=== PATIENT | female | born 1950 | race Caucasian/White ===

== ENCOUNTER 2020-05-11 08:17 | Outpatient (CLI) | payer MEDICARE, SELFPAY ==
--- NOTE | ~2020-05-11 | CT_ITS ---
EXAMINATION: CT lung screening EXAM DATE: 05/11/2020 08:57 INDICATION: Personal history of nicotine dependence. TECHNIQUE: Spiral low dose CT of the chest without contrast. Axial, coronal and sagittal images were reviewed. The dose-length product (DLP) for this examination was 172.26 mGy-cm. The exposure was t ailored according to patient size (auto mA exposure control), and iterative reconstruction (ASIR) was used as additional dose reduction technique. Comparison is made to prior examination from 09/12/2019 . FINDINGS: There is improvement in the amount of endobronchial debris within the right-sided tracheob ronchial system. There is persistent small scattered regions of debris within the right middle lobe b ronchi, with completely collapsed right middle lobe but no focal endobronchial lesion suspected. Prev iously seen scattered right basilar predominant nodular opacities have nearly resolved. There is mild emphysema and hyperinflation. There is no mediastinal, hilar or axillary lymphadenopathy. There a re no pleural or pericardial effusions. There is no pneumothorax. Heart normal in size. There i s moderate coronary arterial calcification, arterial sclerosis. There are cholecystectomy clips. S mall left adrenal adenoma. There is thoracic spondylosis without osteoblastic or osteolytic lesions identified. Mild compression fractures T11 and T12. IMPRESSION: Lung-RADS category 2, benign appearance or behavior (<1% chance of malignancy); recommend continued LDCT screening in 1 year. Reviewed, dictated and finalized at location A.
== END 2020-05-11 08:18 | disposition home or self-care (01) ==
PROVIDERS: PCP Family Medicine; Visit Provider Internal Medicine Critical Care Medicine
DX: Z12.2 Encounter for screening for malignant neoplasm of respiratory organs (principal); Z87.891 Personal history of nicotine dependence
CPT/HCPCS: G0297

== ENCOUNTER 2020-08-04 08:20 | Outpatient (CLI) | payer MEDICARE, SELFPAY ==
--- NOTE | ~2020-08-04 | MM_ITS ---
EXAMINATION: MM screening [facility] BI w salazar HISTORY: Screening mammogram TECHNIQUE: Craniocaudal and mediolateral oblique 3-D tomosynthesis images were obtained and synthetic 2-D images were generated. CAD analysis was submitted and interpreted. COMPARISON: 05/16/2019, 03/23/2016, 05/02/2013 BREAST PARENCHYMAL COMPOSITION: There are scattered areas of fibroglandular density. FINDINGS: RIGHT BREAST: An asymmetry is present in the anterior third of the inner breast approximately 2.5 cm from the nipple on the craniocaudal view. LEFT BREAST: There is no evidence of suspicious mass, calcification, or architectural distortion to s uggest malignancy. There has been no significant interval change. IMPRESSION: 1. Right breast asymmetry on the craniocaudal view. 2. Additional mammographic views and possible breast ultrasound are recommended. BI-RADS Category 0: Incomplete: Needs additional imaging evaluation. Reviewed, dictated and finalized at location A. IMPRESSION: 1. Right breast asymmetry on the craniocaudal view. 2. Additional mammographic views and possible breast ultrasound are recommended . BI-RADS Category 0: Incomplete: Needs additional imaging evaluation.
== END 2020-08-04 08:21 | disposition home or self-care (01) ==
LOC: ANHIMG 08:22
PROVIDERS: PCP Family Medicine; Visit Provider Physician Assistant
DX: Z12.31 Encounter for screening mammogram for malignant neoplasm of breast (principal)
CPT/HCPCS: 77063; 77067

== ENCOUNTER 2020-09-24 11:42 | Outpatient (CLI) | payer MEDICARE, SELFPAY ==
--- NOTE | ~2020-09-24 | MM_ITS ---
EXAMINATION: MM diagnostic mammo unilat RT HISTORY: Right breast asymmetry on craniocaudal screening view of 08/04/2020 TECHNIQUE: Additional full field ML and spot CC 3-D tomosynthesis images of the right breast were per formed and synthetic 2-D images were generated. Rolled medial and rolled lateral craniocaudal views. CAD analysis was submitted and interpreted. COMPARISON: 08/04/2020 bilateral digital screening mammogram FINDINGS: No reproducible mass or architectural distortion is evident on these supplemental views. IMPRESSION: 1. No mammographic evidence of malignancy 2. Routine annual mammographic screening is recommended. BI-RADS Category 1: Negative Reviewed, dictated and finalized at location A. L MAKER LOCKSTITCH
== END 2020-09-24 11:43 | disposition home or self-care (01) ==
LOC: ANHIMG 11:43
PROVIDERS: PCP Family Medicine; Visit Provider Family Medicine
DX: R92.8 Other abnormal and inconclusive findings on diagnostic imaging of breast (principal)
CPT/HCPCS: 77065

== ENCOUNTER 2021-01-24 09:16 | Outpatient (CLI) | payer MEDICARE, SELFPAY ==
--- NOTE | ~2021-01-24 | XR_ITS ---
EXAMINATION: XR hip LT min 2V DATE: 01/24/2021 09:32 INDICATION: 5 months of left hip pain TECHNIQUE: Anteroposterior and frog-leg lateral views of the left hip were obtained. COMPARISON: None. FINDINGS: Alignment is normal. No fracture or suspected avascular necrosis. Mild left hip osteoarthritis with m ild axial predominant nonuniform joint space narrowing and with marginal osteophytes about the acetab ulum and femoral head. Additional mild osteoarthritis at the bilateral sacroiliac joints. Small ovoid calcification projecting over the proximal left femoral diaphysis either a bone island or heterotopi c ossicle within the superimposed soft tissues. Cluster of coarse calcifications in the pelvis likely degenerated uterine fibroid. Scattered atherosclerotic calcifications in the pelvis and along the fe moral artery at the medial left thigh. IMPRESSION: 1. 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 Reviewed, dictated and finalized at location B. IMPRESSION: 1. Mild polyarticular osteoarthritis at the left hip and bilateral sacroiliac j oints.
== END 2021-01-24 09:17 | disposition home or self-care (01) ==
PROVIDERS: PCP Family Medicine; Visit Provider Family Medicine
DX: M25.552 Pain in left hip (principal); M16.0 Bilateral primary osteoarthritis of hip
CPT/HCPCS: 73502

== ENCOUNTER 2021-09-23 01:20 | Day surgery (SDC) | payer MEDICARE, SELFPAY ==
[2021-09-06 13:03] VITALS: BMI 33.7
--- NOTE | 2021-09-22 15:22 | PM.HPGS ---
History of Present Illness History of Present Illness Consent: Risks, benefits, and alternatives have been discussed and questions answered. Patient agrees to proceed with procedure. Chief complaint: hx colon polyp Narrative: Lori Riddle is a 71 year old female who had 9 or 10 polyps removed nearly 3 years ago. Most of the polyps were tubular adenomas Review of Systems Review of Systems: All systems reviewed & are unremarkable except as noted in HPI and below PMFSH Past Medical History Medical History Chronic obstructive pulmonary disease, unspecified Colonic polyp Diabetes mellitus type 2, uncontrolled DM w/o complication type II, uncontrolled Essential hypertension Foot pain, bilateral Former smoker Hyperplastic colonic polyp Hypoxia Mixed hyperlipidemia Obesity Obstructive sleep apnea (adult) (pediatric) Peripheral neuropathy Positive colorectal cancer screening using DNA-based stool test Presence of intraocular lens UTI (urinary tract infection) Yeast infection Surgical History Surgical History History of cholecystectomy Family History Family History Father Hypertension Family history of kidney disease Family history of diabetes mellitus in first degree relative Mother Hypertension Social History Social History Smoking packs per day: 1.5 Smoking cigarettes per day: 30.0 Years smoked: 35 Smoking pack-years: 52.50 Smoking status: Former smoker Tobacco type: cigarettes Second hand tobacco smoke exposure: Yes Smoking end date: 10/22/16 Alcohol intake: never Substance use: never Substance use type: does not use Living arrangements: with family Gender identity (if verbalized by the patient): Female Spiritual care concerns: No Meds Home Medications and Allergies Home Medications Medication Instructions Recorded Confirmed Type blood sugar diagnostic #100 each 06/11/20 09/13/21 Rx lancets #200 each 06/11/20 09/13/21 Rx blood-glucose meter #1 each 06/14/20 09/13/21 Rx glimepiride 4 mg tablet See Rx Instructions .ROUTE 05/17/21 09/13/21 Rx .COMPLEX #30 tablet metformin 500 mg tablet,extended 500 mg PO .COMPLEX #120 tablet 05/30/21 09/13/21 Rx release 24hr hydrochlorothiazide 25 mg tablet See Rx Instructions .ROUTE 09/06/21 09/13/21 Rx .COMPLEX #90 tablet pravastatin 40 mg tablet See Rx Instructions .ROUTE 09/06/21 09/13/21 Rx .COMPLEX #90 tablet losartan 100 mg tablet 100 mg PO DAILY #90 tablet 09/19/21 Rx Allergies Allergy/AdvReac Type Severity Reaction Status Date / Time fenofibrate Allergy Unknown unk Verified 09/23/21 08:08 Exam Resp: Auscultation: clear to auscultation bilaterally Cardio: Rate: regular rate Rhythm: regular rhythm GI: GI Palp: Yes Soft to palpation and No Tenderness to palpation present (GI) Assessment and Plan Assessment and plan (1) Colon cancer screening: Code(s): Z12.11 - Encounter for screening for malignant neoplasm of colon Status: Acute Assessment and Plan: Colonoscopy with possible biopsy or polypectomy or cautery or injection of substances.
[2021-09-23 08:09] VITALS: BP 135/56; PULSE 73; RESP 18; TEMP 36.4; O2SAT 95; BMI 32.9
[2021-09-23] MEDS: LACTATED RINGERS 1,000 ML 150 ML IV CONT (08:12)
[2021-09-23 08:24] LABS: Glucose Point of Care 188 mg/dl (65-105)
--- NOTE | 2021-09-23 08:25 | WPDANESEPPF ---
Anes - Initial Pre Proc Eval Procedure: Operation Date: 09/23/21 09:00 Proposed Procedures p Screening Colonoscopy - Spencer Gaxiola MD Date/Time: 09/23/21 08:25 Surgeon: Spencer Gaxiola MD Pre Op Diagnosis: hx colon polyp Patient Data Age: 71 Gender: F Height: 1.65 m Weight: 89.7 kg Last Vital Signs Temp 36.4 C L 09/23/21 08:09 Pulse 73 09/23/21 08:09 Resp 18 09/23/21 08:09 BP 135/56 L 09/23/21 08:09 Pulse Ox 95 09/23/21 08:09 Allergies Allergy/AdvReac Type Severity Reaction Status Date / Time fenofibrate Allergy Unknown unk Verified 09/23/21 08:08 Home Medications Medication Instructions Recorded Confirmed Type blood sugar diagnostic #100 each 06/11/20 09/13/21 Rx lancets #200 each 06/11/20 09/13/21 Rx blood-glucose meter #1 each 06/14/20 09/13/21 Rx glimepiride 4 mg tablet See Rx Instructions .ROUTE 05/17/21 09/13/21 Rx .COMPLEX #30 tablet metformin 500 mg tablet,extended 500 mg PO .COMPLEX #120 tablet 05/30/21 09/13/21 Rx release 24hr hydrochlorothiazide 25 mg tablet See Rx Instructions .ROUTE 09/06/21 09/13/21 Rx .COMPLEX #90 tablet pravastatin 40 mg tablet See Rx Instructions .ROUTE 09/06/21 09/13/21 Rx .COMPLEX #90 tablet losartan 100 mg tablet 100 mg PO DAILY #90 tablet 09/19/21 Rx Laboratory Tests 09/23/21 08:21 POC Capillary Glucose 188 mg/dl H mg/dl (65-105) Patient hx anesthesia problems: none Family hx anesthesia problems: none Results Review: All pre-operative results and documents have been reviewed as part of the pre-operative evaluation. [facility] Past Medical History Medical History Chronic obstructive pulmonary disease, unspecified Colonic polyp Diabetes mellitus type 2, uncontrolled DM w/o complication type II, uncontrolled Essential hypertension Foot pain, bilateral Former smoker Hyperplastic colonic polyp Hypoxia Mixed hyperlipidemia Obesity Obstructive sleep apnea (adult) (pediatric) Peripheral neuropathy Positive colorectal cancer screening using DNA-based stool test Presence of intraocular lens UTI (urinary tract infection) Yeast infection Surgical History Surgical History History of cholecystectomy Family History Family History Father Hypertension Family history of kidney disease Family history of diabetes mellitus in first degree relative Mother Hypertension Social History Social History Smoking packs per day: 1.5 Smoking cigarettes per day: 30.0 Years smoked: 35 Smoking pack-years: 52.50 Smoking status: Former smoker Tobacco type: cigarettes Second hand tobacco smoke exposure: Yes Smoking end date: 10/22/16 Alcohol intake: never Substance use: never Substance use type: does not use Living arrangements: with family Gender identity (if verbalized by the patient): Female Spiritual care concerns: No Anes - Eval Final PreProcedure Day of Procedure 09/23/21 08:25 Patient weight: obese Heart: regular rate and rhythm Lungs: clear to auscultation Airway: Mallampati scale class II Neurological: alert and oriented Last oral intake: >/= 8 hours ASA classification: III Emergent: no Anesthetic plan: proceed Anesthesia type and monitoring: general GIVS and standard monitoring Results Review: All pre-operative results and documents have been reviewed as part of the pre-operative evaluation. Informed Consent: The patient's anesthetic plan and its attendant risks and benefits were discussed with the patient/family/POA. Questions were solicited and answers provided to the satisfaction of the patient/family/POA.
[2021-09-23] MEDS: SIMETHICONE ORAL SUSPENSION 20 MG/0.3 ML 30 ML BOTTLE 0.6 ML IRRIGATION (08:56)
[2021-09-23 09:17] VITALS: BP 87/64; PULSE 71; RESP 18; O2SAT 93
[2021-09-23 09:27] VITALS: BP 112/52; PULSE 65; RESP 18; O2SAT 94
[2021-09-23 09:35] VITALS: BP 128/61; PULSE 65; RESP 18; O2SAT 98
== END 2021-09-23 09:42 | disposition home or self-care (01) ==
PROVIDERS: PCP Family Medicine; Visit Provider Internal Medicine Gastroenterology
PROC: 0DJD8ZZ Inspection of Lower Intestinal Tract, Via Natural or Artificial Opening Endoscopic (ICD-10-PCS; CPT 45378; principal; 2021-09-23 09:00)
DX: Z12.11 Encounter for screening for malignant neoplasm of colon (principal); K57.30 Diverticulosis of large intestine without perforation or abscess without bleeding; D12.2 Benign neoplasm of ascending colon; D12.5 Benign neoplasm of sigmoid colon; K62.1 Rectal polyp; J44.9 Chronic obstructive pulmonary disease, unspecified; E11.9 Type 2 diabetes mellitus without complications; I10 Essential (primary) hypertension; E78.2 Mixed hyperlipidemia; G47.33 Obstructive sleep apnea (adult) (pediatric); E11.42 Type 2 diabetes mellitus with diabetic polyneuropathy; Z79.84 Long term (current) use of oral hypoglycemic drugs; Z87.891 Personal history of nicotine dependence; E66.9 Obesity, unspecified; Z68.32 Body mass index [BMI] 32.0-32.9, adult
CPT/HCPCS: 45385; 45381; 82948; 88305; J2704; J7120

== ENCOUNTER 2021-10-05 12:48 | Outpatient (CLI) | payer MEDICARE, SELFPAY ==
--- NOTE | ~2021-10-05 | CT_ITS ---
EXAMINATION: CT lung screening DATE: 10/05/2021 13:53 INDICATION: Nicotine dependence. COPD. TECHNIQUE: Computed tomography (CT) of the chest was performed without intravenous contrast. The dose -length product was 199.11 mGy-cm. Automated exposure control and iterative reconstruction technique were employed. COMPARISON: CT dated 05/11/2021 FINDINGS: There is improved right middle lobe atelectasis/scarring. There is atherosclerosis of the a dayne and coronary arteries. Heart size is normal. No significant pleural or pericardial effusion. The re are borderline size mediastinal lymph nodes, likely reactive. No significant soft tissue abnormali ty. Stable small left adrenal adenoma. There are cholecystectomy clips. There is a 2 mm nodule in the right upper lobe, likely benign. There are a few 1-2 mm nodules in the lung apices. There are stable mild superior endplate compression fractures of T11 and T12. Mild thoracic spondylosis. IMPRESSION: 1. Lung-RADS category 2: Benign appearance or behavior. Continue annual screening with noncontrast lo w-dose chest CT in 12 months. Reviewed, dictated and finalized at location A. CITING FREIGHT AGENT IMPRESSION: 1. Lung-RADS category 2: Benign appearance or behavior. Continue annual screeni ng with noncontrast low-dose chest CT in 12 months.
--- NOTE | 2021-10-05 16:45 | SIXMIN_ITS ---
This report was recreated on the correct visit, [id number], on March 14, 2022. Original report was signed by Dr. Tyler Chapin on 10/05/21 at 16:45. Six Minute Walk Procedure Procedure Performed Pulmonary Stress Test (6 min walk) Six Minute Walk This is a 6 minute walk test. The test was performed and interpreted in accordance with the 2014 ERS/ATS task force guidelines. Findings: The patient's resting room air oxygen saturation measured by pulse oximetry was 94% and heart rate was 79 bpm. Patient ambulated for 274 meters and oxygen saturation remained 89 to 90%. Heart rate at the end of the study was 86 bpm. The patient did not qualify for supplemental oxygen at rest or with ambulation. There are no prior studies for comparison. This dictation may have been done utilizing a voice recognition system. Attempts have been made to correct errors. However, there may be uncorrected grammatical, spelling, and recognition errors present. Report Initialized date/time: Tyler Chapin MD 10/05/21 / 6 Electronically signed by: Tyler Chapin MD 10/05/21 1453 [facility]
--- NOTE | 2022-03-14 13:14 | WPDPFTINT ---
PFT Procedure Performed PFT Procedure Performed Spirometry with Pre/Post Bronchodilator Plethysmography (Lung Vol) Diffusing Cap (DLCO) Flow Vol Loop PFT Interpretation Lung volumes were measured with the body plethysmography method. The elevated FRC and RV could be related to air trapping. Spirometry showed diminished expiratory flow rates and a diminished FEV1 to FVC ratio 56%, indicative of obstructive airway disease. Following administration of a bronchodilator there was significant increase in the FVC. Lung diffusion capacity is moderately reduced at 51% predicted. The flow volume loop is consistent with obstructive airway disease. Impression: Moderately severe obstructive airway disease with evidence of air trapping and significant response to bronchodilators on this testing. Moderately reduced lung diffusion capacity.
== END 2021-10-05 12:49 | disposition home or self-care (01) ==
LOC: ANHIMG 12:48
PROVIDERS: PCP Family Medicine; Visit Provider Nurse Practitioner Family
DX: Z12.2 Encounter for screening for malignant neoplasm of respiratory organs (principal); Z87.891 Personal history of nicotine dependence
CPT/HCPCS: 71271; 94060; 94618; 94726; 94729

== ENCOUNTER 2021-10-12 10:20 | Emergency (ER) | payer MEDICARE, SELFPAY ==
--- NOTE | ~2021-10-12 | XR_ITS ---
EXAMINATION: XR foot LT min 3V DATE: 10/12/2021 12:17 INDICATION: Left foot pain. Fall. TECHNIQUE: 4 views of left foot were obtained. COMPARISON: None. FINDINGS: There is an oblique fracture of diaphysis of fifth metatarsal. The distal fracture fragment demonstrates 3 mm dorsomedial displacement. There is mild osteoarthritis of first interphalangeal cornell int. There are enthesophytes at the posterior and plantar aspects of calcaneal tuberosity. There are dystrophic calcifications dorsal to the midfoot. IMPRESSION: 1. Oblique fracture of diaphysis of fifth metatarsal. Reviewed, dictated and finalized at location A. NG SUPERVISOR
[2021-10-12 10:22] VITALS: BP 156/67; PULSE 78; RESP 18; TEMP 36.3; O2SAT 98
--- NOTE | 2021-10-12 11:57 | ED.GENADULT ---
HPI - General Adult General Chief complaint: Extremity Injury, Lower <Ericka Joseph PA-C - Last Filed: 10/12/21 13:32> Stated complaint: fall, foot pain <Ericka Joseph PA-C - Last Filed: 10/12/21 13:32> Time Seen by Provider: 10/12/21 11:56 <Ericka Joseph PA-C - Last Filed: 10/12/21 13:32> Source: patient <Ericka Joseph PA-C - Last Filed: 10/12/21 13:32> Mode of arrival: ambulatory <Ericka Joseph PA-C - Last Filed: 10/12/21 13:32> Limitations: no limitations <Ericka Joseph PA-C - Last Filed: 10/12/21 13:32> History of Present Illness HPI narrative: 71-year-old female who was outside on her patio with her puppy yesterday when she stumbled and fell onto her left side. She did fall onto grass. Since that time she is had significant pain in her left foot, she has been able to to ambulate with the use of her cane. And she has not taken anything for the pain at home. <Ericka Joseph PA-C - Last Filed: 10/12/21 13:32> Onset (ago): day(s) <Ericka Joseph PA-C - Last Filed: 10/12/21 13:32> Severity: moderate <Ericka Joseph PA-C - Last Filed: 10/12/21 13:32> Relieving factors: immobilization <AMBER Morrison Last Filed: 10/12/21 13:32> Exacerbating factors: movement <Ericka Joseph PA-C - Last Filed: 10/12/21 13:32> Associated symptoms: denies other symptoms <Ericka Joseph PA-C - Last Filed: 10/12/21 13:32> Treatments prior to arrival: none <Ericka Joseph PA-C - Last Filed: 10/12/21 13:32> Related Data Allergies/adverse reactions: Allergies Allergy/AdvReac Type Severity Reaction Status Date / Time fenofibrate Allergy Unknown unk Verified 09/23/21 08:08 <Ericka Joseph PA-C - Last Filed: 10/12/21 13:32> Review of Systems Review of Systems: All systems reviewed & are unremarkable except as noted in HPI and below <Ericka Joseph PA-C - Last Filed: 10/12/21 13:32> [facility] Past Medical History Medical History: Medical History Chronic obstructive pulmonary disease, unspecified Colonic polyp Diabetes mellitus type 2, uncontrolled DM w/o complication type II, uncontrolled Essential hypertension Foot pain, bilateral Former smoker Hyperplastic colonic polyp Hypoxia Mixed hyperlipidemia Obesity Obstructive sleep apnea (adult) (pediatric) Peripheral neuropathy Positive colorectal cancer screening using DNA-based stool test Presence of intraocular lens UTI (urinary tract infection) Yeast infection <Ericka Joseph PA-C - Last Filed: 10/12/21 13:32> Surgical History Surgical History: Surgical History History of cholecystectomy <Ericka Joseph PA-C - Last Filed: 10/12/21 13:32> Family History Family History: Family History Father Hypertension Family history of kidney disease Family history of diabetes mellitus in first degree relative Mother Hypertension <Ericka Joseph PA-C - Last Filed: 10/12/21 13:32> Social History Social History: Social History Smoking packs per day: 1.5 Smoking cigarettes per day: 30.0 Years smoked: 35 Smoking pack-years: 52.50 Smoking status: Former smoker Tobacco type: cigarettes Second hand tobacco smoke exposure: Yes Smoking end date: 10/22/16 Alcohol intake: never Substance use: never Substance use type: does not use Gender identity (if verbalized by the patient): Female Spiritual care concerns: No <Ericka Joseph PA-C - Last Filed: 10/12/21 13:32> Exam Const: General: no acute distress and alert <Ericka Joseph PA-C - Last Filed: 10/12/21 13:32> Orientation/consciousness: patient oriented x3 <Ericka Joseph PA-C - Last Filed: 10/12/21 13:32> HENMT: Head: normal to inspect
== END 2021-10-12 14:07 | disposition home or self-care (01) ==
PROVIDERS: Emergency Provider General Practice; PCP Family Medicine
DX: S92.352A Displaced fracture of fifth metatarsal bone, left foot, initial encounter for closed fracture (principal); W01.0XXA Fall on same level from slipping, tripping and stumbling without subsequent striking against object, initial encounter
CPT/HCPCS: 73630; 99284

== ENCOUNTER 2021-11-03 09:07 | Outpatient (CLI) | payer MEDICARE, SELFPAY ==
--- NOTE | ~2021-11-03 | MM_ITS ---
EXAMINATION: MM screening [facility] BI w salazar HISTORY: Screening TECHNIQUE: Craniocaudal and mediolateral oblique 3-D tomosynthesis images were obtained and synthetic 2-D images were generated. CAD analysis was submitted and interpreted. COMPARISON: Comparison to multiple prior studies sequentially, with oldest reviewed study dated 05/02. BREAST PARENCHYMAL COMPOSITION: There are scattered areas of fibroglandular density. FINDINGS: There is no evidence of suspicious mass, calcification, or architectural distortion to sugg est malignancy in either breast. There has been no suspicious interval change. IMPRESSION: 1. No mammographic evidence of malignancy. 2. Recommend routine screening mammography in one year. BI-RADS Category 1: Negative Reviewed, dictated and finalized at location A. CULATION OFFICER
== END 2021-11-03 09:08 | disposition home or self-care (01) ==
LOC: ANHIMG 09:08
PROVIDERS: PCP Family Medicine; Visit Provider Family Medicine
DX: Z12.31 Encounter for screening mammogram for malignant neoplasm of breast (principal)
CPT/HCPCS: 77063; 77067

== ENCOUNTER 2021-11-21 11:38 | Outpatient (CLI) | payer MEDICARE, SELFPAY ==
--- NOTE | ~2021-11-21 | US_ITS ---
EXAMINATION: US venous doppler [facility] DATE: 11/21/2021 12:00 INDICATION: Left lower limb pain. TECHNIQUE: Grayscale ultrasound images without and with compression and Doppler ultrasound images of the left lower extremity veins were obtained. COMPARISON: Ultrasound 12/08/2012 FINDINGS: The visualized portions of left common femoral vein, profunda (deep) femoral vein, femoral vein, popl iteal vein, peroneal veins, posterior tibial veins, and greater saphenous vein outflow are patent. IMPRESSION: 1. No deep venous thrombosis. Reviewed, dictated and finalized at location A. ONE BREAKER
== END 2021-11-21 11:39 | disposition home or self-care (01) ==
LOC: ANHIMG 11:41
PROVIDERS: PCP Family Medicine; Visit Provider Family Medicine
DX: M79.671 Pain in right foot (principal); M79.672 Pain in left foot; M79.89 Other specified soft tissue disorders; M79.669 Pain in unspecified lower leg
CPT/HCPCS: 93971

== ENCOUNTER 2022-08-23 11:49 | Outpatient (CLI) | payer MEDICARE, SELFPAY ==
[2022-08-23 12:15] LABS: Hematocrit 36.9 % (37.0-47.0); Hemoglobin 12.3 g/dL (12.0-15.0)
--- NOTE | 2022-08-23 12:21 | ECG_ITS ---
Measurements Intervals [place] Rate: 64 P: 7 IA: 133 QRS: 50 QRSD: 94 T: 39 QT: 382 QTc: 395 Interpretive Statements SINUS RHYTHM INCOMPLETE RIGHT BUNDLE BRANCH BLOCK BASELINE WANDER- I, II, AVR, AVL, AVF, V1-V3 BORDERLINE ECG NO PREVIOUS ECG AVAILABLE FOR COMPARISON Electronically Signed On 08-23-2022 12:55:51 CDT by Arturo Alejo D.O.
[2022-08-23 12:22] LABS: Albumin Level 4.3 g/dL (3.5-5.1); Estimated Glomerular Filt Rate > 60; Glucose 164 mg/dL (65-110)
[2022-08-23 15:42] LABS: Urine Cotinine NEGATIVE
== END 2022-08-23 11:50 | disposition home or self-care (01) ==
LOC: ANHLAB 11:53
PROVIDERS: PCP Family Medicine; Visit Provider Orthopaedic Surgery
DX: M16.12 Unilateral primary osteoarthritis, left hip (principal); I10 Essential (primary) hypertension; E78.2 Mixed hyperlipidemia; E11.65 Type 2 diabetes mellitus with hyperglycemia; M47.818 Spondylosis without myelopathy or radiculopathy, sacral and sacrococcygeal region; Z87.891 Personal history of nicotine dependence
CPT/HCPCS: 80307; 82040; 82565; 82947; 83036; 85014; 85018; 93005

== ENCOUNTER 2022-09-25 09:54 | Outpatient (CLI) | payer MEDICARE, SELFPAY ==
[2022-09-25 11:28] LABS: Basophils Percent Auto 0.6 % (0.2-1.2); Eosinophils Absolute Auto 0.1 K/mm3 (0-0.3); Eosinophils Percent Auto 0.7 % (0-4.4); Hematocrit 36.3 % (37.0-47.0); Hemoglobin 12.2 g/dL (12.0-15.0); Immature Granulocyte Absolute 0.05 K/mm3 (0.00-0.031); Immature Granulocyte Percent A 0.7 % (0-0.5); Lymphocytes Absolute Auto 2.12 K/mm3 (0.9-3.2); Lymphocytes Percent Auto 30.7 % (18.3-44.2); Mean Corpuscular HGB Conc 33.6 g/dl (32-36); Mean Corpuscular Hemoglobin 29.8 pg (26-34); Mean Corpuscular Volume 88.8 fl (80-100); Monocytes Absolute Auto 0.5 K/mm3 (0.1-0.6); Monocytes Percent Auto 6.8 % (2.6-8.5); Neutrophils Absolute Auto 4.2 K/mm3 (1.3-6.7); Neutrophils Percent Auto 60.5 % (45.5-73.1); Platelet Count Result 145 k/mm3 (150-375); Red Blood Count 4.09 M/mm3 (4.2-5.4); Red Cell Distribution Width 15.2 % (11.5-14.5); White Blood Count 6.9 K/mm3 (4.5-10.0)
[2022-09-25 11:38] LABS: Anion Gap 8 mmol/L (8-16); Blood Urea Nitrogen 25 mg/dL (7-17); Carbon Dioxide 27 mmol/L (22-30); Chloride 105 mmol/L (98-107); Estimated Glomerular Filt Rate > 60; Glucose 168 mg/dL (65-110); Potassium 4.6 mmol/L (3.4-5.0); Sodium 140 mmol/L (137-145)
== END 2022-09-25 09:55 | disposition home or self-care (01) ==
PROVIDERS: PCP Family Medicine; Visit Provider Orthopaedic Surgery
DX: M25.552 Pain in left hip (principal); Z01.818 Encounter for other preprocedural examination
CPT/HCPCS: 36415; 80048; 85025; 87081

== ENCOUNTER 2022-10-10 13:21 | Outpatient (CLI) | payer MEDICARE, SELFPAY ==
--- NOTE | ~2022-10-10 | CT_ITS ---
EXAMINATION: CT lung screening DATE: 10/10/2022 13:53 INDICATION: Former smoker. Quit 7 years ago. 60 pack year smoking history. TECHNIQUE: Computed tomography (CT) of the chest was performed without intravenous contrast. Automate d exposure control and iterative reconstruction technique were employed. Exam dose: 218.55 mGy-cm to jesus exam DLP. COMPARISON: 10/05/2021 CT lung screening FINDINGS: Stable 2 mm right upper lobe pulmonary nodule, unchanged since 10/05/2021 (series 4 image 3 5). 2 mm middle lobe nodular density (image 67). Posterior right lower lobe pleural-based 3.2 mm opacity (image 83). 2.7 mm probable calcified pulmonary granuloma in the posterior right lower lobe (image 72), with dens ity measuring up to 132 Hounsfield units. Minimal discoid atelectasis or scarring at the base of the middle lobe and left lower lobe, likely ch ronic, stable in the left lower lobe, diminished in prominence in the middle lobe since 10/05/2021. No pulmonary infiltrate or consolidation or significant new or developing pulmonary mass density is n oted otherwise. No hilar or mediastinal mass lesion or lymphadenopathy. Prominent aortic, great vessel and coronary artery calcifications. Normal heart size. No pericardial or pleural effusion. Status post cholecystectomy. Normal morphology of the adrenal glands. There is extensive abdominal aortic calcification probably calcified calculi the origins of the ifeanyi c, superior mesenteric and renal arteries. No suspicious osteolytic or osteoblastic lesions. Chronic stable compression fracture deformities sin ce 10/05/2021 of T6, minimal and T11 and T12, mild. IMPRESSION: Lung RADS category 2: Benign appearance or behavior Recommendation: Continue annual screening with LD CT in 12 months Reviewed, dictated and finalized at Location A. Reviewed, dictated and finalized at location A. REMOVAL SUPERVISOR
== END 2022-10-10 13:22 | disposition home or self-care (01) ==
PROVIDERS: PCP Family Medicine; Visit Provider Physician Assistant
DX: Z12.2 Encounter for screening for malignant neoplasm of respiratory organs (principal); Z87.891 Personal history of nicotine dependence
CPT/HCPCS: 71271

== ENCOUNTER 2022-10-24 05:52 | Day surgery (SDC) | payer MEDICARE, SELFPAY ==
[2022-09-25 10:32] VITALS: BMI 33.5
[2022-09-25 10:34] VITALS: BP 129/51; PULSE 59; RESP 18; TEMP 36.9; O2SAT 95
--- NOTE | 2022-09-25 10:36 | PC.NURSE ---
Report to the Outpatient Waiting Room, entrance under the green pavilion located off [facility], at time _0600 on date ___10/24/22____. Planned Procedure Time: __729 . Time changes happen often and if your time is changed the preop area will call you the afternoon before. - You and your visitor will be asked to self-screen and do not enter if you have any COVID symptoms. - Only one visitor is requested with a max of two and NO children visitors are allowed at this time. - The patient visitor may be requested to leave or wait in car when not with patient due to distancing restrictions. - A mask is optional within the hospital. Patients may have clear liquids (water, carbonated beverages, clear teas, apple juice) until 3 hours prior to surgery with a maximum of 20 ounces. - No food from midnight until time of surgery - Infants may have breast milk until 4 hours before surgery, infant formula 6 hours prior to surgery. - Children will be allowed to drink immediately following surgery. If applicable, please bring a bottle or sippy cup to assist with drinking. Juice, water, soda, and popsicles are readily available. For infants on formula, please bring formula the day of surgery. Pacifiers are allowed. MAY TAKE TYLENOL IF NEEDED FOR PAIN Take the following medications with a SIP of water the morning of surgery: ____GABAPENTIN Medications to discontinue per physician ___IBUPROFEN 7 DAYS PRE OP PER DR YOUNG. ALL VITAMINS AND SUPPLEMENTS 3 DAYS PRE OP Date to take last dose_IBUPROFEN ALL VITAMINS AND SUPPLEMENTS 10/20/22 Please no make-up, nail stateless, hairspray, perfume, deodorant, or body powder the day of surgery. No jewelry (including any body piercings) or valuables the day of surgery, leave them at home. Please take a shower or bath the night before, or the morning of, surgery with an antibacterial soap. Wear comfortable, loose fitting clothing. Children are encouraged to wear pajamas. - Jewelry must be removed prior to entering the operating room. Rings and piercings that are not removed may be cut off. - The hospital will not accept responsibility for valuables. - Please leave all valuables, including medications, at home the day of surgery. If you are going home after surgery, a licensed services delivery driver must drive you home. - NO public transportation without another adult if you receive anesthesia. - We recommend that an adult stay with you for 24 hours following discharge. - We also recommend that you do not drive, make important decision, drink alcoholic beverages, or take any drugs that were not prescribed by your health care provider for at least 24 hours after your discharge time Follow any additional instructions given to you from your surgeon. If you or anyone in your household have experienced Covid symptoms in the past week, please notify your surgeon or the nurse liaison at the phone number below for possible testing. VERBAL AND WRITTEN instructions given to _PATIENT AND SPOUSE JIM and asked if any additional questions and then verbalized understanding. Patient advised to call surgeon office or pre surgery nurse liaison [phone] if any additional questions.
[2022-10-24] VITALS (20 sets, daily range): BP systolic 104–137; BP diastolic 44–69; PULSE 57–76; RESP 14–20; TEMP 35.8–36.6; O2SAT 90–100
--- NOTE | ~2022-10-24 | XR_ITS ---
EXAMINATION: XR hip LT min 2V DATE: 10/24/2022 09:35 INDICATION: Total left hip arthroplasty. Postop. TECHNIQUE: 2 views of left hip were obtained. COMPARISON: Left hip radiographs 08/11/2022 FINDINGS: There is a total left hip arthroplasty in near-anatomic alignment. No fracture. IMPRESSION: 1. Total left hip arthroplasty in near-anatomic alignment. Reviewed, dictated and finalized at location A. MANAGER
[2022-10-24] MEDS: ACETAMINOPHEN 500 MG TABLET 1000 MG PO (06:26)
[2022-10-24] MEDS: LACTATED RINGERS 1,000 ML 30 ML IV CONT ×2 (06:35→09:12)
[2022-10-24 06:45] LABS: Glucose Point of Care 168 mg/dl (65-105)
--- NOTE | 2022-10-24 06:56 | WPDANESEPPF ---
Anes - Initial Pre Proc Eval Procedure: Operation Date: 10/24/22 07:30 Proposed Procedures p Left Total Hip Arthroplasty - Suhas La MD Date/Time: 10/24/22 06:56 Surgeon: Suhas La MD Pre Op Diagnosis: primary OA left hip Patient Data Age: 72 Gender: F Height: 1.65 m Weight: 91 kg Last Vital Signs Temp 36.2 C L 10/24/22 06:07 Pulse 69 10/24/22 06:07 Resp 20 10/24/22 06:07 BP 137/60 10/24/22 06:07 Pulse Ox 94 10/24/22 06:07 O2 Del Method Room Air 10/24/22 06:07 Allergies Allergy/AdvReac Type Severity Reaction Status Date / Time fenofibrate Allergy Unknown Hives Verified 10/24/22 06:10 Home Medications Medication Instructions Recorded Confirmed Type blood sugar diagnostic (Blood #100 ea 06/11/20 09/26/22 Rx Glucose Test strips) lancets #200 ea 06/11/20 09/26/22 Rx blood-glucose meter #1 ea 06/14/20 09/26/22 Rx glimepiride 4 mg tablet See Rx Instructions .Route 04/28/22 10/24/22 Rx .COMPLEX #90 tabs metformin 500 mg tablet,extended 500 mg PO .COMPLEX #120 tabs 05/23/22 10/24/22 Rx release 24hr pravastatin 40 mg tablet See Rx Instructions .Route 05/26/22 10/24/22 Rx .COMPLEX #90 tabs hydrochlorothiazide 25 mg tablet See Rx Instructions .Route 06/05/22 10/24/22 Rx .COMPLEX #90 tabs acetaminophen 500 mg capsule 500 mg PO QID PRN Pain 09/25/22 10/24/22 History ibuprofen 200 mg tablet 200 mg PO Q6H PRN Pain 09/25/22 10/24/22 History multivitamin 1 tablet PO DAILY 09/25/22 10/24/22 History pyridoxine (vitamin B6) 100 mg 100 mg PO DAILY 09/25/22 10/24/22 History tablet vitamins A,C,Z-lqba-oechut 14,320 1 cap PO HS 09/25/22 10/24/22 History unit-226 mg-200 unit capsule (PreserVision AREDS) gabapentin 100 mg capsule See Rx Instructions .Route 09/27/22 10/24/22 Rx .COMPLEX #90 caps losartan 100 mg tablet See Rx Instructions .Route 10/10/22 10/24/22 Rx .COMPLEX #90 tabs Laboratory Tests 10/24/22 06:36 POC Capillary Glucose 168 mg/dl H mg/dl (65-105) ECG: Date of Service: 08/23/22 Procedure(s): CA 12 lead EKG Accession Number(s): [id number] cc: ~ ? Measurements Intervals? [place]? Rate: ? 64 ? P:? 7 CO: ? 133? QRS:? 50 QRSD: ? 94 ? T:? 39 QT: ? 382? QTc:? 395? Interpretive Statements SINUS RHYTHM INCOMPLETE RIGHT BUNDLE BRANCH BLOCK BASELINE WANDER- I, II, AVR, AVL, AVF, V1-V3 BORDERLINE ECG NO PREVIOUS ECG AVAILABLE FOR COMPARISON Electronically Signed On 08-23-2022 12:55:51 CDT by Arturo Alejo D.O. Patient hx anesthesia problems: none Family hx anesthesia problems: none Results Review: All pre-operative results and documents have been reviewed as part of the pre-operative evaluation. [facility] Past Medical History Medical History Chronic obstructive pulmonary disease, unspecified Colonic polyp Diabetes mellitus type 2, uncontrolled DM w/o complication type II, uncontrolled Essential hypertension Foot pain, bilateral Former smoker Hyperplastic colonic polyp Hypoxia Mixed hyperlipidemia Obesity Obstructive sleep apnea (adult) (pediatric) Peripheral neuropathy Positive colorectal cancer screening using DNA-based stool test Presence of intraocular lens UTI (urinary tract infection) Yeast infection Surgical History Surgical History History of cholecystectomy Family History Family History Father Hypertension Family history of kidney disease Family history of diabetes mellitus in first degree relative Mother Hypertension Social History
[2022-10-24] MEDS: TRANEXAMIC ACID 1,000MG/ISO100 1,000 MG/100 ML BAG 200 MG IVPB (07:05)
--- NOTE | 2022-10-24 07:24 | WPDHPUPDATE1 ---
History and Physical Update Update Date/Time: 10/24/22 07:24 History and Physical has been reviewed, including an updated exam of the patient. There are NO changes in the patient's condition. Risks, benefits, and alternatives have been discussed and questions answered. Patient agrees to proceed with procedure.
--- NOTE | 2022-10-24 07:25 | WPDHPUPDATE1 ---
History and Physical Update Update Date/Time: 10/24/22 07:25 History and Physical has been reviewed, including an updated exam of the patient. There are NO changes in the patient's condition. Risks, benefits, and alternatives have been discussed and questions answered. Patient agrees to proceed with procedure.
[2022-10-24] MEDS: ceFAZolin 2 GM/D5W 50 ML 2 GM/50 ML BAG IVPB ×3 (07:30→23:55)
[2022-10-24 09:25] LABS: Glucose Point of Care 241 mg/dl (65-105)
--- NOTE | 2022-10-24 09:25 | SUR.PHASEI ---
0987- Call to Dr. Canchola for elevated BG 241. Obtained orders for 4 units Regular insulin IVP. Will place orders and administer insulin.
[2022-10-24] MEDS: INSULIN HUMAN REGULAR (*BKC) 100 UNITS/ML IV PUSH (09:34)
--- NOTE | 2022-10-24 10:33 | W.PM.PROC2 ---
Procedure Note - Detailed Date of Procedure 10/24/22 Pre-op Diagnosis primary OA left hip Post-op Diagnosis Same Procedure Performed Left Total Hip Arthroplasty, left. Surgeon Suhas La MD Gear Hobber Autumn Sheets PA-C Anesthesia General Description of Procedure The patient was given preoperative antibiotics. A general anesthetic was administered. The patient was carefully placed in the lateral decubitus position on the PEG board. The shoulders and hips were carefully positioned for component and leg length positioning reference. The hip was prepped and draped in the usual sterile fashion. A longitudinal incision was created over the posterior aspect of the greater trochanter. Careful dissection was brought down through the deep fascia with electrocautery. A minimally invasive optimized posterior approach to the hip was performed. The short external rotators and capsule were taken down in an L-shaped capsulotomy. The tissue was tagged for later repair using number 2 high strength suture. The femoral neck was measured and taken in situ. The femoral head was removed. The acetabulum was carefully exposed. The inferior capsule was released. The labrum was resected. The acetabulum was sequentially reamed to the intended cup size. The cup was impacted into position with excellent press-fit. Typical anatomic landmarks, including the bony contact points as well as the inferior transverse acetabular ligament were used to confirm cup positioning with preoperative templating. Attention was turned to the femur, which was carefully exposed. The hip was reamed and then broached sequentially. Excellent press-fit was obtained with the broach. The hip was trialed. Measurements were utilized, including the lesser trochanter as well as the center of the femoral head and the tip of the trochanter, and excellent assessment of the offset and leg lengths were confirmed. The real component was impacted into position. Trialing confirmed appropriate leg length and offset with soft tissue balancing as well apparent feel of the leg, both at the knee and the heel. Soft tissues were assessed using the the iliotibial band. Reduction of the posterior capsule and external rotators were also used as a secondary assessment. The hip was copiously irrigated with pulsatile lavage antibiotic solution periodically throughout the procedure. The real components were then assembled and reduced. The hip was stable throughout typical maneuvers, including extension, external rotation to 70 degrees, the position of sleep as well as flexion to 90 degrees with internal rotation past 45 degrees. The shake test confirmed stability without impingement. Osteophytes were removed as necessary. The short external rotators and capsule were repaired back to the posterior trochanter through drill holes. The deep fascia was repaired with running number 2 Quill suture, followed by 0 Stratafix suture and 2-0 Stratafix suture in the dermis. Steri-Strips were placed on the skin, followed by a sterile silver occlusive dressing. There were no complications. Meticulous hemostasis was maintained with the AquaMantys device. The patient was brought to the recovery room in stable condition. There were no complications. Physician distribution center assistant, Autumn Sheets PA-C, required for surgery; including patient positioning, draping, tissue retraction, maintaining instrument position, hip dislocation/ relocation, wound closure, and dressing placement. Implants The Accolade II hip stem, 127 degree size 4 , was utilized with excellent press-fit. The 48 mm Trident II acetabular component was impacted with excellent press-fit stability. The +0, 36 mm Biolox ceramic femoral head was utilized. Estimated Blood Loss 200 Drains No Packing No Pathology None sent Complications No immediate complications Condition Stable Disposition PACU [facility] Billing Surgery - Charge Forward: Surgery Billing
--- NOTE | 2022-10-24 10:40 | SUR.PHASEI ---
1040- Patient meets PACU discharge criteria, unit bed unavailable at this time. Patient placed in extended recovery status.
[2022-10-24 11:13] LABS: Glucose Point of Care 239 mg/dl (65-105)
--- NOTE | 2022-10-24 11:16 | SUR.PHASEI ---
1116- Call to Dr. Canchola, patient's BG 239 at [facility]. Dr. Canchola aware and no additional orders at this time with 4 units Regular insulin IVP being given under 2 hours prior.
--- NOTE | 2022-10-24 12:22 | SUR.PHASEI ---
Addendum entered by Melba Santana RN 10/24/22 12:23: at side. Original Note: 1130 pt awaiting room assignment and remains on stretcher in pre op area.
--- NOTE | 2022-10-24 13:31 | SUR.PHASEI ---
1320 pt here and pt walked in [place] with walker and sitting up in chair eating lunch.spouse at side.
[2022-10-24 13:32] LABS: Glucose Point of Care 264 mg/dl (65-105)
--- NOTE | 2022-10-24 13:50 | SUR.PHASEI ---
ot here to see pt 1344.
--- NOTE | 2022-10-24 14:47 | ADMGEN ---
This patient, Lori Riddle, was admitted to [facility] Surg Room 329-01. Patient/family oriented to hospital policies and general routines including ID bracelet, bed and alarms, visiting hours, pain management, procedures, bathroom and other care routines, personal items, smoking policy, room service/diet, and visiting hours. Information on how to activate the Rapid Response Team has been discussed. Patient/Family are encouraged to report perceived risks to care and to ask questions if they do not understand what they are told or what they should do.
[2022-10-24] MEDS: SODIUM CHLORIDE 0.9% IV 1,000 ML 125 ML IV CONT (15:09)
[2022-10-24 17:01] LABS: Glucose Point of Care 306 mg/dl (65-105)
[2022-10-24] MEDS: SENNA/DOCUSATE SODIUM TABLET 2 TAB PO (17:31)
[2022-10-24] MEDS: metFORMIN HCL XR 500 MG TAB.SR.24H 1000 MG PO (17:32)
[2022-10-24] MEDS: ASPIRIN 81 MG ENTERIC TABLET PO (17:32)
[2022-10-24] MEDS: INSULIN ASPART (*BKC) 100 UNITS/ML SUB-Q (17:34)
[2022-10-24] MEDS: GABAPENTIN 100 MG CAPSULE PO (19:51)
[2022-10-24] MEDS: FAMOTIDINE 20 MG TABLET PO (19:52)
[2022-10-24 21:27] LABS: Glucose Point of Care 213 mg/dl (65-105)
[2022-10-25] VITALS: BP 108/46; PULSE 75; RESP 16; TEMP 36.5; O2SAT 92
[2022-10-25 04:00] VITALS: BP 114/49; PULSE 81; RESP 20; TEMP 36.6; O2SAT 90
[2022-10-25] MEDS: ceFAZolin 2 GM/D5W 50 ML 2 GM/50 ML BAG IVPB (05:55)
[2022-10-25 06:20] VITALS: O2SAT 95
[2022-10-25 06:22] LABS: Basophils Percent Auto 0.3 % (0.2-1.2); Eosinophils Percent Auto 0.3 % (0-4.4); Hematocrit 33.2 % (37.0-47.0); Hemoglobin 10.7 g/dL (12.0-15.0); Immature Granulocyte Absolute 0.03 K/mm3 (0.00-0.031); Immature Granulocyte Percent A 0.3 % (0-0.5); Lymphocytes Absolute Auto 1.83 K/mm3 (0.9-3.2); Lymphocytes Percent Auto 17.5 % (18.3-44.2); Mean Corpuscular HGB Conc 32.2 g/dl (32-36); Mean Corpuscular Hemoglobin 29.7 pg (26-34); Mean Corpuscular Volume 92.2 fl (80-100); Mean Platelet Volume 9.6 fl (7.4-10.4); Monocytes Percent Auto 9.4 % (2.6-8.5); Neutrophils Absolute Auto 7.5 K/mm3 (1.3-6.7); Neutrophils Percent Auto 72.2 % (45.5-73.1); Platelet Count Result 165 k/mm3 (150-375); Red Cell Distribution Width 15.7 % (11.5-14.5); White Blood Count 10.4 K/mm3 (4.5-10.0)
[2022-10-25 06:41] LABS: Anion Gap 9 mmol/L (8-16); Blood Urea Nitrogen 22 mg/dL (7-17); Calcium 8.7 mg/dL (8.4-10.2); Carbon Dioxide 26 mmol/L (22-30); Chloride 103 mmol/L (98-107); Estimated CRCL calculation 57 ml/min; Estimated Glomerular Filt Rate > 60; Glucose 187 mg/dL (65-110); Sodium 138 mmol/L (137-145)
--- NOTE | 2022-10-25 07:52 | WPDANESPN ---
Anes - Prog Note Post-Op Date/Time: 10/25/22 07:52 Cardiovascular status: normal Respiratory status: normal Airway patency: baseline Mental status: baseline Post-Op hydration status: normal Vital Signs: Last Vital Signs Temp 36.6 C 10/25/22 04:00 Pulse 81 10/25/22 04:00 Resp 20 10/25/22 04:00 BP 114/49 L 10/25/22 04:00 Pulse Ox 95 10/25/22 06:20 O2 Del Method Room Air 10/25/22 06:20 O2 Flow Rate 2 10/24/22 12:15 Pain Score (VAS): 12/01 I/O: Intake & Output 10/24/22 10/24/22 10/25/22 15:59 23:59 07:59 Intake Total 500 270 50 Balance 500 270 50 Laboratory Tests 10/25/22 05:57 10/25/22 05:57 10/24/22 10/24/22 10/24/22 09:23 11:10 13:29 WBC RBC Hgb Hct MCV MCH MCHC RDW Plt Count MPV Immature Gran % (Auto) Neut % (Auto) Lymph % (Auto) [place] % (Auto) Eos % (Auto) Baso % (Auto) Lymph # (Auto) [place] # (Auto) Eos # (Auto) Baso # (Auto) Abs Immat Gran (auto) Absolute Neuts (auto) Absolute Nucleated RBC Nucleated RBC % Sodium Potassium Chloride Carbon Dioxide Anion Gap BUN Creatinine Estim Creat Clear Calc Estimated GFR Glucose POC Capillary Glucose 241 H 239 H 264 H Calcium 10/24/22 10/24/22 10/25/22 16:57 21:22 05:57 WBC 10.4 H RBC 3.60 L Hgb 10.7 L Hct 33.2 L MCV 92.2 MCH 29.7 MCHC 32.2 RDW 15.7 H Plt Count 165 MPV 9.6 Immature Gran % (Auto) 0.3 Neut % (Auto) 72.2 Lymph % (Auto) 17.5 L [place] % (Auto) 9.4 H Eos % (Auto) 0.3 Baso % (Auto) 0.3 Lymph # (Auto) 1.83 [place] # (Auto) 1.0 H Eos # (Auto) 0.0 Baso # (Auto) 0.0 Abs Immat Gran (auto) 0.03 Absolute Neuts (auto) 7.5 H Absolute Nucleated RBC 0.0 Nucleated RBC % 0.0 Sodium Potassium Chloride Carbon Dioxide Anion Gap BUN Creatinine Estim Creat Clear Calc Estimated GFR Glucose POC Capillary Glucose 306 H 213 H Calcium 10/25/22 05:57 WBC RBC Hgb Hct MCV MCH MCHC RDW Plt Count MPV Immature Gran % (Auto) Neut % (Auto) Lymph % (Auto) [place] % (Auto) Eos % (Auto) Baso % (Auto) Lymph # (Auto) [place] # (Auto) Eos # (Auto) Baso # (Auto) Abs Immat Gran (auto) Absolute Neuts (auto) Absolute Nucleated RBC Nucleated RBC % Sodium 138 Potassium 4.0 Chloride 103 Carbon Dioxide 26 Anion Gap 9 BUN 22 H Creatinine 0.90 Estim Creat Clear Calc 57 Estimated GFR > 60 Glucose 187 H POC Capillary Glucose Calcium 8.7 Post-procedural complaints: none Patient Feedback: Patient satisfied with anesthetic care.
[2022-10-25 08:00] VITALS: BP 109/44; PULSE 80; RESP 18; TEMP 37.2; O2SAT 93
--- NOTE | 2022-10-25 08:16 | PM.DS ---
DS: Admitting Diagnosis Discharge Date 10/25/21 Admitting Diagnosis OA Left hip DS: Discharge Diagnosis Discharge Diagnosis (1) Status post total hip replacement, left: Code(s): Z96.642 - Presence of left artificial hip joint Status: Acute Assessment and Plan: Postop day 1: Total hip arthroplasty. Patient tolerated procedure well. No complications. Pain manageable with pain medication. No numbness or tingling. We had a lengthy discussion regarding postoperative wound care, limitations, expectations, and exercises. Patient shows good understanding. Patient has had initial physical therapy and is tolerating it well. DVT prophylaxis: 81 mg baby aspirin b.i.d. for 14 days. Short frequent walks. Pain medication: Percocet. Ibuprofen. Patient has followup appointment with Dr. La in 3 weeks DS: Summary Hospital Course Reason for hospitalization: Total hip arthroplasty Hospital Course: Patient tolerated procedure well. Has had initial PT/OT. Patient did have bleeding from incision site. Dressing removed, cleaned with Betadine, steri strips reapplied, dressing reapplied. No drainage at the time of discharge. Status at Discharge Functional status at discharge: uses cane/walker Overall status at discharge: patient is progressing back to baseline Time Spent with Patient Time attestation: Total time spent providing and/or coordinating discharge services: Exam Narrative: Overweight 72 y/o female. Resting comfortably in chair. Wearing compression socks bilaterally. Dressing dry and intact with no drainage. Mild swelling. No ecchymosis. No erythema. No hematoma. Range of motion limited due to pain. Calf nontender. Thigh nontender. Neurologic status intact. No varicosities. Distal pulses palpable. DS: Data Data Completed and Pending Labs on day of discharge: Labs from last 24 hours 10/25/22 10/25/22 10/24/22 05:57 05:57 21:22 WBC 10.4 H RBC 3.60 L Hgb 10.7 L Hct 33.2 L MCV 92.2 MCH 29.7 MCHC 32.2 RDW 15.7 H Plt Count 165 MPV 9.6 Immature Gran % (Auto) 0.3 Neut % (Auto) 72.2 Lymph % (Auto) 17.5 L [place] % (Auto) 9.4 H Eos % (Auto) 0.3 Baso % (Auto) 0.3 Lymph # (Auto) 1.83 [place] # (Auto) 1.0 H Eos # (Auto) 0.0 Baso # (Auto) 0.0 Abs Immat Gran (auto) 0.03 Absolute Neuts (auto) 7.5 H Absolute Nucleated RBC 0.0 Nucleated RBC % 0.0 Sodium 138 Potassium 4.0 Chloride 103 Carbon Dioxide 26 Anion Gap 9 BUN 22 H Creatinine 0.90 Estim Creat Clear Calc 57 Estimated GFR > 60 Glucose 187 H POC Capillary Glucose 213 H Calcium 8.7 10/24/22 10/24/22 10/24/22 16:57 13:29 11:10 WBC RBC Hgb Hct MCV MCH MCHC RDW Plt Count MPV Immature Gran % (Auto) Neut % (Auto) Lymph % (Auto) [place] % (Auto) Eos % (Auto) Baso % (Auto) Lymph # (Auto) [place] # (Auto) Eos # (Auto) Baso # (Auto) Abs Immat Gran (auto) Absolute Neuts (auto) Absolute Nucleated RBC Nucleated RBC % Sodium Potassium Chloride Carbon Dioxide Anion Gap BUN Creatinine Estim Creat Clear Calc Estimated GFR Glucose POC Capillary Glucose 306 H 264 H 239 H Calcium 10/24/22 09:23 WBC RBC Hgb Hct MCV MCH MCHC RDW Plt Count MPV Immature Gran % (Auto) Neut % (Auto) Lymph % (Auto) [place] % (Auto) Eos % (Auto) Baso % (Auto) Lymph # (Auto) [place] # (Auto) Eos # (Auto) Baso # (Auto) Abs Immat Gran (auto) Absolute Neuts (auto) Absolute Nucleated RBC Nucleated RBC % Sodium Potassium Chloride Carbon Dioxide Anion Gap BUN Creatinine Estim Creat Clear Calc Estimated GFR Glucose POC Capillary Glucose 241 H Calcium Discharge Plan Discharge Patient Disposition: Home, Self-Care Discharge Instructions: See green instruction sheets Stand Eder
[2022-10-25 09:08] LABS: Glucose Point of Care 213 mg/dl (65-105)
[2022-10-25] MEDS: INSULIN ASPART (*BKC) 100 UNITS/ML SUB-Q (09:39)
[2022-10-25] MEDS: metFORMIN HCL XR 500 MG TAB.SR.24H 1000 MG PO (09:40)
[2022-10-25] MEDS: FAMOTIDINE 20 MG TABLET PO (09:40)
[2022-10-25] MEDS: GLIMEPIRIDE 2 MG TABLET 4 MG PO (09:43)
[2022-10-25] MEDS: SENNA/DOCUSATE SODIUM TABLET 2 TAB PO (09:43)
[2022-10-25] MEDS: PRAVASTATIN SODIUM 20 MG TABLET 40 MG PO (09:46)
[2022-10-25] MEDS: polyethylene glycoL 3350 17 GM POWD.PACK PO (09:46)
[2022-10-25] MEDS: LOSARTAN POTASSIUM 100 MG TABLET PO (09:47)
[2022-10-25] MEDS: hydroCHLOROthiazide 25 MG TABLET BY MOUTH (09:47)
[2022-10-25] MEDS: ASPIRIN 81 MG ENTERIC TABLET PO (09:47)
[2022-10-25] MEDS: oxyCODONE HCL (*CRX) 5 MG TAB IR PO (09:51)
[2022-10-25 12:11] LABS: Glucose Point of Care 249 mg/dl (65-105)
== END 2022-10-25 12:25 | disposition home or self-care (01) ==
LOC: ANHSURGERY 09:17 → ANH3MEDSUR 14:37
PROVIDERS: Physician Assistant Surgical; PCP Family Medicine; Visit Provider Orthopaedic Surgery
PROC: (CPT 27130; principal; 2022-10-24 07:30)
DX: M16.12 Unilateral primary osteoarthritis, left hip (principal); J44.9 Chronic obstructive pulmonary disease, unspecified; E11.42 Type 2 diabetes mellitus with diabetic polyneuropathy; I10 Essential (primary) hypertension; E78.2 Mixed hyperlipidemia; G47.33 Obstructive sleep apnea (adult) (pediatric); E66.9 Obesity, unspecified; Z68.33 Body mass index [BMI] 33.0-33.9, adult; Z87.891 Personal history of nicotine dependence; Z79.84 Long term (current) use of oral hypoglycemic drugs
CPT/HCPCS: 27130; 36415; 73502; 80048; 82948; 85025; 86850; 86900; 86901; 97110; 97116; 97161; 97165; 97530; 97535; A9270; C1776; J0131; J0171; J0690; J1100; J1815; J1885; J2270; J2405; J2704; J2795; J3010; J7030; J7120

== ENCOUNTER 2023-01-23 07:51 | Outpatient (CLI) | payer MEDICARE, SELFPAY ==
--- NOTE | ~2023-01-23 | DEXA_ITS ---
Bone Density Report Name: KATHI BELLE Age: 72 Sex: Female Ethnicity: White Date of : 1950 Indication: postmenopausal; screening for osteoporosis; height loss; prior fracture; asthma or emphysema; Referring Provider: YUE HENDRIX Study: Bone densitometry was performed. Exam Date: January 23, 2023 Accession number: [id number] Bone Density: Region BMD T-score Z-score Classification AP Spine(L1-L4) 1.233 1.7 3.9 Normal Femoral Neck (Right) 0.746 -0.9 0.9 Normal Total Hip (Right) 0.992 0.4 2.0 Normal World Health Organization criteria for BMD impression classify patients as: Normal (T-score at or above -1.0), Osteopenia (T-score between -1.0 and -2.5), or Osteoporosis (T-score at or below -2.5). 10-year Fracture Risk: FRAX not reported because: All T-scores for Spine Total, Hip Total, Femoral Neck at or above -1.0 Previous Exams: Region Exam Age BMD T-score BMD Change BMD Change Date g/cm2 vs Baseline vs Previous Total Hip(Right) 01/23/2023 72 0.992 0.4 -0.091 (-8.4%) -0.091 (-8.4%) 05/16/2019 69 1.082 1.2 *Denotes significance at 95% confidence level, LSC for Total Hip = 0.027 g/cm2 # Denotes dissimilar scan types or analysis methods Clinical Information Provided by Patient: Has had a low trauma fracture Has used the following medications: Vitamin D, Calcium Has the following medical conditions: Asthma or Emphysema Patient maximum height was 65 Menopause Age: 53 Onset of menses at age 12 Number of children 1 Impression: The patient has normal bone mass. The patient has risk factors, including: previous fracture. No significant bone loss was observed. Discussion: BONE DENSITY IS ABOVE THE MINIMUM DESIRABLE LEVEL AT ALL SKELETAL SITES TESTED. This patient?s bone mineral density is above the minimum desirable level (T-score -1.0 or better) at all sites measured. The patient should follow a healthful lifestyle (good nutrition with adequate calcium and vitamin D, and appropriate weight-bearing exercise). Follow-Up: Consider repeating this study in 5 years or sooner if there is some new clinical indication. Reported by: NAVNEET on 01/23/2023 8:21:00 AM. Reviewed, dictated and finalized at location Louie TEAGUE
--- NOTE | ~2023-01-23 | MM_ITS ---
EXAMINATION: MM screening mulugeta BI w salazar HISTORY: Screening mammogram TECHNIQUE: Craniocaudal and mediolateral oblique 3-D tomosynthesis images were obtained and synthetic 2-D images were generated. CAD analysis was submitted and interpreted. COMPARISON: 11/03/2021 bilateral screening mammogram 09/24/2020 diagnostic right mammogram 08/04/2020, 05/16/2019 bilateral screening mammogram examinations BREAST PARENCHYMAL COMPOSITION: There are scattered areas of fibroglandular density. FINDINGS: There is no evidence of suspicious mass, calcification, or architectural distortion to sugg est malignancy in either breast. There has been no suspicious interval change. IMPRESSION: 1. No mammographic evidence of malignancy. 2. Recommend routine screening mammography in one year. BI-RADS Category 1: Negative Reviewed, dictated and finalized at location A.
== END 2023-01-23 07:52 | disposition home or self-care (01) ==
PROVIDERS: PCP Family Medicine; Visit Provider Family Medicine
DX: Z12.31 Encounter for screening mammogram for malignant neoplasm of breast (principal); Z78.0 Asymptomatic menopausal state
CPT/HCPCS: 77063; 77067; 77080

== ENCOUNTER 2023-10-11 08:07 | Outpatient (CLI) | payer MEDICARE, SELFPAY ==
--- NOTE | ~2023-10-11 | CT_ITS ---
CT Scan of the Chest without Contrast: Clinical Indication: Lung cancer screening, personal history of nicotine dependence Technique: Contiguous sections were acquired throughout the chest without intravenous contrast. Dose reduction technique was used on this scan by utilizing automated exposure control and iterative recon struction technique. The dose-length product (DLP) was 191.53 mGy-cm. COMPARISON: 10/10/2022 Findings: There is no evidence of any significant mediastinal, hilar or axillary lymphadenopathy. There are ext ensive atherosclerotic calcifications of the aorta and coronary arteries. There is no evidence of pleural or pericardial effusion. Several tiny peripheral right upper lobe pulmonary nodules are present. There is complete right middl e lobe atelectasis. Images through the upper abdomen reveal no abnormalities. Stable mild compression deformities in the mid to lower thoracic spine. Impression: Lung RADS 2-S: Benign appearance. [address] advised. Complete right middle lobe atelectasis. This is of uncertain etiology/significance. Reviewed, dictated and finalized at location . ENGINEER Impression: Lung RADS 2-S: Benign appearance. [address] advised. Complete right middle lobe atelectasis. This is of uncertain etiology/significa nce.
== END 2023-10-11 08:08 | disposition home or self-care (01) ==
LOC: ANHIMG 08:10
PROVIDERS: PCP Family Medicine; Visit Provider Physician Assistant
DX: Z12.2 Encounter for screening for malignant neoplasm of respiratory organs (principal); Z87.891 Personal history of nicotine dependence
CPT/HCPCS: 71271

== ENCOUNTER 2023-10-23 13:06 | Outpatient (CLI) | payer MEDICARE, SELFPAY ==
--- NOTE | ~2023-10-23 | XR_ITS ---
XR hip LT 2V w AP pelvis DATE: 10/23/2023 13:21 INDICATION: One-year post hip replacement TECHNIQUE: AP pelvis. AP and lateral views of left hip. COMPARISON: December 13, 2022 left hip FINDINGS: There is extensive abdominal aortic, iliac and femoral arterial calcification, with suggest ion of possible mild infrarenal abdominal aortic aneurysm. There is diffuse osteopenia. There is degenerative disc disease of the lumbar spine. The pubic symphysis and sacroiliac joints are intact. No pelvic fracture or bone destruction is detec albert. Status post left total hip arthroplasty, with normal alignment of the prosthetic components. No left hip fracture or dislocation or bone destruction is noted. IMPRESSION: Status post left total hip arthroplasty Reviewed, dictated and finalized at location L. LER PICKUP
== END 2023-10-23 13:07 | disposition home or self-care (01) ==
PROVIDERS: PCP Family Medicine; Visit Provider Orthopaedic Surgery
DX: Z96.642 Presence of left artificial hip joint (principal)
CPT/HCPCS: 73502

== ENCOUNTER 2023-11-27 00:37 | Day surgery (SDC) | payer MEDICARE, SELFPAY ==
[2023-11-01 10:16] VITALS: BMI 33.9
--- NOTE | 2023-11-23 09:59 | SUR.PREOP ---
Patient called regarding upcoming procedure. Reviewed preop instructions, appointment times, and procedure prep.
--- NOTE | 2023-11-26 15:21 | PM.HPGS ---
History of Present Illness History of Present Illness Consent: Risks, benefits, and alternatives have been discussed and questions answered. Patient agrees to proceed with procedure. Chief complaint: Hx colon polyps Narrative: Lori Riddle is a 73 year old female Here for colonoscopy due to a history of polyps. A little over 2 years ago she had 7 polyps removed, 1 which was 2.5 cm in diameter. And she has had polyps removed prior to that as well Review of Systems Review of Systems: All systems reviewed & are unremarkable except as noted in HPI and below PMFSH Past Medical History Medical History Chronic obstructive pulmonary disease, unspecified Colonic polyp Diabetes Diabetes mellitus type 2, uncontrolled DM w/o complication type II, uncontrolled Essential hypertension Foot pain, bilateral Former smoker Hyperplastic colonic polyp Hypoxia Mixed hyperlipidemia Obesity Obstructive sleep apnea (adult) (pediatric) Peripheral neuropathy Positive colorectal cancer screening using DNA-based stool test Presence of intraocular lens UTI (urinary tract infection) Yeast infection Surgical History Surgical History History of cholecystectomy History of total left hip replacement (~10/24/22) By Bessie Family History Family History Father Hypertension Family history of kidney disease Family history of diabetes mellitus in first degree relative Mother Hypertension Social History Social History Smoking packs per day: 1.5 Smoking cigarettes per day: 30.0 Years smoked: 50 Smoking pack-years: 75.00 Smoking status: Former smoker Tobacco type: cigarettes Second hand tobacco smoke exposure: Yes Smoking end date: 10/22/16 Additional smoking assessment comments: DENIES ANY FORM OF TOBACCO USE Alcohol intake: never Substance use: never Substance use type: does not use Do You Feel Safe in your Home?: Yes Lack of Transportation: No Lack of Food: Never True Current Housing: I Have Housing Concerned About Future Housing: No Difficulty Paying Gas/Electric Bills: No Difficulty Paying for Meds: No Currently Unemployed: No Education: High School Diploma/GED Difficulty w/ Childcare or Family Care: No Living arrangements: alone Occupation/Education: retired Gender identity (if verbalized by the patient): Female Spiritual care concerns: No Meds Home Medications and Allergies Home Medications Medication Instructions Recorded Confirmed Type lancets #200 ea 06/11/20 10/24/23 Rx blood-glucose meter #1 ea 06/14/20 10/24/23 Rx multivitamin 1 tablet PO DAILY 09/25/22 11/27/23 History pyridoxine (vitamin B6) 100 mg 100 mg PO DAILY 09/25/22 11/27/23 History tablet vitamins A,C,S-cyzt-tdaaha 4,296 1 cap PO HS 09/25/22 11/27/23 History mcg-226 mg-90 mg capsule (PreserVision AREDS) blood sugar diagnostic (Blood #100 ea 11/21/22 10/24/23 Rx Glucose Test strips) glimepiride 4 mg tablet See Rx Instructions .Route 07/26/23 11/27/23 Rx .COMPLEX #90 tabs albuterol sulfate 90 mcg/actuation 1 - 2 puff inhalation Q4-6H PRN 09/10/23 11/27/23 Rx aerosol inhaler shortness of breath or wheezing #8.5 grams hydrochlorothiazide 25 mg tablet See Rx Instructions .Route 10/03/23 11/27/23 Rx .COMPLEX #90 tabs metformin 500 mg tablet,extended 1,000 mg PO BID #120 tabs 10/03/23 11/27/23 Rx release 24 hr pravastatin 40 mg tablet See Rx Instructions .Route 10/03/23 11/27/23 Rx .COMPLEX #90 tabs gabapentin 100 mg capsule See Rx Instructions .Route 10/16/23 11/27/23 Rx .COMPLEX #90 caps losartan 100 mg tablet See Rx Instructions .Route 10/23/23 11/27/23 Rx .COMPLEX #90 tabs Allergies Allergy/AdvReac Type Severity Reaction Status Date / Ti
[2023-11-27 08:56] VITALS: BP 158/60; PULSE 71; RESP 18; TEMP 36.2; O2SAT 94
[2023-11-27 09:07] LABS: Glucose Point of Care 198 mg/dl (65-105)
[2023-11-27] MEDS: LACTATED RINGERS 1,000 ML 150 ML IV CONT (09:07)
--- NOTE | 2023-11-27 09:20 | WPDANESEPPF ---
Anes - Initial Pre Proc Eval Procedure: Operation Date: 11/27/23 10:00 Proposed Procedures p Colonoscopy - Spencer Gaxiola MD Date/Time: 11/27/23 09:20 Surgeon: Spencer Gaxiola MD Pre Op Diagnosis: Hx colon polyps Patient Data Age: 73 Gender: F Height: 1.65 m Weight: 92.7 kg Last Vital Signs Temp 97.2 F L 11/27/23 08:56 Pulse 71 11/27/23 08:56 Resp 18 11/27/23 08:56 BP 158/60 H 11/27/23 08:56 Pulse Ox 94 11/27/23 08:56 O2 Del Method Room Air 11/27/23 08:56 Allergies Allergy/AdvReac Type Severity Reaction Status Date / Time fenofibrate Allergy Unknown Hives Verified 11/27/23 08:52 Home Medications Medication Instructions Recorded Confirmed Type lancets #200 ea 06/11/20 10/24/23 Rx blood-glucose meter #1 ea 06/14/20 10/24/23 Rx multivitamin 1 tablet PO DAILY 09/25/22 11/27/23 History pyridoxine (vitamin B6) 100 mg 100 mg PO DAILY 09/25/22 11/27/23 History tablet vitamins A,C,I-quvx-iihqgy 4,296 1 cap PO HS 09/25/22 11/27/23 History mcg-226 mg-90 mg capsule (PreserVision AREDS) blood sugar diagnostic (Blood #100 ea 11/21/22 10/24/23 Rx Glucose Test strips) glimepiride 4 mg tablet See Rx Instructions .Route 07/26/23 11/27/23 Rx .COMPLEX #90 tabs albuterol sulfate 90 mcg/actuation 1 - 2 puff inhalation Q4-6H PRN 09/10/23 11/27/23 Rx aerosol inhaler shortness of breath or wheezing #8.5 grams hydrochlorothiazide 25 mg tablet See Rx Instructions .Route 10/03/23 11/27/23 Rx .COMPLEX #90 tabs metformin 500 mg tablet,extended 1,000 mg PO BID #120 tabs 10/03/23 11/27/23 Rx release 24 hr pravastatin 40 mg tablet See Rx Instructions .Route 10/03/23 11/27/23 Rx .COMPLEX #90 tabs gabapentin 100 mg capsule See Rx Instructions .Route 10/16/23 11/27/23 Rx .COMPLEX #90 caps losartan 100 mg tablet See Rx Instructions .Route 10/23/23 11/27/23 Rx .COMPLEX #90 tabs Laboratory Tests 11/27/23 09:05 POC Capillary Glucose 198 H mg/dl (65-105) Patient hx anesthesia problems: none Family hx anesthesia problems: none Results Review: All pre-operative results and documents have been reviewed as part of the pre-operative evaluation. [facility] Past Medical History Medical History Chronic obstructive pulmonary disease, unspecified Colonic polyp Diabetes Diabetes mellitus type 2, uncontrolled DM w/o complication type II, uncontrolled Essential hypertension Foot pain, bilateral Former smoker Hyperplastic colonic polyp Hypoxia Mixed hyperlipidemia Obesity Obstructive sleep apnea (adult) (pediatric) Peripheral neuropathy Positive colorectal cancer screening using DNA-based stool test Presence of intraocular lens UTI (urinary tract infection) Yeast infection Surgical History Surgical History History of cholecystectomy History of total left hip replacement (~10/24/22) By Bessie Family History Family History Father Hypertension Family history of kidney disease Family history of diabetes mellitus in first degree relative Mother Hypertension Social History Social History (Updated 10/24/23 @ 13:28 by Marcela Garcia MA) Smoking packs per day: 1.5 Smoking cigarettes per day: 30.0 Years smoked: 50 Smoking pack-years: 75.00 Smoking status: Former smoker Tobacco type: cigarettes Second hand tobacco smoke exposure: Yes Smoking end date: 10/22/16 Additional smoking assessment comments: DENIES ANY FORM OF TOBACCO USE Alcohol intake: never Substance use: never Substance use type: does not use Do You Feel Safe in your Home?: Yes Lack of Transportation: No Lack of Food: Never True Current Housing: I Have Housing Concerned About Future Housing: No Difficulty Paying Gas/Electric Bills: No Difficulty Paying for Meds: No Currently
[2023-11-27 10:32] VITALS: BP 104/55; PULSE 63; RESP 20; O2SAT 96
[2023-11-27 10:42] VITALS: BP 126/56; PULSE 61; RESP 18; O2SAT 96
[2023-11-27 10:52] VITALS: BP 126/62; PULSE 62; RESP 20; O2SAT 96
== END 2023-11-27 11:06 | disposition home or self-care (01) ==
PROVIDERS: PCP Family Medicine; Visit Provider Internal Medicine Gastroenterology
PROC: 0DJD8ZZ Inspection of Lower Intestinal Tract, Via Natural or Artificial Opening Endoscopic (ICD-10-PCS; CPT 45378; principal; 2023-11-27 10:00)
DX: Z09 Encounter for follow-up examination after completed treatment for conditions other than malignant neoplasm (principal); D12.5 Benign neoplasm of sigmoid colon; K63.5 Polyp of colon; K57.30 Diverticulosis of large intestine without perforation or abscess without bleeding; E78.2 Mixed hyperlipidemia; G47.33 Obstructive sleep apnea (adult) (pediatric); E11.42 Type 2 diabetes mellitus with diabetic polyneuropathy; J44.9 Chronic obstructive pulmonary disease, unspecified; I10 Essential (primary) hypertension; Z87.891 Personal history of nicotine dependence; Z79.51 Long term (current) use of inhaled steroids; Z79.84 Long term (current) use of oral hypoglycemic drugs; E66.9 Obesity, unspecified; Z68.34 Body mass index [BMI] 34.0-34.9, adult
CPT/HCPCS: 45385; 82948; 88305; J2704; J7120

== ENCOUNTER 2023-12-20 11:16 | Inpatient (IN) | payer MEDICARE, SELFPAY ==
[2023-12-20] VITALS (16 sets, daily range): BP systolic 87–151; BP diastolic 42–78; PULSE 88–110; RESP 11–22; TEMP 36.4–37.7; O2SAT 92–100; BMI 36.9
--- NOTE | ~2023-12-20 | CT_ITS ---
EXAMINATION: CT abdomen pelvis wo con DATE: 12/25/2023 16:05 INDICATION: Left ureteral stone TECHNIQUE: Computed tomography (CT) of the abdomen and pelvis was performed without intravenous contr ast. The dose-length product (DLP) was 1351.26 mGy-cm. Automated exposure control and iterative recon struction technique were employed. COMPARISON: 12/20/2023 FINDINGS: There are small pleural effusions. There is collapse of the right lower lobe due to mucous plugging. Cardiomegaly is noted. There are airspace opacities of the left lower lobe. There is mild e mphysema. Changes of cholecystectomy are noted. The liver, pancreas, and adrenal glands are normal. A gain noted are hypoattenuating lesion of the spleen measuring up to 11 mm. A left internal ureteral s tent has been placed and is in expected position. There are three stones of the right kidney lower po le which measure up to 3 mm. The left kidney is enlarged compared to the right. There are persistent bilateral nephrograms with multiple areas of poor perfusion of the left kidney compared to the right. No pathologically enlarged abdominal or pelvic lymph nodes are identified. No free intraperitoneal g as or evidence of bowel obstruction. Colonic diverticulosis is present without evidence of diverticul itis. The bladder is decompressed by Treviño catheter. The appendix is normal. There are changes of lef t hip arthroplasty. Chronic compression fractures of T11 and T12 are noted. 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 IMPRESSION: 1. Left internal ureteral stent in expected position without definite stones identified along the marline nt. 2. Bilateral persistent nephrograms with multiple areas of poor perfusion in the left kidney compared to the right which could reflect superimposed pyelonephritis. 3. Right lower lobe collapse due to mucous plugging. 4. Left lower lobe airspace opacities, consistent with pneumonia. 5. Small pleural effusions. Reviewed, dictated and finalized at location L. DRUMMER IMPRESSION: 1. Left internal ureteral stent in expected position without definite stones id entified along the stent. 2. Bilateral persistent nephrograms with multiple areas of poor perfusion in th e left kidney compared to the right which could reflect superimposed pyelonephr itis. 3. Right lower lobe collapse due to mucous plugging. 4. Left lower lobe airspace opacities, consistent with pneumonia. 5. Small pleural effusions.
--- NOTE | ~2023-12-20 | XR_ITS ---
EXAMINATION: XR abdomen obstructive series DATE: 12/23/2023 12:54 INDICATION: Emesis. TECHNIQUE: Upright and supine views of the abdomen on 3 radiographs were obtained. COMPARISON: Abdomen radiographs 12/21/2023 FINDINGS: There are no dilated loops of bowel. There is a left internal ureteral stent in expected po sition. No free intraperitoneal gas. There is a total left hip arthroplasty. There are small pleural effusions. There are airspace opacities at the lung bases. IMPRESSION: 1. Normal bowel gas pattern. 2. Left internal ureteral stent in expected position. 3. Small pleural effusions. 4. Airspace opacities at the lung bases, consistent with atelectasis versus pneumonia. Reviewed, dictated and finalized at location A. LSTERY PARTS SORTER IMPRESSION: 1. Normal bowel gas pattern. 2. Left internal ureteral stent in expected position. 3. Small pleural effusions. 4. Airspace opacities at the lung bases, consistent with atelectasis versus pne umonia.
--- NOTE | ~2023-12-20 | XR_ITS ---
EXAMINATION: XR abdomen/kub 1V DATE: 12/21/2023 11:38 INDICATION: Left ureteral stone. TECHNIQUE: A supine view of the abdomen on 2 radiographs was obtained. COMPARISON: CT abdomen and pelvis 12/20/2023 FINDINGS: There are dilated loops of small bowel. The colon is decompressed. There is a left internal ureteral stent in expected position. Surgical clips in the right upper quadrant are likely from chol ecystectomy. There is a total left hip arthroplasty. IMPRESSION: 1. Left internal ureteral stent in expected position. 2. Dilated small bowel, consistent with adynamic ileus. Reviewed, dictated and finalized at location A. BILITATION TEACHER
--- NOTE | ~2023-12-20 | XR_ITS ---
Portable chest x-ray Comparison: 12/20/2023 Clinical History: Hypoxia Findings: Right IJ line is in place. Lungs are clear, without focal consolidation or pleural effusio n. Cardiomediastinal silhouette is stable. Bones and soft tissues are unremarkable. Impression: Clear lungs. Right IJ line. Reviewed, dictated and finalized at location . STRAIGHTENER Impression: Clear lungs. Right IJ line.
--- NOTE | ~2023-12-20 | XR_ITS ---
Portable chest x-ray Comparison: 12/17/2012 Clinical History: Dyspnea Findings: Lungs are clear, without focal consolidation or pleural effusion. Possible COPD. Cardiome diastinal silhouette is stable. Bones and soft tissues are unremarkable. Impression: Clear lungs. Possible COPD. Reviewed, dictated and finalized at location . ICAL LABORATORY ASSISTANT Impression: Clear lungs. Possible COPD.
--- NOTE | ~2023-12-20 | XR_ITS ---
EXAMINATION: XR chest 1V portable DATE: 12/24/2023 06:09 INDICATION: Pneumonia. TECHNIQUE: A single frontal view of the chest was obtained. COMPARISON: Chest single view 12/23/2023 FINDINGS: There are small pleural effusions. There are airspace opacities at the lung bases. No pneum othorax. Cardiomegaly is noted. A right internal jugular central venous catheter is seen with tip in the superior vena cava. IMPRESSION: 1. Stable airspace opacities at the lung bases, consistent with atelectasis versus pneumonia. 2. Stable small pleural effusions. 3. Cardiomegaly. Reviewed, dictated and finalized at location E. L CABINET FINISHER IMPRESSION: 1. Stable airspace opacities at the lung bases, consistent with atelectasis estela pablo pneumonia. 2. Stable small pleural effusions. 3. Cardiomegaly.
--- NOTE | ~2023-12-20 | XR_ITS ---
EXAMINATION: XR chest 1V portable DATE: 12/25/2023 05:47 INDICATION: Infiltrates. TECHNIQUE: A single frontal view of the chest was obtained. COMPARISON: Chest single view 12/24/2023 FINDINGS: There are small pleural effusions. There are airspace opacities in the mid and lower lung z ones with a basilar predominance. No pneumothorax. Cardiomegaly is noted. A right internal jugular ce ntral venous catheter is seen with tip in the superior vena cava. IMPRESSION: 1. Stable airspace opacities in the mid and lower lung zones with a basilar predominance, consistent with atelectasis versus pneumonia. 2. Stable small pleural effusions. 3. Cardiomegaly. Reviewed, dictated and finalized at location E. ESTIMATOR IMPRESSION: 1. Stable airspace opacities in the mid and lower lung zones with a basilar pre dominance, consistent with atelectasis versus pneumonia. 2. Stable small pleural effusions. 3. Cardiomegaly.
--- NOTE | ~2023-12-20 | XR_ITS ---
EXAMINATION: XR chest 1V portable DATE: 12/23/2023 05:41 INDICATION: Infiltrates. TECHNIQUE: A single frontal view of the chest was obtained. COMPARISON: Chest single view 12/22/2023, chest CT 12/20/2023 FINDINGS: There are mild airspace opacities in the lower lung zones. There are small pleural effusion s. No pneumothorax. Cardiomegaly is noted. A right internal jugular central venous catheter is seen w ith tip in the superior vena cava. IMPRESSION: 1. Stable airspace opacities in the lower lung zones, consistent with atelectasis or less likely pneu monia. 2. Stable small pleural effusions. 3. Cardiomegaly. Reviewed, dictated and finalized at location A. ER TEACHER IMPRESSION: 1. Stable airspace opacities in the lower lung zones, consistent with atelectas is or less likely pneumonia. 2. Stable small pleural effusions. 3. Cardiomegaly.
--- NOTE | ~2023-12-20 | XR_ITS ---
EXAMINATION: XR chest port-a-cath/central INDICATION: Central line insertion TECHNIQUE: Portable AP chest at 1954 hours COMPARISON: 1237 hours FINDINGS: A right internal jugular central venous catheter has been inserted which ends with its tip in the midsuperior vena cava. No pneumothorax or pleural effusion. The lungs are free of acute opacit ies. The cardiomediastinal silhouette is stable. IMPRESSION: 1. Right internal jugular central venous catheter insertion. No pneumothorax. Reviewed, dictated and finalized at location F. NI RELATIONS MANAGER
--- NOTE | ~2023-12-20 | XR_ITS ---
EXAMINATION: XR chest 1V portable DATE: 12/22/2023 07:46 INDICATION: Increase oxygen requirement. TECHNIQUE: A single frontal view of the chest was obtained on 2 radiographs. COMPARISON: Chest single view 12/21/2023, chest CT 12/20/2023 FINDINGS: There are airspace opacities at the lung bases. There are small pleural effusions. No pneum othorax. The heart size is normal. A right internal jugular central venous catheter is seen with tip in the superior vena cava. IMPRESSION: 1. Worsened airspace opacities at the lung bases, consistent with atelectasis or less likely pneumoni a. 2. Small pleural effusions. Reviewed, dictated and finalized at location A. CTOR MEDICAL AFFAIRS IMPRESSION: 1. Worsened airspace opacities at the lung bases, consistent with atelectasis o r less likely pneumonia. 2. Small pleural effusions.
--- NOTE | ~2023-12-20 | CT_ITS ---
EXAMINATION: CTA chest PE abdomen pel DATE: 12/20/2023 16:26 INDICATION: Tachycardia. Hypoxia. TECHNIQUE: Computed tomography angiography (CTA) of the chest was performed with 200 mL Omnipaque-350 intravenous contrast timed to evaluate the pulmonary arteries. Coronal maximum intensity projection 3D-reconstructions were created by the technologist. Computed tomography (CT) of the abdomen and pelv is was performed with intravenous contrast. Automated exposure control and iterative reconstruction t echnique were employed. The dose-length product was 2555.94 mGy-cm. COMPARISON: Chest CT 10/11/2023 FINDINGS: CTA chest: There is mild emphysema. There is mild atelectasis bilaterally. There are trace pleural ef fusions. Cardiomegaly is noted. There are coronary artery calcifications. No pericardial effusion. Th e central pulmonary is enlarged, consistent with pulmonary hypertension. There is no pulmonary embolu s. There is mild thoracic spondylosis. There are chronic compression fractures of T11 and T12. CT abdomen and pelvis: The liver is normal. There are changes of cholecystectomy. There are hypodense masses in the spleen measuring up to 11 mm, likely granulomatous disease. The pancreas and adrenal g lands are normal. There is cortical thinning of the kidneys. There is hypoenhancement in left kidney upper pole. There is moderate left hydronephrosis and hydroureter. There is a 3 mm stone at left uret erovesicular junction. There is gas in the left renal collecting system. There is a calcified fibroid in the uterus. There is diverticulosis of the colon without evidence of diverticulitis. There are no dilated loops of bowel. The appendix is normal. There is calcified atherosclerosis of the aorta and many of the other arteries. There is a 3.6 cm fusiform aneurysm of infrarenal aorta. There is a total left hip arthroplasty. There is mild lumbar spondylosis. IMPRESSION: 1. 3 mm stone at left ureterovesicular junction with moderate left hydronephrosis and hydroureter. 2. Left-sided emphysematous pyelonephritis. 3. No pulmonary embolus. 4. Mild emphysema. 5. 3.6 cm fusiform aneurysm of infrarenal aorta. Reviewed, dictated and finalized at location A. L SET ARTIST IMPRESSION: 1. 3 mm stone at left ureterovesicular junction with moderate left hydronephros is and hydroureter. 2. Left-sided emphysematous pyelonephritis. 3. No pulmonary embolus. 4. Mild emphysema. 5. 3.6 cm fusiform aneurysm of infrarenal aorta.
--- NOTE | ~2023-12-20 | XR_ITS ---
EXAMINATION: XR retrograde pyelo w/stent LT INDICATION: Left ureterovesicular junction stone TECHNIQUE: Five intraoperative fluoroscopic images are submitted for review. Total fluoroscopic time was 24.3 seconds. COMPARISON: CT from today FINDINGS: Fluoroscopic images demonstrate placement of a left internal ureteral stent in expected pos ition. Changes of left total hip arthroplasty are noted. Please refer to procedure note for full deta ils. IMPRESSION: 1. Left internal ureteral stent in expected position. Please refer to procedure note for full details . Reviewed, dictated and finalized at location F. ECT SPECIALIST IMPRESSION: 1. Left internal ureteral stent in expected position. Please refer to procedure note for full details.
--- NOTE | ~2023-12-20 | CT_ITS ---
EXAMINATION: CT brain wo con INDICATION: Acute mental status change, unequal pupils COMPARISON: None TECHNIQUE: Standard unenhanced head CT. The dose-length product (DLP) was 681.00 mGy-cm. The mA was a djusted according to patient size. Iterative reconstruction technique was employed. FINDINGS: No acute intraparenchymal hemorrhage. No evidence of mass lesion. No evidence of acute infa rction. There is mild periventricular and subcortical hypodensity probably related to small vessel is chemic disease. There is mild prominence of the sulci and ventricles related to cerebral atrophy. Int racranial calcified cerebral atherosclerosis is noted. No extra-axial collections. No mass effect or midline shift. The orbits and soft tissues are unremarkable. The visualized sinuses and mastoid air c ells are well aerated. IMPRESSION: 1. No acute intracranial abnormality. 2. Age related findings. Reviewed, dictated and finalized at location F. EGE HIRE
--- NOTE | 2023-12-20 12:01 | ED.NAVMDI ---
HPI - Nausea/Vomiting/Diarrhea General Chief complaint: Nausea/Vomiting/Diarrhea Stated complaint: N/V/D SHORT OF BREATH Time Seen by Provider: 12/20/23 11:59 Source: patient and family () Mode of arrival: ambulatory Limitations: no limitations History of Present Illness HPI Narrative: 73-year-old female past medical history COPD/emphysema. She has been nauseated, vomiting, and had diarrhea since Sunday. She has had multiple episodes of nonbloody and questionably bilious emesis. She denies currently being nauseated. She had multiple episodes of diarrhea although her last bowel movement was Sunday. Lives with her who has not been sick. She has been having subjective fevers including feeling warm and flushed currently. She is also having abdominal pain in her left lower quadrant. Denies a history of diverticulitis. Last oral intake was a banana this morning. Family could was concerned that she was having labored breathing. Patient denies feeling short of breath. She has no chest pain. 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 Patient is not on supplemental O2 via nasal cannula throughout the day although does use BiPAP q.h.s.. She quit smoking 8 years ago. Related Data Home Medications Medication Instructions Recorded Confirmed multivitamin 1 tablet PO DAILY 09/25/22 12/20/23 Allergies Allergy/AdvReac Type Severity Reaction Status Date / Time fenofibrate Allergy Unknown Hives Verified 11/30/23 10:45 [facility] Past Medical History Medical History Chronic obstructive pulmonary disease, unspecified Colonic polyp Diabetes Diabetes mellitus type 2, uncontrolled DM w/o complication type II, uncontrolled Essential hypertension Foot pain, bilateral Former smoker Hyperplastic colonic polyp Hypoxia Mixed hyperlipidemia Obesity Obstructive sleep apnea (adult) (pediatric) Peripheral neuropathy Positive colorectal cancer screening using DNA-based stool test Presence of intraocular lens UTI (urinary tract infection) Yeast infection Surgical History Surgical History History of appendectomy History of cholecystectomy History of total left hip replacement (~10/24/22) By Bessie Family History Family History Father Hypertension Family history of kidney disease Family history of diabetes mellitus in first degree relative Mother Hypertension Social History Social History Smoking packs per day: 1.5 Smoking cigarettes per day: 30.0 Years smoked: 50 Smoking pack-years: 75.00 Smoking status: Former smoker Tobacco type: cigarettes Second hand tobacco smoke exposure: Yes Smoking end date: 10/22/16 Additional smoking assessment comments: DENIES ANY FORM OF TOBACCO USE Alcohol intake: never Substance use: never Substance use type: does not use Do You Feel Safe in your Home?: Yes Lack of Transportation: No Lack of Food: Never True Current Housing: I Have Housing Concerned About Future Housing: No Difficulty Paying Gas/Electric Bills: No Difficulty Paying for Meds: No Currently Unemployed: No Education: High School Diploma/GED Difficulty w/ Childcare or Family Care: No Living arrangements: with family Additional living arrangements comments: Occupation/Education: retired Gender identity (if verbalized by the patient): Female Spiritual care concerns: No Exam Narrative: GENERAL: Well-appearing, well-nourished, and in no acute distress. HEAD: Normocephalic, atraumatic. EYES: Non injected, non icteric ENT: Nares clear, no rhinorrhea or epistaxis. NECK: Supple. CHEST: Speaking complete sentences. no respiratory distress. Patient does have very faint end-expiratory wheeze, at the bases
--- NOTE | 2023-12-20 12:16 | ECG_ITS ---
Measurements Intervals [place] Rate: 108 P: [place]: 0 QRS: 49 QRSD: 98 T: 30 QT: 327 QTc: 440 Interpretive Statements PROBABLE SINUS RHYTHM WITH SINUS ARRHYTHMIA NONSPECIFIC ST & T-WAVE ABNORMALITY COMPARED TO ECG 08/23/2022 12:31:14 PROBABLE SINUS RHYTHM WITH SINUS ARRHYTHMIA NOW PRESENT Electronically Signed On 12-20-2023 15:54:02 [facility] by Genny Roland M.D.
[2023-12-20] MEDS: ALBUTEROL SULFATE NEB 2.5 MG/3 ML INH INHALATION (12:35)
[2023-12-20 12:45] LABS: Hematocrit 39.3 % (37.0-47.0); Hemoglobin 12.9 g/dL (12.0-15.0); Mean Corpuscular HGB Conc 32.8 g/dl (32-36); Mean Corpuscular Hemoglobin 30.1 pg (26-34); Mean Corpuscular Volume 91.8 fl (80-100); Platelet Count Result 126 k/mm3 (150-375); Red Blood Count 4.28 M/mm3 (4.2-5.4); Red Cell Distribution Width 15.6 % (11.5-14.5)
[2023-12-20 12:54] LABS: Appearance Urine Cloudy (Clear); Bacteria Urine 4+ /hpf; Bilirubin Urine Negative (Negative); Blood Urine 3+ (Negative); Color Urine Dark Yellow (Yellow); Glucose Urine UA 2+ mg/dL (Negative); Ketones Urine Trace mg/dL (Negative); Leukocyte Esterase Ur Trace LEU/UL (Negative); Nitrate Urine Positive (Negative); Protein Urine 2+ mg/dL (Negative); Specific Grav Ur 1.026 (1.001-1.035); Squamous Epithelial Cell Urine Few /hpf (Few); WBC Urine 21-50 /hpf
[2023-12-20 12:56] LABS: Magnesium 1.4 mg/dL (1.6-2.3)
[2023-12-20] MEDS: MORPHINE SULFATE (*CRX) 4 MG/ML INJ IV PUSH (12:56)
[2023-12-20] MEDS: ACETAMINOPHEN 500 MG TABLET 1000 MG PO (12:56)
[2023-12-20 12:59] LABS: Add Urine Microscopic? YES
[2023-12-20 13:07] LABS: D Dimer 8.97 ug/mL (<0.48)
[2023-12-20 13:11] LABS: Alanine Aminotransferase 28 U/L (6-35); Albumin Level 3.9 g/dL (3.5-5.1); Alkaline Phosphatase 86 U/L (38-126); Anion Gap 13 mmol/L (8-16); Aspartate Amino Transferase 31 U/L (14-36); Bilirubin,Total 1.2 mg/dL (0.2-1.3); Blood Urea Nitrogen 51 mg/dL (7-17); Calcium 9.4 mg/dL (8.4-10.2); Carbon Dioxide 26 mmol/L (22-30); Chloride 95 mmol/L (98-107); Estimated CRCL calculation 23 ml/min; Estimated Glomerular Filt Rate 21; Glucose 408 mg/dL (65-110); Lipase 49 U/L (23-300); Potassium 4.5 mmol/L (3.4-5.0); Sodium 134 mmol/L (137-145)
[2023-12-20 13:15] LABS: Band Neutrophils Percent 1 % (0-6); Eosinophils Absolute Manual 0.14 K/mm3 (0.02-0.5); Eosinophils Percent Manual 1 % (0-4); Lymphocytes Absolute Manual 0.98 K/mm3 (1.1-4.5); Monocytes Percent Manual 5 % (3-9); Neutrophils Absolute Manual 12.18 K/mm3 (1.7-7.2); Neutrophils Percent Manual 86 % (46-73); Platelet Estimate Decreased (Adequate); Schistocytes None Seen (NORMAL); Total Cells Counted 100
[2023-12-20 13:33] LABS: Influenza A QL RT-PCR Negative (Negative); Influenza B QL RT-PCR Negative (Negative); RSV RNA, RT-PCR Negative (Negative); SARS-CoV-2 RNA PCR Negative (Negative)
[2023-12-20 13:42] LABS: Need Manual Microscopic Reviewed
[2023-12-20] MEDS: SODIUM CHLORIDE 0.9% IV 1,000 ML 999 ML IV CONT ×2 (14:04)
[2023-12-20] MEDS: MAGNESIUM SULF 1 GM/D5W 100 ML 1 GM/100 ML BAG IVPB (15:16)
[2023-12-20 15:25] LABS: Anion Gap 4 mmol/L (8-16); Blood Urea Nitrogen 52 mg/dL (7-17); Calcium 8.1 mg/dL (8.4-10.2); Carbon Dioxide 26 mmol/L (22-30); Chloride 102 mmol/L (98-107); Estimated CRCL calculation 27 ml/min; Estimated Glomerular Filt Rate 26; Glucose 366 mg/dL (65-110); Potassium 4.8 mmol/L (3.4-5.0); Sodium 132 mmol/L (137-145)
[2023-12-20] MEDS: SODIUM CHLORIDE 0.9% IV 1,000 ML 125 ML IV CONT (17:05)
--- NOTE | 2023-12-20 17:50 | WPDANESEPPF ---
Anes - Initial Pre Proc Eval Procedure: Left side special Date/Time: 12/20/23 17:50 Surgeon: Mt Whitten MD Pre Op Diagnosis: Left 3mm obstructing stone Pre Op Diagnosis: N/V/D SHORT OF BREATH Patient Data Age: 73 Gender: F Height: 1.63 m Weight: 92 kg Last Vital Signs Temp 98.3 F 12/20/23 12:31 Pulse 106 H 12/20/23 12:45 Resp 18 12/20/23 12:45 BP 111/42 L 12/20/23 12:31 Pulse Ox 98 12/20/23 12:31 O2 Del Method Room Air 12/20/23 11:19 Allergies Allergy/AdvReac Type Severity Reaction Status Date / Time fenofibrate Allergy Unknown Hives Verified 11/30/23 10:45 Home Medications Medication Instructions Recorded Confirmed Type lancets #200 ea 06/11/20 11/30/23 Rx blood-glucose meter #1 ea 06/14/20 11/30/23 Rx multivitamin 1 tablet PO DAILY 09/25/22 11/30/23 History pyridoxine (vitamin B6) 100 mg 100 mg PO DAILY 09/25/22 11/30/23 History tablet vitamins A,C,B-yctk-quklvj 4,296 1 cap PO HS 09/25/22 11/30/23 History mcg-226 mg-90 mg capsule (PreserVision AREDS) blood sugar diagnostic (Blood #100 ea 11/21/22 11/30/23 Rx Glucose Test strips) glimepiride 4 mg tablet See Rx Instructions .Route 07/26/23 11/30/23 Rx .COMPLEX #90 tabs albuterol sulfate 90 mcg/actuation 1 - 2 puff inhalation Q4-6H PRN 09/10/23 11/30/23 Rx aerosol inhaler shortness of breath or wheezing #8.5 grams hydrochlorothiazide 25 mg tablet See Rx Instructions .Route 10/03/23 11/30/23 Rx .COMPLEX #90 tabs metformin 500 mg tablet,extended 1,000 mg PO BID #120 tabs 10/03/23 11/30/23 Rx release 24 hr pravastatin 40 mg tablet See Rx Instructions .Route 10/03/23 11/30/23 Rx .COMPLEX #90 tabs gabapentin 100 mg capsule See Rx Instructions .Route 10/16/23 11/30/23 Rx .COMPLEX #90 caps losartan 100 mg tablet See Rx Instructions .Route 10/23/23 11/30/23 Rx .COMPLEX #90 tabs Laboratory Tests 12/20/23 12/20/23 12/20/23 12:38 12:52 15:10 WBC 14.0 H K/mm3 (4.5-10.0) RBC 4.28 M/mm3 (4.2-5.4) Hgb 12.9 g/dL (12.0-15.0) Hct 39.3 % (37.0-47.0) MCV 91.8 fl (80-100) MCH 30.1 pg (26-34) MCHC 32.8 g/dl (32-36) RDW 15.6 H % (11.5-14.5) Plt Count 126 L k/mm3 (150-375) MPV 10.0 fl (7.4-10.4) Immature Gran % (Auto) Not Reportable Neut % (Auto) Not Reportable Lymph % (Auto) Not Reportable [place] % (Auto) Not Reportable Eos % (Auto) Not Reportable Baso % (Auto) Not Reportable Lymph # (Auto) Not Reportable [place] # (Auto) Not Reportable Eos # (Auto) Not Reportable Baso # (Auto) Not Reportable Abs Immat Gran (auto) Not Reportable Absolute Neuts (auto) Not Reportable Absolute Nucleated RBC Not Reportable Total Counted 100 Neutrophils % (Manual) 86 H % (46-73) Band Neutrophils % 1 % (0-6) Lymphocytes % (Manual) 7.0 L % (18-44) Monocytes % (Manual) 5 % (3-9) Eosinophils % (Manual) 1 % (0-4) Nucleated RBC % Not Reportable Abs Neuts (Manual) 12.18 H K/mm3 (1.7-7.2) Abs Lymphs (Manual) 0.98 L K/mm3 (1.1-4.5) Abs Monocytes (Manual) 0.70 K/mm3 (0.1-0.90) Absolute Eos (Manual) 0.14 K/mm3 (0.02-0.5) Platelet Estimate Decreased (Adequate) Schistocytes None seen (NORMAL) D-Dimer 8.97 H ug/mL (<0.48) Sodium 134 L mmol/L 132 L mmol/L (137-145) (137-145) Potassium 4.5 mmol/L 4.8 mmol/L (3.4-5.0) (3.4-5.0) Chloride 95 L mmol/L 102 mmol/L (98-107) (98-107) Carbon Dioxide 26 mmol/L 26 mmol/L (22-30) (22-30) Anion Gap 13 mmol/L 4 L mmol/L (8-16) (8-16) BUN 51 H D mg/dL 52 H mg/dL (7-17) (7-17) Creatinine 2.30 H m
--- NOTE | 2023-12-20 18:44 | WPDHPUPDATE1 ---
History and Physical Update Update Date/Time: 12/20/23 18:44 History and Physical has been reviewed, including an updated exam of the patient. There are NO changes in the patient's condition. Risks, benefits, and alternatives have been discussed and questions answered. Patient agrees to proceed with procedure.
--- NOTE | 2023-12-20 18:44 | WPDURCON ---
Assessment and Plan Assessment and plan (1) Leukocytosis: Code(s): D72.829 - Elevated white blood cell count, unspecified Status: Acute (2) VERA (acute kidney injury): Code(s): N17.9 - Acute kidney failure, unspecified Status: Acute (3) UTI (urinary tract infection): Code(s): N39.0 - Urinary tract infection, site not specified Status: Acute (4) Calculus of ureterovesical junction (UVJ): Code(s): N20.1 - Calculus of ureter Status: Acute Assessment and Plan: imaging reviewed, does not appear as there is air in the kidney parenchyma, looks air in collecting system due to obstruction, gas forming UTI plan for emergent cysto/Left PG and eft stent. risks,benefits, alternatives, nature of procedure, including but not limited to bleeding, infection, trauma to tract , inability to place stent, need for IR neph tube ( PCN), possible transfer to higher level care facility. damage to ureter, the side effects and temporary nature of stent reviewed. they understand the stent can cause irreversible kidney damage if left in, understands she will need additional surgery to treat stone. Pain related to stent and irritative nature of stent reviewed, additional risks of anesthesia ( [place], stroke, , DVT, PE< disability) unexpected findings and need for additional surgery reviewed. She voiced understanding, all ? answered to pt and husbands understanding in layman terms. 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 CT in ED shows left 3 mm uvj stone with hydro, and emphysematous pyelitis. + fevers, chills, nausea and vomiting. Not hypotensive. states she has frequent UTI. Denies prior hx of stones. No fam hx of stones Review of Systems Constitutional: Constitutional: Reports body ache(s), Reports chills, Reports fatigue and Reports lethargy Eyes: Eyes: Reports no additional eye complaints ENT: Reports as per HPI Cardiovascular: Cardiovascular: Reports no additional cardiovascular complaints Respiratory: Respiratory: Reports no additional respiratory complaints Gastrointestinal: Gastrointestinal: Reports abdominal pain, Denies melena, Denies bloating and Denies hematochezia Genitourinary: Genitourinary: Denies hematuria, Reports nocturia and Reports flank pain Musculoskeletal: Musculoskeletal: Reports no additional musculoskeletal complaints Integumentary/Breasts: Skin/Breast: Reports system reviewed and no additional complaints, except as docu Neurologic: Reports system reviewed and no additional complaints, except as documented Psychiatric: Psychiatric: Reports no additional psychiatric complaints PMFSH Past Medical History Medical History Chronic obstructive pulmonary disease, unspecified Colonic polyp Diabetes Diabetes mellitus type 2, uncontrolled DM w/o complication type II, uncontrolled Essential hypertension Foot pain, bilateral Former smoker Hyperplastic colonic polyp Hypoxia Mixed hyperlipidemia Obesity Obstructive sleep apnea (adult) (pediatric) Peripheral neuropathy Positive colorectal cancer screening using DNA-based stool test Presence of intraocular lens UTI (urinary tract infection) Yeast infection Surgical History Surgical History (Reviewed 12/20/23 @ 17
--- NOTE | 2023-12-20 18:57 | WPDANESEPPF ---
Anes - Initial Pre Proc Eval Procedure: Operation Date: 12/20/23 18:30 Proposed Procedures p Cysto, RPG, Stone Ext, Stent Placement(Left) - Mt Whitten MD Date/Time: 12/20/23 18:57 Surgeon: Mt Whitten MD Pre Op Diagnosis: N/V/D SHORT OF BREATH Patient Data Age: 73 Gender: F Height: 1.63 m Weight: 92 kg Last Vital Signs Temp 37.0 C 12/20/23 18:30 Pulse 92 12/20/23 18:30 Resp 18 12/20/23 18:30 BP 110/66 12/20/23 18:30 Pulse Ox 97 12/20/23 18:30 O2 Del Method Room Air 12/20/23 11:19 Allergies Allergy/AdvReac Type Severity Reaction Status Date / Time fenofibrate Allergy Unknown Hives Verified 11/30/23 10:45 Home Medications Medication Instructions Recorded Confirmed Type lancets #200 ea 06/11/20 11/30/23 Rx blood-glucose meter #1 ea 06/14/20 11/30/23 Rx multivitamin 1 tablet PO DAILY 09/25/22 11/30/23 History pyridoxine (vitamin B6) 100 mg 100 mg PO DAILY 09/25/22 11/30/23 History tablet vitamins A,C,Z-ppem-phtwge 4,296 1 cap PO HS 09/25/22 11/30/23 History mcg-226 mg-90 mg capsule (PreserVision AREDS) blood sugar diagnostic (Blood #100 ea 11/21/22 11/30/23 Rx Glucose Test strips) glimepiride 4 mg tablet See Rx Instructions .Route 07/26/23 11/30/23 Rx .COMPLEX #90 tabs albuterol sulfate 90 mcg/actuation 1 - 2 puff inhalation Q4-6H PRN 09/10/23 11/30/23 Rx aerosol inhaler shortness of breath or wheezing #8.5 grams hydrochlorothiazide 25 mg tablet See Rx Instructions .Route 10/03/23 11/30/23 Rx .COMPLEX #90 tabs metformin 500 mg tablet,extended 1,000 mg PO BID #120 tabs 10/03/23 11/30/23 Rx release 24 hr pravastatin 40 mg tablet See Rx Instructions .Route 10/03/23 11/30/23 Rx .COMPLEX #90 tabs gabapentin 100 mg capsule See Rx Instructions .Route 10/16/23 11/30/23 Rx .COMPLEX #90 caps losartan 100 mg tablet See Rx Instructions .Route 10/23/23 11/30/23 Rx .COMPLEX #90 tabs Laboratory Tests 12/20/23 12/20/23 12/20/23 12:38 12:52 15:10 WBC 14.0 H K/mm3 (4.5-10.0) RBC 4.28 M/mm3 (4.2-5.4) Hgb 12.9 g/dL (12.0-15.0) Hct 39.3 % (37.0-47.0) MCV 91.8 fl (80-100) MCH 30.1 pg (26-34) MCHC 32.8 g/dl (32-36) RDW 15.6 H % (11.5-14.5) Plt Count 126 L k/mm3 (150-375) MPV 10.0 fl (7.4-10.4) Immature Gran % (Auto) Not Reportable Neut % (Auto) Not Reportable Lymph % (Auto) Not Reportable [place] % (Auto) Not Reportable Eos % (Auto) Not Reportable Baso % (Auto) Not Reportable Lymph # (Auto) Not Reportable [place] # (Auto) Not Reportable Eos # (Auto) Not Reportable Baso # (Auto) Not Reportable Abs Immat Gran (auto) Not Reportable Absolute Neuts (auto) Not Reportable Absolute Nucleated RBC Not Reportable Total Counted 100 Neutrophils % (Manual) 86 H % (46-73) Band Neutrophils % 1 % (0-6) Lymphocytes % (Manual) 7.0 L % (18-44) Monocytes % (Manual) 5 % (3-9) Eosinophils % (Manual) 1 % (0-4) Nucleated RBC % Not Reportable Abs Neuts (Manual) 12.18 H K/mm3 (1.7-7.2) Abs Lymphs (Manual) 0.98 L K/mm3 (1.1-4.5) Abs Monocytes (Manual) 0.70 K/mm3 (0.1-0.90) Absolute Eos (Manual) 0.14 K/mm3 (0.02-0.5) Platelet Estimate Decreased (Adequate) Schistocytes None seen (NORMAL) D-Dimer 8.97 H ug/mL (<0.48) Sodium 134 L mmol/L 132 L mmol/L (137-145) (137-145) Potassium 4.5 mmol/L 4.8 mmol/L (3.4-5.0) (3.4-5.0) Chloride 95 L mmol/L 102 mmol/L (98-107) (98-107) Carbon Dioxide 26 mmol/L 26 mmol/L (22-30) (22-30) Anion Gap 13 mmol/L 4 L mmol/L (8-16) (8-16) BUN 51 H D mg/
[2023-12-20] MEDS: MEROPENEM 1 GM/NS 100 ML 1 GM/100 ML BAG IVPB (18:59)
[2023-12-20] MEDS: LIDOCAINE HCL 2% PF INJ 5 ML VIAL 10 ML INFILTRATE (19:00)
--- NOTE | 2023-12-20 19:18 | W.PM.PROC2 ---
Procedure Note - Detailed Date of Procedure 12/20/23 Pre-op Diagnosis left ureter stone, sepsis, hydronephrosis, emphysematous pyelitis Post-op Diagnosis Same Procedure Performed cystoscopy left retrograde pyelogram , left ureter stent placement Surgeon Mt Whitten MD Anesthesia General Indications left ureter stone, sepsis, emphysematous pyelitis Findings pyonephrosis from left kidney Description of Procedure Description of procedure: Pt was brought back to the operating room and received a general anesthesia via LMA. She was prepped an draped in standard fashion in dorsal lithotomy position with Betadine. Care was taken to not hyperflex or hyperextend any extremity, all bony prominences and pressure points padded. She was marked preoperatively. Appropriate films were displayed in the room. She receievd a preoperative dose on ertapenem. After appropriate time-out was performed a 22 fr cystoscopy was inserted into the ebladder, the blader had cystitis, no papillary tumors seen. She had single orthotopic ureteral orifices, left was not effluxing, right had clear efflux. Sensor wire was placed under fluoroscopy, after passage past the stone purulent efflux seen from left uo. 5 Fr open ended catheter threaded up to renal pelvis and 10cc of purulent urine was aspirated. 3 cc of contrast was used to outline collecting system. sensor wire replaced 6 Fr variable length stent was deployed with good curl seen fluoroscopically in the kidney and both fluoroscopically and endoscopically in the bladder. 16 Fr benavidez catheter was placed to maximally drain kidney. Patient awoken and transferred to ICU. All instruments and wires had been removed. No immediate complications. Implants left 6 fr variable length stent Drains Yes (16 fr benavidez) Complications No immediate complications Disposition ICU
--- NOTE | 2023-12-20 19:40 | P.PCNANE_ITS ---
Anes - Cent Venous Cath Note Consent: ) the need to proceed with central venous catheter insertion as an important element of the patient's clinical management given emergent patient conditions, temporal constraints may have precluded informed consent. Time-Out: A pre-procedural Time-Out was completed immediately before starting the procedure and confirmed: Patient Identification, Site, Procedure, Patient Position and the Availability of Requisite Equipment. Procedure Note Clinical Indications: urosepsis Patient position: supine Central venous catheter insertion site: right internal jugular CVC method of insertion: ultrasound-guided Hand hygiene/Aseptic technique: Hand hygiene procedures were performed. Aseptic technique was maintained throughout the procedure. Sterile barrier precautions: Maximal sterile barrier precautions, including use of a cap, mask, sterile gown, sterile gloves and a sterile full body drape. Site prep: chlorhexidine Skin anesthesia: placed under general anesthesia Mexican: 7 Lumen: 3 Length (cm): 15 cm (16) Depth of insertion (cm): 15 Closure/Dressing: suture, biopatch and tegaderm Complications: None immediately noted/suspected. Chest X Ray: Ordered/review to follow. Procedure comments: Easily placed with ultrasound guidance under Gen Anes. no comp.
[2023-12-20] MEDS: LACTATED RINGERS 1,000 ML 30 ML IV CONT (19:42)
--- NOTE | 2023-12-20 21:04 | ADMGEN ---
This patient, Lori Riddle, was admitted to Intensive Care Unit-9 at 2015. Patient/family oriented to hospital policies and general routines including ID bracelet, bed and alarms, visiting hours, pain management, procedures, bathroom and other care routines, personal items, smoking policy, room service/diet, and visiting hours. Information on how to activate the Rapid Response Team has been discussed. Patient/Family are encouraged to report perceived risks to care and to ask questions if they do not understand what they are told or what they should do.
[2023-12-20] MEDS: CENTRAL LINE FLUSH 10 ML IV PUSH (21:53)
[2023-12-20 23:08] LABS: MRSA (PCR) NOT DETECTED (NOT DETECTE)
[2023-12-21] VITALS (43 sets, daily range): BP systolic 91–144; BP diastolic 35–65; PULSE 72–106; RESP 12–31; TEMP 36.6–38.3; O2SAT 89–100
--- NOTE | 2023-12-21 01:16 | PM.IMHP ---
H&P: HPI History of Present Illness Date/Time: 12/21/23 01:16 Chief Complaint: Nausea vomiting and diarrhea for 2 days. Narrative: 73-year-old female with a past medical history of COPD, diastolic dysfunction, type 2 diabetes mellitus with diabetic peripheral neuropathy and essential hypertension who presented to the ER with 2 days of nausea vomiting and diarrhea. Patient reports she had numerous episodes of loose stools and non bilious emesis. She had several episodes of diarrhea on Sunday and then has not had any bowel movements since that time but she has continued to have nausea vomiting. She has not tolerated much in the way of oral intake. Is been accompanied by left-sided abdominal pain. Her convinced her to come in when he noticed that her breathing was worse. She denied feeling short of breath but was noted to be wheezing on exam. She has not had any significant cough or congestion. She has had a prior echocardiogram and does not have history of heart disease. She denies any headaches or changes in vision. Her blood pressures initially when she arrived to the ER were stable but she did develop hypotension during her ER course. She received 2 L of fluid bolus. Patient did have an elevated D-dimer in the ER and given respiratory status was suspicious for pulmonary embolism. She had a CT of the chest abdomen pelvis despite acute kidney injury as the risks of worsening kidney injury outweigh the benefits. CT demonstrated UVJ stone on the left with hydroureter hydronephrosis and pyelonephritis with possible emphysematous pyelitis. Patient went for cystoscopy at which time frankly purulent urine was drained from behind the retained stone and a ureteral stent was placed. In the ER the patient did have hypotension and and IJ was placed by Anesthesia. Patient did receive multiple doses of Aleksandar-Synephrine but her blood pressures stabilized after the procedure. Patient was started on antibiotics with meropenem. After the procedure to the hypotension patient was transferred to the ICU. She does use of BiPAP for obstructive sleep apnea at night but does not use oxygen. But postoperatively required oxygen supplementation. Postoperatively the patient has been confused. The patient's is at bedside and helps provide some of the history. He states that the confusion is definitely an acute finding. The patient was only oriented to person and place she was eventually able to tell me the month was December but thought the year was 2016. She was repeating her answers multiple times when asked other questions. Patient reports chronic lower extremity swelling but denies history of heart failure. She had echocardiogram 2020 that demonstrated EF greater than 70 and grade 1 diastolic dysfunction. Patient's reports that she has had multiple UTIs recently. Review of Systems Review of Systems: 12 systems were reviewed with pertinent positives and negatives per HPI. Except as documented in the HPI, all other systems were reviewed and are negative. [facility] Past Medical History Medical History (Updated 12/21/23 @ 03:54 by Jackelyn Manriquez DO) Chronic obstructive pulmonary disease, unspecified Diabetes mellitus type 2, uncontrolled Essential hypertension Former smoker Hyperplastic colonic polyp Mixed hyperlipidemia Obesity Obstructive sleep apnea (adult) (pediatric) Home BiPAP Peripheral neuropathy Presence of intraocular lens UTI (urinary tract infection) Recurrent Yeast infection Surgical History Surgical History (Updated 12/21/23 @ 03:40 by Jackelyn Manriquez DO) History of appendectomy History of cholecystectomy History of total left hip replacement (~10/24/22) By Bessie Status post cataract extraction of both eyes with insertion of intraocular lens Family History Family History Father Hypertension Family history of kidney disease Family history
[2023-12-21] MEDS: MAGNESIUM SULF 2 GM/WATER 50ML 2 GM/50 ML BAG IVPB (03:14)
[2023-12-21] MEDS: IPRATROPIUM 0.5 MG/ALBUTEROL SULFATE 2.5 MG AMPUL.NEB 3 ML INHALATION ×4 (04:14→20:30)
[2023-12-21] MEDS: CENTRAL LINE FLUSH 10 ML IV PUSH ×2 (04:32→20:19)
[2023-12-21] MEDS: ACETAMINOPHEN 325 MG TABLET 650 MG PO (04:40)
[2023-12-21] MEDS: MEROPENEM 1 GM/NS 100 ML 1 GM/100 ML BAG IVPB ×2 (06:15→18:05)
[2023-12-21 08:02] LABS: Glucose Point of Care 370 mg/dl (65-105)
[2023-12-21] MEDS: INSULIN ASPART (*BKC) 100 UNITS/ML SUB-Q ×5 (08:05→23:06)
[2023-12-21] MEDS: ENOXAPARIN 30 MG/0.3 ML SYRINGE SUB-Q (08:05)
[2023-12-21] MEDS: INSULIN HUMAN REGULAR (*BKC) 100 UNITS/ML 10 UNITS IV PUSH (08:05)
[2023-12-21 08:11] LABS: Hematocrit 34.8 % (37.0-47.0); Hemoglobin 10.9 g/dL (12.0-15.0); Mean Corpuscular HGB Conc 31.3 g/dl (32-36); Mean Corpuscular Hemoglobin 30.1 pg (26-34); Mean Corpuscular Volume 96.1 fl (80-100); Mean Platelet Volume 10.3 fl (7.4-10.4); Platelet Count Result 104 k/mm3 (150-375); Red Blood Count 3.62 M/mm3 (4.2-5.4); Red Cell Distribution Width 15.9 % (11.5-14.5); White Blood Count 8.2 K/mm3 (4.5-10.0)
[2023-12-21] MEDS: INSULIN GLARGINE (*BKC) 100 UNITS/ML 20 UNITS SUB-Q (08:11)
[2023-12-21 08:36] LABS: Alveolar/Arterial O2 Gradient 150.1 mmHg; Base Excess ABG -1.2 mEq/l (+/-2.0); Fractional Inspired Oxygen 40 %; HCO3 ABG 23.8 mEq/l (22.0-26.0); Oxygen Content ABG 14.8 %vol (16.0-22.0); Oxygen Saturation ABG 96.5 % (95.0-100.0); Oxyhemoglobin 95.2 % THb (90.0-100.0); PCO2 ABG 41.3 mmHg (35.0-45.0); PO2 ABG 87.6 mmHg (80.0-100.0); PO2 FiO2 Ratio Arterial Blood 2.19 %; pH ABG 7.379 (7.350-7.450)
[2023-12-21 08:37] LABS: Device NON-INVASIVE VENT; Site Drawn LEFT BRACHIAL
[2023-12-21 08:39] LABS: Non-Invasive Expiratory Pressure 6 CMH2O; Non-Invasive Inspiratory Pressure 12 CMH2O; Non-Invasive Vent Rate 14 /MIN
[2023-12-21 08:59] LABS: Alanine Aminotransferase 28 U/L (6-35); Albumin Level 3.2 g/dL (3.5-5.1); Alkaline Phosphatase 79 U/L (38-126); Anion Gap 8 mmol/L (8-16); Aspartate Amino Transferase 36 U/L (14-36); Bilirubin,Total 0.7 mg/dL (0.2-1.3); Blood Urea Nitrogen 54 mg/dL (7-17); Calcium 8.2 mg/dL (8.4-10.2); Carbon Dioxide 25 mmol/L (22-30); Chloride 101 mmol/L (98-107); Estimated CRCL calculation 27 ml/min; Estimated Glomerular Filt Rate 25; Glucose 339 mg/dL (65-110); Magnesium 1.9 mg/dL (1.6-2.3); Sodium 134 mmol/L (137-145)
[2023-12-21 09:08] LABS: Band Neutrophils Percent 11 % (0-6); Lymphocytes Absolute Manual 0.65 K/mm3 (1.1-4.5); Monocytes Absolute Manual 0.73 K/mm3 (0.1-0.90); Monocytes Percent Manual 9 % (3-9); Neutrophils Percent Manual 72 % (46-73); Total Cells Counted 100
[2023-12-21 09:09] LABS: Hypochromasia 1+ (NORMAL); Schistocytes None Seen (NORMAL)
[2023-12-21 09:18] LABS: NT Pro B Type Natriuretic Pept 4740 pg/mL (19.9-100)
--- NOTE | 2023-12-21 09:42 | WPDCNINT ---
Assessment and Plan Assessment and plan (1) Sepsis: Qualifiers: Acute renal failure type: unspecified Sepsis acute organ dysfunction status: with acute organ dysfunction Sepsis type: sepsis due to unspecified organism Severe sepsis acute organ dysfunction type: acute renal failure Severe sepsis shock status: without septic shock Qualified Code(s): A41.9 - Sepsis, unspecified organism; R65.20 - Severe sepsis without septic shock; N17.9 - Acute kidney failure, unspecified Code(s): A41.9 - Sepsis, unspecified organism Status: Acute Assessment and Plan: Patient presented with sepsis secondary to UTI. UA was abnormal. CT showed 3 mm stone at left UV junction with moderate left hydronephrosis and hydroureter left-sided emphysematous pyelonephritis She is now status post stent placement Blood and urine cultures have been sent Continue meropenem She has received adequate amount IV fluids and will hold further IV fluids has a BNP is 4740 she had increased oxygen requirement this morning May need vasopressors although she has not required (2) VERA (acute kidney injury): Code(s): N17.9 - Acute kidney failure, unspecified Status: Acute Assessment and Plan: Patient presented with elevated creatinine of 2.3 likely secondary to the hydronephrosis, sepsis dehydration Patient has received adequate amount of IV fluids Monitor urine output electrolytes and creatinine Maintain mean arterial pressure Hold nephrotoxic medications Check CK level (3) Type 2 diabetes mellitus with hyperglycemia, without long-term current use of insulin: Code(s): E11.65 - Type 2 diabetes mellitus with hyperglycemia Status: Acute Assessment and Plan: Patient is on oral diabetic medications and blood sugars have been elevated since coming to the hospital I will give patient 10 units of regular IV insulin push now and start her on Lantus and high sliding scale every 4 hours If blood sugars are not controlled with these measures patient may need insulin infusion Check A1c (4) Hydronephrosis of left kidney: Code(s): N13.30 - Unspecified hydronephrosis Status: Acute Assessment and Plan: See above (5) Hydroureter on left: Code(s): N13.4 - Hydroureter Status: Acute Assessment and Plan: See above (6) Emphysematous pyelonephritis of left kidney: Code(s): N12 - Tubulo-interstitial nephritis, not specified as acute or chronic Status: Acute Assessment and Plan: See above (7) UTI (urinary tract infection): Code(s): N39.0 - Urinary tract infection, site not specified Status: Acute Assessment and Plan: See above (8) Obstructive sleep apnea (adult) (pediatric): Code(s): G47.33 - Obstructive sleep apnea (adult) (pediatric) Status: Acute Assessment and Plan: CPAP ordered (9) Mixed hyperlipidemia: Code(s): E78.2 - Mixed hyperlipidemia Status: Acute Assessment and Plan: Continue pravastatin (10) Thrombocytopenia: Code(s): D69.6 - Thrombocytopenia, unspecified Status: Acute Assessment and Plan: Likely secondary to sepsis Monitor (11) Respiratory failure: Code(s): J96.90 - Respiratory failure, unspecified, unspecified whether with hypoxia or hypercapnia Status: Acute Assessment and Plan: Patient was desaturating overnight and was placed on BiPAP. She does have history of sleep apnea but may be developing volume overload although chest x-ray appears clear. She has received IV fluids. ABG checked and reviewed. Chest x-ray reviewed Hold further IV fluids Will wean off BiPAP to nasal cannula and see if patient tolerates Bronchodilators Does not appear to be in exacerbation of COPD hence will hold steroids Plan DVT prophylaxis -Lovenox Nutrition -clear liquid diet Code Status - Full Code Total Critical Care Time - minutes Due to a high probability o
[2023-12-21] MEDS: MIDODRINE HCL 10 MG TABLET PO ×3 (10:06→16:38)
[2023-12-21] MEDS: NOREPINEPHRINE 8 MG/D5W 250 ML 8 MG/250 ML BAG 9.38 MG IV CONT (10:06)
--- NOTE | 2023-12-21 10:09 | WPDUROPN2 ---
Progress Note: A&P Assessment and Plan (1) Sepsis: Qualifiers: Sepsis type: sepsis due to unspecified organism Sepsis acute organ dysfunction status: with acute organ dysfunction Severe sepsis acute organ dysfunction type: acute renal failure Acute renal failure type: unspecified Severe sepsis shock status: without septic shock Qualified Code(s): A41.9 - Sepsis, unspecified organism; R65.20 - Severe sepsis without septic shock; N17.9 - Acute kidney failure, unspecified Code(s): A41.9 - Sepsis, unspecified organism Status: Acute Assessment and Plan: Source of infection is left UVJ stone and pyelitis. (2) Calculus of ureterovesical junction (UVJ): Code(s): N20.1 - Calculus of ureter Status: Acute Assessment and Plan: 3 mm left UVJ stone s/p cystoscopy, left retrograde pyelogram, and left ureteral stent placement on 12/20/[address] Whitten Will obtain KUB today to assess if stone is visible She will need definitive stone management at a later date following resolution of infection. Understands temporary nature of stent and need for appropriate follow up. (3) Hydronephrosis of left kidney: Code(s): N13.30 - Unspecified hydronephrosis Status: Acute Assessment and Plan: Left ureteral stent placement as above. 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 Continue empiric antibiotics while awaiting culture results. (5) UTI (urinary tract infection): Code(s): N39.0 - Urinary tract infection, site not specified Status: Acute Assessment and Plan: Continue empiric antibiotics while awaiting urine culture results (6) VERA (acute kidney injury): Code(s): N17.9 - Acute kidney failure, unspecified Status: Acute Assessment and Plan: Monitor serum creatinine Subjective Subjective Date/Time Seen: 12/21/23 10:09 Interval history: Lori is feeling well today. Benavidez catheter draining clear yellow urine. Denies suprapubic pain or flank pain. No nausea, vomiting, fever, chills. Tolerating her diet. WBC 8.2. Creatinine 2.0. Low grade fever this morning, 100.6. Review of Systems Review of Systems: All systems reviewed & are unremarkable except as noted in HPI and below Exam Narrative: General: Awake, alert, comfortable, no acute distress HEENT: Normocephalic, atraumatic, sclerae anicteric Respiratory: Normal respiratory effort, no accessory muscle use Abdomen: Nondistended, soft, nontender : benavidez catheter draining clear yellow urine Skin: Normal coloration, warm and dry Neurologic: No focal neuro deficits noted Psychiatric: Appropriate mood and affect, judgment and insight intact Objective Data Vital Signs Vital Signs: Vital Signs - 24 hr 12/20/23 11:19 12/20/23 12:31 12/20/23 12:35 Temperature 100 F H 98.3 F Pulse Rate 105 H 110 H 107 H Respiratory Rate 20 16 18 Blood Pressure 151/52 H 111/42 L Pulse Oximetry 92 98 Oxygen Delivery Room Air Oxygen Flow Rate Fraction of Inspired Oxygen 12/20/23 12:45 12/20/23 17:30 12/20/23 15:40 Temperature 98.0 F 98.0 F Pulse Rate 106 H 88 106 H Respiratory Rate 18 16 18 Blood Pressure 112/70 114/78 Pulse Oximetry 98 95 Oxygen Delivery Oxygen Flow Rate Fraction of Inspired Oxygen 12/20/23 16:47 12/20/23 17:31 12/20/23 18:30 Temperature 97.6 F 97.8 F 98.6 F Pulse Rate 109 H 105 H 92 Respiratory Rate 16 18 18 Blood Pressure 112/60 110/70 110/66 Pulse Oximetry 100 94 97 Oxygen Delivery Oxygen Flow Rate Fraction of Inspired Oxygen 12/20/23 19:42 12/20/23 19:55 12/20/23 20:10 Temperature 98.2 F Pulse Rate 97 96 97 Respiratory Rate 11 L 20 18 Blood Pressure 87/50 L 106/58 L 97/44 L Pulse Oximetry 100 100 100 Oxygen Delivery
[2023-12-21] MEDS: PRAVASTATIN SODIUM 20 MG TABLET 40 MG PO (10:19)
[2023-12-21 11:45] LABS: Glucose Point of Care 344 mg/dl (65-105)
[2023-12-21 11:59] LABS: Creatine Kinase 35 U/L (30-135)
[2023-12-21 12:02] LABS: Hemoglobin A1C 8.3 % (<5.7)
[2023-12-21 16:38] LABS: Glucose Point of Care 328 mg/dl (65-105)
[2023-12-21 20:11] LABS: Glucose Point of Care 229 mg/dl (65-105)
[2023-12-21] MEDS: GABAPENTIN 100 MG CAPSULE PO (20:26)
[2023-12-21 22:01] LABS: Alveolar/Arterial O2 Gradient 181.6 mmHg; Base Excess ABG -0.9 mEq/l (+/-2.0); Carboxyhemoglobin 0.3 % THb (0-2.0); Device NASAL CANNULA; Fractional Inspired Oxygen 40 %; HCO3 ABG 23.5 mEq/l (22.0-26.0); Methemoglobin ABG 0.3 %THb (0-1.5); Modified Allen's Test Pass; Oxygen Content ABG 14.3 %vol (16.0-22.0); Oxygen Saturation ABG 91.3 % (95.0-100.0); Oxyhemoglobin 89.6 % THb (90.0-100.0); PO2 ABG 59.9 mmHg (80.0-100.0); Reduced Hemoglobin 9.8 %THb (0-5.0); Site Drawn LEFT RADIAL; Total Hemoglobin 11.3 g/dL (12.0-18.0)
[2023-12-21 23:07] LABS: Glucose Point of Care 225 mg/dl (65-105)
[2023-12-22] VITALS (28 sets, daily range): BP systolic 91–145; BP diastolic 48–78; PULSE 73–123; RESP 20–28; TEMP 36.9–38.5; O2SAT 91–97
--- NOTE | 2023-12-22 | ECHO_ITS ---
Patient Info Name: Lori Riddle Age: 73 years : 1950 Gender: Female Ht: 64 in Wt: 220 lbs BSA: 2.17 m2 HR: 83 bpm BP: 129 / 59 mmHg Heart Rhythm: Sinus Rhythm Technical Quality: Good Exam Date: 12/22/2023 9:01 AM Exam Location: Echo Lab Patient Status: Inpatient Admit Date: 12/20/2023 Staff Ordering Physician: Emiliana Ramires MD Movie Stunt Performer: Rosalee Santos RDCS Attending Provider: Mat Mays MD Referring Physician: Keyla ALEX; Exam Type: CA echo doppler color flow Study Info Indications - septic shock Complete two-dimensional, color flow and Doppler transthoracic echocardiogram is performed. Summary 1. Complete two-dimensional, color flow and Doppler transthoracic echocardiogram is performed. 2. Left ventricular chamber dimension is normal. 3. Left ventricular systolic function is normal, estimated at 60-65%. 4. The left ventricular diastolic function is abnormal. 5. E/e' 17 is elevated. 6. Left atrial chamber dimension is mildly enlarged. 7. The mitral valve has moderately calcified annulus. 8. Mild pulmonary hypertension, estimated pulmonary arterial systolic pressure is 43 mmHg. 9. There is trace pulmonic regurgitation. Left Ventricle E/e' 17 is elevated. Left ventricular chamber dimension is normal. Left ventricular systolic function is normal, estimated at 60-65%. The left ventricular diastolic function is abnormal. Right Ventricle Right ventricular systolic function is normal and with normal TAPSE 3.4 cm. Right ventricular chamber dimension is normal. Left Atria Left atrial chamber dimension is mildly enlarged. Right Atria Right atrial chamber dimension is normal. Aortic Valve The aortic valve is not well visualized. Cannot determine number of aortic valve leaflets. There is no aortic valve stenosis. There is no aortic valve regurgitation. Pulmonic Valve There is trace pulmonic regurgitation. Mitral Valve The mitral valve has moderately calcified annulus. There is no mitral valve stenosis. There is no mitral valve regurgitation. Tricuspid Valve There is no tricuspid valve regurgitation. Mild pulmonary hypertension, estimated pulmonary arterial systolic pressure is 43 mmHg. Pericardium/Pleural There is no pericardial effusion. Inferior Vena Cava Normal inferior vena cava with >50% collapse upon inspiration consistent with normal right atrial pressure, 5 mmHg. Aorta The aortic root size at the sinus of Valsalva is normal. Left Ventricular Outflow Tract Name Value Normal LVOT 2D LVOT Diameter 2.1 cm LVOT Doppler LVOT Peak Gradient 9 mmHg LVOT Mean Gradient 6 mmHg LVOT VTI 31 cm LVOT VTI/AV VTI Ratio 1.0 LVOT Stroke Volume 106 ml LVOT CO 9.5 l/min LVOT CI 4.4 l/min/m2 Pulmonic Valve Name Value Normal RVOT Doppler
[2023-12-22] MEDS: IPRATROPIUM 0.5 MG/ALBUTEROL SULFATE 2.5 MG AMPUL.NEB 3 ML INHALATION ×4 (02:20→20:37)
[2023-12-22 04:00] LABS: Glucose Point of Care 231 mg/dl (65-105)
[2023-12-22 04:33] LABS: Hematocrit 30.4 % (37.0-47.0); Hemoglobin 9.9 g/dL (12.0-15.0); Mean Corpuscular HGB Conc 32.6 g/dl (32-36); Mean Corpuscular Volume 92.1 fl (80-100); Platelet Count Result 125 k/mm3 (150-375); Red Cell Distribution Width 15.6 % (11.5-14.5); White Blood Count 9.9 K/mm3 (4.5-10.0)
[2023-12-22 04:34] LABS: Alanine Aminotransferase 28 U/L (6-35); Albumin Level 2.9 g/dL (3.5-5.1); Alkaline Phosphatase 93 U/L (38-126); Anion Gap 6 mmol/L (8-16); Aspartate Amino Transferase 28 U/L (14-36); Bilirubin,Total 0.8 mg/dL (0.2-1.3); Blood Urea Nitrogen 69 mg/dL (7-17); Calcium 8.1 mg/dL (8.4-10.2); Carbon Dioxide 25 mmol/L (22-30); Chloride 102 mmol/L (98-107); Estimated CRCL calculation 17 ml/min; Estimated Glomerular Filt Rate 15; Glucose 210 mg/dL (65-110); Magnesium 2.6 mg/dL (1.6-2.3); Sodium 133 mmol/L (137-145)
[2023-12-22] MEDS: INSULIN ASPART (*BKC) 100 UNITS/ML SUB-Q ×6 (04:46→23:50)
[2023-12-22] MEDS: CENTRAL LINE FLUSH 10 ML IV PUSH ×3 (04:54→20:14)
[2023-12-22 07:49] LABS: Glucose Point of Care 207 mg/dl (65-105)
[2023-12-22] MEDS: MEROPENEM 1 GM/NS 100 ML 1 GM/100 ML BAG IVPB ×2 (07:58→18:30)
[2023-12-22] MEDS: ALBUMIN HUMAN 25% 25 GM/100 ML 100 ML IVPB ×4 (07:58→23:44)
[2023-12-22] MEDS: GLIMEPIRIDE 2 MG TABLET 4 MG PO (07:59)
[2023-12-22] MEDS: MIDODRINE HCL 10 MG TABLET PO ×3 (07:59→17:27)
[2023-12-22] MEDS: ENOXAPARIN 30 MG/0.3 ML SYRINGE SUB-Q (07:59)
[2023-12-22] MEDS: PRAVASTATIN SODIUM 20 MG TABLET 40 MG PO (07:59)
[2023-12-22] MEDS: INSULIN GLARGINE (*BKC) 100 UNITS/ML 25 UNITS SUB-Q (08:01)
--- NOTE | 2023-12-22 08:02 | WPDINTPN ---
Progress Note: A&P Assessment and Plan (1) Septic shock: Code(s): A41.9 - Sepsis, unspecified organism; R65.21 - Severe sepsis with septic shock Status: Acute Assessment and Plan: : Patient presented with sepsis secondary UTI, UA was abnormal, CT showed 3 mm stone at left UV junction with moderate left hydronephrosis and hydroureter left-sided emphysematous pyelonephritis -12/20/2023: : status post cystoscopy, left retrograde pyelogram, left ureteral stent placement -patient was hypotensive, received adequate amount of IV fluids -currently on Levophed, maintain MAP > 65 mmHg or SBP > 100 mmHg for adequate end organ perfusion -acute kidney injury likely related to UTI, hydronephrosis, contrast induced nephropathy, continue to monitor urine output -check lactic acid -patient's oral mucous membranes are dry, will start albumin q.6 hours x4 doses -continue meropenem (12/20) -: Urine culture is positive for E coli, sensitivities pending -10/24: Blood culture: Preliminary blood cultures are negative x2 -patient received adequate amount of IV fluids, the after having increased oxygen requirements, he was [id number]. Additional IV fluids were held -continue BiPAP p.r.n. (2) VERA (acute kidney injury): Code(s): N17.9 - Acute kidney failure, unspecified Status: Acute Assessment and Plan: Patient presented with sepsis, hydronephrosis, left ureteral stent, UTI/pyelonephritis, hypovolemia with initial creatinine of 2.30 -she has received adequate amount of IV fluids -patient on pressors -creatinine trending up, could be related to septic shock, UTI/pyelonephritis, contrast induced nephropathy -continue Levophed, maintained MAP > 65 mmHg or SBP > 100 mmHg for adequate renal perfusion -Hold nephrotoxic medications -obtain CK level, urine use of fluids, urine lytes, -check lactic acid level -nephrology consulted -monitor renal function, electrolytes and urine output (3) Type 2 diabetes mellitus with hyperglycemia, without long-term current use of insulin: Code(s): E11.65 - Type 2 diabetes mellitus with hyperglycemia Status: Acute Assessment and Plan: -Patient is on oral diabetic medications and blood sugars have been elevated since coming to the hospital -received Lantus once yesterday. - Pt remains hyperglycemic, will increase Lantus -If blood sugars are not controlled with these measures patient may need insulin infusion -hemoglobin A1c is 8.3 this admission (4) Hydronephrosis of left kidney: Code(s): N13.30 - Unspecified hydronephrosis Status: Acute Assessment and Plan: Status post status post cystoscopy, left retrograde pyelogram, left ureteral stent placement as above (5) Hydroureter on left: Code(s): N13.4 - Hydroureter Status: Acute Assessment and Plan: See above (6) Emphysematous pyelonephritis of left kidney: Code(s): N12 - Tubulo-interstitial nephritis, not specified as acute or chronic Status: Acute Assessment and Plan: See above (7) UTI (urinary tract infection): Code(s): N39.0 - Urinary tract infection, site not specified Status: Acute Assessment and Plan: ; Urine cultures growing E coli, sensitivities pending -continue antibiotics as above (8) Obstructive sleep apnea (adult) (pediatric): Code(s): G47.33 - Obstructive sleep apnea (adult) (pediatric) Status: Acute Assessment and Plan: Continue BiPAP p.r.n. (9) Mixed hyperlipidemia: Code(s): E78.2 - Mixed hyperlipidemia Status: Acute Assessment and Plan: Continue pravastatin Four thousand seven hundred forty (10) Thrombocytopenia: Code(s): D69.6 - Thrombocytopenia, unspecified Status: Acute Assessment and Plan: Likely secondary to sepsis/septic shock -platelet count improving -continue to monitor on (11) Respiratory failure: Code(s): J96.90 - Respiratory failure, unspe
[2023-12-22 09:17] LABS: Creatine Kinase 133 U/L (30-135)
[2023-12-22 09:18] LABS: Lactic Acid Reflex 1.1 mmol/L (0.7-2.0)
--- NOTE | 2023-12-22 09:50 | P.CONNP_ITS ---
Assessment and Plan Assessment and plan (1) VERA (acute kidney injury): Code(s): N17.9 - Acute kidney failure, unspecified Status: Acute Assessment and Plan: * normal creatinine/renal function at baseline * admitted with creatinine of 2.3mg/dl * suspect ATN with multifactorial etiology: * hemodynamic instability/shock * infection/sepsis (UTI + pyelonephritis) * obstruction/hydronephrosis * prerenal factors * use of ARB + HCTZ prior to admission * contrast exposure (CTA on 12/20/23) * s/p aggressive IVF resuscitation * on pressor support to maintain MAP * follow-up on urine studies and CPK * follow repeat labs and UOP (2) Septic shock: Code(s): A41.9 - Sepsis, unspecified organism; R65.21 - Severe sepsis with septic shock Status: Acute Assessment and Plan: * presumably secondary to UTI and pyelonephritis * admission CT with 3 mm stone at left UV junction with moderate left hydronephrosis and hydroureter left-sided emphysematous pyelonephritis * noted hypotension on admission s/p IVF resuscitation * IVF held due to concerns of volume overload * initiated on vasopressor therapy to maintain MAP * started on IV albumin as well * follow culture data * on antibiotics * follow trend of hemodynamics (3) Hydronephrosis of left kidney: Code(s): N13.30 - Unspecified hydronephrosis Status: Acute Assessment and Plan: * as noted by admission imaging * status post cystoscopy, left retrograde pyelogram, left ureteral stent placement on * Urology following (4) Emphysematous pyelonephritis of left kidney: Code(s): N12 - Tubulo-interstitial nephritis, not specified as acute or chronic Status: Acute Assessment and Plan: * as noted by admission imaging * urine culture with E. coli * blood culture negative to date * on antibiotics (5) UTI (urinary tract infection): Code(s): N39.0 - Urinary tract infection, site not specified Status: Acute Assessment and Plan: * see #4 (6) Respiratory failure: Code(s): J96.90 - Respiratory failure, unspecified, unspecified whether with hypoxia or hypercapnia Status: Acute Assessment and Plan: * issues with hypoxia on 12/20 * given elevated BNP and concerns for possible volume overload, IVFs stopped * however, history of BARBARA maybe playing a role * BiPAP PRN along with use of supplemental oxgen * on bronchodilators * follow respiratory status (7) Diabetes: Code(s): E11.9 - Type 2 diabetes mellitus without complications Status: Chronic Assessment and Plan: * follow accu-cheks * glycemic control per intensivisit/hospitalists Discussed case with Dr. Ramires.. Greater than 20 minutes was spent in reviewing the electronic medical record as well as the events / procedures /interventions since her admission/hospital began as well as review of the information with the other physicians/nurses involved in the patient's care. I will continue follow patient with you while she remains hospitalized and make further recommendations as deemed necessary. Thank you for allowing me to participate in the care of this patient. History of Present Illness Reason for Consult Consult date: 12/22/23 Reason for consult: acute renal failure Chief Complaint Chief complaint: N/V/D SHORT OF BREATH History of Present Illness Narrative: The patient is a 73-year-old female with a past medical history as outlined below who presented to [facility]
--- NOTE | 2023-12-22 09:50 | PM.CNNEP ---
Assessment and Plan Assessment and plan (1) VERA (acute kidney injury): Code(s): N17.9 - Acute kidney failure, unspecified Status: Acute Assessment and Plan: normal creatinine/renal function at baseline admitted with creatinine of 2.3mg/dl suspect ATN with multifactorial etiology: hemodynamic instability/shock infection/sepsis (UTI + pyelonephritis) obstruction/hydronephrosis prerenal factors use of ARB + HCTZ prior to admission contrast exposure (CTA on 12/20/23) s/p aggressive IVF resuscitation on pressor support to maintain MAP follow-up on urine studies and CPK follow repeat labs and UOP (2) Septic shock: Code(s): A41.9 - Sepsis, unspecified organism; R65.21 - Severe sepsis with septic shock Status: Acute Assessment and Plan: presumably secondary to UTI and pyelonephritis admission CT with 3 mm stone at left UV junction with moderate left hydronephrosis and hydroureter left-sided emphysematous pyelonephritis noted hypotension on admission s/p IVF resuscitation IVF held due to concerns of volume overload initiated on vasopressor therapy to maintain MAP started on IV albumin as well follow culture data on antibiotics follow trend of hemodynamics (3) Hydronephrosis of left kidney: Code(s): N13.30 - Unspecified hydronephrosis Status: Acute Assessment and Plan: as noted by admission imaging status post cystoscopy, left retrograde pyelogram, left ureteral stent placement on Urology following (4) Emphysematous pyelonephritis of left kidney: Code(s): N12 - Tubulo-interstitial nephritis, not specified as acute or chronic Status: Acute Assessment and Plan: as noted by admission imaging urine culture with E. coli blood culture negative to date on antibiotics (5) UTI (urinary tract infection): Code(s): N39.0 - Urinary tract infection, site not specified Status: Acute Assessment and Plan: see #4 (6) Respiratory failure: Code(s): J96.90 - Respiratory failure, unspecified, unspecified whether with hypoxia or hypercapnia Status: Acute Assessment and Plan: issues with hypoxia on 12/20 given elevated BNP and concerns for possible volume overload, IVFs stopped however, history of BARBARA maybe playing a role BiPAP PRN along with use of supplemental oxgen on bronchodilators follow respiratory status (7) Diabetes: Code(s): E11.9 - Type 2 diabetes mellitus without complications Status: Chronic Assessment and Plan: follow accu-cheks glycemic control per intensivisit/hospitalists Discussed case with Dr. Ramires.. Greater than 20 minutes was spent in reviewing the electronic medical record as well as the events / procedures /interventions since her admission/hospital began as well as review of the information with the other physicians/nurses involved in the patient's care. I will continue follow patient with you while she remains hospitalized and make further recommendations as deemed necessary. Thank you for allowing me to participate in the care of this patient. History of Present Illness Reason for Consult Consult date: 12/22/23 Reason for consult: acute renal failure Chief Complaint Chief complaint: N/V/D SHORT OF BREATH History of Present Illness Narrative: The patient is a 73-year-old female with a past medical history as outlined below who presented to [facility] Emergency Room with complaints of nausea, vomiting, and diarrhea. The patient reports that the symptoms started about 2 days ago and progressively have worsened. She has had numerous episodes of loose stools and is unable to quantitate how many times and has occurred in association with nonbilious emesis. The diarrhea seemed to have subsided by the time of her presentation but she continues to have ongoing nausea and vomiting. Her ongoing nausea and vomiting
[2023-12-22 09:56] LABS: Potassium Urine Random 36.8 meq/L; Sodium Urine Random 50 meq/L
[2023-12-22 09:56] LABS: CRP 39.2 mg/dL (<1.0)
[2023-12-22 10:09] LABS: Eosinophil Urine None Seen % (None Seen); Urine Eos QC 2nd Tech Confirmed
[2023-12-22 11:45] LABS: Glucose Point of Care 231 mg/dl (65-105)
--- NOTE | 2023-12-22 13:54 | ECG_ITS ---
Measurements Intervals [place] Rate: 116 P: ID: 0 QRS: 26 QRSD: 105 T: -24 QT: 242 QTc: 337 Interpretive Statements ATRIAL FLUTTER/TACHYCARDIA WITH RAPID VENTRICULAR RESPONSE VENTRICULAR PREMATURE COMPLEXES INCOMPLETE RIGHT BUNDLE BRANCH BLOCK NONSPECIFIC ST & T-WAVE ABNORMALITY- ANT/INF LEADS BASELINE ARTIFACT- II, III, AVF ABNORMAL ECG COMPARED TO ECG 12/20/2023 14:37:25 ATRIAL FLUTTER/TACHYCARDIA NOW PRESENT Electronically Signed On 12-22-2023 17:06:14 LICENSED LOAN OFFICER by Arturo Alejo D.O.
--- NOTE | 2023-12-22 14:03 | PM.IMPN ---
Progress Note: A&P Assessment and Plan (1) Septic shock: Code(s): A41.9 - Sepsis, unspecified organism; R65.21 - Severe sepsis with septic shock Status: Acute Assessment and Plan: Secondary to UTI. Cultures pending. Continue meropenem. 3/2 EKG with atrial tachycardia, BP 140's systolic, albumin given, pressors stopped (2) VERA (acute kidney injury): Code(s): N17.9 - Acute kidney failure, unspecified Status: Acute Assessment and Plan: Likely VERA due to septic shock 3/ creatinine 2.0 3/2 creatinine 3.1, I/O last 24 hr 1460/700 Continue to monitor (3) Type 2 diabetes mellitus with hyperglycemia, without long-term current use of insulin: Code(s): E11.65 - Type 2 diabetes mellitus with hyperglycemia Status: Acute Assessment and Plan: A1c 8.3 3/to FBS 210 Continue glargine 30 units plus sliding scale insulin (4) Hydronephrosis of left kidney: Code(s): N13.30 - Unspecified hydronephrosis Status: Acute Assessment and Plan: Status post status post cystoscopy, left retrograde pyelogram, left ureteral stent placement (5) Emphysematous pyelonephritis of left kidney: Code(s): N12 - Tubulo-interstitial nephritis, not specified as acute or chronic Status: Acute Assessment and Plan: Continue meropenem (6) Obstructive sleep apnea (adult) (pediatric): Code(s): G47.33 - Obstructive sleep apnea (adult) (pediatric) Status: Acute Assessment and Plan: Continue BiPAP p.r.n. (7) Thrombocytopenia: Code(s): D69.6 - Thrombocytopenia, unspecified Status: Acute Assessment and Plan: Likely secondary to septic shock 3/2 platelets 125 (8) Respiratory failure: Code(s): J96.90 - Respiratory failure, unspecified, unspecified whether with hypoxia or hypercapnia Status: Acute Assessment and Plan: Possible V/Q mismatch due to sepsis with shock, possible volume over from fluid resuscitation 3/2 requiring 6 L of oxygen, holding IV fluids, CXR with bibasilar infiltrates/atelectasis with small effusions May require diuresis when BP stabilizes Monitor progress Subjective Date/time seen: 12/22/23 14:03 Interval history: Severe fatigue and generalized weakness. Short of breath with talking or movement in bed. Denied pain. No GI or complaints. No focal weakness. No diarrhea. No abnormal bleeding noted. Review of Systems Review of Systems: All systems reviewed & are unremarkable except as noted in HPI and below Exam Narrative: HEENT: PERRL, sclerae nonicteric, pharyngeal mucosa pink and intact NECK: No JVD CHEST: Mild the tachypnea neck. Soft expiratory wheeze right lower long. Otherwise clear. HEART: NL S1/S2, regular, tachycardic, no murmur ABDOMEN: BS+, soft, nontender, no mass, no bruits EXTREMITIES: Trace pitting bilateral feet. NEUROLOGIC: CN intact and symmetric to inspection. MUSCULOSKELETAL: Tone and strength symmetric. PSYCH: Alert. Oriented to person, place, and time, including year and month. Objective Data Vital Signs Vital Signs: Vital Signs - 24 hr 12/21/23 14:04 12/21/23 14:04 12/21/23 14:07 Temperature Pulse Rate 73 73 Respiratory Rate 18 18 Blood Pressure Pulse Oximetry 100 100 Oxygen Delivery High Flow Nasal Cannula High Flow Nasal Cannula Oxygen Flow Rate 10 8 Fraction of Inspired Oxygen 12/21/23 14:22 12/21/23 14:50 12/21/23 14:50 Temperature Pulse Rate 80 81 Respiratory Rate 24 H 24 H Blood Pressure Pulse Oximetry 100 97 Oxygen Delivery Nasal Cannula High Flow Nasal Cannula Oxygen Flow Rate 6 8 Fraction of Inspired Oxygen 12/21/23 15:32 12/21/23 15:33 12/21/23 15:46 Temperature Pulse Rate 78 74 Respiratory Rate 23 H Blood Pressure 112/39 L Pulse Oximetry 97 97 Oxygen Delivery High Flow Nasal Cannula High Flow Nasal Cannula Oxygen Flow Rate 4 6 Fraction of Inspired Oxyg
[2023-12-22 14:09] LABS: Glucose Point of Care 221 mg/dl (65-105)
[2023-12-22 16:13] LABS: Glucose Point of Care 220 mg/dl (65-105)
[2023-12-22] MEDS: METOPROLOL TARTRATE INJ 5 MG/5 ML VIAL 2.5 MG IV PUSH (19:20)
[2023-12-22] MEDS: GABAPENTIN 100 MG CAPSULE PO (20:14)
[2023-12-22 20:21] LABS: Glucose Point of Care 304 mg/dl (65-105)
[2023-12-22 23:50] LABS: Glucose Point of Care 221 mg/dl (65-105)
[2023-12-22] MEDS: TOLNAFTATE 1% POWDER 45 GM BTL 1 APPLIC TOPICAL (23:50)
[2023-12-23] VITALS (30 sets, daily range): BP systolic 112–157; BP diastolic 58–92; PULSE 11–124; RESP 18–26; TEMP 36.4–37.9; O2SAT 92–100
[2023-12-23] MEDS: IPRATROPIUM 0.5 MG/ALBUTEROL SULFATE 2.5 MG AMPUL.NEB 3 ML INHALATION ×4 (01:51→20:03)
[2023-12-23 04:06] LABS: Glucose Point of Care 171 mg/dl (65-105)
[2023-12-23 05:19] LABS: Basophils Absolute Auto 0.1 K/mm3 (0.0-0.1); Basophils Percent Auto 0.5 % (0.2-1.2); Eosinophils Absolute Auto 0.1 K/mm3 (0-0.3); Hematocrit 28.3 % (37.0-47.0); Hemoglobin 8.9 g/dL (12.0-15.0); Immature Granulocyte Absolute 0.23 K/mm3 (0.00-0.031); Immature Granulocyte Percent A 2.5 % (0-0.5); Lymphocytes Percent Auto 10.7 % (18.3-44.2); Mean Corpuscular HGB Conc 31.4 g/dl (32-36); Mean Corpuscular Hemoglobin 29.9 pg (26-34); Mean Platelet Volume 9.9 fl (7.4-10.4); Monocytes Percent Auto 10.6 % (2.6-8.5); Neutrophils Percent Auto 74.7 % (45.5-73.1); Platelet Count Result 105 k/mm3 (150-375); Red Blood Count 2.98 M/mm3 (4.2-5.4); Red Cell Distribution Width 15.6 % (11.5-14.5); White Blood Count 9.3 K/mm3 (4.5-10.0)
[2023-12-23 05:28] LABS: Alanine Aminotransferase 30 U/L (6-35); Albumin Level 3.4 g/dL (3.5-5.1); Alkaline Phosphatase 91 U/L (38-126); Anion Gap 9 mmol/L (8-16); Aspartate Amino Transferase 34 U/L (14-36); Blood Urea Nitrogen 78 mg/dL (7-17); Calcium 8.3 mg/dL (8.4-10.2); Carbon Dioxide 25 mmol/L (22-30); Chloride 103 mmol/L (98-107); Estimated CRCL calculation 14 ml/min; Estimated Glomerular Filt Rate 12; Glucose 145 mg/dL (65-110); Magnesium 2.9 mg/dL (1.6-2.3); Phosphorus 2.6 mg/dL (2.5-4.5); Sodium 137 mmol/L (137-145)
[2023-12-23] MEDS: MEROPENEM 1 GM/NS 100 ML 1 GM/100 ML BAG IVPB (06:02)
[2023-12-23] MEDS: CENTRAL LINE FLUSH 10 ML IV PUSH ×3 (06:05→20:58)
[2023-12-23 07:55] LABS: Glucose Point of Care 148 mg/dl (65-105)
[2023-12-23] MEDS: PRAVASTATIN SODIUM 20 MG TABLET 40 MG PO (08:19)
[2023-12-23] MEDS: ENOXAPARIN 30 MG/0.3 ML SYRINGE SUB-Q (08:19)
[2023-12-23] MEDS: MIDODRINE HCL 10 MG TABLET PO ×2 (08:19→16:35)
[2023-12-23] MEDS: GLIMEPIRIDE 2 MG TABLET 4 MG PO (08:19)
[2023-12-23] MEDS: INSULIN GLARGINE (*BKC) 100 UNITS/ML 25 UNITS SUB-Q (08:20)
[2023-12-23] MEDS: TOLNAFTATE 1% POWDER 45 GM BTL 1 APPLIC TOPICAL ×2 (08:20→20:57)
[2023-12-23] MEDS: METOPROLOL TARTRATE 12.5 MG TABLET PO ×2 (08:25→20:56)
[2023-12-23] MEDS: cefTRIAXone 2 GM/NS 100 ML 2 GM/100 ML BAG IVPB (08:25)
[2023-12-23] MEDS: VANCOMYCIN 1,500 MG/NS 500 ML 1,500 MG/500 ML BAG 250 MG IVPB (09:05)
--- NOTE | 2023-12-23 09:23 | WPDINTPN ---
Progress Note: A&P Assessment and Plan (1) Septic shock: Code(s): A41.9 - Sepsis, unspecified organism; R65.21 - Severe sepsis with septic shock Status: Acute Assessment and Plan: : Patient presented with sepsis secondary UTI, UA was abnormal, CT showed 3 mm stone at left UV junction with moderate left hydronephrosis and hydroureter left-sided emphysematous pyelonephritis -12/20/2023: : status post cystoscopy, left retrograde pyelogram, left ureteral stent placement -patient was hypotensive, received adequate amount of IV fluids -OFF Levophed -acute kidney injury likely related to UTI, hydronephrosis, contrast induced nephropathy, continue to monitor urine output -normal lactic acid -status post albumin -: Urine culture is positive for E coli, pansensitive -10/24: Blood culture: Preliminary blood cultures are negative x2 -12/22: will discontinue meropenem (12/20). Start ceftriaxone -start vancomycin for possible pneumonia -patient received adequate amount of IV fluids, the after having increased oxygen requirements, he was 4740. Additional IV fluids were held -continue BiPAP p.r.n. 12/23/2023: Echocardiogram Summary ? 1. Complete two-dimensional, color flow and Doppler transthoracic echocardiogram is performed. ? 2. Left ventricular chamber dimension is normal. ? 3. Left ventricular systolic function is normal, estimated at 60-65%. ? 4. The left ventricular diastolic function is abnormal. ? 5. E/e' 17 is elevated. ? 6. Left atrial chamber dimension is mildly enlarged. ? 7. The mitral valve has moderately calcified annulus. ? 8. Mild pulmonary hypertension, estimated pulmonary arterial systolic pressure is 43 mmHg. ? 9. There is trace pulmonic regurgitation. (2) VERA (acute kidney injury): Code(s): N17.9 - Acute kidney failure, unspecified Status: Acute Assessment and Plan: Patient presented with sepsis, hydronephrosis, left ureteral stent, UTI/pyelonephritis, hypovolemia with initial creatinine of 2.30 -she has received adequate amount of IV fluids -patient on pressors -creatinine trending up, could be related to septic shock, UTI/pyelonephritis, contrast induced nephropathy -continue Levophed, maintained MAP > 65 mmHg or SBP > 100 mmHg for adequate renal perfusion -Hold nephrotoxic medications -CK levels within normal limits, urine lytes not prerenal, negative urine eosinophils -normal lactic acid -nephrology consulted -monitor renal function, electrolytes and urine output -worsening renal function, continue to monitor, patient may require dialysis if renal function does not improve (3) Type 2 diabetes mellitus with hyperglycemia, without long-term current use of insulin: Code(s): E11.65 - Type 2 diabetes mellitus with hyperglycemia Status: Acute Assessment and Plan: -Patient is on oral diabetic medications and blood sugars have been elevated since coming to the hospital -continue Accu-Cheks and sliding scale insulin -continue Lantus -hemoglobin A1c is 8.3 this admission (4) Hydronephrosis of left kidney: Code(s): N13.30 - Unspecified hydronephrosis Status: Acute Assessment and Plan: Status post status post cystoscopy, left retrograde pyelogram, left ureteral stent placement as above (5) Hydroureter on left: Code(s): N13.4 - Hydroureter Status: Acute Assessment and Plan: See above (6) Emphysematous pyelonephritis of left kidney: Code(s): N12 - Tubulo-interstitial nephritis, not specified as acute or chronic Status: Acute Assessment and Plan: See above (7) UTI (urinary tract infection): Code(s): N39.0 - Urinary tract infection, site not specified Status: Acute Assessment and Plan: ; Urine cultures growing E coli, sensitivities pending -continue antibiotics as above (8) Obstructive sleep apnea (adult) (pediatric): Code(s): G47.33 - Obstructive sleep apnea (adult) (
--- NOTE | 2023-12-23 09:29 | P.PNIM_ITS ---
Progress Note: A&P Assessment and Plan (1) Septic shock: Code(s): A41.9 - Sepsis, unspecified organism; R65.21 - Severe sepsis with septic shock Status: Acute Assessment and Plan: * Secondary to UTI. * Cultures pending. * 3/3 culture with sensitive E coli, switched from meropenem to ceftriaxone. * 3/2 EKG with atrial tachycardia, BP 140's systolic, albumin given, pressors stopped * 3/3 BP 104/55 off pressors (2) VERA (acute kidney injury): Code(s): N17.9 - Acute kidney failure, unspecified Status: Acute Assessment and Plan: * Likely VERA due to septic shock * 3/1 creatinine 2.0 * 3/2 creatinine 3.1, I/O last 24 hr 1460/700 * 3/3 creatinine 3.8, I/O last 24 hours 440/300 * Continue to monitor (3) Respiratory failure: Code(s): J96.90 - Respiratory failure, unspecified, unspecified whether with hypoxia or h ypercapnia Status: Acute Assessment and Plan: * Possible V/Q mismatch due to sepsis with shock, possible volume over from fluid resuscitation * 3/2 requiring 6 L of oxygen, holding IV fluids, CXR with bibasilar infiltrates/atelectasis with small effusions * 3/3 Vancomycin added for possible pneumonia * Monitor progress (4) Type 2 diabetes mellitus with hyperglycemia, without long-term current use of insulin: Code(s): E11.65 - Type 2 diabetes mellitus with hyperglycemia Status: Acute Assessment and Plan: * A1c 8.3 * 3/2 FBS 210, 3/3 FBS 145 * Continue glargine 30 units plus sliding scale insulin and glimepiride (may need to hold latter if creatinine increases) (5) Hydronephrosis of left kidney: Code(s): N13.30 - Unspecified hydronephrosis Status: Acute Assessment and Plan: Status post status post cystoscopy, left retrograde pyelogram, left ureteral stent placement (6) Emphysematous pyelonephritis of left kidney: Code(s): N12 - Tubulo-interstitial nephritis, not specified as acute or chronic Status: Acute Assessment and Plan: * Continue ceftriaxone (7) Obstructive sleep apnea (adult) (pediatric): Code(s): G47.33 - Obstructive sleep apnea (adult) (pediatric) Status: Acute Assessment and Plan: * Continue BiPAP p.r.n. (8) Thrombocytopenia: Code(s): D69.6 - Thrombocytopenia, unspecified Status: Acute Assessment and Plan: * Likely secondary to septic shock * 12/21 platelets 125, 12/22 105 (9) Anemia: Code(s): D64.9 - Anemia, unspecified Status: Acute Assessment and Plan: * Hgb 12.9, 12/20 10.9, 12/21 9.9, 12/22 8.9 * In part due to dilution, phlebotomies, no overt bleeding or suggestion of hemolysis * Stool for occult blood ordered Subjective Date/time seen: 12/23/23 09:29 Interval history: Quiet night other than low-grade fever. Severe fatigue and generalized weakness. No cough or chest pain. No shortness of breath lying in bed. Denied pain. No GI or complaints. No focal weakness. No diarrhea. No abnormal bleeding noted. Bowels moved once this a.m.. Review of Systems Review of Systems: All systems reviewed & are unremarkable except as noted in HPI and below Exam Narrative: HEENT: PERRL, sclerae nonicteric, pharyngeal mucosa pink and intact NECK: No JVD CHEST: Mild the tachypnea. Few inspiratory crackles right base. Otherwise clear. HEART: NL S1/S2, regular, tachycardic, no murmur ABDOMEN: BS+, soft, nontender, no mass, no bruits EXTREMITIES: Trace pitting bilateral feet. NEUROLOGIC: CN intac
--- NOTE | 2023-12-23 09:29 | PM.IMPN ---
Progress Note: A&P Assessment and Plan (1) Septic shock: Code(s): A41.9 - Sepsis, unspecified organism; R65.21 - Severe sepsis with septic shock Status: Acute Assessment and Plan: Secondary to UTI. Cultures pending. 3 culture with sensitive E coli, switched from meropenem to ceftriaxone. 3 EKG with atrial tachycardia, BP 140's systolic, albumin given, pressors stopped 12/22 BP 104/55 off pressors (2) VERA (acute kidney injury): Code(s): N17.9 - Acute kidney failure, unspecified Status: Acute Assessment and Plan: Likely VERA due to septic shock 3 creatinine 2.0 3/ creatinine 3.1, I/O last 24 hr 1460/700 3/ creatinine 3.8, I/O last 24 hours 440/300 Continue to monitor (3) Respiratory failure: Code(s): J96.90 - Respiratory failure, unspecified, unspecified whether with hypoxia or hypercapnia Status: Acute Assessment and Plan: Possible V/Q mismatch due to sepsis with shock, possible volume over from fluid resuscitation 3/ requiring 6 L of oxygen, holding IV fluids, CXR with bibasilar infiltrates/atelectasis with small effusions / Vancomycin added for possible pneumonia Monitor progress (4) Type 2 diabetes mellitus with hyperglycemia, without long-term current use of insulin: Code(s): E11.65 - Type 2 diabetes mellitus with hyperglycemia Status: Acute Assessment and Plan: A1c 8.3 3/2 FBS 210, 3/3 FBS 145 Continue glargine 30 units plus sliding scale insulin and glimepiride (may need to hold latter if creatinine increases) (5) Hydronephrosis of left kidney: Code(s): N13.30 - Unspecified hydronephrosis Status: Acute Assessment and Plan: Status post status post cystoscopy, left retrograde pyelogram, left ureteral stent placement (6) Emphysematous pyelonephritis of left kidney: Code(s): N12 - Tubulo-interstitial nephritis, not specified as acute or chronic Status: Acute Assessment and Plan: Continue ceftriaxone (7) Obstructive sleep apnea (adult) (pediatric): Code(s): G47.33 - Obstructive sleep apnea (adult) (pediatric) Status: Acute Assessment and Plan: Continue BiPAP p.r.n. (8) Thrombocytopenia: Code(s): D69.6 - Thrombocytopenia, unspecified Status: Acute Assessment and Plan: Likely secondary to septic shock 12/21 platelets 125, 12/22 105 (9) Anemia: Code(s): D64.9 - Anemia, unspecified Status: Acute Assessment and Plan: Hgb 12.9, 12/20 10.9, 12/21 9.9, 12/22 8.9 In part due to dilution, phlebotomies, no overt bleeding or suggestion of hemolysis Stool for occult blood ordered Subjective Date/time seen: 12/23/23 09:29 Interval history: Quiet night other than low-grade fever. Severe fatigue and generalized weakness. No cough or chest pain. No shortness of breath lying in bed. Denied pain. No GI or complaints. No focal weakness. No diarrhea. No abnormal bleeding noted. Bowels moved once this a.m.. Review of Systems Review of Systems: All systems reviewed & are unremarkable except as noted in HPI and below Exam Narrative: HEENT: PERRL, sclerae nonicteric, pharyngeal mucosa pink and intact NECK: No JVD CHEST: Mild the tachypnea. Few inspiratory crackles right base. Otherwise clear. HEART: NL S1/S2, regular, tachycardic, no murmur ABDOMEN: BS+, soft, nontender, no mass, no bruits EXTREMITIES: Trace pitting bilateral feet. NEUROLOGIC: CN intact and symmetric to inspection. MUSCULOSKELETAL: Tone and strength symmetric. PSYCH: Alert. Oriented to person, place, and time, including year and month. Objective Data Vital Signs Vital Signs: Vital Signs - 24 hr 12/22/23 09:47 12/22/23 12:00 12/22/23 12:00 Temperature 98.5 F Pulse Rate 83 89 Respiratory Rate 25 H 20 Blood Pressure 129/59 L 137/57 L Pulse Oximetry 91 91 91 Oxygen Delivery High Flow Nasal Cannula Oxygen Flow Rate 5 Fraction
--- NOTE | 2023-12-23 09:45 | PM.PNNEP ---
Progress Note: A&P Assessment and Plan (1) VERA (acute kidney injury): Code(s): N17.9 - Acute kidney failure, unspecified Status: Acute Assessment and Plan: slightly worse normal creatinine/renal function at baseline admitted with creatinine of 2.3mg/dl suspect ATN with multifactorial etiology: hemodynamic instability/shock infection/sepsis (UTI + pyelonephritis) obstruction/hydronephrosis prerenal factors use of ARB + HCTZ prior to admission contrast exposure (CTA on 12/20/23) s/p aggressive IVF resuscitation on pressor support to maintain MAP evaluation to date: admission CT with 3 mm stone at left UV junction with moderate left hydronephrosis and hydroureter left-sided emphysematous pyelonephritis urine electrolytes non-prerenal urine eosinophils negative CPK okay remains at risk for [employer]/dialysis follow repeat labs and UOP (2) Septic shock: Code(s): A41.9 - Sepsis, unspecified organism; R65.21 - Severe sepsis with septic shock Status: Acute Assessment and Plan: presumably secondary to UTI and pyelonephritis admission CT with 3 mm stone at left UV junction with moderate left hydronephrosis and hydroureter left-sided emphysematous pyelonephritis noted hypotension on admission s/p IVF resuscitation IVF held due to concerns of volume overload initiated on vasopressor therapy to maintain MAP - weaned off follow culture data on antibiotics follow trend of hemodynamics (3) Hydronephrosis of left kidney: Code(s): N13.30 - Unspecified hydronephrosis Status: Acute Assessment and Plan: as noted by admission imaging status post cystoscopy, left retrograde pyelogram, left ureteral stent placement on Urology following (4) Emphysematous pyelonephritis of left kidney: Code(s): N12 - Tubulo-interstitial nephritis, not specified as acute or chronic Status: Acute Assessment and Plan: as noted by admission imaging urine culture with E. coli blood culture negative to date on antibiotics (5) UTI (urinary tract infection): Code(s): N39.0 - Urinary tract infection, site not specified Status: Acute Assessment and Plan: see #4 (6) Respiratory failure: Code(s): J96.90 - Respiratory failure, unspecified, unspecified whether with hypoxia or hypercapnia Status: Acute Assessment and Plan: issues with hypoxia on 12/20 given elevated BNP and concerns for possible volume overload, IVFs stopped however, history of BARBARA maybe playing a role BiPAP PRN along with use of supplemental oxgen on bronchodilators follow respiratory status (7) Diabetes: Code(s): E11.9 - Type 2 diabetes mellitus without complications Status: Chronic Assessment and Plan: follow accu-cheks glycemic control per intensivisit/hospitalists Discussed case with Dr. Ramires. Will continue to follow Subjective Date/time seen: 12/23/23 09:45 Interval history: Follow-up for acute kidney injury/acute renal failure. No apparent distress noted at the time of my visit; renal function worse by AM labs but seems to be making more urine; able to be weaned off levophed with relatively stability in hemodynamics at this time; stable mentation noted only complaint is that of slight shortness of breath. Exam Narrative: General: elderly but WD/WN female in NAD Heart: normal S1 and S2; no rub Lungs: clear anteriorly but few crackles at bases Abdomen: soft, nontender, nondistended, positive bowel sounds Extremities: no cyanosis or clubbing; trace edema Skin: warm and dry Objective Data Vital Signs Vital Signs: Vital Signs Temp Pulse Resp BP Pulse Ox O2 Del Method O2 Flow Rate 12/23/23 09:39 113 H 142/92 H 12/23/23 08:00 93 High Flow Nasal Cannula 5 12/23/23 08:00 124 H 12/23/23 08:00 99.1 F 118 H 19 112/59 L 93 12/23/23 08:25
--- NOTE | 2023-12-23 09:45 | P.PNNP_ITS ---
Progress Note: A&P Assessment and Plan (1) VEAR (acute kidney injury): Code(s): N17.9 - Acute kidney failure, unspecified Status: Acute Assessment and Plan: * slightly worse * normal creatinine/renal function at baseline * admitted with creatinine of 2.3mg/dl * suspect ATN with multifactorial etiology: * hemodynamic instability/shock * infection/sepsis (UTI + pyelonephritis) * obstruction/hydronephrosis * prerenal factors * use of ARB + HCTZ prior to admission * contrast exposure (CTA on 12/20/23) * s/p aggressive IVF resuscitation * on pressor support to maintain MAP * evaluation to date: * admission CT with 3 mm stone at left UV junction with moderate left hydronephrosis and hydroureter left-sided emphysematous pyelonephritis * urine electrolytes non-prerenal * urine eosinophils negative * CPK okay * 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 * follow repeat labs and UOP (2) Septic shock: Code(s): A41.9 - Sepsis, unspecified organism; R65.21 - Severe sepsis with septic shock Status: Acute Assessment and Plan: * presumably secondary to UTI and pyelonephritis * admission CT with 3 mm stone at left UV junction with moderate left hydronephrosis and hydroureter left-sided emphysematous pyelonephritis * noted hypotension on admission s/p IVF resuscitation * IVF held due to concerns of volume overload * initiated on vasopressor therapy to maintain MAP - weaned off * follow culture data * on antibiotics * follow trend of hemodynamics (3) Hydronephrosis of left kidney: Code(s): N13.30 - Unspecified hydronephrosis Status: Acute Assessment and Plan: * as noted by admission imaging * status post cystoscopy, left retrograde pyelogram, left ureteral stent placement on * Urology following (4) Emphysematous pyelonephritis of left kidney: Code(s): N12 - Tubulo-interstitial nephritis, not specified as acute or chronic Status: Acute Assessment and Plan: * as noted by admission imaging * urine culture with E. coli * blood culture negative to date * on antibiotics (5) UTI (urinary tract infection): Code(s): N39.0 - Urinary tract infection, site not specified Status: Acute Assessment and Plan: * see #4 (6) Respiratory failure: Code(s): J96.90 - Respiratory failure, unspecified, unspecified whether with hypoxia or hypercapnia Status: Acute Assessment and Plan: * issues with hypoxia on 12/20 * given elevated BNP and concerns for possible volume overload, IVFs stopped * however, history of BARBARA maybe playing a role * BiPAP PRN along with use of supplemental oxgen * on bronchodilators * follow respiratory status (7) Diabetes: Code(s): E11.9 - Type 2 diabetes mellitus without complications Status: Chronic Assessment and Plan: * follow accu-cheks * glycemic control per intensivisit/hospitalists Discussed case with Dr. Ramires. Will continue to follow Subjective Date/time seen: 12/23/23 09:45 Interval history: Follow-up for acute kidney injury/acute renal failure. No apparent distress noted at the time of my visit; renal function worse by AM labs but seems to be making more urine; able to be weaned off levophed with relatively stability in hemodynamics at this time; stable mentation noted only complaint is that of slight shortness of breath. Exam Narrative: General: elderly but WD/WN female in NAD Hear
--- NOTE | 2023-12-23 09:47 | ECG_ITS ---
Measurements Intervals [place] Rate: 113 P: MI: 0 QRS: 19 QRSD: 105 T: -20 QT: 317 QTc: 436 Interpretive Statements ATRIAL FLUTTER/TACHYCARDIA WITH RAPID VENTRICULAR RESPONSE FREQUENT VENTRICULAR PREMATURE COMPLEXES INCOMPLETE RIGHT BUNDLE BRANCH BLOCK LOW QRS VOLTAGE IN PRECORDIAL LEADS BORDERLINE T WAVE ABNORMALITY- ANTEROLAT/INF LEADS ABNORMAL ECG COMPARED TO ECG 12/22/2023 13:58:18 NO SIGNIFICANT CHANGES Electronically Signed On 12-23-2023 15:25:57 DULSER by Arturo Alejo D.O.
[2023-12-23] MEDS: ONDANSETRON INJ 4 MG/2 ML VIAL IV PUSH ×2 (10:04→14:00)
[2023-12-23 10:37] LABS: Troponin I 0.018 ng/mL (0.000-0.034)
[2023-12-23 10:49] LABS: Basophils Percent Auto 0.2 % (0.2-1.2); Eosinophils Absolute Auto 0.1 K/mm3 (0-0.3); Eosinophils Percent Auto 1.1 % (0-4.4); Hematocrit 29.5 % (37.0-47.0); Hemoglobin 9.3 g/dL (12.0-15.0); Immature Granulocyte Absolute 0.26 K/mm3 (0.00-0.031); Immature Granulocyte Percent A 2.4 % (0-0.5); Lymphocytes Absolute Auto 0.92 K/mm3 (0.9-3.2); Lymphocytes Percent Auto 8.6 % (18.3-44.2); Mean Corpuscular HGB Conc 31.5 g/dl (32-36); Mean Corpuscular Hemoglobin 29.9 pg (26-34); Mean Corpuscular Volume 94.9 fl (80-100); Monocytes Absolute Auto 1.1 K/mm3 (0.1-0.6); Monocytes Percent Auto 9.8 % (2.6-8.5); Neutrophils Absolute Auto 8.4 K/mm3 (1.3-6.7); Neutrophils Percent Auto 77.9 % (45.5-73.1); Nucleated Red Blood Cells Perc 0.3 % (0.0-0.2); Platelet Count Result 119 k/mm3 (150-375); Red Blood Count 3.11 M/mm3 (4.2-5.4); Red Cell Distribution Width 15.6 % (11.5-14.5); White Blood Count 10.8 K/mm3 (4.5-10.0)
[2023-12-23] MEDS: AMIODARONE 150 MG/D5W 100 ML 150 MG/100 ML BAG 600 MG IV CONT (10:49)
[2023-12-23] MEDS: HEPARIN SOD/D5W 100 UNITS/ML 25,000 UNITS/250 ML BAG 13 UNITS IV CONT (10:51)
[2023-12-23 10:59] LABS: INR 1.2
[2023-12-23 11:00] LABS: Partial Thromboplastin Time 37.9 SECONDS (22.3-36.8)
[2023-12-23] MEDS: AMIODARONE 360 MG/D5W 200 ML 360 MG/200 ML BAG 33.33 MG IV CONT (11:01)
[2023-12-23 11:47] LABS: Glucose Point of Care 185 mg/dl (65-105)
[2023-12-23] MEDS: ALBUMIN HUMAN 25% 25 GM/100 ML 100 ML IVPB ×3 (11:58→23:55)
[2023-12-23 13:54] LABS: Troponin I 0.014 ng/mL (0.000-0.034)
--- NOTE | 2023-12-23 14:09 | PCOTNOTE ---
Attempted OT evaluation in am; pt. had nausea and felt like she was going to vomit. Will attempt again when pt. is medically able to participate.
--- NOTE | 2023-12-23 16:13 | PCPTNOTE ---
Attempted to see for physical therapy evaluation, pt refused stating she is SOB and nauseous while lying in bed. RN notified, will continue to follow
[2023-12-23] MEDS: AMIODARONE 360 MG/D5W 200 ML 360 MG/200 ML BAG 16.67 MG IV CONT (16:40)
[2023-12-23 16:47] LABS: Glucose Point of Care 199 mg/dl (65-105)
[2023-12-23 17:59] LABS: Partial Thromboplastin Time 49.5 SECONDS (22.3-36.8)
[2023-12-23] MEDS: HEPARIN SODIUM 5,000 UNITS/ML VIAL 6000 UNITS IV PUSH (18:13)
[2023-12-23] MEDS: GABAPENTIN 100 MG CAPSULE PO (20:56)
[2023-12-23 21:12] LABS: Glucose Point of Care 176 mg/dl (65-105)
[2023-12-24] VITALS (31 sets, daily range): BP systolic 133–194; BP diastolic 59–92; PULSE 98–127; RESP 17–26; TEMP 36.4–37.2; O2SAT 90–97
[2023-12-24 00:08] LABS: Glucose Point of Care 169 mg/dl (65-105)
[2023-12-24 00:55] LABS: Partial Thromboplastin Time 64.4 SECONDS (22.3-36.8)
[2023-12-24] MEDS: HEPARIN SODIUM 5,000 UNITS/ML VIAL 3000 UNITS IV PUSH ×3 (01:05→14:53)
[2023-12-24] MEDS: HEPARIN SOD/D5W 100 UNITS/ML 25,000 UNITS/250 ML BAG 17 UNITS IV CONT (02:33)
[2023-12-24] MEDS: IPRATROPIUM 0.5 MG/ALBUTEROL SULFATE 2.5 MG AMPUL.NEB 3 ML INHALATION ×4 (02:37→19:54)
[2023-12-24 04:31] LABS: Glucose Point of Care 167 mg/dl (65-105)
[2023-12-24] MEDS: AMIODARONE 360 MG/D5W 200 ML 360 MG/200 ML BAG 16.67 MG IV CONT ×2 (05:23→18:01)
[2023-12-24] MEDS: ALBUMIN HUMAN 25% 25 GM/100 ML 100 ML IVPB (05:24)
[2023-12-24] MEDS: CENTRAL LINE FLUSH 10 ML IV PUSH ×3 (05:25→21:08)
[2023-12-24 06:50] LABS: Basophils Percent Auto 0.2 % (0.2-1.2); Eosinophils Absolute Auto 0.2 K/mm3 (0-0.3); Eosinophils Percent Auto 1.5 % (0-4.4); Hematocrit 28.6 % (37.0-47.0); Immature Granulocyte Absolute 0.39 K/mm3 (0.00-0.031); Immature Reticulocyte Fraction 3.9 % (3.0-15.9); Lymphocytes Absolute Auto 0.65 K/mm3 (0.9-3.2); Lymphocytes Percent Auto 6.6 % (18.3-44.2); Mean Corpuscular HGB Conc 31.5 g/dl (32-36); Mean Corpuscular Hemoglobin 29.8 pg (26-34); Mean Corpuscular Volume 94.7 fl (80-100); Mean Platelet Volume 9.7 fl (7.4-10.4); Monocytes Absolute Auto 0.9 K/mm3 (0.1-0.6); Monocytes Percent Auto 9.2 % (2.6-8.5); Neutrophils Absolute Auto 7.7 K/mm3 (1.3-6.7); Neutrophils Percent Auto 78.5 % (45.5-73.1); Platelet Count Result 107 k/mm3 (150-375); Red Blood Count 3.02 M/mm3 (4.2-5.4); Red Cell Distribution Width 15.5 % (11.5-14.5); Reticulocyte Hemoglobin Conten 26.8 pg (28.2-35.7); Reticulocyte Percent 0.56 % (0.7-4.3); Reticulocytes Absolute 0.02 M/mm3 (0.02-0.1); White Blood Count 9.9 K/mm3 (4.5-10.0)
[2023-12-24 06:59] LABS: Magnesium 2.8 mg/dL (1.6-2.3)
[2023-12-24 07:07] LABS: Partial Thromboplastin Time 62.1 SECONDS (22.3-36.8)
[2023-12-24 07:13] LABS: Anion Gap 11 mmol/L (8-16); Blood Urea Nitrogen 73 mg/dL (7-17); Calcium 8.4 mg/dL (8.4-10.2); Carbon Dioxide 23 mmol/L (22-30); Chloride 100 mmol/L (98-107); Estimated CRCL calculation 19 ml/min; Estimated Glomerular Filt Rate 16; Glucose 151 mg/dL (65-110); Potassium 3.8 mmol/L (3.4-5.0); Sodium 134 mmol/L (137-145)
[2023-12-24 07:25] LABS: Iron 19 ug/dL (37-170)
[2023-12-24 07:35] LABS: Percent Iron Saturation 12 % (20-50)
[2023-12-24 07:46] LABS: Glucose Point of Care 158 mg/dl (65-105)
[2023-12-24] MEDS: cefTRIAXone 2 GM/NS 100 ML 2 GM/100 ML BAG IVPB (08:04)
[2023-12-24] MEDS: METOPROLOL TARTRATE 12.5 MG TABLET PO ×2 (08:04→08:55)
[2023-12-24] MEDS: PRAVASTATIN SODIUM 20 MG TABLET 40 MG PO (08:04)
[2023-12-24] MEDS: GLIMEPIRIDE 2 MG TABLET 4 MG PO (08:04)
[2023-12-24] MEDS: INSULIN GLARGINE (*BKC) 100 UNITS/ML 25 UNITS SUB-Q (08:04)
[2023-12-24] MEDS: TOLNAFTATE 1% POWDER 45 GM BTL 1 APPLIC TOPICAL ×2 (08:04→21:15)
[2023-12-24 08:22] LABS: Folic Acid > 20.0 ng/mL (2.76->20)
--- NOTE | 2023-12-24 08:24 | WPDINTPN ---
Progress Note: A&P Assessment and Plan (1) Septic shock: Code(s): A41.9 - Sepsis, unspecified organism; R65.21 - Severe sepsis with septic shock Status: Acute Assessment and Plan: : Patient presented with sepsis secondary UTI, UA was abnormal, CT showed 3 mm stone at left UV junction with moderate left hydronephrosis and hydroureter left-sided emphysematous pyelonephritis -12/20/2023: : status post cystoscopy, left retrograde pyelogram, left ureteral stent placement -patient was hypotensive, received adequate amount of IV fluids -OFF Levophed since 12/21 -acute kidney injury likely related to UTI, hydronephrosis, contrast induced nephropathy, continue to monitor urine output -normal lactic acid -status post albumin -: Urine culture is positive for E coli, pansensitive -10/24: Blood culture: No growth to date -12/22: Discontinued meropenem (12/20). -continue ceftriaxone and vancomycin (12/22) -patient received adequate amount of IV fluids, the after having increased oxygen requirements, pro BNP was 4740. Additional IV fluids were held -continue BiPAP p.r.n. 12/23/2023: Echocardiogram Summary ? 1. Complete two-dimensional, color flow and Doppler transthoracic echocardiogram is performed. ? 2. Left ventricular chamber dimension is normal. ? 3. Left ventricular systolic function is normal, estimated at 60-65%. ? 4. The left ventricular diastolic function is abnormal. ? 5. E/e' 17 is elevated. ? 6. Left atrial chamber dimension is mildly enlarged. ? 7. The mitral valve has moderately calcified annulus. ? 8. Mild pulmonary hypertension, estimated pulmonary arterial systolic pressure is 43 mmHg. ? 9. There is trace pulmonic regurgitation. (2) VERA (acute kidney injury): Code(s): N17.9 - Acute kidney failure, unspecified Status: Acute Assessment and Plan: Patient presented with sepsis, hydronephrosis, left ureteral stent, UTI/pyelonephritis, hypovolemia with initial creatinine of 2.30 -she has received adequate amount of IV fluids -patient on pressors -creatinine trending up, could be related to septic shock, UTI/pyelonephritis, contrast induced nephropathy -continue Levophed, maintained MAP > 65 mmHg or SBP > 100 mmHg for adequate renal perfusion -Hold nephrotoxic medications -CK levels within normal limits, urine lytes not prerenal, negative urine eosinophils -normal lactic acid -nephrology consulted -monitor renal function, electrolytes and urine output -adequate urine output with improvement in blood pressures, renal function is improving (3) Type 2 diabetes mellitus with hyperglycemia, without long-term current use of insulin: Code(s): E11.65 - Type 2 diabetes mellitus with hyperglycemia Status: Acute Assessment and Plan: -Patient is on oral diabetic medications and blood sugars have been elevated since coming to the hospital -continue Accu-Cheks and sliding scale insulin -continue Lantus -hemoglobin A1c is 8.3 this admission (4) Hydronephrosis of left kidney: Code(s): N13.30 - Unspecified hydronephrosis Status: Acute Assessment and Plan: Status post status post cystoscopy, left retrograde pyelogram, left ureteral stent placement as above (5) Hydroureter on left: Code(s): N13.4 - Hydroureter Status: Acute Assessment and Plan: See above (6) Emphysematous pyelonephritis of left kidney: Code(s): N12 - Tubulo-interstitial nephritis, not specified as acute or chronic Status: Acute Assessment and Plan: See above (7) UTI (urinary tract infection): Code(s): N39.0 - Urinary tract infection, site not specified Status: Acute Assessment and Plan: ; Urine cultures growing E coli, sensitivities pending -continue antibiotics as above (8) Obstructive sleep apnea (adult) (pediatric): Code(s): G47.33 - Obstructive sleep apnea (adult) (pediatric) Status: Acute Assessmen
--- NOTE | 2023-12-24 09:30 | PM.PNNEP ---
Progress Note: A&P Assessment and Plan (1) VERA (acute kidney injury): Code(s): N17.9 - Acute kidney failure, unspecified Status: Acute Assessment and Plan: improvement noted normal creatinine/renal function at baseline admitted with creatinine of 2.3mg/dl suspect ATN with multifactorial etiology: hemodynamic instability/shock infection/sepsis (UTI + pyelonephritis) obstruction/hydronephrosis prerenal factors use of ARB + HCTZ prior to admission contrast exposure (CTA on 12/20/23) s/p aggressive IVF resuscitation was on pressor support to maintain MAP - weaned off evaluation to date: admission CT with 3 mm stone at left UV junction with moderate left hydronephrosis and hydroureter left-sided emphysematous pyelonephritis urine electrolytes non-prerenal urine eosinophils negative CPK okay follow repeat labs and UOP (2) Septic shock: Code(s): A41.9 - Sepsis, unspecified organism; R65.21 - Severe sepsis with septic shock Status: Acute Assessment and Plan: presumably secondary to UTI and pyelonephritis admission CT with 3 mm stone at left UV junction with moderate left hydronephrosis and hydroureter left-sided emphysematous pyelonephritis noted hypotension on admission s/p IVF resuscitation IVF held due to concerns of volume overload was initiated on vasopressor therapy to maintain MAP - weaned off follow culture data on antibiotics follow trend of hemodynamics (3) Hydronephrosis of left kidney: Code(s): N13.30 - Unspecified hydronephrosis Status: Resolved Assessment and Plan: as noted by admission imaging status post cystoscopy, left retrograde pyelogram, left ureteral stent placement on Urology following (4) Emphysematous pyelonephritis of left kidney: Code(s): N12 - Tubulo-interstitial nephritis, not specified as acute or chronic Status: Acute Assessment and Plan: as noted by admission imaging urine culture with E. coli blood culture negative to date on antibiotics (5) UTI (urinary tract infection): Code(s): N39.0 - Urinary tract infection, site not specified Status: Acute Assessment and Plan: see #4 (6) Respiratory failure: Code(s): J96.90 - Respiratory failure, unspecified, unspecified whether with hypoxia or hypercapnia Status: Acute Assessment and Plan: issues with hypoxia on 12/20 given elevated BNP and concerns for possible volume overload, IVFs stopped however, history of BARBARA maybe playing a role BiPAP PRN along with use of supplemental oxgen on bronchodilators not opposed to use if IV diuretics PRN follow respiratory status (7) Diabetes: Code(s): E11.9 - Type 2 diabetes mellitus without complications Status: Chronic Assessment and Plan: follow accu-cheks glycemic control per intensivisit/hospitalists Discussed case with Dr. Ramires. Will continue to follow Subjective Date/time seen: 12/24/23 09:30 Interval history: Follow-up for acute kidney injury/acute renal failure. Better urine output in the last 24 hours with improvement in renal function noted by AM labs; stable mentation and hemodynamics at the time of my visit; reports some shortness of breath and remains in atrial fibrillation; some vomiting yesterday but better at this time; no apparent distress noted. Exam Narrative: General: elderly but WD/WN female in NAD Heart: IRRR, tachycardic, normal S1 and S2; no rub Lungs: clear anteriorly with some bibasilar crackles Abdomen: soft, nontender, nondistended, positive bowel sounds Extremities: no cyanosis or clubbing; trace edema Skin: warm and intact Objective Data Vital Signs Vital Signs: Vital Signs Temp Pulse Resp BP Pulse Ox O2 Del Method O2 Flow Rate 12/24/23 08:55 116 H 12/24/23 08:55 High Flow Therapy with Na 10 12/24/23 08:27 113 H 22 H
--- NOTE | 2023-12-24 09:30 | P.PNNP_ITS ---
Progress Note: A&P Assessment and Plan (1) VERA (acute kidney injury): Code(s): N17.9 - Acute kidney failure, unspecified Status: Acute Assessment and Plan: * improvement noted * normal creatinine/renal function at baseline * admitted with creatinine of 2.3mg/dl * suspect ATN with multifactorial etiology: * hemodynamic instability/shock * infection/sepsis (UTI + pyelonephritis) * obstruction/hydronephrosis * prerenal factors * use of ARB + HCTZ prior to admission * contrast exposure (CTA on 12/20/23) * s/p aggressive IVF resuscitation * was on pressor support to maintain MAP - weaned off * evaluation to date: * admission CT with 3 mm stone at left UV junction with moderate left hydronephrosis and hydroureter left-sided emphysematous pyelonephritis * urine electrolytes non-prerenal * urine eosinophils negative * CPK okay * follow repeat labs and UOP (2) Septic shock: Code(s): A41.9 - Sepsis, unspecified organism; R65.21 - Severe sepsis with septic shock Status: Acute Assessment and Plan: * presumably secondary to UTI and pyelonephritis * admission CT with 3 mm stone at left UV junction with moderate left hydronephrosis and hydroureter left-sided emphysematous pyelonephritis * noted hypotension on admission s/p IVF resuscitation * IVF held due to concerns of volume overload * was initiated on vasopressor therapy to maintain MAP - weaned off * follow culture data * on antibiotics * follow trend of hemodynamics (3) Hydronephrosis of left kidney: Code(s): N13.30 - Unspecified hydronephrosis Status: Resolved Assessment and Plan: * as noted by admission imaging * status post cystoscopy, left retrograde pyelogram, left ureteral stent placement on * Urology following (4) Emphysematous pyelonephritis of left kidney: Code(s): N12 - Tubulo-interstitial nephritis, not specified as acute or chronic Status: Acute Assessment and Plan: * as noted by admission imaging * urine culture with E. coli * blood culture negative to date * on antibiotics (5) UTI (urinary tract infection): Code(s): N39.0 - Urinary tract infection, site not specified Status: Acute Assessment and Plan: * see #4 (6) Respiratory failure: Code(s): J96.90 - Respiratory failure, unspecified, unspecified whether with hypoxia or hypercapnia Status: Acute Assessment and Plan: * issues with hypoxia on 12/20 * given elevated BNP and concerns for possible volume overload, IVFs stopped * however, history of BARBARA maybe playing a role * BiPAP PRN along with use of supplemental oxgen * on bronchodilators * not opposed to use if IV diuretics PRN * follow respiratory status (7) Diabetes: Code(s): E11.9 - Type 2 diabetes mellitus without complications Status: Chronic Assessment and Plan: * follow accu-cheks * glycemic control per intensivisit/hospitalists Discussed case with Dr. Ramires. Will continue to follow Subjective Date/time seen: 12/24/23 09:30 Interval history: Follow-up for acute kidney injury/acute renal failure. Better urine output in the last 24 hours with improvement in renal function no albert by AM labs; stable mentation and hemodynamics at the time of my visit; reports some shortness of breath and remains in atrial fibrillation; some vomiting yesterday but better at this time; no apparent distress noted. Exam Narrative: General: el
--- NOTE | 2023-12-24 09:48 | PM.IMPN ---
Progress Note: A&P Assessment and Plan (1) Septic shock: Code(s): A41.9 - Sepsis, unspecified organism; R65.21 - Severe sepsis with septic shock Status: Acute Assessment and Plan: : Patient presented with sepsis secondary UTI, UA was abnormal, CT showed 3 mm stone at left UV junction with moderate left hydronephrosis and hydroureter left-sided emphysematous pyelonephritis -12/20/2023: : status post cystoscopy, left retrograde pyelogram, left ureteral stent placement -patient was hypotensive, received adequate amount of IV fluids -OFF Levophed since 12/21 -acute kidney injury likely related to UTI, hydronephrosis, contrast induced nephropathy, continue to monitor urine output -normal lactic acid -status post albumin -: Urine culture is positive for E coli, pansensitive -10/24: Blood culture: No growth to date -12/22: Discontinued meropenem (12/20). -continue ceftriaxone and vancomycin (12/22) -patient received adequate amount of IV fluids, the after having increased oxygen requirements, pro BNP was 4740. Additional IV fluids were held -continue BiPAP p.r.n. 12/23/2023: Echocardiogram Summary ? 1. Complete two-dimensional, color flow and Doppler transthoracic echocardiogram is performed. ? 2. Left ventricular chamber dimension is normal. ? 3. Left ventricular systolic function is normal, estimated at 60-65%. ? 4. The left ventricular diastolic function is abnormal. ? 5. E/e' 17 is elevated. ? 6. Left atrial chamber dimension is mildly enlarged. ? 7. The mitral valve has moderately calcified annulus. ? 8. Mild pulmonary hypertension, estimated pulmonary arterial systolic pressure is 43 mmHg. ? 9. There is trace pulmonic regurgitation. Will DC IV vancomycin continue Rocephin (2) VERA (acute kidney injury): Code(s): N17.9 - Acute kidney failure, unspecified Status: Acute Assessment and Plan: Multifactorial most likely related to sepsis hydronephrosis -nephrology consulted -monitor renal function, electrolytes and urine output -a patient has significant fluid overload will give IV diuresis (3) Type 2 diabetes mellitus with hyperglycemia, without long-term current use of insulin: Code(s): E11.65 - Type 2 diabetes mellitus with hyperglycemia Status: Acute Assessment and Plan: Continue Lantus insulin sliding scale (4) Hydronephrosis of left kidney: Code(s): N13.30 - Unspecified hydronephrosis Status: Acute Assessment and Plan: Status post cystoscopy and left ureteral stent placement (5) Hydroureter on left: Code(s): N13.4 - Hydroureter Status: Acute Assessment and Plan: As above (6) Emphysematous pyelonephritis of left kidney: Code(s): N12 - Tubulo-interstitial nephritis, not specified as acute or chronic Status: Acute Assessment and Plan: Continue IV antibiotic nephrology following (7) UTI (urinary tract infection): Code(s): N39.0 - Urinary tract infection, site not specified Status: Acute Assessment and Plan: Secondary to E coli continue IV antibiotics (8) Obstructive sleep apnea (adult) (pediatric): Code(s): G47.33 - Obstructive sleep apnea (adult) (pediatric) Status: Acute Assessment and Plan: Continue BiPAP (9) Mixed hyperlipidemia: Code(s): E78.2 - Mixed hyperlipidemia Status: Acute Assessment and Plan: Continue pravastatin (10) Thrombocytopenia: Code(s): D69.6 - Thrombocytopenia, unspecified Status: Acute Assessment and Plan: Likely secondary to sepsis/septic shock -platelet count improving -continue to monitor on (11) Respiratory failure: Code(s): J96.90 - Respiratory failure, unspecified, unspecified whether with hypoxia or hypercapnia Status: Acute Assessment and Plan: Probably related to volume overload Continue diuresis (12) Unequal pupils: Code(s): H57.02 - Ani
[2023-12-24 10:06] LABS: Vancomycin Trough 8.9 ug/mL (10.0-20.0)
[2023-12-24] MEDS: FUROSEMIDE INJ 40 MG/4 ML VIAL IV PUSH ×2 (10:08→16:13)
--- NOTE | 2023-12-24 11:14 | PM.CNCAR ---
Assessment and Plan Assessment and plan (1) Atrial flutter: Code(s): I48.92 - Unspecified atrial flutter Status: Acute Assessment and Plan: Patient has atrial fibrillation flutter that appears to have started on 12/22/2023. She has been on anticoagulation since that time. EKG performed on 12/20/2023 show sinus tachycardia. She is otherwise asymptomatic. Since she has been on anticoagulation essentially since the onset of arrhythmia, I do not think that she needs a DMITRY. I would recommend elective cardioversion to restore sinus rhythm. She remains on amiodarone and heparin drip. Echocardiogram already ordered and performed showing preserved ejection fraction mild left atrial enlargement. Plan will be to keep NPO for elective cardioversion either later today or tomorrow depending on schedule. She already ate breakfast this morning (2) Hypertension associated with diabetes: Code(s): E11.59 - Type 2 diabetes mellitus with other circulatory complications; I15.2 - Hypertension secondary to endocrine disorders Status: Acute Assessment and Plan: Continue losartan (3) Obstructive sleep apnea (adult) (pediatric): Code(s): G47.33 - Obstructive sleep apnea (adult) (pediatric) Status: Acute Assessment and Plan: On CPAP (4) Chronic obstructive pulmonary disease, unspecified: Code(s): J44.9 - Chronic obstructive pulmonary disease, unspecified Status: Acute Assessment and Plan: Followed by pulmonology (5) VERA (acute kidney injury): Code(s): N17.9 - Acute kidney failure, unspecified Status: Acute Assessment and Plan: From ureteral stone obstruction. Per urology and certified ski patroller. On antibiotics. History of Present Illness History of Present Illness Consult date/time: 12/24/23 11:14 Requesting physician: Emiliana Ramires MD Consult reason: atrial fibrillation Reason For Visit: N/V/D SHORT OF BREATH Narrative: Date of service: 12/24/2023 Reason for consultation: Atrial fibrillation/flutter Requesting provider: Dr. Ramires History: Patient is a 73-year-old female chief has history of COPD and is admitted because of nausea vomiting diarrhea fevers flank pain. She also acute renal failure. She was found have a left ureteral stone with hydronephrosis and pyelonephritis. Started on IV fluids and Rocephin. She went to the operating room and a ureteral stent was placed. Patient was found to be tachycardic and went into atrial fibrillation while in the ICU. She was started on heparin and amiodarone for which she remains. Echocardiogram was performed showing preserved ejection fraction. She does not feel palpitations. She otherwise has had no cardiac symptoms including no chest pain, shortness of breath, syncope, presyncope, paroxysmal nocturnal dyspnea, orthopnea, palpitations. She does have some chronic lower extremity edema which is not new or different. Review of Systems Review of Systems: All systems reviewed & are unremarkable except as noted in HPI and below Constitutional: Constitutional: Denies body ache(s) Eyes: Eyes: Denies blurry vision ENT: Denies Normal hearing present Cardiovascular: Cardiovascular: Denies chest pain Respiratory: Respiratory: Denies dyspnea Gastrointestinal: Gastrointestinal: Denies abdominal pain Genitourinary: Genitourinary: Denies hematuria Musculoskeletal: Musculoskeletal: Denies back pain Integumentary/Breasts: Skin/Breast: Denies dry skin Neurologic: Denies Abnormal speech present Psychiatric: Psychiatric: Denies anxiety Endocrine: Endocrine: Denies excessive sweating Hematologic/Lymphatic: Hematologic/Lymphatic: Denies easy bleeding Allergic/Immunologic: Allergic/Immunologic: Denies GI upset with certain foods PMFSH Past Medical History Medical History Chronic obstructive pulmonary disease, unspecified Diabetes mellitus
[2023-12-24 12:31] LABS: Glucose Point of Care 260 mg/dl (65-105)
[2023-12-24] MEDS: INSULIN ASPART (*BKC) 100 UNITS/ML SUB-Q ×4 (12:35→23:22)
--- NOTE | 2023-12-24 12:43 | WPDUROPN2 ---
Progress Note: A&P Assessment and Plan (1) Sepsis: Qualifiers: Sepsis type: sepsis due to unspecified organism Sepsis acute organ dysfunction status: with acute organ dysfunction Severe sepsis acute organ dysfunction type: acute renal failure Acute renal failure type: unspecified Severe sepsis shock status: without septic shock Qualified Code(s): A41.9 - Sepsis, unspecified organism; R65.20 - Severe sepsis without septic shock; N17.9 - Acute kidney failure, unspecified Code(s): A41.9 - Sepsis, unspecified organism Status: Acute Assessment and Plan: Source of infection is left UVJ stone and pyelitis. (2) Calculus of ureterovesical junction (UVJ): Code(s): N20.1 - Calculus of ureter Status: Acute Assessment and Plan: 3 mm left UVJ stone s/p cystoscopy, left retrograde pyelogram, and left ureteral stent placement on 12/20/[address] Whitten Follow-up KUB completed on 12/21/2023 shows stent in expected position, left ureteral stone not visible She will need definitive stone management at a later date following resolution of infection. Understands temporary nature of stent and need for appropriate follow up. (3) Hydronephrosis of left kidney: Code(s): N13.30 - Unspecified hydronephrosis Status: Acute Assessment and Plan: Left ureteral stent placement as above. 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 Continue antibiotic therapy tailored to urine culture results (5) UTI (urinary tract infection): Code(s): N39.0 - Urinary tract infection, site not specified Status: Acute Assessment and Plan: Urine culture with growth of E coli, continue antibiotics as above (6) VERA (acute kidney injury): Code(s): N17.9 - Acute kidney failure, unspecified Status: Acute Assessment and Plan: Creatinine trending down, continue to monitor renal function Subjective Subjective Date/Time Seen: 12/24/23 12:43 Interval history: Silvana is feeling improved today. She denies any left-sided flank or back pain. No issues with Benavidez catheter which is draining clear yellow urine. Her WBC is within normal limits, 9. Creatinine trending down, 2.9. Her is present at the bedside. Review of Systems Review of Systems: All systems reviewed & are unremarkable except as noted in HPI and below Exam Narrative: General: Awake, alert, comfortable, no acute distress HEENT: Normocephalic, atraumatic, sclerae anicteric Respiratory: Normal respiratory effort, no accessory muscle use Abdomen: Nondistended, soft, nontender : benavidez catheter draining clear yellow urine Skin: Normal coloration, warm and dry Neurologic: No focal neuro deficits noted Psychiatric: Appropriate mood and affect, judgment and insight intact Objective Data Vital Signs Vital Signs: Vital Signs - 24 hr 12/23/23 13:10 12/23/23 13:20 12/23/23 14:00 Temperature Pulse Rate 105 H 108 H 11 L Respiratory Rate 18 19 Blood Pressure Pulse Oximetry Oxygen Delivery Oxygen Flow Rate Fraction of Inspired Oxygen 12/23/23 14:00 12/23/23 16:40 12/23/23 16:00 Temperature 97.6 F Pulse Rate 107 H 108 H 104 H Respiratory Rate 20 22 H Blood Pressure 113/62 125/59 L 128/75 Pulse Oximetry 92 95 Oxygen Delivery Oxygen Flow Rate Fraction of Inspired Oxygen 12/23/23 16:00 12/23/23 16:00 12/23/23 18:00 Temperature Pulse Rate 102 H 95 Respiratory Rate Blood Pressure Pulse Oximetry 95 Oxygen Delivery High Flow Nasal Cannula Oxygen Flow Rate 5 Fraction of Inspired Oxygen 12/23/23 18:00 12/23/23 20:04 12/23/23 20:07 Temperature Pulse Rate 95 100 100 Respiratory Rate 25 H 18 18 Blood Pressure 138/70 Pulse Oxi
[2023-12-24 14:35] LABS: Partial Thromboplastin Time 57.6 SECONDS (22.3-36.8)
[2023-12-24] MEDS: HEPARIN SOD/D5W 100 UNITS/ML 25,000 UNITS/250 ML BAG 19 UNITS IV CONT (16:14)
[2023-12-24 16:18] LABS: Glucose Point of Care 323 mg/dl (65-105)
[2023-12-24] MEDS: hydrALAZINE HCL 20 MG/ML VIAL 10 MG IV PUSH (18:09)
[2023-12-24] MEDS: ACETAMINOPHEN 325 MG TABLET 650 MG PO (21:07)
[2023-12-24] MEDS: GABAPENTIN 100 MG CAPSULE PO (21:08)
[2023-12-24] MEDS: METOPROLOL TARTRATE 25 MG TABLET PO (21:08)
[2023-12-24 21:14] LABS: Glucose Point of Care 275 mg/dl (65-105)
[2023-12-24 22:25] LABS: Partial Thromboplastin Time 53.9 SECONDS (22.3-36.8)
[2023-12-24] MEDS: HEPARIN SODIUM 5,000 UNITS/ML VIAL 6000 UNITS IV PUSH (22:34)
[2023-12-24 23:27] LABS: Glucose Point of Care 252 mg/dl (65-105)
[2023-12-25] VITALS (28 sets, daily range): BP systolic 90–131; BP diastolic 45–73; PULSE 63–130; RESP 17–26; TEMP 36.8–37.5; O2SAT 92–100
[2023-12-25] MEDS: IPRATROPIUM 0.5 MG/ALBUTEROL SULFATE 2.5 MG AMPUL.NEB 3 ML INHALATION ×4 (02:10→19:23)
[2023-12-25] MEDS: HEPARIN SOD/D5W 100 UNITS/ML 25,000 UNITS/250 ML BAG 22 UNITS IV CONT (04:44)
[2023-12-25] MEDS: AMIODARONE 360 MG/D5W 200 ML 360 MG/200 ML BAG 16.67 MG IV CONT (04:45)
[2023-12-25] MEDS: CENTRAL LINE FLUSH 10 ML IV PUSH ×3 (04:45→20:25)
[2023-12-25 05:01] LABS: Basophils Percent Auto 0.3 % (0.2-1.2); Eosinophils Absolute Auto 0.2 K/mm3 (0-0.3); Eosinophils Percent Auto 1.5 % (0-4.4); Hematocrit 31.7 % (37.0-47.0); Hemoglobin 10.2 g/dL (12.0-15.0); Immature Granulocyte Absolute 0.56 K/mm3 (0.00-0.031); Immature Granulocyte Percent A 4.8 % (0-0.5); Lymphocytes Absolute Auto 0.71 K/mm3 (0.9-3.2); Lymphocytes Percent Auto 6.1 % (18.3-44.2); Mean Corpuscular HGB Conc 32.2 g/dl (32-36); Mean Corpuscular Hemoglobin 29.9 pg (26-34); Mean Platelet Volume 9.9 fl (7.4-10.4); Monocytes Absolute Auto 0.8 K/mm3 (0.1-0.6); Monocytes Percent Auto 6.6 % (2.6-8.5); Neutrophils Absolute Auto 9.4 K/mm3 (1.3-6.7); Neutrophils Percent Auto 80.7 % (45.5-73.1); Platelet Count Result 147 k/mm3 (150-375); Red Blood Count 3.41 M/mm3 (4.2-5.4); Red Cell Distribution Width 15.3 % (11.5-14.5); White Blood Count 11.7 K/mm3 (4.5-10.0)
[2023-12-25 05:13] LABS: Partial Thromboplastin Time 92.4 SECONDS (22.3-36.8)
[2023-12-25 06:24] LABS: Alanine Aminotransferase 31 U/L (6-35); Albumin Level 3.7 g/dL (3.5-5.1); Alkaline Phosphatase 112 U/L (38-126); Anion Gap 11 mmol/L (8-16); Aspartate Amino Transferase 27 U/L (14-36); Bilirubin,Total 0.6 mg/dL (0.2-1.3); Blood Urea Nitrogen 72 mg/dL (7-17); Calcium 9.1 mg/dL (8.4-10.2); Carbon Dioxide 27 mmol/L (22-30); Chloride 98 mmol/L (98-107); Estimated CRCL calculation 21 ml/min; Estimated Glomerular Filt Rate 18; Glucose 204 mg/dL (65-110); Magnesium 2.4 mg/dL (1.6-2.3); Phosphorus 3.9 mg/dL (2.5-4.5); Potassium 3.4 mmol/L (3.4-5.0); Sodium 136 mmol/L (137-145)
[2023-12-25 08:03] LABS: Glucose Point of Care 218 mg/dl (65-105)
--- NOTE | 2023-12-25 09:17 | WPDUROPN2 ---
Progress Note: A&P Assessment and Plan (1) Sepsis: Qualifiers: Acute renal failure type: unspecified Sepsis acute organ dysfunction status: with acute organ dysfunction Sepsis type: sepsis due to unspecified organism Severe sepsis acute organ dysfunction type: acute renal failure Severe sepsis shock status: without septic shock Qualified Code(s): A41.9 - Sepsis, unspecified organism; R65.20 - Severe sepsis without septic shock; N17.9 - Acute kidney failure, unspecified Code(s): A41.9 - Sepsis, unspecified organism Status: Acute Assessment and Plan: Source of infection is left UVJ stone and pyelitis. (2) Calculus of ureterovesical junction (UVJ): Code(s): N20.1 - Calculus of ureter Status: Acute Assessment and Plan: 3 mm left UVJ stone s/p cystoscopy, left retrograde pyelogram, and left ureteral stent placement on 12/20/[address] Whitten Follow-up KUB completed on 12/21/2023 shows stent in expected position. Left ureteral stone not visible. Will obtain repeat CT to assess stone following stent placement. She will need definitive stone management at a later date following resolution of infection. Understands temporary nature of stent and need for appropriate follow up. (3) Hydronephrosis of left kidney: Code(s): N13.30 - Unspecified hydronephrosis Status: Acute Assessment and Plan: Left ureteral stent placement on 12/20/2023 as above. 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 Continue antibiotic therapy tailored to urine culture results (5) UTI (urinary tract infection): Code(s): N39.0 - Urinary tract infection, site not specified Status: Acute Assessment and Plan: Urine culture with growth of E coli, continue antibiotics as above (6) VERA (acute kidney injury): Code(s): N17.9 - Acute kidney failure, unspecified Status: Acute Assessment and Plan: Creatinine trending down, continue to monitor renal function Subjective Subjective Date/Time Seen: 12/25/23 09:17 Interval history: Reports feeling well today. She offers no concerns. Denies abdominal pain or flank pain. No nausea or vomiting. Benavidez catheter is draining clear yellow urine. Urine culture with growth of E coli. WBC with slight increase to 11.7 today. Hemoglobin stable at 10.2. Creatinine slowly trending down, 2.6 today. She is tachycardic but remains afebrile Review of Systems Review of Systems: All systems reviewed & are unremarkable except as noted in HPI and below Exam Narrative: General: Awake, alert, comfortable, no acute distress HEENT: Normocephalic, atraumatic, sclerae anicteric Respiratory: Normal respiratory effort, no accessory muscle use Abdomen: Nondistended, soft, nontender : benavidez catheter draining clear yellow urine Skin: Normal coloration, warm and dry Neurologic: No focal neuro deficits noted Psychiatric: Appropriate mood and affect, judgment and insight intact Objective Data Vital Signs Vital Signs: Vital Signs - 24 hr 12/24/23 09:43 12/24/23 10:00 12/24/23 12:00 Temperature 97.6 F Pulse Rate 108 H 112 H Respiratory Rate 18 Blood Pressure 167/92 H Pulse Oximetry 91 Oxygen Delivery High Flow Nasal Cannula Oxygen Flow Rate 7 Fraction of Inspired Oxygen 12/24/23 13:00 12/24/23 13:08 12/24/23 12:00 Temperature Pulse Rate 114 H 112 H Respiratory Rate 22 H 22 H Blood Pressure Pulse Oximetry 93 Oxygen Delivery High Flow Therapy with Na Oxygen Flow Rate 7 Fraction of Inspired Oxygen 12/24/23 12:00 12/24/23 14:00 12/24/23 15:00 Temperature Pulse Rate 108 H 114 H Respiratory Rate Blood Pressure 150/80 H Pulse Oximetry Oxygen Delivery Oxygen Flow R
--- NOTE | 2023-12-25 09:21 | PM.PNCARD ---
Progress Note: A&P Assessment and Plan (1) Atrial flutter with rapid ventricular response: Code(s): I48.92 - Unspecified atrial flutter Status: Acute Assessment and Plan: Patient has atrial fibrillation atrial flutter that appears to have started on 12/22/2023.? She has been on anticoagulation since that time.? She is otherwise asymptomatic.? Since she has been on anticoagulation essentially since the onset of arrhythmia, I do not think that she needs a DMITRY.? I would recommend elective cardioversion to restore sinus rhythm.? She remains on amiodarone and heparin drip.? Echocardiogram already ordered and performed showing preserved ejection fraction mild left atrial enlargement.? Plan for DCCV today. Will plan to stop Heparin drip and start Eliquis 5mg BID. Patient will need to be on uninterrupted anticoagulation for at least 1 month following cardioversion. Will need to be on long-term anticoagulation given [id number] of 4 for age, gender, HTN, DM. Will plan to switch IV Amiodarone to PO Amiodarone following cardioversion. Continue Metoprolol tartrate 25mg BID. (2) Hypertension associated with diabetes: Code(s): E11.59 - Type 2 diabetes mellitus with other circulatory complications; I15.2 - Hypertension secondary to endocrine disorders Status: Acute Assessment and Plan: Continue Losartan (3) Obstructive sleep apnea (adult) (pediatric): Code(s): G47.33 - Obstructive sleep apnea (adult) (pediatric) Status: Acute Assessment and Plan: On CPAP (4) Chronic obstructive pulmonary disease, unspecified: Code(s): J44.9 - Chronic obstructive pulmonary disease, unspecified Status: Acute Assessment and Plan: Followed by Pulmonology (5) VERA (acute kidney injury): Code(s): N17.9 - Acute kidney failure, unspecified Status: Acute Assessment and Plan: From ureteral stone obstruction.?Follow renal function Subjective Date/time seen: 12/25/23 09:21 Interval history: Reason for visit: Atrial flutter with RVR HPI: Patient is a 73-year-old female chief has history of COPD and is admitted because of nausea vomiting diarrhea fevers flank pain.? She also acute renal failure.? She was found have a left ureteral stone with hydronephrosis and pyelonephritis.? Started on IV fluids and Rocephin.? She went to the operating room and a ureteral stent was placed.? Patient was found to be tachycardic and went into atrial fibrillation while in the ICU.? She was started on heparin and amiodarone for which she remains.? Echocardiogram was performed showing preserved ejection fraction.? She does not feel palpitations.? She otherwise has had no cardiac symptoms including no chest pain, shortness of breath, syncope, presyncope, paroxysmal nocturnal dyspnea, orthopnea, palpitations.? She does have some chronic lower extremity edema which is not new or different. Date of service 12/24: Remains in atrial flutter with RVR this morning. Exam Const: General: no acute distress HENMT: Mouth: Yes moist mucous membranes Eyes: General: appearance normal, both eyes and all related structures Sclera: sclerae normal Resp: Effort & Inspection: normal respiratory effort Other: On supplemental oxygen Cardio: Rate: tachycardic Rhythm: regular rhythm Skin: General skin exam: normal color Neuro: Speech: normal speech Psych: Mental Status: mental status grossly normal Affect: normal affect Objective Data Vital Signs Vital Signs: Vital Signs - 24 hr 12/24/23 09:43 12/24/23 10:00 12/24/23 12:00 Temperature 36.4 C Pulse Rate 108 H 112 H Respiratory Rate 18 Blood Pressure 167/92 H Pulse Oximetry 91 Oxygen Delivery High Flow Nasal Cannula Oxygen Flow Rate 7 Fraction of Inspired Oxygen 12/24/23 13:00 12/24/23 13:08 12/24/23 12:00 Temperature Pulse Rate 114 H 112 H Respiratory Rate 22 H 22 H Blood Pressure Pulse Oximetry 93
--- NOTE | 2023-12-25 09:37 | PCPTNOTE ---
The patient treatment was not able to be completed at this time due to test/procedure at bed side. Will plan to continue treatment per plan of care.
[2023-12-25] MEDS: APIXABAN 5 MG TABLET PO ×2 (09:52→20:25)
--- NOTE | 2023-12-25 09:53 | P.PNIM_ITS ---
Progress Note: A&P Assessment and Plan (1) Septic shock: Code(s): A41.9 - Sepsis, unspecified organism; R65.21 - Severe sepsis with septic shock Status: Acute Assessment and Plan: : Patient presented with sepsis secondary UTI, UA was abnormal, CT showed 3 mm stone at left UV junction with moderate left hydronephrosis and hydroureter left-sided emphysematous pyelonephritis -12/20/2023: : status post cystoscopy, left retrograde pyelogram, left ureteral stent placement -patient was hypotensive, received adequate amount of IV fluids -OFF Levophed since 12/21 -acute kidney injury likely related to UTI, hydronephrosis, contrast induced nephropathy, continue to monitor urine output -normal lactic acid -status post albumin -: Urine culture is positive for E coli, pansensitive -10/24: Blood culture: No growth to date -12/22: Discontinued meropenem (12/20). -continue ceftriaxone and vancomycin (12/22) -patient received adequate amount of IV fluids, the after having increased oxygen requirements, pro BNP was 4740. Additional IV fluids were held -continue BiPAP p.r.n. 12/23/2023: Echocardiogram Summary ? 1. Complete two-dimensional, color flow and Doppler transthoracic echocardiogram is performed. ? 2. Left ventricular chamber dimension is normal. ? 3. Left ventricular systolic function is normal, estimated at 60-65%. ? 4. The left ventricular diastolic function is abnormal. ? 5. E/e' 17 is elevated. ? 6. Left atrial chamber dimension is mildly enlarged. ? 7. The mitral valve has moderately calcified annulus. ? 8. Mild pulmonary hypertension, estimated pulmonary arterial systolic pressure is 43 mmHg. ? 9. There is trace pulmonic regurgitation. DC IV vancomycin continue Rocephin (2) VERA (acute kidney injury): Code(s): N17.9 - Acute kidney failure, unspecified Status: Acute Assessment and Plan: Multifactorial most likely related to sepsis hydronephrosis -nephrology consulted -monitor renal function, electrolytes and urine output -a patient has significant fluid overload will give IV diuresis (3) Type 2 diabetes mellitus with hyperglycemia, without long-term current use of insulin: Code(s): E11.65 - Type 2 diabetes mellitus with hyperglycemia Status: Acute Assessment and Plan: Continue Lantus insulin sliding scale (4) Hydronephrosis of left kidney: Code(s): N13.30 - Unspecified hydronephrosis Status: Acute Assessment and Plan: Status post cystoscopy and left ureteral stent placement (5) Hydroureter on left: Code(s): N13.4 - Hydroureter Status: Acute Assessment and Plan: As above (6) Emphysematous pyelonephritis of left kidney: Code(s): N12 - Tubulo-interstitial nephritis, not specified as acute or chronic Status: Acute Assessment and Plan: Continue IV antibiotic nephrology following (7) UTI (urinary tract infection): Code(s): N39.0 - Urinary tract infection, site not specified Status: Acute Assessment and Plan: Secondary to E coli continue IV antibiotics (8) Obstructive sleep apnea (adult) (pediatric): Code(s): G47.33 - Obstructive sleep apnea (adult) (pediatric) Status: Acute Assessment and Plan: Continue BiPAP (9) Mixed hyperlipidemia: Code(s): E78.2 - Mixed hyperlipidemia Status: Acute Assessment and Plan: Continue pravastatin (10) Thrombocytopenia: Code(s): D69.6 - Thrombocytopenia, unspecified Status: Acute Assess
--- NOTE | 2023-12-25 09:57 | ECG_ITS ---
Measurements Intervals [place] Rate: 66 P: 14 IA: 148 QRS: 14 QRSD: 97 T: 18 QT: 415 QTc: 436 Interpretive Statements SINUS RHYTHM WITH SINUS ARRHYTHMIA INCOMPLETE RIGHT BUNDLE BRANCH BLOCK LOW QRS VOLTAGE IN PRECORDIAL LEADS BORDERLINE T WAVE ABNORMALITY- INFERIOR LEADS BASELINE ARTIFACT- III, AVR, AVL, AVF BORDERLINE ECG COMPARED TO ECG 12/23/2023 09:56:32 SINUS RHYTHM NOW PRESENT SINUS ARRHYTHMIA NOW PRESENT Electronically Signed On 12-25-2023 10:53:42 [employer] by Arturo Alejo D.O.
--- NOTE | 2023-12-25 10:00 | WPDMODSED ---
Moderate Sedation Note-Pt Data Patient Data Diagnosis: Atrial flutter with RVR Present Complaint: Atrial flutter with RVR Procedure to be performed/Plan: Synchronized electrical cardioversion Allergies Allergy/AdvReac Type Severity Reaction Status Date / Time fenofibrate Allergy Unknown Hives Verified 11/30/23 10:45 Home Medications Medication Instructions Recorded Confirmed Type lancets #200 ea 06/11/20 12/20/23 Rx blood-glucose meter #1 ea 06/14/20 12/20/23 Rx multivitamin 1 tablet PO DAILY 09/25/22 12/20/23 History blood sugar diagnostic (Blood #100 ea 11/21/22 12/20/23 Rx Glucose Test strips) albuterol sulfate 90 mcg/actuation 1 - 2 puff inhalation Q4-6H PRN 09/10/23 12/20/23 Rx aerosol inhaler shortness of breath or wheezing #8.5 grams metformin 500 mg tablet,extended 1,000 mg PO BID #120 tabs 10/03/23 12/20/23 Rx release 24 hr gabapentin 100 mg capsule 100 mg PO HS 12/21/23 12/21/23 History glimepiride 4 mg tablet 4 mg PO QAM 12/21/23 12/21/23 History hydrochlorothiazide 25 mg tablet 25 mg PO DAILY 12/21/23 12/21/23 History losartan 100 mg tablet 100 mg PO DAILY 12/21/23 12/21/23 History pravastatin 40 mg tablet 40 mg PO DAILY 12/21/23 12/21/23 History Current Medications: Active Medications Acetaminophen (Acetaminophen 325 Mg Tablet) 650 mg PO Q4H PRN PRN Reason: Mild Pain (1-3) or Fever Last Admin: 12/24/23 21:07 Dose: 650 mg Albuterol/Ipratropium (Ipratropium 0.5 Mg/Albuterol Sulfate 2.5 Mg Ampul.Neb 3 Ml) 3 ml INHALATION Q6HRT [facility] Last Admin: 12/25/23 07:41 Dose: 3 ml Albuterol/Ipratropium (Ipratropium 0.5 Mg/Albuterol Sulfate 2.5 Mg Ampul.Neb 3 Ml) 3 ml INHALATION Q4HRT PRN PRN Reason: Wheezing Apixaban (Apixaban 5 Mg Tablet) 5 mg PO Q12HR [facility] Last Admin: 12/25/23 09:52 Dose: 5 mg Dextrose (Dextrose 50% 25 Gm/50 Ml Syringe) 12.5 gm IV PUSH PRN PRN; Protocol PRN Reason: Hypoglycemia Furosemide (Furosemide Inj 40 Mg/4 Ml Vial) 40 mg IV PUSH DAILY RASHMI Gabapentin (Gabapentin 100 Mg Capsule) 100 mg PO HS [facility] Last Admin: 12/24/23 21:08 Dose: 100 mg Glimepiride (Glimepiride 2 Mg Tablet) 4 mg PO QAM [facility] Stop: 01/20/24 08:59 Last Admin: 12/24/23 08:04 Dose: 4 mg Glucagon (Glucagon For Inj 1 Mg Vial) 1 mg IM PRN PRN; Protocol PRN Reason: Hypoglycemia Glucose (Glucose Oral Gel 15 Gm Of Glucse In 37.5 Gm Tube) 15 gm PO PRN PRN; Protocol PRN Reason: Hypoglycemia Hydralazine HCl (Hydralazine Hcl 20 Mg/Ml Vial) 10 mg IV PUSH Q6H PRN PRN Reason: Hypertension Last Admin: 12/24/23 18:09 Dose: 10 mg Hydromorphone HCl (Hydromorphone Hcl Inj (*Crx) 1 Mg/Ml Syr) 0.5 mg IV PUSH Q4H PRN PRN Reason: Pain Rated 7-10 Dextrose (Dextrose 5% 1,000 Ml) 1,000 mls @ 100 mls/hr IVPB PRN PRN; Protocol PRN Reason: Hypoglycemia Ceftriaxone Sodium (Rocephin 2 Gm/Ns 100 Ml) 2 gm in 100 mls @ 200 mls/hr IVPB Q24H [facility] Last Infusion: 12/24/23 08:34 Dose: Infused Amiodarone HCl/Dextrose (Nexterone 360 Mg/D5w 200 Ml) 360 mg in 200 mls @ 16.667 mls/hr IV CONT .Q12H [facility] Last Admin: 12/25/23 04:45 Dose: 0.5 mg/min, 16.67 mls/hr Insulin Aspart (Insulin Aspart (*Bkc) 100 Units/Ml) 4 - 8 units SUB-Q Q4H [facility]; Protocol Last Admin: 12/25/23 06:01 Dose: Not Given Insulin Glargine (Insulin Glargine (*Bkc) 100 Units/Ml) 25 units SUB-Q DAILY [facility] Last Admin: 12/24/23 08:04 Dose: 25 units Metoprolol Tartrate (Metoprolol Tartrate 25 Mg Tablet) 25 mg PO Q12HR RASHMI Last Admin: 12/24/23 21:08 Dose: 25 mg Ondansetron HCl (Ondansetron Inj 4 Mg/2 Ml Vial) 4 mg IV PUSH Q4H PRN PRN Reason: Nausea Last Admin: 12/23/23 14:00 Dose: 4 mg Pravastatin Sodium (Pravastatin Sodium 20 Mg Tablet) 40 mg PO DAILY [facility] Last Admin: 12/24/23 08:04 Dose: 40 mg Sodium Chloride (Central Line Flush) 10 ml IV PUSH Q8HR RASHMI Last Admin: 12/25/23 04:45 Dose: 10 ml Sodium Chloride (Central Line Flush) 20 ml IV PUSH PRN PRN PRN Reason: after blood draws Tolnaftate (Tolnaftate 1% Powder 45 Gm Bt
--- NOTE | 2023-12-25 10:01 | WPDCARDVER ---
Cardioversion Cardioversion Date of procedure: 12/25/23 Procedure: Elective synchronized electrical cardioversion Pre-op diagnosis: Atrial flutter with RVR Post-op diagnosis: Other (Sinus rhythm ) Indications: Atrial flutter with RVR Description of procedure: Defibrillator pads placed in an anteroposterior position. Time out performed by ARAVIND Roman. Total of Propofol 40mg IV was administered by me. Once patient was adequately sedation, synchronized cardioversion was performed with 1 shock at 250 joules, which restored sinus rhythm. No periprocedural complications. Sedation: Total of Propofol 40mg IV was administered by me Findings: Successful cardioversion to sinus rhythm with 1 shock at 250 joules. Conclusion: Successful cardioversion to sinus rhythm with 1 shock at 250 joules.
[2023-12-25] MEDS: cefTRIAXone 2 GM/NS 100 ML 2 GM/100 ML BAG IVPB (10:45)
[2023-12-25] MEDS: METOPROLOL TARTRATE 25 MG TABLET PO ×2 (10:46→20:24)
[2023-12-25] MEDS: AMIODARONE HCL 200 MG TABLET 400 MG PO (10:46)
[2023-12-25] MEDS: PRAVASTATIN SODIUM 20 MG TABLET 40 MG PO (10:46)
[2023-12-25] MEDS: GLIMEPIRIDE 2 MG TABLET 4 MG PO (10:46)
[2023-12-25] MEDS: INSULIN GLARGINE (*BKC) 100 UNITS/ML 25 UNITS SUB-Q (11:00)
[2023-12-25] MEDS: TOLNAFTATE 1% POWDER 45 GM BTL 1 APPLIC TOPICAL ×2 (11:02→20:25)
[2023-12-25 11:17] LABS: Glucose Point of Care 197 mg/dl (65-105)
[2023-12-25 11:33] LABS: Glucose Point of Care 201 mg/dl (65-105)
--- NOTE | 2023-12-25 14:16 | P.PNNP_ITS ---
Progress Note: A&P Assessment and Plan (1) VERA (acute kidney injury): Code(s): N17.9 - Acute kidney failure, unspecified Status: Acute Assessment and Plan: * improvement noted * normal creatinine/renal function at baseline * admitted with creatinine of 2.3mg/dl * suspect ATN with multifactorial etiology: * hemodynamic instability/shock * infection/sepsis (UTI + pyelonephritis) * obstruction/hydronephrosis * prerenal factors * use of ARB + HCTZ prior to admission * contrast exposure (CTA on 12/20/23) * s/p aggressive IVF resuscitation * was on pressor support to maintain MAP - weaned off * evaluation to date: * admission CT with 3 mm stone at left UV junction with moderate left hydronephrosis and hydroureter left-sided emphysematous pyelonephritis * urine electrolytes non-prerenal * urine eosinophils negative * CPK okay * follow repeat labs and UOP (2) Septic shock: Code(s): A41.9 - Sepsis, unspecified organism; R65.21 - Severe sepsis with septic shock Status: Acute Assessment and Plan: * improved/resolving * presumably secondary to UTI and pyelonephritis * admission CT with 3 mm stone at left UV junction with moderate left hydronephrosis and hydroureter left-sided emphysematous pyelonephritis * noted hypotension on admission s/p IVF resuscitation * IVF held due to concerns of volume overload * was initiated on vasopressor therapy to maintain MAP - weaned off * follow culture data - urine culture with E.coli * on antibiotics * follow trend of hemodynamics (3) Hydronephrosis of left kidney: Code(s): N13.30 - Unspecified hydronephrosis Status: Resolved Assessment and Plan: * as noted by admission imaging * status post cystoscopy, left retrograde pyelogram, left ureteral stent placement on * Urology following (4) Emphysematous pyelonephritis of left kidney: Code(s): N12 - Tubulo-interstitial nephritis, not specified as acute or chronic Status: Acute Assessment and Plan: * as noted by admission imaging * urine culture with E. coli * blood culture negative to date * on antibiotics (5) UTI (urinary tract infection): Code(s): N39.0 - Urinary tract infection, site not specified Status: Acute Assessment and Plan: * see #4 (6) Respiratory failure: Code(s): J96.90 - Respiratory failure, unspecified, unspecified whether with hypoxia or hypercapnia Status: Acute Assessment and Plan: * issues with hypoxia on 12/20 * given elevated BNP and concerns for possible volume overload, IVFs stopped * however, history of BARBARA maybe playing a role * BiPAP PRN along with use of supplemental oxgen * on bronchodilators * initiated on IV diuretics * follow respiratory status (7) Atrial flutter with rapid ventricular response: Code(s): I48.92 - Unspecified atrial flutter Status: Acute Assessment and Plan: * s/p cardioversion * on metoprolol and amiodarone * on Eliquis * Cardiology following (8) Diabetes: Code(s): E11.9 - Type 2 diabetes mellitus without complications Status: Chronic Assessment and Plan: * follow accu-cheks * glycemic control per intensivisit/hospitalists Will continue to follow Subjective Date/time seen: 12/25/23 14:16 Interval history: Follow-up for acute kidney injury/acute renal failure. Renal function continues to slowly improve with current therapy/interventions with good urin
--- NOTE | 2023-12-25 14:16 | PM.PNNEP ---
Progress Note: A&P Assessment and Plan (1) VERA (acute kidney injury): Code(s): N17.9 - Acute kidney failure, unspecified Status: Acute Assessment and Plan: improvement noted normal creatinine/renal function at baseline admitted with creatinine of 2.3mg/dl suspect ATN with multifactorial etiology: hemodynamic instability/shock infection/sepsis (UTI + pyelonephritis) obstruction/hydronephrosis prerenal factors use of ARB + HCTZ prior to admission contrast exposure (CTA on 12/20/23) s/p aggressive IVF resuscitation was on pressor support to maintain MAP - weaned off evaluation to date: admission CT with 3 mm stone at left UV junction with moderate left hydronephrosis and hydroureter left-sided emphysematous pyelonephritis urine electrolytes non-prerenal urine eosinophils negative CPK okay follow repeat labs and UOP (2) Septic shock: Code(s): A41.9 - Sepsis, unspecified organism; R65.21 - Severe sepsis with septic shock Status: Acute Assessment and Plan: improved/resolving presumably secondary to UTI and pyelonephritis admission CT with 3 mm stone at left UV junction with moderate left hydronephrosis and hydroureter left-sided emphysematous pyelonephritis noted hypotension on admission s/p IVF resuscitation IVF held due to concerns of volume overload was initiated on vasopressor therapy to maintain MAP - weaned off follow culture data - urine culture with E.coli on antibiotics follow trend of hemodynamics (3) Hydronephrosis of left kidney: Code(s): N13.30 - Unspecified hydronephrosis Status: Resolved Assessment and Plan: as noted by admission imaging status post cystoscopy, left retrograde pyelogram, left ureteral stent placement on Urology following (4) Emphysematous pyelonephritis of left kidney: Code(s): N12 - Tubulo-interstitial nephritis, not specified as acute or chronic Status: Acute Assessment and Plan: as noted by admission imaging urine culture with E. coli blood culture negative to date on antibiotics (5) UTI (urinary tract infection): Code(s): N39.0 - Urinary tract infection, site not specified Status: Acute Assessment and Plan: see #4 (6) Respiratory failure: Code(s): J96.90 - Respiratory failure, unspecified, unspecified whether with hypoxia or hypercapnia Status: Acute Assessment and Plan: issues with hypoxia on 12/20 given elevated BNP and concerns for possible volume overload, IVFs stopped however, history of BARBARA maybe playing a role BiPAP PRN along with use of supplemental oxgen on bronchodilators initiated on IV diuretics follow respiratory status (7) Atrial flutter with rapid ventricular response: Code(s): I48.92 - Unspecified atrial flutter Status: Acute Assessment and Plan: s/p cardioversion on metoprolol and amiodarone on Eliquis Cardiology following (8) Diabetes: Code(s): E11.9 - Type 2 diabetes mellitus without complications Status: Chronic Assessment and Plan: follow accu-cheks glycemic control per intensivisit/hospitalists Will continue to follow Subjective Date/time seen: 12/25/23 14:16 Interval history: Follow-up for acute kidney injury/acute renal failure. Renal function continues to slowly improve with current therapy/interventions with good urine output; breathing/respirator status slowly improving; sp cardioversion earlier today and tolerated this procedure reasonably well. Exam Narrative: General: elderly but WD/WN female in NAD Heart: RRR, normal S1 and S2; no rub Lungs: clear anteriorly with some bibasilar crackles Abdomen: soft, nontender, nondistended, positive bowel sounds Extremities: no cyanosis or clubbing; trace edema Skin: warm and intact Objective Data Vital Signs Vital Signs: Vital Signs Temp Pulse Resp B
[2023-12-25] MEDS: INSULIN ASPART (*BKC) 100 UNITS/ML SUB-Q ×3 (17:14→20:24)
[2023-12-25 17:57] LABS: Glucose Point of Care 276 mg/dl (65-105)
[2023-12-25] MEDS: GABAPENTIN 100 MG CAPSULE PO (20:25)
[2023-12-25 20:30] LABS: Glucose Point of Care 251 mg/dl (65-105)
[2023-12-25] MEDS: ACETAMINOPHEN 325 MG TABLET 650 MG PO (20:30)
[2023-12-26] VITALS (29 sets, daily range): BP systolic 106–130; BP diastolic 42–49; PULSE 4–79; RESP 17–26; TEMP 37.1–37.9; O2SAT 75–100
[2023-12-26] LABS: Glucose Point of Care 173 mg/dl (65-105)
[2023-12-26] MEDS: IPRATROPIUM 0.5 MG/ALBUTEROL SULFATE 2.5 MG AMPUL.NEB 3 ML INHALATION ×4 (01:49→20:13)
[2023-12-26 04:26] LABS: Hematocrit 28.3 % (37.0-47.0); Hemoglobin 9.2 g/dL (12.0-15.0); Mean Corpuscular HGB Conc 32.5 g/dl (32-36); Mean Corpuscular Hemoglobin 30.2 pg (26-34); Mean Corpuscular Volume 92.8 fl (80-100); Mean Platelet Volume 9.8 fl (7.4-10.4); Platelet Count Result 159 k/mm3 (150-375); Red Blood Count 3.05 M/mm3 (4.2-5.4); Red Cell Distribution Width 15.3 % (11.5-14.5); White Blood Count 11.8 K/mm3 (4.5-10.0)
[2023-12-26 04:41] LABS: Alanine Aminotransferase 28 U/L (6-35); Albumin Level 3.5 g/dL (3.5-5.1); Alkaline Phosphatase 96 U/L (38-126); Anion Gap 9 mmol/L (8-16); Aspartate Amino Transferase 27 U/L (14-36); Bilirubin,Total 0.6 mg/dL (0.2-1.3); Blood Urea Nitrogen 81 mg/dL (7-17); Calcium 9.5 mg/dL (8.4-10.2); Carbon Dioxide 28 mmol/L (22-30); Chloride 98 mmol/L (98-107); Estimated CRCL calculation 22 ml/min; Estimated Glomerular Filt Rate 19; Glucose 130 mg/dL (65-110); Magnesium 2.3 mg/dL (1.6-2.3); Potassium 3.5 mmol/L (3.4-5.0); Sodium 135 mmol/L (137-145)
[2023-12-26] MEDS: CENTRAL LINE FLUSH 10 ML IV PUSH ×3 (05:32→20:20)
[2023-12-26] MEDS: GLIMEPIRIDE 2 MG TABLET 4 MG PO (08:20)
[2023-12-26] MEDS: METOPROLOL TARTRATE 25 MG TABLET PO ×2 (08:21→20:19)
[2023-12-26] MEDS: cefTRIAXone 2 GM/NS 100 ML 2 GM/100 ML BAG IVPB (08:21)
[2023-12-26] MEDS: FUROSEMIDE INJ 40 MG/4 ML VIAL IV PUSH (08:21)
[2023-12-26] MEDS: APIXABAN 5 MG TABLET PO ×2 (08:21→20:19)
[2023-12-26] MEDS: PRAVASTATIN SODIUM 20 MG TABLET 40 MG PO (08:21)
[2023-12-26] MEDS: INSULIN GLARGINE (*BKC) 100 UNITS/ML 25 UNITS SUB-Q (08:23)
[2023-12-26] MEDS: AMIODARONE HCL 200 MG TABLET 400 MG PO (08:23)
[2023-12-26] MEDS: TOLNAFTATE 1% POWDER 45 GM BTL 1 APPLIC TOPICAL ×2 (08:24→20:20)
--- NOTE | 2023-12-26 10:07 | PM.PNCARD ---
Progress Note: A&P Assessment and Plan (1) Atrial flutter with rapid ventricular response: Code(s): I48.92 - Unspecified atrial flutter Status: Acute Assessment and Plan: Patient has atrial fibrillation atrial flutter that appears to have started on 12/22/2023.? She has been on anticoagulation since that time.? She is otherwise asymptomatic.? Since she has been on anticoagulation essentially since the onset of arrhythmia, I do not think that she needs a DMITRY.? I would recommend elective cardioversion to restore sinus rhythm.? She remains on amiodarone and heparin drip.? Echocardiogram already ordered and performed showing preserved ejection fraction mild left atrial enlargement.? Continue Eliquis, amiodarone and metoprolol for now. Will likely discontinue amiodarone as an outpatient (2) Hypertension associated with diabetes: Code(s): E11.59 - Type 2 diabetes mellitus with other circulatory complications; I15.2 - Hypertension secondary to endocrine disorders Status: Acute Assessment and Plan: Continue Losartan (3) Obstructive sleep apnea (adult) (pediatric): Code(s): G47.33 - Obstructive sleep apnea (adult) (pediatric) Status: Acute Assessment and Plan: On CPAP (4) Chronic obstructive pulmonary disease, unspecified: Code(s): J44.9 - Chronic obstructive pulmonary disease, unspecified Status: Acute Assessment and Plan: Followed by Pulmonology (5) VERA (acute kidney injury): Code(s): N17.9 - Acute kidney failure, unspecified Status: Acute Assessment and Plan: From ureteral stone obstruction.?Follow renal function Subjective Date/time seen: 12/26/23 10:07 Interval history: Reason for visit: Atrial flutter with RVR HPI: Patient is a 73-year-old female chief has history of COPD and is admitted because of nausea vomiting diarrhea fevers flank pain.? She also acute renal failure.? She was found have a left ureteral stone with hydronephrosis and pyelonephritis.? Started on IV fluids and Rocephin.? She went to the operating room and a ureteral stent was placed.? Patient was found to be tachycardic and went into atrial fibrillation while in the ICU.? She was started on heparin and amiodarone for which she remains.? Echocardiogram was performed showing preserved ejection fraction.? She does not feel palpitations.? She otherwise has had no cardiac symptoms including no chest pain, shortness of breath, syncope, presyncope, paroxysmal nocturnal dyspnea, orthopnea, palpitations.? She does have some chronic lower extremity edema which is not new or different. Date of service 12/24: Remains in atrial flutter with RVR this morning. Date of service 12/26/2023: Status post cardioversion yesterday. Remains in sinus rhythm today. Feels good denies any chest pain or shortness of breath. Review of Systems Review of Systems: All systems reviewed & are unremarkable except as noted in HPI and below Constitutional: Constitutional: Denies body ache(s) and Denies excessive sweating Eyes: Eyes: Denies blurry vision ENT: Denies Normal hearing present Cardiovascular: Cardiovascular: Denies chest pain and Denies dyspnea Respiratory: Respiratory: Denies dyspnea Gastrointestinal: Gastrointestinal: Denies abdominal pain Genitourinary: Genitourinary: Denies hematuria Musculoskeletal: Musculoskeletal: Denies back pain Integumentary/Breasts: Skin/Breast: Denies dry skin Neurologic: Denies Normal hearing present and Denies Abnormal speech present Psychiatric: Psychiatric: Denies anxiety Endocrine: Endocrine: Denies excessive sweating Hematologic/Lymphatic: Hematologic/Lymphatic: Denies easy bleeding Allergic/Immunologic: Allergic/Immunologic: Denies GI upset with certain foods Exam Narrative: Patient is awake alert oriented appears stated age Const: General: comfortable and no acute distress HENMT: Face/Nose/Sinus: Normal nares present
--- NOTE | 2023-12-26 11:35 | P.PNNP_ITS ---
Progress Note: A&P Assessment and Plan (1) VERA (acute kidney injury): Code(s): N17.9 - Acute kidney failure, unspecified Status: Acute Assessment and Plan: * improvement noted * normal creatinine/renal function at baseline * admitted with creatinine of 2.3mg/dl * suspect ATN with multifactorial etiology: * hemodynamic instability/shock * infection/sepsis (UTI + pyelonephritis) * obstruction/hydronephrosis * prerenal factors * use of ARB + HCTZ prior to admission * contrast exposure (CTA on 12/20/23) * s/p aggressive IVF resuscitation * was on pressor support to maintain MAP - weaned off * evaluation to date: * admission CT with 3 mm stone at left UV junction with moderate left hydronephrosis and hydroureter left-sided emphysematous pyelonephritis * urine electrolytes non-prerenal * urine eosinophils negative * CPK okay * follow repeat labs and UOP (2) Septic shock: Code(s): A41.9 - Sepsis, unspecified organism; R65.21 - Severe sepsis with septic shock Status: Acute Assessment and Plan: * improved/resolving * presumably secondary to UTI and pyelonephritis * admission CT with 3 mm stone at left UV junction with moderate left hydronephrosis and hydroureter left-sided emphysematous pyelonephritis * noted hypotension on admission s/p IVF resuscitation * IVF held due to concerns of volume overload * was initiated on vasopressor therapy to maintain MAP - weaned off * follow culture data - urine culture with E.coli * on antibiotics * follow trend of hemodynamics (3) Hydronephrosis of left kidney: Code(s): N13.30 - Unspecified hydronephrosis Status: Resolved Assessment and Plan: * as noted by admission imaging * status post cystoscopy, left retrograde pyelogram, left ureteral stent placement on * Urology following (4) Emphysematous pyelonephritis of left kidney: Code(s): N12 - Tubulo-interstitial nephritis, not specified as acute or chronic Status: Acute Assessment and Plan: * as noted by admission imaging * urine culture with E. coli * blood culture negative to date * on antibiotics (5) UTI (urinary tract infection): Code(s): N39.0 - Urinary tract infection, site not specified Status: Acute Assessment and Plan: * see #4 (6) Respiratory failure: Code(s): J96.90 - Respiratory failure, unspecified, unspecified whether with hypoxia or hypercapnia Status: Acute Assessment and Plan: * issues with hypoxia on 12/20 * given elevated BNP and concerns for possible volume overload, IVFs stopped * however, history of BARBARA maybe playing a role * BiPAP PRN along with use of supplemental oxgen * on bronchodilators * initiated on IV diuretics * follow respiratory status (7) Atrial flutter with rapid ventricular response: Code(s): I48.92 - Unspecified atrial flutter Status: Acute Assessment and Plan: * s/p cardioversion * on metoprolol and amiodarone * on Eliquis * Cardiology following (8) Diabetes: Code(s): E11.9 - Type 2 diabetes mellitus without complications Status: Chronic Assessment and Plan: * follow accu-cheks * glycemic control per intensivisit/hospitalists Will continue to follow Subjective Date/time seen: 12/26/23 11:35 Interval history: Follow-up for acute kidney injury/acute renal failure. S/P cardioversion yesterday and tolerated procedure well -- remains in sinus rhythm at this
--- NOTE | 2023-12-26 11:35 | PM.PNNEP ---
Progress Note: A&P Assessment and Plan (1) VERA (acute kidney injury): Code(s): N17.9 - Acute kidney failure, unspecified Status: Acute Assessment and Plan: improvement noted normal creatinine/renal function at baseline admitted with creatinine of 2.3mg/dl suspect ATN with multifactorial etiology: hemodynamic instability/shock infection/sepsis (UTI + pyelonephritis) obstruction/hydronephrosis prerenal factors use of ARB + HCTZ prior to admission contrast exposure (CTA on 12/20/23) s/p aggressive IVF resuscitation was on pressor support to maintain MAP - weaned off evaluation to date: admission CT with 3 mm stone at left UV junction with moderate left hydronephrosis and hydroureter left-sided emphysematous pyelonephritis urine electrolytes non-prerenal urine eosinophils negative CPK okay follow repeat labs and UOP (2) Septic shock: Code(s): A41.9 - Sepsis, unspecified organism; R65.21 - Severe sepsis with septic shock Status: Acute Assessment and Plan: improved/resolving presumably secondary to UTI and pyelonephritis admission CT with 3 mm stone at left UV junction with moderate left hydronephrosis and hydroureter left-sided emphysematous pyelonephritis noted hypotension on admission s/p IVF resuscitation IVF held due to concerns of volume overload was initiated on vasopressor therapy to maintain MAP - weaned off follow culture data - urine culture with E.coli on antibiotics follow trend of hemodynamics (3) Hydronephrosis of left kidney: Code(s): N13.30 - Unspecified hydronephrosis Status: Resolved Assessment and Plan: as noted by admission imaging status post cystoscopy, left retrograde pyelogram, left ureteral stent placement on Urology following (4) Emphysematous pyelonephritis of left kidney: Code(s): N12 - Tubulo-interstitial nephritis, not specified as acute or chronic Status: Acute Assessment and Plan: as noted by admission imaging urine culture with E. coli blood culture negative to date on antibiotics (5) UTI (urinary tract infection): Code(s): N39.0 - Urinary tract infection, site not specified Status: Acute Assessment and Plan: see #4 (6) Respiratory failure: Code(s): J96.90 - Respiratory failure, unspecified, unspecified whether with hypoxia or hypercapnia Status: Acute Assessment and Plan: issues with hypoxia on 12/20 given elevated BNP and concerns for possible volume overload, IVFs stopped however, history of BARBARA maybe playing a role BiPAP PRN along with use of supplemental oxgen on bronchodilators initiated on IV diuretics follow respiratory status (7) Atrial flutter with rapid ventricular response: Code(s): I48.92 - Unspecified atrial flutter Status: Acute Assessment and Plan: s/p cardioversion on metoprolol and amiodarone on Eliquis Cardiology following (8) Diabetes: Code(s): E11.9 - Type 2 diabetes mellitus without complications Status: Chronic Assessment and Plan: follow accu-cheks glycemic control per intensivisit/hospitalists Will continue to follow Subjective Date/time seen: 12/26/23 11:35 Interval history: Follow-up for acute kidney injury/acute renal failure. S/P cardioversion yesterday and tolerated procedure well -- remains in sinus rhythm at this time; renal function continues to improve and tolerating IV diuretic therapy; breathing/respiratory status continues improve if not stabilize; no apparent distress noted. Exam Narrative: General: elderly but WD/WN female in NAD Heart: RRR, normal S1 and S2; no rub Lungs: clear anteriorly but decreased at the bases Abdomen: soft, nontender, nondistended, positive bowel sounds Extremities: no cyanosis or clubbing; trace edema Skin: no rash Objective Data Vital Signs Vital Signs: Noemi
[2023-12-26] MEDS: INSULIN ASPART (*BKC) 100 UNITS/ML SUB-Q ×5 (11:52→20:18)
--- NOTE | 2023-12-26 14:01 | WPDUROPN2 ---
Progress Note: A&P Assessment and Plan (1) Sepsis: Qualifiers: Sepsis type: sepsis due to unspecified organism Sepsis acute organ dysfunction status: with acute organ dysfunction Severe sepsis acute organ dysfunction type: acute renal failure Acute renal failure type: unspecified Severe sepsis shock status: without septic shock Qualified Code(s): A41.9 - Sepsis, unspecified organism; R65.20 - Severe sepsis without septic shock; N17.9 - Acute kidney failure, unspecified Code(s): A41.9 - Sepsis, unspecified organism Status: Acute Assessment and Plan: Source of infection is left UVJ stone and pyelitis. (2) Calculus of ureterovesical junction (UVJ): Code(s): N20.1 - Calculus of ureter Status: Acute Assessment and Plan: 3 mm left UVJ stone s/p cystoscopy, left retrograde pyelogram, and left ureteral stent placement on 12/20/[address] Whitten Follow-up KUB completed on 12/21/2023 shows stent in expected position. Left ureteral stone not visible. Repeat CT scan completed on 12/25/2023 again shows left ureteral stent in expected position without any stones identified along the stent. Suspect this stone has passed. Will plan for left ureteral stent removal as an outpatient pending resolution of infection and improvement of other medical problems (3) Hydronephrosis of left kidney: Code(s): N13.30 - Unspecified hydronephrosis Status: Resolved Assessment and Plan: S/p eft ureteral stent placement on 12/20/2023 as above. 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 Continue antibiotic therapy tailored to urine culture results. Repeat CT demonstrates improvement, however still with persistent nephrograms secondary to pyelonephritis (5) UTI (urinary tract infection): Code(s): N39.0 - Urinary tract infection, site not specified Status: Acute Assessment and Plan: Urine culture with growth of E coli, continue antibiotics as above (6) VERA (acute kidney injury): Code(s): N17.9 - Acute kidney failure, unspecified Status: Acute Assessment and Plan: Creatinine trending down, continue to monitor renal function Subjective Subjective Date/Time Seen: 12/26/23 09:00 Interval history: Diaper is feeling well today. She offers no complaints. Benavidez catheter is draining clear yellow urine. Creatinine 2.5. WBC 11.8. Review of Systems Review of Systems: All systems reviewed & are unremarkable except as noted in HPI and below Exam Narrative: General: Awake, alert, comfortable, no acute distress HEENT: Normocephalic, atraumatic, sclerae anicteric Respiratory: Normal respiratory effort, no accessory muscle use Abdomen: Nondistended, soft, nontender : benavidez catheter draining clear yellow urine Skin: Normal coloration, warm and dry Neurologic: No focal neuro deficits noted Psychiatric: Appropriate mood and affect, judgment and insight intact Objective Data Vital Signs Vital Signs: Vital Signs - 24 hr 12/25/23 16:00 12/25/23 16:00 12/25/23 16:00 Temperature 98.4 F Pulse Rate 67 68 67 Respiratory Rate 17 17 Blood Pressure 106/55 L Pulse Oximetry 93 93 Oxygen Delivery Nasal Cannula Oxygen Flow Rate 5 Fraction of Inspired Oxygen 45 12/25/23 18:00 12/25/23 19:23 12/25/23 19:35 Temperature Pulse Rate 69 69 71 Respiratory Rate 21 H 23 H Blood Pressure Pulse Oximetry Oxygen Delivery Oxygen Flow Rate Fraction of Inspired Oxygen 12/25/23 19:35 12/25/23 20:00 12/25/23 20:00 Temperature 98.9 F Pulse Rate 74 80 80 Respiratory Rate 21 H 26 H 26 H Blood Pressure 130/45 L Pulse Oximetry 97 92 92 Oxygen Delivery High Flow Nasal Cannula High Flow Nasal Cannula Oxygen Flow Rate 5 5 F
--- NOTE | 2023-12-26 16:01 | PM.IMPN ---
Progress Note: A&P Assessment and Plan (1) Sepsis: Qualifiers: Sepsis type: sepsis due to unspecified organism Sepsis acute organ dysfunction status: with acute organ dysfunction Severe sepsis acute organ dysfunction type: acute renal failure Acute renal failure type: unspecified Severe sepsis shock status: without septic shock Qualified Code(s): A41.9 - Sepsis, unspecified organism; R65.20 - Severe sepsis without septic shock; N17.9 - Acute kidney failure, unspecified Code(s): A41.9 - Sepsis, unspecified organism Status: Acute Assessment and Plan: Source of infection is left UVJ stone and pyelitis. (2) Calculus of ureterovesical junction (UVJ): Code(s): N20.1 - Calculus of ureter Status: Acute Assessment and Plan: 3 mm left UVJ stone s/p cystoscopy, left retrograde pyelogram, and left ureteral stent placement on 12/20/[address] Whitten Follow-up KUB completed on 12/21/2023 shows stent in expected position. Left ureteral stone not visible. Repeat CT scan completed on 12/25/2023 again shows left ureteral stent in expected position without any stones identified along the stent. Suspect this stone has passed. Will plan for left ureteral stent removal as an outpatient pending resolution of infection and improvement of other medical problems (3) Hydronephrosis of left kidney: Code(s): N13.30 - Unspecified hydronephrosis Status: Resolved Assessment and Plan: S/p eft ureteral stent placement on 12/20/2023 as above. 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 Continue antibiotic therapy tailored to urine culture results. Repeat CT demonstrates improvement, however still with persistent nephrograms secondary to pyelonephritis (5) UTI (urinary tract infection): Code(s): N39.0 - Urinary tract infection, site not specified Status: Acute Assessment and Plan: Urine culture with growth of E coli, continue antibiotics as above (6) VERA (acute kidney injury): Code(s): N17.9 - Acute kidney failure, unspecified Status: Acute Assessment and Plan: Creatinine trending down, continue to monitor renal function Subjective Date/time seen: 12/26/23 16:01 Interval history: Diaper is feeling well today. She offers no complaints. Benavidez catheter is draining clear yellow urine. Creatinine 2.5. WBC 11.8. Review of Systems Review of Systems: 12 systems were reviewed with pertinent positives and negatives per HPI. Except as documented in the HPI, all other systems were reviewed and are negative. All systems reviewed & are unremarkable except as noted in HPI and below Exam Narrative: General: Awake, alert, comfortable, no acute distress HEENT: Normocephalic, atraumatic, sclerae anicteric Respiratory: Normal respiratory effort, no accessory muscle use Abdomen: Nondistended, soft, nontender : benavidez catheter draining clear yellow urine Skin: Normal coloration, warm and dry Neurologic: No focal neuro deficits noted Psychiatric: Appropriate mood and affect, judgment and insight intact Const: Other: Acutely ill-appearing, obese, appears stated age HENMT: Other: Mucous membranes are tacky, edentulous, dried what was likely prior gastric contents that the patient had vomited up were noted to the posterior soft palate and buccal mucosa, head is normocephalic atraumatic Eyes: Other: Status post cataract surgery bilaterally, no pallor, non jaundice Neck: Other: Large neck circumference, no JVD, supple Resp: Other: Tachypneic, accessory muscle use, wheezing bilaterally Cardio: Other: Sinus tachycardia, 2+ bilateral radial pedal pulses GI: Other: Tender in the left lateral abdomen, hypoactiv
--- NOTE | 2023-12-26 16:10 | PCRCNOTE ---
Pt. already has an I.S. and is using.
[2023-12-26] MEDS: GABAPENTIN 100 MG CAPSULE PO (20:19)
[2023-12-26] MEDS: ACETAMINOPHEN 325 MG TABLET 650 MG PO (20:19)
[2023-12-26 20:23] LABS: Glucose Point of Care 227 mg/dl (65-105)
[2023-12-26 23:40] LABS: Glucose Point of Care 117 mg/dl (65-105)
[2023-12-27] VITALS (22 sets, daily range): BP systolic 106–129; BP diastolic 42–51; PULSE 53–70; RESP 16–25; TEMP 36.8–37.1; O2SAT 88–97
[2023-12-27] MEDS: IPRATROPIUM 0.5 MG/ALBUTEROL SULFATE 2.5 MG AMPUL.NEB 3 ML INHALATION ×4 (02:36→21:06)
[2023-12-27 05:05] LABS: Hemoglobin 9.3 g/dL (12.0-15.0); Mean Corpuscular HGB Conc 32.1 g/dl (32-36); Mean Corpuscular Hemoglobin 29.7 pg (26-34); Mean Corpuscular Volume 92.7 fl (80-100); Platelet Count Result 174 k/mm3 (150-375); Red Blood Count 3.13 M/mm3 (4.2-5.4); Red Cell Distribution Width 15.2 % (11.5-14.5); White Blood Count 13.2 K/mm3 (4.5-10.0)
[2023-12-27 05:16] LABS: INR 1.8; Prothrombin Time 22.4 Seconds (11.1-14.7)
[2023-12-27 05:21] LABS: Alanine Aminotransferase 33 U/L (6-35); Albumin Level 3.4 g/dL (3.5-5.1); Alkaline Phosphatase 105 U/L (38-126); Anion Gap 9 mmol/L (8-16); Aspartate Amino Transferase 32 U/L (14-36); Bilirubin,Total 0.5 mg/dL (0.2-1.3); Blood Urea Nitrogen 80 mg/dL (7-17); Calcium 9.6 mg/dL (8.4-10.2); Carbon Dioxide 28 mmol/L (22-30); Chloride 99 mmol/L (98-107); Estimated CRCL calculation 22 ml/min; Estimated Glomerular Filt Rate 20; Glucose 86 mg/dL (65-110); Potassium 3.6 mmol/L (3.4-5.0); Sodium 136 mmol/L (137-145)
[2023-12-27] MEDS: CENTRAL LINE FLUSH 10 ML IV PUSH ×3 (05:25→20:29)
[2023-12-27 08:11] LABS: Glucose Point of Care 72 mg/dl (65-105)
[2023-12-27] MEDS: AMIODARONE HCL 200 MG TABLET 400 MG PO (08:26)
[2023-12-27] MEDS: cefTRIAXone 2 GM/NS 100 ML 2 GM/100 ML BAG IVPB (08:27)
[2023-12-27] MEDS: APIXABAN 5 MG TABLET PO ×2 (08:27→20:29)
[2023-12-27] MEDS: METOPROLOL TARTRATE 25 MG TABLET PO ×2 (08:27→20:29)
[2023-12-27] MEDS: GLIMEPIRIDE 2 MG TABLET 4 MG PO (08:27)
[2023-12-27] MEDS: PRAVASTATIN SODIUM 20 MG TABLET 40 MG PO (08:27)
[2023-12-27] MEDS: INSULIN GLARGINE (*BKC) 100 UNITS/ML 25 UNITS SUB-Q (08:28)
[2023-12-27] MEDS: FUROSEMIDE INJ 40 MG/4 ML VIAL IV PUSH (08:28)
[2023-12-27] MEDS: TOLNAFTATE 1% POWDER 45 GM BTL 1 APPLIC TOPICAL ×2 (08:29→20:29)
--- NOTE | 2023-12-27 10:51 | PM.PNCARD ---
Progress Note: A&P Assessment and Plan (1) Atrial flutter with rapid ventricular response: Code(s): I48.92 - Unspecified atrial flutter Status: Acute Assessment and Plan: Continue Eliquis, amiodarone and metoprolol for now. Will likely discontinue amiodarone as an outpatient Her potassium is mildly low. Replace with KCl 20 mg p.o. x1. Change her furosemide to oral or reduce IV dosage over the next 24-48 hours (2) Hypertension associated with diabetes: Code(s): E11.59 - Type 2 diabetes mellitus with other circulatory complications; I15.2 - Hypertension secondary to endocrine disorders Status: Acute Assessment and Plan: Continue Losartan (3) Obstructive sleep apnea (adult) (pediatric): Code(s): G47.33 - Obstructive sleep apnea (adult) (pediatric) Status: Acute Assessment and Plan: On CPAP (4) Chronic obstructive pulmonary disease, unspecified: Code(s): J44.9 - Chronic obstructive pulmonary disease, unspecified Status: Acute Assessment and Plan: Followed by Pulmonology (5) VERA (acute kidney injury): Code(s): N17.9 - Acute kidney failure, unspecified Status: Acute Assessment and Plan: From ureteral stone obstruction.?Follow renal function Subjective Date/time seen: 12/27/23 10:51 Interval history: Reason for visit: Atrial flutter with RVR HPI: Patient is a 73-year-old female chief has history of COPD and is admitted because of nausea vomiting diarrhea fevers flank pain.? She also acute renal failure.? She was found have a left ureteral stone with hydronephrosis and pyelonephritis.? Started on IV fluids and Rocephin.? She went to the operating room and a ureteral stent was placed.? Patient was found to be tachycardic and went into atrial fibrillation while in the ICU.? She was started on heparin and amiodarone for which she remains.? Echocardiogram was performed showing preserved ejection fraction.? She does not feel palpitations.? She otherwise has had no cardiac symptoms including no chest pain, shortness of breath, syncope, presyncope, paroxysmal nocturnal dyspnea, orthopnea, palpitations.? She does have some chronic lower extremity edema which is not new or different. Date of service 12/24: Remains in atrial flutter with RVR this morning. Date of service 12/26/2023: Status post cardioversion yesterday. Remains in sinus rhythm today. Feels good denies any chest pain or shortness of breath. Date of service 12/27/2023 feels okay. No chest pain or SOB Still in sinus rhythm Review of Systems Review of Systems: All systems reviewed & are unremarkable except as noted in HPI and below Constitutional: Constitutional: Denies body ache(s) and Denies excessive sweating Eyes: Eyes: Denies blurry vision ENT: Denies Normal hearing present Cardiovascular: Cardiovascular: Denies chest pain and Denies dyspnea Respiratory: Respiratory: Denies dyspnea Gastrointestinal: Gastrointestinal: Denies abdominal pain Genitourinary: Genitourinary: Denies hematuria Musculoskeletal: Musculoskeletal: Denies back pain Integumentary/Breasts: Skin/Breast: Denies dry skin Neurologic: Denies Normal hearing present and Denies Abnormal speech present Psychiatric: Psychiatric: Denies anxiety Endocrine: Endocrine: Denies excessive sweating Hematologic/Lymphatic: Hematologic/Lymphatic: Denies easy bleeding Allergic/Immunologic: Allergic/Immunologic: Denies GI upset with certain foods Exam Narrative: Patient is awake alert oriented appears stated age Const: General: comfortable and no acute distress HENMT: Face/Nose/Sinus: Normal nares present Mouth: Yes moist mucous membranes Eyes: General: appearance normal, both eyes and all related structures Sclera: sclerae normal Neck: Neck: supple and no JVD Chest: Other: No reproducible chest wall pain to palpation Resp: Effort & Inspection: normal respiratory effort Auscul
--- NOTE | 2023-12-27 10:54 | PCNWS ---
Weekly nutritional screen. Patient is tolerating current diet with adequate intake. No weight loss reported. No nutritional needs at this time.
[2023-12-27 11:37] LABS: Glucose Point of Care 178 mg/dl (65-105)
[2023-12-27] MEDS: POTASSIUM CHLORIDE 20 MEQ ER TABLET PO (11:51)
[2023-12-27] MEDS: INSULIN ASPART (*BKC) 100 UNITS/ML SUB-Q ×4 (11:52→20:28)
--- NOTE | 2023-12-27 13:20 | PCOTNOTE ---
Attempted to see Patient at this time. Patient stated she had recently got back to bed, had a horrible night and needs sleep. Patient declined any participation this P.M., requested therapy check back in the A.M.
--- NOTE | 2023-12-27 13:33 | PM.IMPN ---
Progress Note: A&P Assessment and Plan (1) Sepsis: Qualifiers: Sepsis type: sepsis due to unspecified organism Sepsis acute organ dysfunction status: with acute organ dysfunction Severe sepsis acute organ dysfunction type: acute renal failure Acute renal failure type: unspecified Severe sepsis shock status: without septic shock Qualified Code(s): A41.9 - Sepsis, unspecified organism; R65.20 - Severe sepsis without septic shock; N17.9 - Acute kidney failure, unspecified Code(s): A41.9 - Sepsis, unspecified organism Status: Acute Assessment and Plan: Source of infection is left UVJ stone and pyelitis. (2) Calculus of ureterovesical junction (UVJ): Code(s): N20.1 - Calculus of ureter Status: Acute Assessment and Plan: 3 mm left UVJ stone s/p cystoscopy, left retrograde pyelogram, and left ureteral stent placement on 12/20/[address] Whitten Follow-up KUB completed on 12/21/2023 shows stent in expected position. Left ureteral stone not visible. Repeat CT scan completed on 12/25/2023 again shows left ureteral stent in expected position without any stones identified along the stent. Suspect this stone has passed. Will plan for left ureteral stent removal as an outpatient pending resolution of infection and improvement of other medical problems (3) Hydronephrosis of left kidney: Code(s): N13.30 - Unspecified hydronephrosis Status: Resolved Assessment and Plan: S/p eft ureteral stent placement on 12/20/2023 as above. 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 Continue antibiotic therapy tailored to urine culture results. Repeat CT demonstrates improvement, however still with persistent nephrograms secondary to pyelonephritis (5) UTI (urinary tract infection): Code(s): N39.0 - Urinary tract infection, site not specified Status: Acute Assessment and Plan: Urine culture with growth of E coli, continue antibiotics as above (6) VERA (acute kidney injury): Code(s): N17.9 - Acute kidney failure, unspecified Status: Acute Assessment and Plan: Creatinine trending down, continue to monitor renal function Plan 12/27/23:Wean oxygen Time Spent With Patient Time with patient: 25 - 35 minutes Subjective Date/time seen: 12/27/23 13:34 Interval history: Seen and examined; She offers no complaints. Eager to be discharged home Review of Systems Review of Systems: 12 systems were reviewed with pertinent positives and negatives per HPI. Except as documented in the HPI, all other systems were reviewed and are negative. All systems reviewed & are unremarkable except as noted in HPI and below Exam Narrative: General: Awake, alert, comfortable, no acute distress HEENT: Normocephalic, atraumatic, sclerae anicteric Respiratory: Normal respiratory effort, no accessory muscle use Abdomen: Nondistended, soft, nontender : benavidez catheter draining clear yellow urine Skin: Normal coloration, warm and dry Neurologic: No focal neuro deficits noted Psychiatric: Appropriate mood and affect, judgment and insight intact Const: Other: Acutely ill-appearing, obese, appears stated age HENMT: Other: Mucous membranes are tacky, edentulous, dried what was likely prior gastric contents that the patient had vomited up were noted to the posterior soft palate and buccal mucosa, head is normocephalic atraumatic Eyes: Other: Status post cataract surgery bilaterally, no pallor, non jaundice Neck: Other: Large neck circumference, no JVD, supple Resp: Other: Tachypneic, accessory muscle use, wheezing bilaterally Cardio: Other: Sinus tachycardia, 2+ bilateral radial pedal pulses GI: Other: Tender in the le
--- NOTE | 2023-12-27 14:10 | PM.PNNEP ---
Progress Note: A&P Assessment and Plan (1) VERA (acute kidney injury): Code(s): N17.9 - Acute kidney failure, unspecified Status: Acute Assessment and Plan: improvement noted normal creatinine/renal function at baseline admitted with creatinine of 2.3mg/dl suspect ATN with multifactorial etiology: hemodynamic instability/shock infection/sepsis (UTI + pyelonephritis) obstruction/hydronephrosis prerenal factors use of ARB + HCTZ prior to admission contrast exposure (CTA on 12/20/23) s/p aggressive IVF resuscitation was on pressor support to maintain MAP - weaned off evaluation to date: admission CT with 3 mm stone at left UV junction with moderate left hydronephrosis and hydroureter left-sided emphysematous pyelonephritis urine electrolytes non-prerenal urine eosinophils negative CPK okay follow repeat labs and UOP (2) Septic shock: Code(s): A41.9 - Sepsis, unspecified organism; R65.21 - Severe sepsis with septic shock Status: Acute Assessment and Plan: improved/resolving presumably secondary to UTI and pyelonephritis admission CT with 3 mm stone at left UV junction with moderate left hydronephrosis and hydroureter left-sided emphysematous pyelonephritis noted hypotension on admission s/p IVF resuscitation IVF held due to concerns of volume overload was initiated on vasopressor therapy to maintain MAP - weaned off follow culture data - urine culture with E.coli on antibiotics follow trend of hemodynamics (3) Hydronephrosis of left kidney: Code(s): N13.30 - Unspecified hydronephrosis Status: Resolved Assessment and Plan: as noted by admission imaging status post cystoscopy, left retrograde pyelogram, left ureteral stent placement on Urology following (4) Emphysematous pyelonephritis of left kidney: Code(s): N12 - Tubulo-interstitial nephritis, not specified as acute or chronic Status: Acute Assessment and Plan: as noted by admission imaging urine culture with E. coli blood culture negative to date on antibiotics (5) UTI (urinary tract infection): Code(s): N39.0 - Urinary tract infection, site not specified Status: Acute Assessment and Plan: see #4 (6) Respiratory failure: Code(s): J96.90 - Respiratory failure, unspecified, unspecified whether with hypoxia or hypercapnia Status: Acute Assessment and Plan: issues with hypoxia on 12/20 given elevated BNP and concerns for possible volume overload, IVFs stopped however, history of BARBARA maybe playing a role BiPAP PRN along with use of supplemental oxgen on bronchodilators switch to orl diuretics soon? follow respiratory status (7) Atrial flutter with rapid ventricular response: Code(s): I48.92 - Unspecified atrial flutter Status: Acute Assessment and Plan: s/p cardioversion on metoprolol and amiodarone on Eliquis Cardiology following (8) Diabetes: Code(s): E11.9 - Type 2 diabetes mellitus without complications Status: Chronic Assessment and Plan: follow accu-cheks glycemic control per intensivisit/hospitalists Will continue to follow Subjective Date/time seen: 12/27/23 14:10 Interval history: Follow-up for acute kidney injury/acute renal failure. Overall, appears to be slowly improving; good diuresis with improvement in renal function noted; breathing/respirator status is stable if not improved; no other issues/events voiced at the time of my visit. Exam Narrative: General: elderly but WD/WN female in NAD Heart: RRR, normal S1 and S2; no rub Lungs: clear anteriorly but decreased at the bases Abdomen: soft, nontender, nondistended, positive bowel sounds Extremities: no cyanosis or clubbing; trace edema Skin: no nodules Objective Data Vital Signs Vital Signs: Vital Signs Temp Pulse Resp BP Pulse Ox O2 Del Met
--- NOTE | 2023-12-27 14:10 | P.PNNP_ITS ---
Progress Note: A&P Assessment and Plan (1) VERA (acute kidney injury): Code(s): N17.9 - Acute kidney failure, unspecified Status: Acute Assessment and Plan: * improvement noted * normal creatinine/renal function at baseline * admitted with creatinine of 2.3mg/dl * suspect ATN with multifactorial etiology: * hemodynamic instability/shock * infection/sepsis (UTI + pyelonephritis) * obstruction/hydronephrosis * prerenal factors * use of ARB + HCTZ prior to admission * contrast exposure (CTA on 12/20/23) * s/p aggressive IVF resuscitation * was on pressor support to maintain MAP - weaned off * evaluation to date: * admission CT with 3 mm stone at left UV junction with moderate left hydronephrosis and hydroureter left-sided emphysematous pyelonephritis * urine electrolytes non-prerenal * urine eosinophils negative * CPK okay * follow repeat labs and UOP (2) Septic shock: Code(s): A41.9 - Sepsis, unspecified organism; R65.21 - Severe sepsis with septic shock Status: Acute Assessment and Plan: * improved/resolving * presumably secondary to UTI and pyelonephritis * admission CT with 3 mm stone at left UV junction with moderate left hydronephrosis and hydroureter left-sided emphysematous pyelonephritis * noted hypotension on admission s/p IVF resuscitation * IVF held due to concerns of volume overload * was initiated on vasopressor therapy to maintain MAP - weaned off * follow culture data - urine culture with E.coli * on antibiotics * follow trend of hemodynamics (3) Hydronephrosis of left kidney: Code(s): N13.30 - Unspecified hydronephrosis Status: Resolved Assessment and Plan: * as noted by admission imaging * status post cystoscopy, left retrograde pyelogram, left ureteral stent placement on * Urology following (4) Emphysematous pyelonephritis of left kidney: Code(s): N12 - Tubulo-interstitial nephritis, not specified as acute or chronic Status: Acute Assessment and Plan: * as noted by admission imaging * urine culture with E. coli * blood culture negative to date * on antibiotics (5) UTI (urinary tract infection): Code(s): N39.0 - Urinary tract infection, site not specified Status: Acute Assessment and Plan: * see #4 (6) Respiratory failure: Code(s): J96.90 - Respiratory failure, unspecified, unspecified whether with hypoxia or hypercapnia Status: Acute Assessment and Plan: * issues with hypoxia on 12/20 * given elevated BNP and concerns for possible volume overload, IVFs stopped * however, history of BARBARA maybe playing a role * BiPAP PRN along with use of supplemental oxgen * on bronchodilators * switch to orl diuretics soon? * follow respiratory status (7) Atrial flutter with rapid ventricular response: Code(s): I48.92 - Unspecified atrial flutter Status: Acute Assessment and Plan: * s/p cardioversion * on metoprolol and amiodarone * on Eliquis * Cardiology following (8) Diabetes: Code(s): E11.9 - Type 2 diabetes mellitus without complications Status: Chronic Assessment and Plan: * follow accu-cheks * glycemic control per intensivisit/hospitalists Will continue to follow Subjective Date/time seen: 12/27/23 14:10 Interval history: Follow-up for acute kidney injury/acute renal failure. Overall, appears to be slowly improving; good diuresis with improvement in renal function
[2023-12-27] MEDS: polyethylene glycoL 3350 17 GM POWD.PACK (15:23)
[2023-12-27 15:43] LABS: Glucose Point of Care 233 mg/dl (65-105)
--- NOTE | 2023-12-27 16:11 | WPDUROPN2 ---
Progress Note: A&P Assessment and Plan (1) Sepsis: Qualifiers: Sepsis type: sepsis due to unspecified organism Sepsis acute organ dysfunction status: with acute organ dysfunction Severe sepsis acute organ dysfunction type: acute renal failure Acute renal failure type: unspecified Severe sepsis shock status: without septic shock Qualified Code(s): A41.9 - Sepsis, unspecified organism; R65.20 - Severe sepsis without septic shock; N17.9 - Acute kidney failure, unspecified Code(s): A41.9 - Sepsis, unspecified organism Status: Acute Assessment and Plan: Source of infection is left UVJ stone and pyelitis. (2) Calculus of ureterovesical junction (UVJ): Code(s): N20.1 - Calculus of ureter Status: Acute Assessment and Plan: 3 mm left UVJ stone s/p cystoscopy, left retrograde pyelogram, and left ureteral stent placement on 12/20/[address] Whitten Follow-up KUB completed on 12/21/2023 shows stent in expected position. Left ureteral stone not visible. Repeat CT scan completed on 12/25/2023 again shows left ureteral stent in expected position without any stones identified along the stent. Suspect the stone has passed. Will plan for left ureteral stent removal as an outpatient pending resolution of infection and improvement of other medical problems (3) Hydronephrosis of left kidney: Code(s): N13.30 - Unspecified hydronephrosis Status: Resolved Assessment and Plan: S/p eft ureteral stent placement on 12/20/2023 as above. 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 Continue antibiotic therapy tailored to urine culture results. Repeat CT demonstrates improvement, however still with persistent nephrograms secondary to pyelonephritis (5) UTI (urinary tract infection): Code(s): N39.0 - Urinary tract infection, site not specified Status: Acute Assessment and Plan: Urine culture with growth of E coli, continue antibiotics as above (6) VERA (acute kidney injury): Code(s): N17.9 - Acute kidney failure, unspecified Status: Acute Assessment and Plan: Creatinine trending down, continue to monitor renal function Plan Plan for benavidez catheter removal pending improvement in renal function and overall clinical status when she is able to increase ambulation Subjective Subjective Date/Time Seen: 12/27/23 16:11 Interval history: Lori is feeling well today. Offers no concerns. Denies nausea, vomiting, fever, chills. Reports no issues with her benavidez catheter which is draining clear yellow urine. Review of Systems Review of Systems: All systems reviewed & are unremarkable except as noted in HPI and below Exam Narrative: General: Awake, alert, comfortable, no acute distress HEENT: Normocephalic, atraumatic, sclerae anicteric Respiratory: Normal respiratory effort, no accessory muscle use Abdomen: Nondistended, soft, nontender : benavidez catheter draining clear yellow urine Skin: Normal coloration, warm and dry Neurologic: No focal neuro deficits noted Psychiatric: Appropriate mood and affect, judgment and insight intact Objective Data Vital Signs Vital Signs: Vital Signs - 24 hr 12/26/23 18:00 12/26/23 20:14 12/26/23 20:17 Temperature Pulse Rate 74 69 69 Respiratory Rate 20 20 Blood Pressure Pulse Oximetry 93 Oxygen Delivery High Flow Nasal Cannula Oxygen Flow Rate 6 Fraction of Inspired Oxygen 12/26/23 20:29 12/26/23 20:19 12/26/23 20:00 Temperature Pulse Rate 70 68 69 Respiratory Rate 20 Blood Pressure Pulse Oximetry Oxygen Delivery Oxygen Flow Rate Fraction of Inspired Oxygen 12/26/23 20:00 12/26/23 20:00 12/26/23 22:00 Temperature 99.1 F Pulse Rate 70 69 58 L Respira
[2023-12-27] MEDS: SENNA/DOCUSATE SODIUM TABLET 1 TAB PO (20:28)
[2023-12-27] MEDS: GABAPENTIN 100 MG CAPSULE PO (20:29)
[2023-12-27 20:32] LABS: Glucose Point of Care 323 mg/dl (65-105)
[2023-12-27] MEDS: ACETAMINOPHEN 325 MG TABLET 650 MG PO (22:24)
[2023-12-28] VITALS (18 sets, daily range): BP systolic 115–131; BP diastolic 42–48; PULSE 51–101; RESP 17–22; TEMP 36.6–37.3; O2SAT 93–95
[2023-12-28] MEDS: IPRATROPIUM 0.5 MG/ALBUTEROL SULFATE 2.5 MG AMPUL.NEB 3 ML INHALATION ×4 (02:45→20:32)
[2023-12-28] MEDS: CENTRAL LINE FLUSH 10 ML IV PUSH ×3 (05:04→21:45)
[2023-12-28 05:22] LABS: Basophils Percent Auto 0.2 % (0.2-1.2); Eosinophils Absolute Auto 0.2 K/mm3 (0-0.3); Eosinophils Percent Auto 1.2 % (0-4.4); Hemoglobin 9.1 g/dL (12.0-15.0); Immature Granulocyte Absolute 0.32 K/mm3 (0.00-0.031); Immature Granulocyte Percent A 2.6 % (0-0.5); Lymphocytes Absolute Auto 1.01 K/mm3 (0.9-3.2); Lymphocytes Percent Auto 8.1 % (18.3-44.2); Mean Corpuscular HGB Conc 31.4 g/dl (32-36); Mean Corpuscular Hemoglobin 29.4 pg (26-34); Mean Corpuscular Volume 93.5 fl (80-100); Monocytes Absolute Auto 0.6 K/mm3 (0.1-0.6); Monocytes Percent Auto 4.9 % (2.6-8.5); Neutrophils Absolute Auto 10.4 K/mm3 (1.3-6.7); Nucleated Red Blood Cells Perc 0.2 % (0.0-0.2); Platelet Count Result 186 k/mm3 (150-375); White Blood Count 12.5 K/mm3 (4.5-10.0)
[2023-12-28 05:41] LABS: Alanine Aminotransferase 34 U/L (6-35); Albumin Level 3.1 g/dL (3.5-5.1); Alkaline Phosphatase 102 U/L (38-126); Anion Gap 0 mmol/L (8-16); Aspartate Amino Transferase 28 U/L (14-36); Bilirubin,Total 0.5 mg/dL (0.2-1.3); Blood Urea Nitrogen 80 mg/dL (7-17); Calcium 9.7 mg/dL (8.4-10.2); Carbon Dioxide 35 mmol/L (22-30); Chloride 100 mmol/L (98-107); Estimated CRCL calculation 27 ml/min; Estimated Glomerular Filt Rate 25; Glucose 150 mg/dL (65-110); Sodium 135 mmol/L (137-145)
[2023-12-28 07:33] LABS: Glucose Point of Care 152 mg/dl (65-105)
[2023-12-28] MEDS: METOPROLOL TARTRATE 25 MG TABLET PO ×2 (08:15→20:09)
[2023-12-28] MEDS: GLIMEPIRIDE 2 MG TABLET 4 MG PO (08:15)
[2023-12-28] MEDS: AMIODARONE HCL 200 MG TABLET 400 MG PO (08:15)
[2023-12-28] MEDS: PRAVASTATIN SODIUM 20 MG TABLET 40 MG PO (08:15)
[2023-12-28] MEDS: APIXABAN 5 MG TABLET PO ×2 (08:15→20:09)
[2023-12-28] MEDS: INSULIN ASPART (*BKC) 100 UNITS/ML SUB-Q ×5 (08:16→20:37)
[2023-12-28] MEDS: FUROSEMIDE INJ 40 MG/4 ML VIAL IV PUSH (08:16)
[2023-12-28] MEDS: TOLNAFTATE 1% POWDER 45 GM BTL 1 APPLIC TOPICAL ×2 (08:18→20:09)
[2023-12-28] MEDS: INSULIN GLARGINE (*BKC) 100 UNITS/ML 25 UNITS SUB-Q (08:18)
--- NOTE | 2023-12-28 09:22 | P.PNNP_ITS ---
Progress Note: A&P Assessment and Plan (1) VERA (acute kidney injury): Code(s): N17.9 - Acute kidney failure, unspecified Status: Acute Assessment and Plan: * improvement noted * normal creatinine/renal function at baseline * admitted with creatinine of 2.3mg/dl * suspect ATN with multifactorial etiology: * hemodynamic instability/shock * infection/sepsis (UTI + pyelonephritis) * obstruction/hydronephrosis * prerenal factors * use of ARB + HCTZ prior to admission * contrast exposure (CTA on 12/20/23) * s/p aggressive IVF resuscitation * was on pressor support to maintain MAP - weaned off * evaluation to date: * admission CT with 3 mm stone at left UV junction with moderate left hydronephrosis and hydroureter left-sided emphysematous pyelonephritis * urine electrolytes non-prerenal * urine eosinophils negative * CPK okay * follow repeat labs and UOP (2) Septic shock: Code(s): A41.9 - Sepsis, unspecified organism; R65.21 - Severe sepsis with septic shock Status: Acute Assessment and Plan: * improved/resolving * presumably secondary to UTI and pyelonephritis * admission CT with 3 mm stone at left UV junction with moderate left hydronephrosis and hydroureter left-sided emphysematous pyelonephritis * noted hypotension on admission s/p IVF resuscitation * IVF held due to concerns of volume overload * was initiated on vasopressor therapy to maintain MAP - weaned off * follow culture data - urine culture with E.coli * on antibiotics * follow trend of hemodynamics (3) Hydronephrosis of left kidney: Code(s): N13.30 - Unspecified hydronephrosis Status: Resolved Assessment and Plan: * as noted by admission imaging * status post cystoscopy, left retrograde pyelogram, left ureteral stent placement on * Urology following (4) Emphysematous pyelonephritis of left kidney: Code(s): N12 - Tubulo-interstitial nephritis, not specified as acute or chronic Status: Acute Assessment and Plan: * as noted by admission imaging * urine culture with E. coli * blood culture negative to date * on antibiotics (5) UTI (urinary tract infection): Code(s): N39.0 - Urinary tract infection, site not specified Status: Acute Assessment and Plan: * see #4 (6) Respiratory failure: Code(s): J96.90 - Respiratory failure, unspecified, unspecified whether with hypoxia or hypercapnia Status: Acute Assessment and Plan: * issues with hypoxia on 12/20 * given elevated BNP and concerns for possible volume overload, IVFs stopped * however, history of BARBARA maybe playing a role * BiPAP PRN along with use of supplemental oxgen * on bronchodilators * switch to orl diuretics soon? * follow respiratory status (7) Atrial flutter with rapid ventricular response: Code(s): I48.92 - Unspecified atrial flutter Status: Acute Assessment and Plan: * s/p cardioversion * on metoprolol and amiodarone * on Eliquis * Cardiology following (8) Diabetes: Code(s): E11.9 - Type 2 diabetes mellitus without complications Status: Chronic Assessment and Plan: * follow accu-cheks * glycemic control per intensivisit/hospitalists Will continue to follow Subjective Date/time seen: 12/28/23 09:22 Interval history: Follow-up for acute kidney injury/acute renal failure. No new issues or problems voiced at this time; breathing/respiratory status continues to
--- NOTE | 2023-12-28 09:22 | PM.PNNEP ---
Progress Note: A&P Assessment and Plan (1) VERA (acute kidney injury): Code(s): N17.9 - Acute kidney failure, unspecified Status: Acute Assessment and Plan: improvement noted normal creatinine/renal function at baseline admitted with creatinine of 2.3mg/dl suspect ATN with multifactorial etiology: hemodynamic instability/shock infection/sepsis (UTI + pyelonephritis) obstruction/hydronephrosis prerenal factors use of ARB + HCTZ prior to admission contrast exposure (CTA on 12/20/23) s/p aggressive IVF resuscitation was on pressor support to maintain MAP - weaned off evaluation to date: admission CT with 3 mm stone at left UV junction with moderate left hydronephrosis and hydroureter left-sided emphysematous pyelonephritis urine electrolytes non-prerenal urine eosinophils negative CPK okay follow repeat labs and UOP (2) Septic shock: Code(s): A41.9 - Sepsis, unspecified organism; R65.21 - Severe sepsis with septic shock Status: Acute Assessment and Plan: improved/resolving presumably secondary to UTI and pyelonephritis admission CT with 3 mm stone at left UV junction with moderate left hydronephrosis and hydroureter left-sided emphysematous pyelonephritis noted hypotension on admission s/p IVF resuscitation IVF held due to concerns of volume overload was initiated on vasopressor therapy to maintain MAP - weaned off follow culture data - urine culture with E.coli on antibiotics follow trend of hemodynamics (3) Hydronephrosis of left kidney: Code(s): N13.30 - Unspecified hydronephrosis Status: Resolved Assessment and Plan: as noted by admission imaging status post cystoscopy, left retrograde pyelogram, left ureteral stent placement on Urology following (4) Emphysematous pyelonephritis of left kidney: Code(s): N12 - Tubulo-interstitial nephritis, not specified as acute or chronic Status: Acute Assessment and Plan: as noted by admission imaging urine culture with E. coli blood culture negative to date on antibiotics (5) UTI (urinary tract infection): Code(s): N39.0 - Urinary tract infection, site not specified Status: Acute Assessment and Plan: see #4 (6) Respiratory failure: Code(s): J96.90 - Respiratory failure, unspecified, unspecified whether with hypoxia or hypercapnia Status: Acute Assessment and Plan: issues with hypoxia on 12/20 given elevated BNP and concerns for possible volume overload, IVFs stopped however, history of BARBARA maybe playing a role BiPAP PRN along with use of supplemental oxgen on bronchodilators switch to orl diuretics soon? follow respiratory status (7) Atrial flutter with rapid ventricular response: Code(s): I48.92 - Unspecified atrial flutter Status: Acute Assessment and Plan: s/p cardioversion on metoprolol and amiodarone on Eliquis Cardiology following (8) Diabetes: Code(s): E11.9 - Type 2 diabetes mellitus without complications Status: Chronic Assessment and Plan: follow accu-cheks glycemic control per intensivisit/hospitalists Will continue to follow Subjective Date/time seen: 12/28/23 09:22 Interval history: Follow-up for acute kidney injury/acute renal failure. No new issues or problems voiced at this time; breathing/respiratory status continues to improve if not remain stable; renal function continues to improve despite ongoing diureti therapy; no events overnight or earlier this morning. Exam Narrative: General: elderly but WD/WN female in NAD Heart: RRR, normal S1 and S2; no rub Lungs: clear anteriorly but decreased at the bases Abdomen: soft, nontender, nondistended, positive bowel sounds Extremities: no cyanosis or clubbing; trace edema Skin: warm and dry Objective Data Vital Signs Vital Signs: Vital Signs Temp Pulse
--- NOTE | 2023-12-28 11:17 | PM.PNCARD ---
Progress Note: A&P Assessment and Plan (1) Atrial flutter with rapid ventricular response: Code(s): I48.92 - Unspecified atrial flutter Status: Acute Assessment and Plan: Continue Eliquis, amiodarone and metoprolol for now. Will likely discontinue amiodarone as an outpatient Cardiology will sign off. Please call with questions. (2) Hypertension associated with diabetes: Code(s): E11.59 - Type 2 diabetes mellitus with other circulatory complications; I15.2 - Hypertension secondary to endocrine disorders Status: Acute Assessment and Plan: Continue Losartan (3) Obstructive sleep apnea (adult) (pediatric): Code(s): G47.33 - Obstructive sleep apnea (adult) (pediatric) Status: Acute Assessment and Plan: On CPAP (4) Chronic obstructive pulmonary disease, unspecified: Code(s): J44.9 - Chronic obstructive pulmonary disease, unspecified Status: Acute Assessment and Plan: Followed by Pulmonology (5) VERA (acute kidney injury): Code(s): N17.9 - Acute kidney failure, unspecified Status: Acute Assessment and Plan: From ureteral stone obstruction.?Follow renal function Subjective Date/time seen: 12/28/23 11:17 Interval history: Reason for visit: Atrial flutter with RVR HPI: Patient is a 73-year-old female chief has history of COPD and is admitted because of nausea vomiting diarrhea fevers flank pain.? She also acute renal failure.? She was found have a left ureteral stone with hydronephrosis and pyelonephritis.? Started on IV fluids and Rocephin.? She went to the operating room and a ureteral stent was placed.? Patient was found to be tachycardic and went into atrial fibrillation while in the ICU.? She was started on heparin and amiodarone for which she remains.? Echocardiogram was performed showing preserved ejection fraction.? She does not feel palpitations.? She otherwise has had no cardiac symptoms including no chest pain, shortness of breath, syncope, presyncope, paroxysmal nocturnal dyspnea, orthopnea, palpitations.? She does have some chronic lower extremity edema which is not new or different. Date of service 12/24: Remains in atrial flutter with RVR this morning. Date of service 12/26/2023: Status post cardioversion yesterday. Remains in sinus rhythm today. Feels good denies any chest pain or shortness of breath. Date of service 12/27/2023 feels okay. No chest pain or SOB Still in sinus rhythm Date of service 12/28/2023: No major changes in her clinical status overnight. She remains in sinus rhythm. No chest pain, shortness of breath. Review of Systems Review of Systems: All systems reviewed & are unremarkable except as noted in HPI and below Constitutional: Constitutional: Denies body ache(s) and Denies excessive sweating Eyes: Eyes: Denies blurry vision ENT: Denies Normal hearing present Cardiovascular: Cardiovascular: Denies chest pain and Denies dyspnea Respiratory: Respiratory: Denies dyspnea Gastrointestinal: Gastrointestinal: Denies abdominal pain Genitourinary: Genitourinary: Denies hematuria Musculoskeletal: Musculoskeletal: Denies back pain Integumentary/Breasts: Skin/Breast: Denies dry skin Neurologic: Denies Normal hearing present and Denies Abnormal speech present Psychiatric: Psychiatric: Denies anxiety Endocrine: Endocrine: Denies excessive sweating Hematologic/Lymphatic: Hematologic/Lymphatic: Denies easy bleeding Allergic/Immunologic: Allergic/Immunologic: Denies GI upset with certain foods Exam Narrative: Patient is awake alert oriented appears stated age Const: General: comfortable and no acute distress HENMT: Face/Nose/Sinus: Normal nares present Mouth: Yes moist mucous membranes Eyes: General: appearance normal, both eyes and all related structures Sclera: sclerae normal Neck: Neck: supple and no JVD Chest: Other: No reproducible chest wall pain to palpation
[2023-12-28 11:26] LABS: Glucose Point of Care 187 mg/dl (65-105)
[2023-12-28 14:10] LABS: Chloride Rand Ur 44 mmol/L (32-290); Chloride/Creatinine Rand Ur 49 (38-318); Creatinine Random Urine 89 mg/dL (20-275)
[2023-12-28 15:27] LABS: Glucose Point of Care 223 mg/dl (65-105)
--- NOTE | 2023-12-28 16:51 | PC.NURSE ---
pt's showed me a nasal drainage that was about 2.5 inches long and blood and stringy, will monitor
--- NOTE | 2023-12-28 17:04 | PM.IMPN ---
Progress Note: A&P Assessment and Plan (1) Sepsis: Qualifiers: Sepsis type: sepsis due to unspecified organism Sepsis acute organ dysfunction status: with acute organ dysfunction Severe sepsis acute organ dysfunction type: acute renal failure Acute renal failure type: unspecified Severe sepsis shock status: without septic shock Qualified Code(s): A41.9 - Sepsis, unspecified organism; R65.20 - Severe sepsis without septic shock; N17.9 - Acute kidney failure, unspecified Code(s): A41.9 - Sepsis, unspecified organism Status: Acute Assessment and Plan: Source of infection is left UVJ stone and pyelitis. (2) Calculus of ureterovesical junction (UVJ): Code(s): N20.1 - Calculus of ureter Status: Acute Assessment and Plan: 3 mm left UVJ stone s/p cystoscopy, left retrograde pyelogram, and left ureteral stent placement on 12/20/[address] Whitten Follow-up KUB completed on 12/21/2023 shows stent in expected position. Left ureteral stone not visible. Repeat CT scan completed on 12/25/2023 again shows left ureteral stent in expected position without any stones identified along the stent. Suspect the stone has passed. Will plan for left ureteral stent removal as an outpatient pending resolution of infection and improvement of other medical problems (3) Hydronephrosis of left kidney: Code(s): N13.30 - Unspecified hydronephrosis Status: Resolved Assessment and Plan: S/p eft ureteral stent placement on 12/20/2023 as above. 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 Continue antibiotic therapy tailored to urine culture results. Repeat CT demonstrates improvement, however still with persistent nephrograms secondary to pyelonephritis (5) UTI (urinary tract infection): Code(s): N39.0 - Urinary tract infection, site not specified Status: Acute Assessment and Plan: Urine culture with growth of E coli, continue antibiotics as above (6) VERA (acute kidney injury): Code(s): N17.9 - Acute kidney failure, unspecified Status: Acute Assessment and Plan: Creatinine trending down, continue to monitor renal function Maybe 2/2 ureteral stone obstruction (7) Atrial flutter with rapid ventricular response: Code(s): I48.92 - Unspecified atrial flutter Status: Acute Assessment and Plan: On Eliquis and Metoprolol; Cardiology plans to DC Amiodarone in the outpatient Plan Plan for benavidez catheter removal pending improvement in renal function and overall clinical status when she is able to increase ambulation 12/28/23: Plan to wean oxygen further Time Spent With Patient Time with patient: 25 - 35 minutes Subjective Date/time seen: 12/28/23 17:04 Interval history: Seen and examined; She offers no complaints. Eager to be discharged home Review of Systems Review of Systems: 12 systems were reviewed with pertinent positives and negatives per HPI. Except as documented in the HPI, all other systems were reviewed and are negative. All systems reviewed & are unremarkable except as noted in HPI and below Eyes: Eyes: Reports no additional eye complaints ENT: Reports Normal hearing present, Denies dysphagia and Denies epistaxis Respiratory: Respiratory: Reports dyspnea Gastrointestinal: Gastrointestinal: Denies constipation, Denies diarrhea and Denies nausea Genitourinary: Genitourinary: Denies dysuria, Denies pelvic pain and Denies flank pain Neurologic: Denies abnormal gait and Denies confusion Psychiatric: Psychiatric: Reports no additional psychiatric complaints Exam Narrative: General: Awake, alert, comfortable, no acute distress HEENT: Normocephalic, atraumatic, sclerae anicteric Respiratory: Normal respiratory effort
[2023-12-28] MEDS: ACETAMINOPHEN 325 MG TABLET 650 MG PO (20:08)
[2023-12-28] MEDS: GABAPENTIN 100 MG CAPSULE PO (20:08)
[2023-12-28] MEDS: SENNA/DOCUSATE SODIUM TABLET 1 TAB PO (20:09)
[2023-12-28 20:36] LABS: Glucose Point of Care 316 mg/dl (65-105)
[2023-12-28] MEDS: diphenhydrAMINE HCl CAP 25 MG CAPSULE PO (21:44)
[2023-12-29] VITALS (22 sets, daily range): BP systolic 121–148; BP diastolic 46–51; PULSE 54–71; RESP 19–23; TEMP 36.7–36.8; O2SAT 88–98
[2023-12-29] MEDS: IPRATROPIUM 0.5 MG/ALBUTEROL SULFATE 2.5 MG AMPUL.NEB 3 ML INHALATION ×4 (03:16→20:07)
[2023-12-29] MEDS: CENTRAL LINE FLUSH 10 ML IV PUSH ×3 (06:23→20:55)
[2023-12-29 07:59] LABS: Glucose Point of Care 186 mg/dl (65-105)
[2023-12-29 08:03] LABS: Basophils Percent Auto 0.4 % (0.2-1.2); Eosinophils Absolute Auto 0.2 K/mm3 (0-0.3); Eosinophils Percent Auto 1.3 % (0-4.4); Hematocrit 30.2 % (37.0-47.0); Hemoglobin 9.7 g/dL (12.0-15.0); Immature Granulocyte Absolute 0.25 K/mm3 (0.00-0.031); Immature Granulocyte Percent A 2.2 % (0-0.5); Lymphocytes Absolute Auto 1.56 K/mm3 (0.9-3.2); Lymphocytes Percent Auto 13.7 % (18.3-44.2); Mean Corpuscular HGB Conc 32.1 g/dl (32-36); Mean Corpuscular Hemoglobin 29.4 pg (26-34); Mean Corpuscular Volume 91.5 fl (80-100); Mean Platelet Volume 9.9 fl (7.4-10.4); Monocytes Absolute Auto 0.6 K/mm3 (0.1-0.6); Monocytes Percent Auto 5.6 % (2.6-8.5); Neutrophils Absolute Auto 8.7 K/mm3 (1.3-6.7); Neutrophils Percent Auto 76.8 % (45.5-73.1); Platelet Count Result 207 k/mm3 (150-375); White Blood Count 11.4 K/mm3 (4.5-10.0)
[2023-12-29 08:16] LABS: Alanine Aminotransferase 29 U/L (6-35); Albumin Level 3.3 g/dL (3.5-5.1); Alkaline Phosphatase 105 U/L (38-126); Anion Gap 3 mmol/L (8-16); Aspartate Amino Transferase 24 U/L (14-36); Bilirubin,Total 0.6 mg/dL (0.2-1.3); Blood Urea Nitrogen 79 mg/dL (7-17); Calcium 9.9 mg/dL (8.4-10.2); Carbon Dioxide 33 mmol/L (22-30); Chloride 99 mmol/L (98-107); Estimated CRCL calculation 29 ml/min; Estimated Glomerular Filt Rate 28; Glucose 190 mg/dL (65-110); Potassium 4.5 mmol/L (3.4-5.0); Sodium 135 mmol/L (137-145)
[2023-12-29] MEDS: INSULIN ASPART (*BKC) 100 UNITS/ML SUB-Q ×6 (08:27→20:56)
[2023-12-29] MEDS: INSULIN GLARGINE (*BKC) 100 UNITS/ML 25 UNITS SUB-Q (08:27)
[2023-12-29] MEDS: polyethylene glycoL 3350 17 GM POWD.PACK PO (08:30)
[2023-12-29] MEDS: AMIODARONE HCL 200 MG TABLET 400 MG PO (08:30)
[2023-12-29] MEDS: FUROSEMIDE 40 MG TABLET PO (08:30)
[2023-12-29] MEDS: GLIMEPIRIDE 2 MG TABLET 4 MG PO (08:30)
[2023-12-29] MEDS: PRAVASTATIN SODIUM 20 MG TABLET 40 MG PO (08:30)
[2023-12-29] MEDS: METOPROLOL TARTRATE 25 MG TABLET PO ×2 (08:31→20:55)
[2023-12-29] MEDS: APIXABAN 5 MG TABLET PO ×2 (08:31→20:54)
[2023-12-29] MEDS: TOLNAFTATE 1% POWDER 45 GM BTL 1 APPLIC TOPICAL ×2 (08:31→20:55)
--- NOTE | 2023-12-29 09:05 | WPDUROPN2 ---
Progress Note: A&P Assessment and Plan (1) Sepsis: Qualifiers: Sepsis type: sepsis due to unspecified organism Sepsis acute organ dysfunction status: with acute organ dysfunction Severe sepsis acute organ dysfunction type: acute renal failure Acute renal failure type: unspecified Severe sepsis shock status: without septic shock Qualified Code(s): A41.9 - Sepsis, unspecified organism; R65.20 - Severe sepsis without septic shock; N17.9 - Acute kidney failure, unspecified Code(s): A41.9 - Sepsis, unspecified organism Status: Acute Assessment and Plan: E coli. Antibiotics per Medicine team (2) Calculus of ureterovesical junction (UVJ): Code(s): N20.1 - Calculus of ureter Status: Acute Assessment and Plan: Stent in place. Stone has since passed. We will keep stent in place until acute situation has resolved Subjective Subjective Date/Time Seen: 12/29/23 09:05 Interval history: Much improved with antibiotics and stent placement. Recent CT shows no stone along the course of the stent Exam Narrative: Resting comfortably No acute distress Alert orient x3 Objective Data Vital Signs Vital Signs: Vital Signs - 24 hr 12/28/23 12:00 12/28/23 13:18 12/28/23 13:28 Temperature Pulse Rate 56 L 57 L 56 L Respiratory Rate 18 18 Blood Pressure Pulse Oximetry Oxygen Delivery Oxygen Flow Rate 12/28/23 16:00 12/28/23 16:00 12/28/23 20:09 Temperature 97.9 F Pulse Rate 57 L 72 70 Respiratory Rate 20 Blood Pressure 130/48 L Pulse Oximetry 93 Oxygen Delivery Oxygen Flow Rate 12/28/23 20:32 12/28/23 20:32 12/28/23 20:38 Temperature Pulse Rate 65 65 62 Respiratory Rate 22 H 22 H 18 Blood Pressure Pulse Oximetry 93 Oxygen Delivery High Flow Nasal Cannula Oxygen Flow Rate 8 12/28/23 22:55 12/29/23 00:00 12/29/23 03:16 Temperature Pulse Rate 60 Respiratory Rate 22 H 23 H 22 H Blood Pressure 121/49 L Pulse Oximetry 94 Oxygen Delivery BiPAP BiPAP Oxygen Flow Rate 12/29/23 03:16 12/28/23 20:00 12/29/23 00:00 Temperature Pulse Rate 55 L 86 54 L Respiratory Rate 22 H Blood Pressure Pulse Oximetry Oxygen Delivery Oxygen Flow Rate 12/29/23 04:00 03/09/24 07:51 12/29/23 07:57 Temperature Pulse Rate 55 L 58 L 68 Respiratory Rate 19 19 Blood Pressure Pulse Oximetry 96 Oxygen Delivery High Flow Nasal Cannula Oxygen Flow Rate 6 12/29/23 08:05 12/29/23 08:30 12/29/23 08:31 Temperature Pulse Rate 62 64 70 Respiratory Rate 22 H Blood Pressure Pulse Oximetry Oxygen Delivery Oxygen Flow Rate 12/29/23 08:00 Temperature 98.3 F Pulse Rate 64 Respiratory Rate 20 Blood Pressure 126/46 L Pulse Oximetry 91 Oxygen Delivery Oxygen Flow Rate Intake/Output Intake/Output: Intake & Output 12/26/23 12/27/23 12/28/23 12/29/23 23:59 23:59 23:59 23:59 Intake Total 1120 1220 1390 760 Output Total 550 3100 3500 1100 Balance 570 -1880 -2110 -340 Meds/Results Medications: Active Medications Generic Name Dose Route Start Last Admin Trade Name Freq PRN Reason Stop Dose Admin Acetaminophen 650 mg 12/21/23 04:20 12/28/23 20:08 Acetaminophen 325 Mg Tablet PO 650 mg Q4H PRN Administration Mild Pain (1-3) or Fever Albuterol/Ipratropium 3 ml 12/21/23 08:00 12/29/23 07:51 Ipratropium 0.5 Mg/Albuterol Sulfate 2.5 Mg Ampul.Neb 3 Ml INHALATION 3 ml Q6HRT RASHMI Administration Albuterol/Ipratropium 3 ml 12/21/23 08:08 Ipratropium 0.5 Mg/Albuterol Sulfate 2.5 Mg Ampul.Neb 3 Ml INHALATION Q4HRT PRN Wheezing Amiodarone HCl 400 mg 12/25/23 10:05 12/29/23 08:30 Amiodarone Hcl 200 Mg Tablet PO 400 mg DAILY@0800 RASHMI Administration Apixaban 5 mg 12/25/23 09:25 12/29/23 08:31 Apixaban 5 Mg Tablet PO 5 mg Q12HR RASHMI Administration Dextrose 12.5 gm 12/20/23 17:40 Dextrose 50% 25
--- NOTE | 2023-12-29 10:54 | P.PNNP_ITS ---
Progress Note: A&P Assessment and Plan (1) VERA (acute kidney injury): Code(s): N17.9 - Acute kidney failure, unspecified Status: Acute Assessment and Plan: * VERA. * evaluation to date: * admission CT with 3 mm stone at left UV junction with moderate left hydronephrosis and hydroureter left-sided emphysematous pyelonephritis * urine electrolytes non-prerenal * urine eosinophils negative * CPK okay * normal creatinine/renal function at baseline * admitted with creatinine of 2.3mg/dl. This daniel to 2.6 and since then has been gradually dropping to 1.8 over about 4 days. * suspect ATN with multifactorial etiology: * hemodynamic instability/shock * infection/sepsis (UTI + pyelonephritis) * obstruction/hydronephrosis * prerenal factors * use of ARB + HCTZ prior to admission * contrast exposure (CTA on 12/20/23) * Volume status looks okay. * Electrolytes okay. * Off pressors. * Check another creatinine tomorrow. (2) Septic shock: Code(s): A41.9 - Sepsis, unspecified organism; R65.21 - Severe sepsis with septic shock Status: Acute Assessment and Plan: * improved/resolving * presumably secondary to UTI and pyelonephritis * admission CT with 3 mm stone at left UV junction with moderate left hydronephrosis and hydroureter left-sided emphysematous pyelonephritis * On no pressors. * Off antibiotics since 12/26. It was discontinued by pharmacy. (3) Hydronephrosis of left kidney: Code(s): N13.30 - Unspecified hydronephrosis Status: Resolved Assessment and Plan: * as noted by admission imaging * status post cystoscopy, left retrograde pyelogram, left ureteral stent placement on * Urology following (4) Emphysematous pyelonephritis of left kidney: Code(s): N12 - Tubulo-interstitial nephritis, not specified as acute or chronic Status: Acute Assessment and Plan: * as noted by admission imaging * urine culture with E. coli * blood culture negative to date * on antibiotics (5) UTI (urinary tract infection): Code(s): N39.0 - Urinary tract infection, site not specified Status: Acute Assessment and Plan: * see #4 (6) Respiratory failure: Code(s): J96.90 - Respiratory failure, unspecified, unspecified whether with hypoxia or hypercapnia Status: Acute Assessment and Plan: * issues with hypoxia on 12/20 * given elevated BNP and concerns for possible volume overload, IVFs stopped * however, history of BARBARA maybe playing a role * BiPAP PRN along with use of supplemental oxgen * on bronchodilators * On oral diuretics now. * follow respiratory status (7) Atrial flutter with rapid ventricular response: Code(s): I48.92 - Unspecified atrial flutter Status: Acute Assessment and Plan: * s/p cardioversion * on metoprolol and amiodarone * on Eliquis * Cardiology following (8) Diabetes: Code(s): E11.9 - Type 2 diabetes mellitus without complications Status: Chronic Assessment and Plan: * follow accu-cheks * glycemic control per lace inspector/hospitalists Subjective Date/time seen: 12/29/23 10:54 Interval history: Lori is feeling better. Eager for discharge Exam Narrative: General: elderly but WD/WN female in NAD Heart: RRR, normal S1 and S2; no rub or gallop Lungs: clear anteriorly but decreased at the bases Abdomen: soft, nontender, nond
--- NOTE | 2023-12-29 10:54 | PM.PNNEP ---
Progress Note: A&P Assessment and Plan (1) VERA (acute kidney injury): Code(s): N17.9 - Acute kidney failure, unspecified Status: Acute Assessment and Plan: VERA. evaluation to date: admission CT with 3 mm stone at left UV junction with moderate left hydronephrosis and hydroureter left-sided emphysematous pyelonephritis urine electrolytes non-prerenal urine eosinophils negative CPK okay normal creatinine/renal function at baseline admitted with creatinine of 2.3mg/dl. This daniel to 2.6 and since then has been gradually dropping to 1.8 over about 4 days. suspect ATN with multifactorial etiology: hemodynamic instability/shock infection/sepsis (UTI + pyelonephritis) obstruction/hydronephrosis prerenal factors use of ARB + HCTZ prior to admission contrast exposure (CTA on 12/20/23) Volume status looks okay. Electrolytes okay. Off pressors. Check another creatinine tomorrow. (2) Septic shock: Code(s): A41.9 - Sepsis, unspecified organism; R65.21 - Severe sepsis with septic shock Status: Acute Assessment and Plan: improved/resolving presumably secondary to UTI and pyelonephritis admission CT with 3 mm stone at left UV junction with moderate left hydronephrosis and hydroureter left-sided emphysematous pyelonephritis On no pressors. Off antibiotics since 12/26. It was discontinued by pharmacy. (3) Hydronephrosis of left kidney: Code(s): N13.30 - Unspecified hydronephrosis Status: Resolved Assessment and Plan: as noted by admission imaging status post cystoscopy, left retrograde pyelogram, left ureteral stent placement on Urology following (4) Emphysematous pyelonephritis of left kidney: Code(s): N12 - Tubulo-interstitial nephritis, not specified as acute or chronic Status: Acute Assessment and Plan: as noted by admission imaging urine culture with E. coli blood culture negative to date on antibiotics (5) UTI (urinary tract infection): Code(s): N39.0 - Urinary tract infection, site not specified Status: Acute Assessment and Plan: see #4 (6) Respiratory failure: Code(s): J96.90 - Respiratory failure, unspecified, unspecified whether with hypoxia or hypercapnia Status: Acute Assessment and Plan: issues with hypoxia on 3/1 given elevated BNP and concerns for possible volume overload, IVFs stopped however, history of BARBARA maybe playing a role BiPAP PRN along with use of supplemental oxgen on bronchodilators On oral diuretics now. follow respiratory status (7) Atrial flutter with rapid ventricular response: Code(s): I48.92 - Unspecified atrial flutter Status: Acute Assessment and Plan: s/p cardioversion on metoprolol and amiodarone on Eliquis Cardiology following (8) Diabetes: Code(s): E11.9 - Type 2 diabetes mellitus without complications Status: Chronic Assessment and Plan: follow accu-cheks glycemic control per contemporary or modern dancer/hospitalists Subjective Date/time seen: 12/29/23 10:54 Interval history: Lori is feeling better. Eager for discharge Exam Narrative: General: elderly but WD/WN female in NAD Heart: RRR, normal S1 and S2; no rub or gallop Lungs: clear anteriorly but decreased at the bases Abdomen: soft, nontender, nondistended, positive bowel sounds Extremities: no cyanosis or clubbing; trace edema Skin no rash Objective Data Vital Signs Vital Signs: Vital Signs - 24 hr 12/28/23 12:00 12/28/23 13:18 12/28/23 13:28 Temperature Pulse Rate 56 L 57 L 56 L Respiratory Rate 18 18 Blood Pressure Pulse Oximetry Oxygen Delivery Oxygen Flow Rate 12/28/23 16:00 12/28/23 16:00 12/28/23 20:09 Temperature 97.9 F Pulse Rate 57 L 72 70 Respiratory Rate 20 Blood Pressure 130/48 L Pulse Oximetry 93 Oxygen Delivery
[2023-12-29 11:56] LABS: Glucose Point of Care 312 mg/dl (65-105)
--- NOTE | 2023-12-29 15:43 | PM.IMPN ---
Progress Note: A&P Assessment and Plan (1) Atrial flutter with rapid ventricular response: Code(s): I48.92 - Unspecified atrial flutter Status: Acute (2) Hypertension associated with diabetes: Code(s): E11.59 - Type 2 diabetes mellitus with other circulatory complications; I15.2 - Hypertension secondary to endocrine disorders Status: Acute (3) Anemia: Code(s): D64.9 - Anemia, unspecified Status: Acute (4) Septic shock: Code(s): A41.9 - Sepsis, unspecified organism; R65.21 - Severe sepsis with septic shock Status: Acute (5) VERA (acute kidney injury): Code(s): N17.9 - Acute kidney failure, unspecified Status: Acute (6) Calculus of ureterovesical junction (UVJ): Code(s): N20.1 - Calculus of ureter Status: Acute (7) Hydroureter on left: Code(s): N13.4 - Hydroureter Status: Acute Plan # septic shock to UTI, shock resolved # calculus left ureterovesicular junction -seen by Urology, stent placed , stone has passed. Stent removed in the office -shock resolved, off pressors -triple-lumen catheter right IJ -antibiotics: Completing antibiotics 12/26 # acute kidney injury -elevated creatinine likely postrenal from the uterolithiasis and 18 -appreciate nephrology consultation -creatinine continues to improve daily, down to 1.8. Creatinine on presentation was 2.3 # atrial flutter -patient was cardioverted for atrial flutter which shock -anticoagulation Eliquis -rate control metoprolol, amiodarone. Cardiology may be discontinuing amiodarone output -on Lasix 40 mg daily # chronic condition -type 2 diabetes: Diabetic diet, Accu-Cheks a.c. HS, sliding scale insulin, hypoglycemia protocol, A1c 8.3. On glimepiride, Lantus 25 units daily, aspart 3 units t.i.d. a.c., held before -peripheral diabetic neuropathy: Gabapentin -hyperlipidemia: Pravastatin -since hypertension: Held home meds hydrochlorothiazide, losartan Diet: Diabetic diet DVT prophylaxis: Started on eliquis Code status: Full code Disposition: home in >2 days Time Spent With Patient Time: 35 minutes Subjective Date/time seen: 12/29/23 15:43 Interval history: Patient seen and examined. She is doing well no new complaints. Creatinine continues to improve. Once we have peripheral IV, will remove central line. Benavidez catheter in place, patient appears to have passed kidney stone. Patient denies fever, chills, nausea vomiting or diarrhea. Review of Systems Review of Systems: 10 point ROS complete, negative other than what is specified in HPI. Exam Narrative: - GENERAL: Pleasant older woman in no acute distress - EYES: EOMI. Anicteric. - HENT: Moist mucous membranes. - LUNGS: Clear to auscultation bilaterally, no wheezing, rhonchi, or rales. - CARDIOVASCULAR: Regular rate and rhythm. murmer, Right IJ TLC - ABDOMEN: Soft, non-tender and non-distended. No palpable masses. - : benavidez in place - EXTREMITIES: No edema. Peripheral pulses 2+. Non-tender. - NEUROLOGIC: No focal neurological deficits. CN II-XII grossly intact. - PSYCHIATRIC: Awake, Alert and oriented x 3. Appropriate mood and affect. - SKIN: No rashes or lesions. Warm. - LYMPH: No cervical lymphadenopathy. Objective Data Vital Signs Vital Signs: Vital Signs - 24 hr 12/28/23 16:00 12/28/23 16:00 12/28/23 20:09 Temperature 36.6 C Pulse Rate 57 L 72 70 Respiratory Rate 20 Blood Pressure 130/48 L Pulse Oximetry 93 Oxygen Delivery Oxygen Flow Rate 12/28/23 20:32 12/28/23 20:32 12/28/23 20:38 Temperature Pulse Rate 65 65 62 Respiratory Rate 22 H 22 H 18 Blood Pressure Pulse Oximetry 93 Oxygen Delivery High Flow Nasal Cannula Oxygen Flow Rate 8 12/28/23 22:55 12/29/23 00:00 12/29/23 03:16 Temperature Pulse Rate 60 Respiratory Rate 22 H 23 H 22 H Blood Pressure 121/49 L Pulse Oximetry 94 Oxygen Delivery BiPAP BiPAP Oxygen Flow Rate
[2023-12-29 16:25] LABS: Glucose Point of Care 326 mg/dl (65-105)
[2023-12-29] MEDS: GABAPENTIN 100 MG CAPSULE PO (20:54)
[2023-12-29] MEDS: SENNA/DOCUSATE SODIUM TABLET 1 TAB PO (20:55)
[2023-12-29 20:57] LABS: Glucose Point of Care 329 mg/dl (65-105)
[2023-12-30] VITALS (17 sets, daily range): BP systolic 115–156; BP diastolic 41–52; PULSE 53–70; RESP 18–23; TEMP 36.8–37; O2SAT 89–97
[2023-12-30] MEDS: IPRATROPIUM 0.5 MG/ALBUTEROL SULFATE 2.5 MG AMPUL.NEB 3 ML INHALATION ×4 (01:22→19:41)
--- NOTE | 2023-12-30 03:09 | PC.NURSE ---
Daylight Savings Time For Daylight Savings Time Ending in the Fall - Clocks are moved back. For Daylight Savings Time Beginning in the Spring - Clocks are moved ahead. For [facility], the time of change occurs at 0200 hrs. Time is taken from the enlisted aircrew/aerial observer/gunner. This entry on the patient's chart recognizes the change in time reflected during documentation. Example: 2 entries for vital signs may be charted for 0200 hrs.
[2023-12-30 05:24] LABS: Basophils Percent Auto 0.3 % (0.2-1.2); Eosinophils Absolute Auto 0.1 K/mm3 (0-0.3); Eosinophils Percent Auto 0.9 % (0-4.4); Hematocrit 28.9 % (37.0-47.0); Hemoglobin 9.2 g/dL (12.0-15.0); Immature Granulocyte Absolute 0.06 K/mm3 (0.00-0.031); Immature Granulocyte Percent A 0.6 % (0-0.5); Lymphocytes Percent Auto 28.6 % (18.3-44.2); Mean Corpuscular HGB Conc 31.8 g/dl (32-36); Mean Corpuscular Hemoglobin 29.2 pg (26-34); Mean Corpuscular Volume 91.7 fl (80-100); Mean Platelet Volume 9.9 fl (7.4-10.4); Monocytes Absolute Auto 0.8 K/mm3 (0.1-0.6); Monocytes Percent Auto 8.2 % (2.6-8.5); Neutrophils Percent Auto 61.4 % (45.5-73.1); Platelet Count Result 217 k/mm3 (150-375); Red Blood Count 3.15 M/mm3 (4.2-5.4); Red Cell Distribution Width 15.1 % (11.5-14.5); White Blood Count 9.8 K/mm3 (4.5-10.0)
[2023-12-30 05:33] LABS: Albumin Level 3.1 g/dL (3.5-5.1); Anion Gap 3 mmol/L (8-16); Blood Urea Nitrogen 75 mg/dL (7-17); Calcium 9.8 mg/dL (8.4-10.2); Carbon Dioxide 35 mmol/L (22-30); Chloride 98 mmol/L (98-107); Estimated CRCL calculation 33 ml/min; Estimated Glomerular Filt Rate 32; Glucose 217 mg/dL (65-110); Phosphorus 4.2 mg/dL (2.5-4.5); Potassium 4.4 mmol/L (3.4-5.0); Sodium 136 mmol/L (137-145)
[2023-12-30] MEDS: CENTRAL LINE FLUSH 10 ML IV PUSH ×2 (06:23→12:29)
[2023-12-30] MEDS: AMIODARONE HCL 200 MG TABLET 400 MG PO (08:15)
[2023-12-30] MEDS: GLIMEPIRIDE 2 MG TABLET 4 MG PO (08:15)
[2023-12-30] MEDS: METOPROLOL TARTRATE 25 MG TABLET PO ×2 (08:15→20:19)
[2023-12-30 08:16] LABS: Glucose Point of Care 203 mg/dl (65-105)
[2023-12-30] MEDS: INSULIN GLARGINE (*BKC) 100 UNITS/ML 25 UNITS SUB-Q (08:16)
[2023-12-30] MEDS: APIXABAN 5 MG TABLET PO ×2 (08:16→20:19)
[2023-12-30] MEDS: PRAVASTATIN SODIUM 20 MG TABLET 40 MG PO (08:16)
[2023-12-30] MEDS: FUROSEMIDE 40 MG TABLET PO (08:16)
[2023-12-30] MEDS: INSULIN ASPART (*BKC) 100 UNITS/ML SUB-Q ×7 (08:17→20:20)
[2023-12-30] MEDS: TOLNAFTATE 1% POWDER 45 GM BTL 1 APPLIC TOPICAL ×2 (08:17→20:19)
--- NOTE | 2023-12-30 08:51 | P.PNNP_ITS ---
Progress Note: A&P Assessment and Plan (1) VERA (acute kidney injury): Code(s): N17.9 - Acute kidney failure, unspecified Status: Acute Assessment and Plan: * VERA. * evaluation to date: * admission CT with 3 mm stone at left UV junction with moderate left hydronephrosis and hydroureter left-sided emphysematous pyelonephritis * urine electrolytes non-prerenal * urine eosinophils negative * CPK okay * normal creatinine/renal function at baseline * admitted with creatinine of 2.3mg/dl. This daniel to 2.6 and since then has been gradually dropping to 1.8 over about 4 days. * suspect ATN with multifactorial etiology: * hemodynamic instability/shock * infection/sepsis (UTI + pyelonephritis) * obstruction/hydronephrosis * prerenal factors * use of ARB + HCTZ prior to admission * contrast exposure (CTA on 12/20/23) * the patient has a stent in place. * She has been receiving antibiotics. * She has been receiving IV fluids. * Renal function has been improving. * Will continue to follow (2) Septic shock: Code(s): A41.9 - Sepsis, unspecified organism; R65.21 - Severe sepsis with septic shock Status: Acute Assessment and Plan: * improved/resolving * presumably secondary to UTI and pyelonephritis * admission CT with 3 mm stone at left UV junction with moderate left hydronephrosis and hydroureter left-sided emphysematous pyelonephritis * Off antibiotics since 12/26. It was discontinued by pharmacy. her clinical status improved rapidly. White count is down to normal. No fevers. Other features of septic syndrome resolved quickly. (3) Hydronephrosis of left kidney: Code(s): N13.30 - Unspecified hydronephrosis Status: Resolved Assessment and Plan: * as noted by admission imaging * status post cystoscopy, left retrograde pyelogram, left ureteral stent placement on * Urology following (4) Emphysematous pyelonephritis of left kidney: Code(s): N12 - Tubulo-interstitial nephritis, not specified as acute or chronic Status: Acute Assessment and Plan: * as noted by admission imaging * urine culture with E. coli * blood culture negative to date * finished antibiotic course. (5) Respiratory failure: Code(s): J96.90 - Respiratory failure, unspecified, unspecified whether with hypoxia or hypercapnia Status: Acute Assessment and Plan: * issues with hypoxia on 12/20 * Now improved. * On oral diuretics now. * follow respiratory status (6) Atrial flutter with rapid ventricular response: Code(s): I48.92 - Unspecified atrial flutter Status: Acute Assessment and Plan: * s/p cardioversion * on metoprolol and amiodarone * on Eliquis * Cardiology following (7) Diabetes: Code(s): E11.9 - Type 2 diabetes mellitus without complications Status: Chronic Assessment and Plan: * follow accu-cheks * glycemic control per civil preparedness coordinator/hospitalists Subjective Date/time seen: 12/30/23 08:51 Interval history: Tony is feeling better. She slept well and has been eating well. Exam Narrative: General: elderly but WD/WN female in NAD Heart: RRR, normal S1 and S2; no rub or gallop Lungs: clear bilaterally Abdomen: soft, nontender, nondistended, positive bowel sounds Extremities: no cyanosis or clubbing; trace edema Skin no rash or subcu nodules Objective Data Vital S
--- NOTE | 2023-12-30 08:51 | PM.PNNEP ---
Progress Note: A&P Assessment and Plan (1) VERA (acute kidney injury): Code(s): N17.9 - Acute kidney failure, unspecified Status: Acute Assessment and Plan: VERA. evaluation to date: admission CT with 3 mm stone at left UV junction with moderate left hydronephrosis and hydroureter left-sided emphysematous pyelonephritis urine electrolytes non-prerenal urine eosinophils negative CPK okay normal creatinine/renal function at baseline admitted with creatinine of 2.3mg/dl. This daniel to 2.6 and since then has been gradually dropping to 1.8 over about 4 days. suspect ATN with multifactorial etiology: hemodynamic instability/shock infection/sepsis (UTI + pyelonephritis) obstruction/hydronephrosis prerenal factors use of ARB + HCTZ prior to admission contrast exposure (CTA on 12/20/23) the patient has a stent in place. She has been receiving antibiotics. She has been receiving IV fluids. Renal function has been improving. Will continue to follow (2) Septic shock: Code(s): A41.9 - Sepsis, unspecified organism; R65.21 - Severe sepsis with septic shock Status: Acute Assessment and Plan: improved/resolving presumably secondary to UTI and pyelonephritis admission CT with 3 mm stone at left UV junction with moderate left hydronephrosis and hydroureter left-sided emphysematous pyelonephritis Off antibiotics since 12/26. It was discontinued by pharmacy. her clinical status improved rapidly. White count is down to normal. No fevers. Other features of septic syndrome resolved quickly. (3) Hydronephrosis of left kidney: Code(s): N13.30 - Unspecified hydronephrosis Status: Resolved Assessment and Plan: as noted by admission imaging status post cystoscopy, left retrograde pyelogram, left ureteral stent placement on Urology following (4) Emphysematous pyelonephritis of left kidney: Code(s): N12 - Tubulo-interstitial nephritis, not specified as acute or chronic Status: Acute Assessment and Plan: as noted by admission imaging urine culture with E. coli blood culture negative to date finished antibiotic course. (5) Respiratory failure: Code(s): J96.90 - Respiratory failure, unspecified, unspecified whether with hypoxia or hypercapnia Status: Acute Assessment and Plan: issues with hypoxia on 12/20 Now improved. On oral diuretics now. follow respiratory status (6) Atrial flutter with rapid ventricular response: Code(s): I48.92 - Unspecified atrial flutter Status: Acute Assessment and Plan: s/p cardioversion on metoprolol and amiodarone on Eliquis Cardiology following (7) Diabetes: Code(s): E11.9 - Type 2 diabetes mellitus without complications Status: Chronic Assessment and Plan: follow accu-cheks glycemic control per sales service assistant/hospitalists Subjective Date/time seen: 12/30/23 08:51 Interval history: Tony is feeling better. She slept well and has been eating well. Exam Narrative: General: elderly but WD/WN female in NAD Heart: RRR, normal S1 and S2; no rub or gallop Lungs: clear bilaterally Abdomen: soft, nontender, nondistended, positive bowel sounds Extremities: no cyanosis or clubbing; trace edema Skin no rash or subcu nodules Objective Data Vital Signs Vital Signs: Vital Signs - 24 hr 12/29/23 07:57 12/29/23 08:05 12/29/23 08:30 Temperature Pulse Rate 68 62 64 Respiratory Rate 19 22 H Blood Pressure Pulse Oximetry 96 Oxygen Delivery High Flow Nasal Cannula Oxygen Flow Rate 6 12/29/23 08:31 12/29/23 08:00 12/29/23 08:00 Temperature 98.3 F Pulse Rate 70 64 Respiratory Rate 20 Blood Pressure 126/46 L Pulse Oximetry 91 91 Oxygen Delivery High Flow Nasal Cannula Oxygen Flow Rate 4 12/29/23 08:00 12/29/23 10:00 12/29/23 12:00 Temp
[2023-12-30 11:56] LABS: Glucose Point of Care 257 mg/dl (65-105)
[2023-12-30] MEDS: FUROSEMIDE INJ 40 MG/4 ML VIAL 20 MG IV PUSH (12:27)
--- NOTE | 2023-12-30 14:49 | PM.IMPN ---
Progress Note: A&P Assessment and Plan (1) Atrial flutter with rapid ventricular response: Code(s): I48.92 - Unspecified atrial flutter Status: Acute (2) Hypertension associated with diabetes: Code(s): E11.59 - Type 2 diabetes mellitus with other circulatory complications; I15.2 - Hypertension secondary to endocrine disorders Status: Acute (3) Anemia: Code(s): D64.9 - Anemia, unspecified Status: Acute (4) Septic shock: Code(s): A41.9 - Sepsis, unspecified organism; R65.21 - Severe sepsis with septic shock Status: Acute (5) Pulmonary edema: Qualifiers: Chronicity: acute Qualified Code(s): J81.0 - Acute pulmonary edema Code(s): J81.1 - Chronic pulmonary edema Status: Acute Plan # septic shock to UTI, shock resolved # calculus left ureterovesicular junction -seen by Urology, stent placed , stone has passed.? Stent removed in the office -shock resolved, off pressors -triple-lumen catheter right IJ -antibiotics:? Completing antibiotics 12/26 # acute kidney injury -elevated creatinine likely postrenal from the uterolithiasis and 18 -appreciate nephrology consultation -creatinine continues to improve daily, down to 1.6.? Creatinine on presentation was 2.3 # pulmonary edema -patient had rales on lung exam, increased O2 requirements from 4 L to 7 L -patient is on 40 mg of p.o. Lasix, I have given extra 20 mg IV Lasix to help with diuresis # atrial flutter -patient was cardioverted for atrial flutter which shock -anticoagulation Eliquis -rate control metoprolol, amiodarone.? Cardiology may be discontinuing amiodarone output -on Lasix 40 mg daily # chronic condition -type 2 diabetes:? Diabetic diet, Accu-Cheks a.c. HS, sliding scale insulin, hypoglycemia protocol, A1c 8.3.? On glimepiride, Lantus 25 units daily, aspart 3 units t.i.d. a.c., held before -peripheral diabetic neuropathy: Gabapentin -hyperlipidemia: Pravastatin -since hypertension:? Held home meds hydrochlorothiazide, losartan Diet:??Diabetic diet DVT prophylaxis:??Started on eliquis Code status:??Full code Disposition:?home in >2 days Time Spent With Patient Time: 35 minutes Subjective Date/time seen: 12/30/23 14:49 Interval history: Patient seen and examined. She was hypoxic this morning and O2 was increased from 4 L to 7. Throughout the day we have been slowly decreasing down to 3 L. patient sounded like fluid overloaded and have given extra dose of Lasix 20 mg. Creatinine continues to improve. Patient encouraged to use incentive spirometer and to get out of bed. Family updated. Patient denies fever, chills, nausea, vomiting, diarrhea. Review of Systems Review of Systems: 10 point ROS complete, negative other than what is specified in HPI. Exam Narrative: - GENERAL:? Pleasant older woman in no acute distress - EYES: EOMI. Anicteric. - HENT: Moist mucous membranes. - LUNGS: bilateral rales R>L, breathing comfortably on 7L O2 - CARDIOVASCULAR: Regular rate and rhythm. murmer present, Right IJ TLC - ABDOMEN: Soft, non-tender and non-distended. No palpable masses. - : benavidez in place - EXTREMITIES: trace edema. Peripheral pulses 2+. Non-tender. - NEUROLOGIC: No focal neurological deficits. CN II-XII grossly intact. - PSYCHIATRIC: Awake, Alert and oriented x 3. Appropriate mood and affect. - SKIN: No rashes or lesions. Warm. - LYMPH: No cervical lymphadenopathy. Objective Data Vital Signs Vital Signs: Vital Signs - 24 hr 12/29/23 16:00 12/29/23 16:00 12/29/23 20:11 Temperature 36.7 C Pulse Rate 58 L 59 L Respiratory Rate 22 H Blood Pressure 148/51 H Pulse Oximetry 92 88 L Oxygen Delivery Nasal Cannula Oxygen Flow Rate 4 12/29/23 20:12 12/29/23 20:55 12/29/23 20:00 Temperature Pulse Rate 69 65 Respiratory Rate 20 Blood Pressure Pulse Oximetry 95 Oxygen Delivery Nasal Cannula Oxygen Flow Rate 5 12/29/23 20:00 12/20
[2023-12-30 16:25] LABS: Glucose Point of Care 321 mg/dl (65-105)
[2023-12-30] MEDS: GABAPENTIN 100 MG CAPSULE PO (20:19)
[2023-12-30 20:26] LABS: Glucose Point of Care 299 mg/dl (65-105)
[2023-12-31] VITALS (25 sets, daily range): BP systolic 123–138; BP diastolic 35–59; PULSE 47–65; RESP 16–20; TEMP 36.3–36.7; O2SAT 86–99; BMI 35.4
[2023-12-31] MEDS: IPRATROPIUM 0.5 MG/ALBUTEROL SULFATE 2.5 MG AMPUL.NEB 3 ML INHALATION ×4 (02:15→20:12)
[2023-12-31 04:57] LABS: Albumin Level 3.4 g/dL (3.5-5.1); Anion Gap 5 mmol/L (8-16); Blood Urea Nitrogen 80 mg/dL (7-17); Carbon Dioxide 33 mmol/L (22-30); Chloride 98 mmol/L (98-107); Estimated CRCL calculation 32 ml/min; Estimated Glomerular Filt Rate 32; Glucose 198 mg/dL (65-110); Phosphorus 5.2 mg/dL (2.5-4.5); Potassium 4.2 mmol/L (3.4-5.0); Sodium 136 mmol/L (137-145)
[2023-12-31 07:33] LABS: Glucose Point of Care 207 mg/dl (65-105)
[2023-12-31] MEDS: INSULIN ASPART (*BKC) 100 UNITS/ML SUB-Q ×7 (07:57→20:43)
[2023-12-31] MEDS: INSULIN GLARGINE (*BKC) 100 UNITS/ML 25 UNITS SUB-Q (07:57)
[2023-12-31] MEDS: TOLNAFTATE 1% POWDER 45 GM BTL 1 APPLIC TOPICAL ×2 (08:02→20:40)
[2023-12-31] MEDS: APIXABAN 5 MG TABLET PO ×2 (08:02→20:35)
[2023-12-31] MEDS: METOPROLOL TARTRATE 25 MG TABLET PO ×2 (08:02→20:36)
[2023-12-31] MEDS: FUROSEMIDE 40 MG TABLET PO (08:02)
[2023-12-31] MEDS: AMIODARONE HCL 200 MG TABLET 400 MG PO (08:02)
[2023-12-31] MEDS: PRAVASTATIN SODIUM 20 MG TABLET 40 MG PO (08:02)
[2023-12-31] MEDS: GLIMEPIRIDE 2 MG TABLET 4 MG PO (08:02)
[2023-12-31 10:23] LABS: IFOB Positive Control Positive; Immunochemical Fecal Occult Bl Positive (N)
[2023-12-31 11:33] LABS: Glucose Point of Care 247 mg/dl (65-105)
--- NOTE | 2023-12-31 15:01 | PM.IMPN ---
Progress Note: A&P Assessment and Plan (1) Atrial flutter with rapid ventricular response: Code(s): I48.92 - Unspecified atrial flutter Status: Acute (2) Hypertension associated with diabetes: Code(s): E11.59 - Type 2 diabetes mellitus with other circulatory complications; I15.2 - Hypertension secondary to endocrine disorders Status: Acute (3) Anemia: Code(s): D64.9 - Anemia, unspecified Status: Acute (4) Septic shock: Code(s): A41.9 - Sepsis, unspecified organism; R65.21 - Severe sepsis with septic shock Status: Acute (5) Pulmonary edema: Qualifiers: Chronicity: acute Qualified Code(s): J81.0 - Acute pulmonary edema Code(s): J81.1 - Chronic pulmonary edema Status: Acute Plan # septic shock to UTI, shock resolved # calculus left ureterovesicular junction -seen by Urology, stent placed , stone has passed.? Stent to be removed in the office -shock resolved, off pressors -triple-lumen catheter right IJ removed -antibiotics:? Completed antibiotics 12/26 rocephin # acute kidney injury -elevated creatinine likely postrenal from the uterolithiasis and 18 -appreciate nephrology consultation -creatinine continues to improve daily, down to 1.6.? Creatinine on presentation was 2.3 # pulmonary edema, resolving -improving, clear to auscultation today, down to 1 L oxygen nasal cannula, goal O2 saturation greater 90% -patient is on 40 mg of p.o. Lasix # atrial flutter -patient was cardioverted for atrial flutter which shock -anticoagulation Eliquis -rate control metoprolol, amiodarone.? Cardiology may be discontinuing amiodarone output -on Lasix 40 mg daily -stable, may discontinue telemetry # chronic condition -type 2 diabetes:? Diabetic diet, Accu-Cheks a.c. HS, sliding scale insulin, hypoglycemia protocol, A1c 8.3.? On glimepiride, Lantus 25 units daily, aspart 3 units t.i.d. a.c., held before -peripheral diabetic neuropathy: Gabapentin -hyperlipidemia: Pravastatin -since hypertension:? Held home meds hydrochlorothiazide, losartan Diet:??Diabetic diet DVT prophylaxis:??eliquis Code status:??Full code Disposition:? Medically stable for discharge to rehab, pending placement Time Spent With Patient Time: 30 minutes Subjective Date/time seen: 12/31/23 15:01 Interval history: Patient seen examined. She is doing well no new complaints. We have weaned down to 1 L oxygen by nasal cannula, continue diuresis with p.o. Lasix. Central line removed, Benavidez catheter removed. Patient is medically stable for discharge to acute rehab. Patient denies fever, chills, nausea, vomiting, diarrhea. Family updated at bedside Review of Systems Review of Systems: 10 point ROS complete, negative other than what is specified in HPI. Exam Narrative: - GENERAL:? Pleasant older woman in no acute distress - EYES: EOMI. Anicteric. - HENT: Moist mucous membranes. - LUNGS: Clear to auscultation, breathing comfortably on 1L - CARDIOVASCULAR: Regular rate and rhythm. murmer present, Right IJ TLC - ABDOMEN: Soft, non-tender and non-distended. No palpable masses. - : no benavidez - EXTREMITIES: trace edema. Peripheral pulses 2+. Non-tender. - NEUROLOGIC: No focal neurological deficits. CN II-XII grossly intact. - PSYCHIATRIC: Awake, Alert and oriented x 3. Appropriate mood and affect. - SKIN: No rashes or lesions. Warm. - LYMPH: No cervical lymphadenopathy. Objective Data Vital Signs Vital Signs: Vital Signs - 24 hr 12/30/23 16:00 12/30/23 16:00 12/30/23 19:41 Temperature Pulse Rate 63 63 59 L Respiratory Rate 22 H 21 H Blood Pressure 115/43 L Pulse Oximetry 92 Oxygen Delivery Oxygen Flow Rate Fraction of Inspired Oxygen 12/30/23 19:41 12/30/23 19:56 12/30/23 20:19 Temperature Pulse Rate 61 60 Respiratory Rate 20 Blood Pressure Pulse Oximetry 97 Oxygen Delivery High Flow Nasal Cannula Oxygen Flow Rate 5 Fractio
--- NOTE | 2023-12-31 15:04 | P.PNNP_ITS ---
Progress Note: A&P Assessment and Plan (1) VERA (acute kidney injury): Code(s): N17.9 - Acute kidney failure, unspecified Status: Acute Assessment and Plan: * VERA. * evaluation to date: * admission CT with 3 mm stone at left UV junction with moderate left hydronephrosis and hydroureter left-sided emphysematous pyelonephritis * urine electrolytes non-prerenal * urine eosinophils negative * CPK okay * normal creatinine/renal function at baseline * suspect ATN with multifactorial etiology: * hemodynamic instability/shock * infection/sepsis (UTI + pyelonephritis) * obstruction/hydronephrosis * prerenal factors * use of ARB + HCTZ prior to admission * contrast exposure (CTA on 12/20/23) * the patient has a stent in place. * She has been receiving antibiotics. * She has been receiving IV fluids. these have been discontinued. * She is eating well * Renal function seems to have reached a plateau. her last creatinine was 1.6. * Will continue to follow (2) Septic shock: Code(s): A41.9 - Sepsis, unspecified organism; R65.21 - Severe sepsis with septic shock Status: Acute Assessment and Plan: * improved/resolving * presumably secondary to UTI and pyelonephritis * admission CT with 3 mm stone at left UV junction with moderate left hydronephrosis and hydroureter left-sided emphysematous pyelonephritis * Off antibiotics since 12/26. It was discontinued by pharmacy. her clinical status improved rapidly. White count is down to normal. No fevers. Other features of septic syndrome resolved quickly. (3) Hydronephrosis of left kidney: Code(s): N13.30 - Unspecified hydronephrosis Status: Resolved Assessment and Plan: * as noted by admission imaging * status post cystoscopy, left retrograde pyelogram, left ureteral stent placement on * Urology following (4) Emphysematous pyelonephritis of left kidney: Code(s): N12 - Tubulo-interstitial nephritis, not specified as acute or chronic Status: Acute Assessment and Plan: * as noted by admission imaging * urine culture with E. coli * blood culture negative to date * finished antibiotic course. (5) Respiratory failure: Code(s): J96.90 - Respiratory failure, unspecified, unspecified whether with hypoxia or hypercapnia Status: Acute Assessment and Plan: * issues with hypoxia on 12/20 * Now improved. (6) Atrial flutter with rapid ventricular response: Code(s): I48.92 - Unspecified atrial flutter Status: Acute Assessment and Plan: * s/p cardioversion * on metoprolol and amiodarone * on Eliquis * Cardiology following (7) Diabetes: Code(s): E11.9 - Type 2 diabetes mellitus without complications Status: Chronic Assessment and Plan: * follow accu-cheks * glycemic control per journeyman electrician pv installer/hospitalists Subjective Date/time seen: 12/31/23 15:04 Interval history: Lori is feeling better. She is sitting up in a chair. Family is in the room. Exam Narrative: General: elderly but WD/WN female in NAD Heart: RRR, normal S1 and S2; no rub or gallop Lungs: clear to auscultation Abdomen: soft, nontender, nondistended, positive bowel sounds Extremities: no cyanosis or clubbing; trace edema Skin no rash Objective Data Vital Signs Vital Signs: Vital Signs - 24 hr
--- NOTE | 2023-12-31 15:04 | PM.PNNEP ---
Progress Note: A&P Assessment and Plan (1) VERA (acute kidney injury): Code(s): N17.9 - Acute kidney failure, unspecified Status: Acute Assessment and Plan: VERA. evaluation to date: admission CT with 3 mm stone at left UV junction with moderate left hydronephrosis and hydroureter left-sided emphysematous pyelonephritis urine electrolytes non-prerenal urine eosinophils negative CPK okay normal creatinine/renal function at baseline suspect ATN with multifactorial etiology: hemodynamic instability/shock infection/sepsis (UTI + pyelonephritis) obstruction/hydronephrosis prerenal factors use of ARB + HCTZ prior to admission contrast exposure (CTA on 12/20/23) the patient has a stent in place. She has been receiving antibiotics. She has been receiving IV fluids. these have been discontinued. She is eating well Renal function seems to have reached a plateau. her last creatinine was 1.6. Will continue to follow (2) Septic shock: Code(s): A41.9 - Sepsis, unspecified organism; R65.21 - Severe sepsis with septic shock Status: Acute Assessment and Plan: improved/resolving presumably secondary to UTI and pyelonephritis admission CT with 3 mm stone at left UV junction with moderate left hydronephrosis and hydroureter left-sided emphysematous pyelonephritis Off antibiotics since 12/26. It was discontinued by pharmacy. her clinical status improved rapidly. White count is down to normal. No fevers. Other features of septic syndrome resolved quickly. (3) Hydronephrosis of left kidney: Code(s): N13.30 - Unspecified hydronephrosis Status: Resolved Assessment and Plan: as noted by admission imaging status post cystoscopy, left retrograde pyelogram, left ureteral stent placement on Urology following (4) Emphysematous pyelonephritis of left kidney: Code(s): N12 - Tubulo-interstitial nephritis, not specified as acute or chronic Status: Acute Assessment and Plan: as noted by admission imaging urine culture with E. coli blood culture negative to date finished antibiotic course. (5) Respiratory failure: Code(s): J96.90 - Respiratory failure, unspecified, unspecified whether with hypoxia or hypercapnia Status: Acute Assessment and Plan: issues with hypoxia on 12/20 Now improved. (6) Atrial flutter with rapid ventricular response: Code(s): I48.92 - Unspecified atrial flutter Status: Acute Assessment and Plan: s/p cardioversion on metoprolol and amiodarone on Eliquis Cardiology following (7) Diabetes: Code(s): E11.9 - Type 2 diabetes mellitus without complications Status: Chronic Assessment and Plan: follow accu-cheks glycemic control per furniture technician/hospitalists Subjective Date/time seen: 12/31/23 15:04 Interval history: Loir is feeling better. She is sitting up in a chair. Family is in the room. Exam Narrative: General: elderly but WD/WN female in NAD Heart: RRR, normal S1 and S2; no rub or gallop Lungs: clear to auscultation Abdomen: soft, nontender, nondistended, positive bowel sounds Extremities: no cyanosis or clubbing; trace edema Skin no rash Objective Data Vital Signs Vital Signs: Vital Signs - 24 hr 12/30/23 16:00 12/30/23 16:00 12/30/23 19:41 Temperature Pulse Rate 63 63 59 L Respiratory Rate 22 H 21 H Blood Pressure 115/43 L Pulse Oximetry 92 Oxygen Delivery Oxygen Flow Rate Fraction of Inspired Oxygen 12/30/23 19:41 12/30/23 19:56 12/30/23 20:19 Temperature Pulse Rate 61 60 Respiratory Rate 20 Blood Pressure Pulse Oximetry 97 Oxygen Delivery High Flow Nasal Cannula Oxygen Flow Rate 5 Fraction of Inspired Oxygen 12/30/23 20:00 12/30/23 20:00 12/30/23 20:00 Temperature 98.3 F Pulse Rate 60 60 Respiratory Ra
[2023-12-31 16:07] LABS: Glucose Point of Care 286 mg/dl (65-105)
--- NOTE | 2023-12-31 17:11 | PC.NURSE ---
This patient, Lori Riddle, was transferred to [ 345] on 12/31/23 at 1705. Personal belongings sent with patient. Report given to [ARAVIND Santamaria @ [id number] ]. Appropriate documentation sent with patient.
--- NOTE | 2023-12-31 17:15 | PC.NURSE ---
pt transferred to room 345, oriented to new room and environment, reviewed plan of care, pt resting comfortably
[2023-12-31] MEDS: SENNA/DOCUSATE SODIUM TABLET 1 TAB PO (20:35)
[2023-12-31] MEDS: GABAPENTIN 100 MG CAPSULE PO (20:35)
[2024-01-01] VITALS (13 sets, daily range): BP systolic 116–135; BP diastolic 38–45; PULSE 51–62; RESP 16–21; TEMP 36.5–36.6; O2SAT 91–100
[2024-01-01] MEDS: IPRATROPIUM 0.5 MG/ALBUTEROL SULFATE 2.5 MG AMPUL.NEB 3 ML INHALATION ×3 (01:49→13:57)
[2024-01-01 06:04] LABS: Albumin Level 3.2 g/dL (3.5-5.1); Anion Gap 7 mmol/L (8-16); Blood Urea Nitrogen 88 mg/dL (7-17); Carbon Dioxide 30 mmol/L (22-30); Chloride 100 mmol/L (98-107); Estimated CRCL calculation 32 ml/min; Estimated Glomerular Filt Rate 32; Glucose 180 mg/dL (65-110); Magnesium 1.6 mg/dL (1.6-2.3); Potassium 4.2 mmol/L (3.4-5.0); Sodium 137 mmol/L (137-145)
[2024-01-01 07:06] LABS: Glucose Point of Care 272 mg/dl (65-105)
[2024-01-01] MEDS: METOPROLOL TARTRATE 25 MG TABLET PO (08:08)
[2024-01-01] MEDS: GLIMEPIRIDE 2 MG TABLET 4 MG PO (08:08)
[2024-01-01] MEDS: APIXABAN 5 MG TABLET PO (08:08)
[2024-01-01] MEDS: AMIODARONE HCL 200 MG TABLET 400 MG PO (08:09)
[2024-01-01] MEDS: FUROSEMIDE 40 MG TABLET PO (08:10)
[2024-01-01] MEDS: PRAVASTATIN SODIUM 20 MG TABLET 40 MG PO (08:10)
[2024-01-01] MEDS: TOLNAFTATE 1% POWDER 45 GM BTL 1 APPLIC TOPICAL (08:10)
[2024-01-01 08:26] LABS: Glucose Point of Care 211 mg/dl (65-105)
[2024-01-01] MEDS: INSULIN GLARGINE (*BKC) 100 UNITS/ML 25 UNITS SUB-Q (09:12)
[2024-01-01] MEDS: INSULIN ASPART (*BKC) 100 UNITS/ML SUB-Q ×4 (09:12→12:30)
[2024-01-01 12:25] LABS: Glucose Point of Care 248 mg/dl (65-105)
--- NOTE | 2024-01-01 15:13 | PM.DS ---
DS: Admitting Diagnosis Discharge Date January 01, 2024 Admitting Diagnosis Nausea vomiting diarrhea DS: Discharge Diagnosis Discharge Diagnosis (1) Pulmonary edema: Qualifiers: Chronicity: acute Qualified Code(s): J81.0 - Acute pulmonary edema Code(s): J81.1 - Chronic pulmonary edema Status: Acute (2) Atrial flutter with rapid ventricular response: Code(s): I48.92 - Unspecified atrial flutter Status: Acute (3) Anemia: Code(s): D64.9 - Anemia, unspecified Status: Acute (4) Septic shock: Code(s): A41.9 - Sepsis, unspecified organism; R65.21 - Severe sepsis with septic shock Status: Acute (5) Respiratory failure: Code(s): J96.90 - Respiratory failure, unspecified, unspecified whether with hypoxia or hypercapnia Status: Acute (6) VERA (acute kidney injury): Code(s): N17.9 - Acute kidney failure, unspecified Status: Acute DS: Summary Hospital Course Hospital Course: 73-year-old female with past medical history COPD, diastolic dysfunction, type 2 diabetes mellitus without insulin dependence, diabetic peripheral neuropathy, hypertension presents with nausea vomiting and diarrhea. She was treated for septic shock due to UTI due to E coli with Rocephin. Also had a stent placed on in the left ureter with left ureteral stone assume to be passed. Her acute kidney injury improved and serum creatinine plateaued at 1.6. She also had pulmonary edema which resolved status post Lasix. Patient found to be in atrial flutter and was cardioverted to normal sinus rhythm and started on Eliquis for anticoagulation. She was also started on amiodarone metoprolol on Lasix and is to follow-up with cardiology as an outpatient. in room and they understand to follow up closely with PCP which they have a appointment on the . Will occult positive however her anemia is stable. She had a colonoscopy in the recent months which only demonstrated polyps. They prefer to follow up as outpatient and that can be done. Follow-up with urology as well for further stents management. On 01/01/2024 the patient is stable to discharge to [facility]. She in the were in understanding of the plan and in agreement. Counseled on the adverse effects risk and benefits of new and existing medications. The patient was full code during her admission. Time Spent with Patient Time attestation: Total time spent providing and/or coordinating discharge services: Exam Const: General: cooperative and no acute distress Resp: Effort & Inspection: normal respiratory effort Auscultation: clear to auscultation bilaterally Cardio: Rate: regular rate Rhythm: regular rhythm Heart sounds: S1 normal heart sound present and S2 normal heart sound present GI: GI Palp: No abdominal tenderness Auscultation: normal bowel sounds DS: Data Data Completed and Pending Labs on day of discharge: Labs from last 24 hours 01/01/24 01/01/24 01/01/24 12:10 08:08 05:37 Sodium 137 Potassium 4.2 Chloride 100 Carbon Dioxide 30 Anion Gap 7 L BUN 88 H Creatinine 1.60 H Estim Creat Clear Calc 32 Estimated GFR 32 L Glucose 180 H POC Capillary Glucose 248 H 211 H Calcium 10.0 Phosphorus 5.0 H Magnesium 1.6 Albumin 3.2 L 12/31/23 12/31/23 19:49 16:03 Sodium Potassium Chloride Carbon Dioxide Anion Gap BUN Creatinine Estim Creat Clear Calc Estimated GFR Glucose POC Capillary Glucose 272 H 286 H Calcium Phosphorus Magnesium Albumin Discharge Plan Discharge Attending physician on discharge: Kandy Comer Consulting providers: [place]; Shelly Cervantes Sriraj T.; Olga Madrigal Discharging Clinician: Kandy Comer Patient Disposition: [facility] ([facility] Activity: february shower Diet: heart healthy Patient Instructions: Calixto
[2024-01-07 15:56] LABS: Glucose Point of Care 204 mg/dl (65-105)
[2024-01-07 15:56] LABS: Glucose Point of Care 266 mg/dl (65-105)
[2024-01-07 15:56] LABS: Glucose Point of Care 126 mg/dl (65-105)
== END 2024-01-01 15:42 | DRG 853 ==
LOC: ANHED 12:19 → ANHSURGERY 17:47 → ANHICU 22:54 → ANH3MED 01-01 15:13 → ANHICU 01-02 09:54
PROVIDERS: Internal Medicine; Internal Medicine Nephrology; Physician Assistant; Urology; Admitting Provider Family Medicine; Emergency Provider Student in an Organized Health Care Education/Training Program; PCP Family Medicine; Visit Provider General Practice
PROC: 0T778DZ Dilation of Left Ureter with Intraluminal Device, Via Natural or Artificial Opening Endoscopic (ICD-10-PCS; CPT 52352; principal; 2023-12-20 18:30)
PROC: 5A2204Z Restoration of Cardiac Rhythm, Single (ICD-10-PCS; principal; 2023-12-25 10:30)
DX: A41.9 Sepsis, unspecified organism (principal); G93.41 Metabolic encephalopathy; J96.01 Acute respiratory failure with hypoxia; R65.21 Severe sepsis with septic shock; J18.9 Pneumonia, unspecified organism; N13.6 Pyonephrosis; N17.9 Acute kidney failure, unspecified; I48.92 Unspecified atrial flutter; J81.1 Chronic pulmonary edema; J43.9 Emphysema, unspecified; D69.6 Thrombocytopenia, unspecified; E11.42 Type 2 diabetes mellitus with diabetic polyneuropathy; E78.2 Mixed hyperlipidemia; G47.33 Obstructive sleep apnea (adult) (pediatric); B96.20 Unspecified Escherichia coli [E. coli] as the cause of diseases classified elsewhere; E11.65 Type 2 diabetes mellitus with hyperglycemia; H57.02 Anisocoria; D64.9 Anemia, unspecified; Z20.822 Contact with and (suspected) exposure to COVID-19; Z96.642 Presence of left artificial hip joint; Z87.891 Personal history of nicotine dependence; Z86.010 Personal history of colon polyps
CPT/HCPCS: 36415; 36600; 70450; 71045; 71275; 74018; 74019; 74176; 74177; 74420; 80048; 80053; 80069; 80202; 81001; 82274; 82375; 82436; 82550; 82570; 82607; 82746; 82805; 82948; 83036; 83050; 83540; 83550; 83605; 83690; 83735; 83880; 84100; 84133; 84300; 84484; 85025; 85027; 85046; 85380; 85610; 85730; 85999; 86140; 87040; 87077; 87086; 87088; 87186; 87637; 87641; 92960; 93005; 93306; 94002; 94003; 94640; 96365; 96366; 96367; 96375; 97110; 97116; 97161; 97166; 97530; 97535; 99285; A9270; C1769; C2617; J0282; J0360; J0696; J1100; J1644; J1650; J1815; J1940; J2185; J2270; J2371; J2405; J2704; J3370; J3475; J7030; J7120; P9047; Q9966; Q9967

== ENCOUNTER 2024-02-18 10:30 | Outpatient (CLI) | payer MEDICARE, SELFPAY ==
--- NOTE | ~2024-02-18 | US_ITS ---
US renal BI 02/18/2024 12:16 Procedure: Realtime transabdominal ultrasound of the kidneys and bladder. Indication: Acute renal failure Comparison: CT dated 12/25/2023 Findings: Renal echotexture is normal bilaterally without contour deforming mass or renal calculus. T here is mild left hydronephrosis. The right kidney measures 9.7 cm and left kidney measures 11.9 cm. Bladder within normal limits. Impression: 1: Mild left hydronephrosis. Reviewed, dictated and finalized at location B. Impression: 1: Mild left hydronephrosis.
== END 2024-02-18 10:31 | disposition home or self-care (01) ==
PROVIDERS: PCP Family Medicine; Visit Provider Internal Medicine Nephrology
DX: N17.9 Acute kidney failure, unspecified (principal); N13.30 Unspecified hydronephrosis
CPT/HCPCS: 76775

== ENCOUNTER 2024-03-10 08:51 | Outpatient (CLI) | payer MEDICARE, SELFPAY ==
--- NOTE | ~2024-03-10 | CT_ITS ---
EXAMINATION:CT diagnostic chest wo con DATE: 03/10/2024 09:34 INDICATION: Pleural effusion, not elsewhere classified. TECHNIQUE: Computed tomography (CT) of the chest was performed without intravenous contrast. Automate d exposure control and iterative reconstruction technique were employed. The dose-length product (DLP ) was 443.33 mGy-cm. COMPARISON: Chest CT 12/20/2023 FINDINGS: The lungs demonstrate mild atelectasis. There is a 2 mm nodule in right upper lobe, likely benign. No pleural effusion. The heart size is normal. There are coronary artery calcifications. No p ericardial effusion. There is calcified atherosclerosis of the aorta and many of the other arteries. There are 3 hypodense masses in the spleen measuring up to 11 mm, likely granulomatous disease. There is mild thoracic spondylosis. There are chronic compression fractures of T6, T11, and T12. There is mild chronic anterior wedging of other vertebral bodies. IMPRESSION: 1. No pleural effusion. Reviewed, dictated and finalized at location A. IMPRESSION: 1. No pleural effusion.
== END 2024-03-10 08:52 | disposition home or self-care (01) ==
LOC: ANHIMG 08:53
PROVIDERS: PCP Family Medicine; Visit Provider Physician Assistant
DX: J44.9 Chronic obstructive pulmonary disease, unspecified (principal); J98.11 Atelectasis
CPT/HCPCS: 71250

== ENCOUNTER 2024-03-27 10:02 | Outpatient (CLI) | payer MEDICARE, SELFPAY ==
--- NOTE | ~2024-03-27 | MM_ITS ---
EXAMINATION: MM screening mulugeta BI w salazar HISTORY: Screening TECHNIQUE: Craniocaudal and mediolateral oblique 3-D tomosynthesis images were obtained and synthetic 2-D images were generated. CAD analysis was submitted and interpreted. COMPARISON: Comparison to multiple prior studies sequentially, with oldest reviewed study dated 11/2015. BREAST PARENCHYMAL COMPOSITION: There are scattered areas of fibroglandular density. FINDINGS: There is no evidence of suspicious mass, calcification, or architectural distortion to sugg est malignancy in either breast. There has been no suspicious interval change. IMPRESSION: 1. No mammographic evidence of malignancy. 2. Recommend routine screening mammography in one year. BI-RADS Category 1: Negative Reviewed, dictated and finalized at location B.
== END 2024-03-27 10:03 | disposition home or self-care (01) ==
PROVIDERS: PCP Family Medicine; Visit Provider Family Medicine
DX: Z12.31 Encounter for screening mammogram for malignant neoplasm of breast (principal)
CPT/HCPCS: 77063; 77067

== ENCOUNTER 2024-04-10 12:38 | Outpatient (CLI) | payer MEDICARE, SELFPAY ==
[2024-04-10 12:45] VITALS: PULSE 50; O2SAT 97
[2024-04-10 12:50] VITALS: PULSE 67; O2SAT 91
[2024-04-10 13:05] VITALS: PULSE 52; O2SAT 96
--- NOTE | 2024-04-10 13:20 | HOMEO2EVAL ---
Evaluation was performed at [facility] Home Oxygen Evaluation RC: Home Oxygen (O2) Evaluation Start: 04/10/24 13:18 Freq: Status: Active Protocol: RPE Activity Type Activity Date Activity User E-sign Co-sign Detail Recorded Client Recorded Date Recorded By Document 04/10/24 12:45 DJO [email or web address] 04/10/24 13:20 DJO Document 04/10/24 12:50 DJO [email or web address] 04/10/24 13:20 DJO Document 04/10/24 13:05 DJO [email or web address] 04/10/24 13:20 DJO 04/10/24 04/10/24 04/10/24 12:45 12:50 13:05 Home O2 Evaluation [Oxygen] -Test Phase Resting Exercise Resting -Oxygen Delivery Room Air Room Air Room Air [Pulse Oximetry] -Pulse Oximetry (90-100 %) 97 91 96 [Pulse Rate] -Pulse Rate (60-100 beats/min) 50 L 67 52 L [Evaluation] -Activity Tolerance Good [Exercise] -Ambulation Distance (feet) 500 -Ambulation Distance (meters) 152.39 [Charges] -Evaluation Charges O2 Evaluation by Pulmonary
== END 2024-04-10 12:39 | disposition home or self-care (01) ==
LOC: ANHPFT 12:39
PROVIDERS: PCP Family Medicine; Visit Provider Physician Assistant
DX: J44.9 Chronic obstructive pulmonary disease, unspecified (principal)
CPT/HCPCS: 94618

== ENCOUNTER 2024-07-09 09:41 | Outpatient (CLI) | payer MEDICARE, SELFPAY ==
--- NOTE | ~2024-07-09 | XR_ITS ---
AP view of the pelvis and AP and lateral views of the left hip Clinical history: Pain Findings: No acute fracture or dislocation is seen. Osseous alignment is anatomic. Left hip arthropla sty in place. There is mild degenerative change of the right hip joint. Soft tissues are unremarkable . Impression: No acute abnormality. Left hip arthroplasty in place. Mild degenerative change of the right hip joint. Reviewed, dictated and finalized at location . Impression: No acute abnormality. Left hip arthroplasty in place. Mild degenerative change of the right hip joint.
== END 2024-07-09 09:42 | disposition home or self-care (01) ==
LOC: ANHIMG 09:43
PROVIDERS: PCP Family Medicine; Visit Provider Orthopaedic Surgery
DX: Z96.642 Presence of left artificial hip joint (principal); M25.552 Pain in left hip; M16.11 Unilateral primary osteoarthritis, right hip
CPT/HCPCS: 73502

== ENCOUNTER 2024-11-25 11:23 | Outpatient (CLI) | payer MEDICARE, SELFPAY ==
--- NOTE | ~2024-11-25 | XR_ITS ---
Exam: Abdomen 1V HISTORY: N18.31 - Chronic kidney disease, stage 3a COMPARISON: Reference is made to a CT examination of the abdomen and pelvis dated 12/25/2023 TECHNIQUE: Supine images of the abdomen FINDINGS: Bowel gas pattern is non-obstructive. There is no free air or deep sulci. Vascular calcifications are identified cranial to the suspected calcifications projecting over the le ft kidney. At least 7 linear and punctate calcifications detected projecting over the expected region of the lef t kidney. Two 5mm linear calcifications projecting over the lower pole of the right kidney unchanged from CT ex amination 12/25/2023. Lung bases are unremarkable. Calcified atherosclerosis within the abdominal aorta. IMPRESSION: Bilateral renal calcifications, as detailed above. Reviewed, dictated and finalized at location A. ACTORY GRINDER OPERATOR
--- OUTSIDE RECORDS SUMMARY | 2024-11-25 12:06 | XMS_ITS | Referral Summary ---
Author Organization [facility] [employer] Address [address] [place] [address] Care Team Providers Care Appliance Service Representative Name Role Phone Chico Stanley MD Primary Care Provider [phone] Source Comments [facility],non-owned Affiliates and Associated Physician Practices is amultiple site organization consisting of ambulatory clinics and hospital sitesin [place], [place], [place] and [place]. This disclosure is being madepursuant to the Care Everywhere program and may not contain all information available regarding this patient. Last updated 18.[facility] Social History Tobacco Use Types Packs/Day Years Used Date Smoking Tobacco: Never Assessed Sex and Gender Information Value Date Recorded Sex Assigned at Not on file Gender Identity Not on file Sexual Orientation Not on file Plan of Treatment Not on file Care Teams Appliance Service Representative Relationship Specialty Start Date End Date Chico Stanley MD [address] [place] [address] PCP - General 09/26/21
--- OUTSIDE RECORDS SUMMARY | 2024-11-25 12:06 | XMS_ITS | Encounter Summary ---
Author Organization [facility] Address [address] [place] [address] Care Team Providers Care Winch Truck Operator Name Role Phone Chico Stanley MD Primary Care Provider [phone] Encounter Details Date Type Department Care Team (Late st Contact Info) Description 05/01/2024 Lab Requisition [facility] - DermPath Lab [address] [place] [id number] Mario Cruz MD [address] [place] [address] Social History Tobacco Use Types Packs/Day Years Used Date Smoking Tobacco: Never Assessed Sex and Gender Information Value Date Recorded Sex Assigned at Not on file Gender Identity Not on file Sexual Orientation Not on file documented as of this encounter Plan of Treatment Not on file documented as of this encounter Procedures Procedure Name Priority Date/Time Associated Diagnosis Comments DERMATOPATHOLOGY Routine 04/30/2024 12:0 0 AM CDT documented in this encounter Results * DERMATOPATHOLOGY (04/30/2024 12:00 AM CDT) Case Report Dermatopathology Report ? Case: [id number] ? Authorizing Provider: ??Mario Cruz MD ?Collected: ? 04/30/2024 12:00 AM ? Ordering Location: ? [facility] - ??Received: ?05/01/2024 11:25 AM ? DermPath Lab ? Pathologist: ? Bonnie Roman MD ? Specimen: ?Skin, right caodaism ? 4 3:16 PM CDT DERMATOPATHOLOGY LABORATORY Final Diagnosis Specimen A. SKIN, right caodaism: SEBORRHEIC KERATOSIS (L82.1) 4 3:16 PM CDT DERMATOPATHOLOGY LABORATORY Clinical History IFCP 4 3:16 PM CDT DERMATOPATHOLOGY LABORATORY Gross Description Specimen A: Received is one formalin filled container labeled with the patients name and designated right caodaism. The specimen consists of a shave removal measuring 10x5x2,4x3x2 mm. Jar 0. 4 3:16 PM CDT DERMATOPATHOLOGY LABORATORY Microscopic Description Specimen A. SKIN, right caodaism: Sections show an acanthotic lesion composed of relatively uniform keratinocytes. There is hyperkeratosis and pseudo horn cysts formation. 4 3:16 PM CDT DERMATOPATHOLOGY LABORATORY Disclaimer An external and internal positive and negative controls are appropriate for the histochemical, immunohistochemical and immunofluorescence stain(s) in this case (if any), except where stated explicitly. The performance characteristics of the stain(s) cited in this report were developed and its performance characteristic determined by the Dermatopathology Laboratory at [facility], directed by Dr. Can Vidal. These tests need not be, and therefore are not, approved by the [place] Food and Drug Administration. The tests are used for clinical purposes. Billing Codes Specimen Charges Stain Charges 28524 1 4 3:16 PM CDT DERMATOPATHOLOGY LABORATORY Embedded Images 4 3:16 PM CDT DERMATOPATHOLOGY LABORATORY Pathology/Cytolog y TISSUE SPECIMEN FROM SKIN / Unknown 04/30/2024 05/01/2024 11:25 AM CDT Mario Cruz MD LAB - PATHOLOGY/CYTO LOGY ORDERABLES DERMATOPATHOLOGY LABORATORY [facility] - Department of Dermatology [facility] Medicine [address] [place] [address], [address] [phone] documented in this encounter Visit Diagnoses Not on filedocumented in this encounter Care Teams Winch Truck Operator Relationship Specialty Start Date End Date Chico Stanley MD [address] [place] [address] PCP - General 09/26/21 documented as of this encounter
--- OUTSIDE RECORDS SUMMARY | 2024-11-25 12:06 | XMS_ITS | Patient Health Summary ---
Author Organization [facility] Address [address] [place] [address] Care Team Providers Care Alcoholic Counselor Name Role Phone Chico Stanley MD Primary Care Provider [phone] Note [address] [facility],non-owned Affiliates and Associated Physician Practices is amultiple site organization consisting of ambulatory clinics and hospital sitesin [place], [place], [place] and [place]. This disclosure is being madepursuant to the Care Everywhere program and may not contain all information available regarding this patient. Last updated 18.[facility] Social History Tobacco Use Types Packs/Day Years Used Date Smoking Tobacco: Never Assessed Sex and Gender Information Value Date Recorded Sex Assigned at Not on file Gender Identity Not on file Sexual Orientation Not on file Procedures * DERMATOPATHOLOGY(Performed 04/30/2024) Results * DERMATOPATHOLOGY (04/30/2024 12:00 AM CDT) Case Report Dermatopathology Report ? Case: [id number] ? Authorizing Provider: ??Mario Cruz MD ?Collected: ? 04/30/2024 12:00 AM ? Ordering Location: ? [facility] - ??Received: ?05/01/2024 11:25 AM ? DermPath Lab ? Pathologist: ? Bonnie Roman MD ? Specimen: ?Skin, right jainism ? 4 3:16 PM CDT DERMATOPATHOLOGY LABORATORY Final Diagnosis Specimen A. SKIN, right jainism: SEBORRHEIC KERATOSIS (L82.1) 4 3:16 PM CDT DERMATOPATHOLOGY LABORATORY Clinical History IFCP 4 3:16 PM CDT DERMATOPATHOLOGY LABORATORY Gross Description Specimen A: Received is one formalin filled container labeled with the patients name and designated right jainism. The specimen consists of a shave removal measuring 10x5x2,4x3x2 mm. Jar 0. 4 3:16 PM CDT DERMATOPATHOLOGY LABORATORY Microscopic Description Specimen A. SKIN, right jainism: Sections show an acanthotic lesion composed of [...] characteristic determined by the Dermatopathology Laboratory at [facility], directed by Dr. Can Vidal. These tests need not be, and therefore are not, approved by the [place] Food and Drug Administration. The tests are used for clinical purposes. Billing Codes Specimen Charges Stain Charges 88055 1 4 3:16 PM CDT DERMATOPATHOLOGY LABORATORY Embedded Images 4 3:16 PM CDT DERMATOPATHOLOGY LABORATORY Pathology/Cytolog y TISSUE SPECIMEN FROM SKIN / Unknown 04/30/2024 05/01/2024 11:25 AM CDT Mario Cruz MD LAB - PATHOLOGY/CYTO LOGY ORDERABLES DERMATOPATHOLOGY LABORATORY [facility] - Department of Dermatology [facility] Medicine [address] [place] [address], [address] [phone] Care Teams Alcoholic Counselor Relationship Specialty Start Date End Date Chico Stanley MD [address] [place] [address] PCP - General 09/26/21
--- OUTSIDE RECORDS SUMMARY | 2024-11-25 12:06 | XMS_ITS | Clinical Summary ---
Author Organization [facility] [employer] Address [address] [place] [address] Care Team Providers Care Pill Coater Name Role Phone Chico Stanley MD Primary Care Provider [phone] Source Comments [facility],non-owned Affiliates and Associated Physician Practices is amultiple site organization consisting of ambulatory clinics and hospital sitesin [place], [place], [place] and [place]. This disclosure is being madepursuant to the Care Everywhere program and may not contain all information available regarding this patient. Last updated 18.[facility] [employer] Social History Tobacco Use Types Packs/Day Years Used Date Smoking Tobacco: Never Assessed Sex and Gender Information Value Date Recorded Sex Assigned at Not on file Gender Identity Not on file Sexual Orientation Not on file Plan of Treatment Health Maintenance Due Date Last Done Comments BONE DENSITY TESTING 1950 COLOGUARD (AGES 45-75) - COL ON CA SCREENING 1952 COLON MONITORING 1952 COLONOSCOPY - COLON CA SCREENING 1952 CT COLONOGRAPHY - COLON CA SCREENING 1952 Colorectal Cancer Screening 1952 FIT - COLON CA SCREENING 1952 FLEX SIG - COLON CA SCREENING 1952 LIPID TESTING 1950 MAMMOGRAM 1950 MEDICARE AWV ? 12 MONTHS 1952 HEPATITIS C SCREENING 02/09/1970 DTAP/TDAP/TD VACCINES (1 - Tdap) 02/13/1971 PNEUMOCOCCAL VACCINE 50+ (1 of 1 - PCV) 02/13/2002 ZOSTER VACCINE (1 of 2) 02/13/2002 COVID-19 VACCINE (2023-2 5 season) 2024 INFLUENZA VACCINE (#1) 2024 DEPRESSION SCREENING 10/22/2024 Respiratory Syncytial Virus (RSV) Vaccine Pt: or over 60 yrs (1 - 1-dose 75+ series) 02/13/2027 HEPATITIS B VACCINE Aged Out No longe r eligible based on patient's age to complete this topic HIB VACCINE Aged Out No longer eligi ble based on patient's age to complete this topic HPV VACCINE Aged Out No longer eligi ble based on patient's age to complete this topic MENINGOCOCCAL (Group B) VACCINE Aged Out No longer eligible based on patient's age to complete this topic MENINGOCOCCAL VACCINE Aged Out No isra tracie eligible based on patient's age to complete this topic Care Teams Pill Coater Relationship Specialty Start Date End Date Chico Stanley MD [address] [place] [address] PCP - General 09/26/21
== END 2024-11-25 11:24 | disposition home or self-care (01) ==
PROVIDERS: PCP Family Medicine; Visit Provider Internal Medicine Nephrology
DX: N18.31 Chronic kidney disease, stage 3a (principal); N20.0 Calculus of kidney
CPT/HCPCS: 74018

== ENCOUNTER 2025-03-13 16:02 | Outpatient (CLI) | payer MEDICARE, SELFPAY ==
--- NOTE | ~2025-03-13 | CT_ITS ---
CLINICAL INDICATION: Right lower quadrant pain COMPARISON: 12/25/2023. TECHNIQUE: Multiple contiguous axial images of the abdomen and pelvis were performed without the admi nistration of intravenous contrast The dose-length product (DLP) was 1056.76 mGy-cm. Automated exposure control and iterative reconstruction technique were employed. FINDINGS/OBSERVATIONS: Visualized lower thorax: Consolidation within the right middle lobe with air bronchograms, seen on the first 8 slices of the s tudy without adequate evaluation, an interval change from previous study. The heart is of normal size, without pericardial effusion. Small hiatal hernia is present. Liver: The liver demonstrates homogeneous attenuation and is not enlarged. Gallbladder and biliary system: The gallbladder is surgically absent. Pancreas: Limited evaluation of the pancreas secondary to the lack of intravenous contrast. Spleen: The spleen demonstrates homogeneous attenuation and is markedly enlarged measuring 15 cm in longitudi nal dimension. Kidneys: Multiple 2 and 3 mm stones are seen within the bilateral kidneys. The remainder of the bilateral kidneys are otherwise unremarkable, without hydronephrosis. Adrenal glands: Unremarkable. Gastrointestinal tract: Colonic diverticulosis without surrounding inflammatory change. Appendix: The air-filled appendix is of normal caliber (coronal series, images 56 through 72) Vasculature: Fusiform dilatation of the infrarenal abdominal aorta which is densely calcified. At the level of L4 vertebral body of the anterior to posterior diameter of the abdominal aorta measur es 3.5 cm, unchanged from study performed 12/25/2023. Lymph nodes: No pathologically enlarged or morphologically suspicious lymph nodes within the retroperitoneum or at the root of the mesentery. Pelvic structures: The bladder is only minimally distended, and otherwise unremarkable. The uterus is atrophic and contains multiple calcifications. Asymmetric enlargement of the right ovary, in comparison to the left for which focused ultrasound is recommended. Body wall and musculoskeletal: Age-appropriate degenerative disease within the lumbosacral spine. IMPRESSION: Aneurysmal dilatation of the infrarenal abdominal aorta, as detailed above. Unchanged from 12/2023. Asymmetric enlargement of the right ovary, in comparison to the left for which focused ultrasound is recommended. Normal appendix. Absent gallbladder. Reviewed, dictated and finalized at location A.
--- OUTSIDE RECORDS SUMMARY | 2025-03-13 16:06 | XMS_ITS | Referral Summary ---
Author Organization [facility] [address] Address [address] [place] [address] Care Team Providers Care Rough And Truing Machine Operator Name Role Phone Chico Stanley MD Primary Care Provider Encounters Date Type Department Care Team Description 03/04/2025 11:30 AM CDT Office Visit [facility] Cardiology [address] [place] [address] Richard Duran MD Pulmonary hypertension (HCC) (Primary Dx); Hypertension associated with diabetes (HCC); Chronic anticoagulation; BARBARA (obstructive sleep apnea); Atrial fibrillation, unspecified type (HCC); Lipid screening from Last 3 Months Allergies Active Allergy Reactions Criticality Noted Date Comments Fenofibrate Rash Medium 01/11/2024 Medications gabapentin (NEURONTIN) 100 mg capsule Take 1 capsule (100 mg total) by mouth nightly 10/16/20 23 Active glimepiride (AMARYL) 4 mg tablet Take 1 tablet (4 mg total) by mouth every morning Active hydroCHLOROthi azide (HYDRODIURIL) 25 mg tablet Take 1 tablet (25 mg total) by mouth daily Active Tradjenta 5 mg tablet Take 1 tablet (5 mg total) by mouth every morning 01/09/20 24 Active losartan (COZAAR) 100 mg tablet Take 1 tablet (100 mg total) by mouth daily Active metoprolol tartrate (LOPRESSOR) 25 mg immediate release tablet Take 1 tablet (25 mg total) by mouth every 12 (twelve) hours 01/07/20 24 Active pravastatin (PRAVACHOL) 40 mg tablet Take 1 tablet (40 mg total) by mouth daily Active vit A/vit C/vit E/zinc/copper (PRESERVISION AREDS ORAL) Take by mouth Acti ve multivit-miner assistant als/folic acid (CENTRUM ADULTS ORAL) Take by mouth Act yonatan pyridoxine (VITAMIN B-6) 100 mg tablet Take 1 tablet (100 mg total) by mouth daily Active albuterol HFA (PROVENTIL HFA,VENTOLIN HFA,PROAIR HFA) 90 mcg/actuation inhaler Inhale 1 puff as needed Active Breztri Aerosphere 160-9-4.8 mcg/actuation inhaler Inhale 2 puffs 2 (two) times a day 01/09/20 24 Active apixaban (Eliquis) 5 mg tablet TAKE 1 TABLET(5 MG) BY MOUTH TWICE DAILY 60 tablet 3 03/02/20 25 Active potassium citrate ER (UROCIT-K) 10 mEq (1,080 mg) CR tablet Take 1 tablet (10 mEq total) by mouth 2 (two) times a day 02/26/20 25 Active BASAGLAR 100 unit/mL (3 mL) pen for injection ADMINISTER 15 UNITS UNDER THE SKIN EVERY EVENING 07/15/20 24 025 Discontinued(No longer taking - Do not display on AVS) Eliquis 5 mg tablet TAKE 1 TABLET(5 MG) BY MOUTH TWICE DAILY 60 tablet 1 01/03/20 25 025 Discontinued Active Problems Problem Noted Date Diagnosed Date Pulmonary hypertension 08/06/2024 Hypertension associated with diabetes 08/06/2024 Chronic anticoagulation 08/06/2024 Atrial fibrillation 08/06/2024 BARBARA (obstructive sleep apnea) 08/06/2024 Social History Tobacco Use Types Packs/Day Years Used Date Smoking Tobacco: Former Cigarettes 1.5 15 0 01/09/2000 - 03/24/2017 Smokeless Tobacco: Never Tobacco Cessation:Counseling Given: Not Answered Comments Unknown Sex and Gender Information Value Date Recorded Sex Assigned at Not on file Legal Sex Female 2:51 AM CHILDCARE DIRECTOR Gender Identity Female 08/06/2024 1:07 PM CDT Sexual Orientation Choose not to disclose 2023 1:07 PM CDT Last Filed Vital Signs Vital Sign Reading Time Taken Comments Blood Pressure 110/62 03/04/2025 11:38 AM CDT Pulse 60 03/04/2025 11:38 AM CDT Temperature - - Respiratory Rate - - Oxygen Saturation 93% 03/04/2025 11:38 AM CDT Inhaled Oxygen Concentration - - Weight 91.2 kg (201 lb) 03/04/2025 11:38 AM CDT Height 165.1 cm (5' 5 ) 03/04/2025 11:38 AM CDT Body Mass Index 33.45 03/04/2025 11:38 AM CDT Plan of Treatment Not on file Procedures Procedure Name Priority Date/Time Associated Diagnosis Comments POCT LIPID PANEL Routine 03/04/2025 11:3 5 AM CDT Lipid screening from Last 3 Months Results * (ABNORMAL) POCT lipid panel (03/04/2025 11:35 AM CDT) Cholesterol, POC 154 <200 MG/DL HDL, POC 31(A) >=40 mg/dL Triglycerides, POC 292(A) <=149 mg/dL LDL Cholesterol POC 65 <=129 mg/dL Chol/HDL Ratio, POC 2.1 NONE Non-HDL Cholesterol, POC 123 NONE mg/dL Cholesterol Total, POC 154 30 - 199 mg/dL Capillary blood 03/04/2025 1 1:35 AM CDT Richard Duran MD POINT OF CARE TEST ORDERA BLES Final Result from Last 3 Months Insurance MEDICARE [facility] MEDICARE SUPPLEMENT Care Teams Rough And Truing Machine Operator Relationship Specialty Start Date End Date Chico Stanley MD [address] [place], [place] [id number] PCP - General Family Medicine 12/24/23
--- OUTSIDE RECORDS SUMMARY | 2025-03-13 16:06 | XMS_ITS | Clinical Summary ---
Author Organization [facility] [address] Address [address] [place] [address] Care Team Providers Care Color Artist Name Role Phone Chico Stanley MD Primary Care Provider Allergies Active Allergy Reactions Criticality Noted Date [...] AREDS ORAL) Take by mouth Acti ve multivit-legal examiner als/folic acid (CENTRUM ADULTS ORAL) Take by [...] fibrillation 08/06/2024 BARBARA (obstructive sleep apnea) 08/06/2024 Encounters Date Type Department Care Team Description 03/04/2025 11:30 AM CDT Office Visit [facility] Cardiology [address] [place] [address] Richard Duran MD Pulmonary hypertension (HCC) (Primary Dx); Hypertension associated with diabetes (HCC); Chronic anticoagulation; BARBARA (obstructive sleep apnea); Atrial fibrillation, unspecified type (HCC); Lipid screening from Last 3 Months Surgical History Surgery Date Site/Laterality Comments CHOLECYSTECTOMY JOINT REPLACEMENT 10/2022 APPENDECTOMY CATARACT EXTRACTION Medical History Medical History Date Comments Hypertension Hyperlipidemia Diabetes mellitus (HCC) Sleep apnea COPD (chronic obstructive pulmonary disease) (HC C) Cataract Emphysema of lung (HCC) Chronic bronchitis (HCC) Kidney stone 12/2023 Social History Tobacco Use Types Packs/Day Years Used Date Smoking Tobacco: Former Cigarettes 1.5 15 0 01/09/2000 - 03/24/2017 Smokeless Tobacco: Never Tobacco Cessation:Counseling Given: Not Answered Comments Unknown Sex and Gender Information Value Date Recorded Sex Assigned at Not on file Legal Sex Female 2:51 AM PRODUCE TEAM MEMBER Gender Identity Female 08/06/2024 1:07 PM CDT Sexual Orientation Choose not to disclose 2023 1:07 PM CDT Obstetrics History Last Filed Vital Signs Vital Sign Reading [...] 03/04/2025 11:38 AM CDT Plan of Treatment Health Maintenance Due Date Last Done Comments Albumin Creatinine Ratio, Urine 1952 Breast Cancer Screening-Mammogram 1952 Colon Cancer Screening-Colonoscopy 1952 Depression Screening 1952 Fall Risk Assessment 1952 Hemoglobin A1C 1952 Hepatitis C Screening 1952 Osteoporosis Screening-Bone Density Scan 1952 eGFR 1952 Dilated Eye Exam 1952 Foot Exam 1952 DTaP/Tdap/Td Vaccine (1 - Tdap) 02/13/1963 Hepatitis B Screening 02/13/1970 Lung Cancer Screening 02/13/2002 Zoster Vaccine (1 of 2) 02/13/2002 Well Visit 65+ 02/13/2017 Covid-19 Vaccine (2023-2 5 season) 2024 07/18/2023, 08/22/2022, 03/08/2022, Additional history exists Influenza Vaccine (Season Ended) 2025 06/26/2023, 06/22/2022, 07/09/2021, Additional history exists Lipid Panel 03/04/2026 03/04/2025, 01/16/2024 Pneumococcal vaccine 65+ Completed 08/22/2022 Procedures Procedure Name Priority Date/Time Associated Diagnosis [...] Capillary blood 03/04/2025 1 1:35 AM CDT us Richard Duran MD POINT OF CARE TEST ORDERA BLES Final Result from Last 3 Months Insurance MEDICARE [facility] MEDICARE SUPPLEMENT Care Teams Color Artist Relationship Specialty Start Date End Date Chico Stanley MD [address] [facility] [address] [place] [address] PCP - General Family Medicine 12/24/23
--- OUTSIDE RECORDS SUMMARY | 2025-03-13 16:06 | XMS_ITS | Encounter Summary ---
Author Organization [facility] Address [address] [place] [address] Care Team Providers Care Tool Engine Lathe Set Up Operator Name Role Phone Chico Stanley MD Primary Care Provider [phone] Encounter Details Date Type Department Care Team (Late st Contact Info) Description 05/01/2024 Lab Requisition [facility] - DermPath Lab [address] [place] [address] Mario Cruz MD [address] [place], [place] [id number] Social History Tobacco Use Types Packs/Day Years Used Date Smoking Tobacco: Never Assessed Comments Unknown Sex and Gender Information Value Date Recorded Sex Assigned at Not on file Legal Sex Female 3:44 PM CDT Gender Identity Not on file Sexual Orientation Not on file documented as of this encounter Plan of Treatment Not on file documented as of this encounter Procedures Procedure Name Priority Date/Time Associated Diagnosis Comments DERMATOPATHOLOGY Routine 04/30/2024 12:0 0 AM CDT documented in this encounter Results * DERMATOPATHOLOGY (04/30/2024 12:00 AM CDT) Case Report Dermatopathology Report Case: [id number] Authorizing Provider: Mario Cruz MD Collected: 04/30/2024 12:00 AM Ordering Location: [facility] - Received: 05/01/2024 11:25 AM DermPath Lab Pathologist: Bonnie Roman MD Specimen: Skin, right pentecostal 4 3:16 PM CDT DERMATOPATHOLOGY LABORATORY Final Diagnosis Specimen A. SKIN, right pentecostal: SEBORRHEIC KERATOSIS (L82.1) 4 3:16 PM CDT DERMATOPATHOLOGY LABORATORY at 1515 CDT Clinical History IFCP 4 3:16 PM CDT DERMATOPATHOLOGY LABORATORY Gross Description Specimen A: Received is one formalin filled container labeled with the patients name and designated right pentecostal. The specimen consists of a shave removal measuring 10x5x2,4x3x2 mm. Jar 0. 4 3:16 PM CDT DERMATOPATHOLOGY LABORATORY Microscopic Description Specimen A. SKIN, right pentecostal: Sections show an acanthotic lesion composed of [...] characteristic determined by the Dermatopathology Laboratory at [facility], directed by Dr. Can Vidal. These tests need not be, and therefore are not, approved by the [place] Food and Drug Administration. The tests are used for clinical purposes. Billing Codes Specimen Charges Stain Charges 70285 1 4 3:16 PM CDT DERMATOPATHOLOGY LABORATORY Embedded Images 4 3:16 PM CDT DERMATOPATHOLOGY LABORATORY Pathology/Cytolog y TISSUE SPECIMEN FROM SKIN / Unknown 04/30/2024 05/01/2024 11:25 AM CDT Mario Cruz MD LAB - PATHOLOGY/CYTOLOGY ORDERAB LES Final Result DERMATOPATHOLOGY LABORATORY [facility] - Department of Dermatology [address], [address] [phone] documented in this encounter Visit Diagnoses Not on filedocumented in this encounter Care Teams Tool Engine Lathe Set Up Operator Relationship Specialty Start Date End Date Chico Stanley MD [address] [place] [address] PCP - General 09/26/21 documented as of this encounter
--- OUTSIDE RECORDS SUMMARY | 2025-03-13 16:06 | XMS_ITS | Clinical Summary ---
Author Organization [facility] [employer] Address [address] [facility] [place] [address] Care Team Providers Care Approver Name Role Phone Chico Stanley MD Primary Care Provider [phone] Source Comments [facility],non-owned Affiliates and Associated Physician Practices is amultiple site organization consisting of ambulatory clinics and hospital sitesin [place], [place], [place] and [place]. This disclosure is being madepursuant to the Care Everywhere program and may not contain all information available regarding this patient. Last updated 18.[facility] [employer] Social History Tobacco Use Types Packs/Day Years [...] LIPID TESTING 1950 MAMMOGRAM 1950 MEDICARE AWV 12 MONTHS 1952 HEPATITIS C SCREENING 02/09/1970 DTAP/TDAP/TD VACCINES (1 - Tdap) 02/13/1971 PNEUMOCOCCAL VACCINE 50+ (1 of 1 - PCV) 02/13/2002 ZOSTER VACCINE (1 of 2) 02/13/2002 COVID-19 VACCINE ( - 2023-2 5 season) 2024 DEPRESSION SCREENING 10/22/2024 INFLUENZA VACCINE (Season Ended) 2025 Respiratory Syncytial Virus (RSV) Vaccine Pt: or [...] to complete this topic MENINGOCOCCAL (Group B) VACC INE SHARED DECISION-MAKING Aged Out No longer eligibl e based on patient's age to complete this topic MENINGOCOCCAL GROUPS A/C/Y/W VACCINE Aged Out No longer eligible b ased on patient's age to complete this topic Insurance MEDICARE MEDICARE [employer] MEDICARE AN[employer] MEDICARE Member Subscriber Plan / Payer (Ef fective for All Dates) Name:Lori Belle D Member ID:[id number] Relation to Subscriber:Self Name:Lori Belle Subscriber ID:[id number] Payer ID:Not on file Group ID:Not on file Type:Medicare Address: [address] [place] [phone] ANTHEM Care Teams Approver Relationship Specialty Start Date End Date Chico Stanley MD [address] [place] [address] PCP - General 09/26/21
[2025-03-13 17:19] LABS: Basophils Absolute Auto 0.1 K/mm3 (0.0-0.1); Basophils Percent Auto 0.6 % (0.2-1.2); Eosinophils Absolute Auto 0.1 K/mm3 (0-0.3); Hematocrit 39.8 % (37.0-47.0); Hemoglobin 12.8 g/dL (12.0-15.0); Immature Granulocyte Absolute 0.06 K/mm3 (0.00-0.031); Immature Granulocyte Percent A 0.7 % (0-0.5); Lymphocytes Absolute Auto 2.92 K/mm3 (0.9-3.2); Lymphocytes Percent Auto 35.8 % (18.3-44.2); Mean Corpuscular HGB Conc 32.2 g/dl (32-36); Mean Corpuscular Hemoglobin 29.5 pg (26-34); Mean Corpuscular Volume 91.7 fl (80-100); Mean Platelet Volume 9.4 fl (7.4-10.4); Monocytes Absolute Auto 0.6 K/mm3 (0.1-0.6); Monocytes Percent Auto 7.2 % (2.6-8.5); Neutrophils Absolute Auto 4.5 K/mm3 (1.3-6.7); Neutrophils Percent Auto 54.7 % (45.5-73.1); Platelet Count Result 155 k/mm3 (150-375); Red Blood Count 4.34 M/mm3 (4.2-5.4); Red Cell Distribution Width 16.2 % (11.5-14.5); White Blood Count 8.2 K/mm3 (4.5-10.0)
[2025-03-13 17:30] LABS: Alanine Aminotransferase 21 U/L (6-35); Albumin Level 4.4 g/dL (3.5-5.1); Alkaline Phosphatase 54 U/L (38-126); Anion Gap 6 mmol/L (4-12); Aspartate Amino Transferase 25 U/L (14-36); Bilirubin,Total 0.6 mg/dL (0.2-1.3); Blood Urea Nitrogen 33 mg/dL (7-17); Carbon Dioxide 30 mmol/L (22-30); Chloride 104 mmol/L (98-107); Estimated Glomerular Filt Rate 30; Glucose 67 mg/dL (65-110); Potassium 4.3 mmol/L (3.4-5.0); Sodium 140 mmol/L (137-145)
[2025-03-13 17:37] LABS: Hemoglobin A1C 6.2 % (<5.7)
== END 2025-03-13 16:03 | disposition home or self-care (01) ==
PROVIDERS: PCP Family Medicine; Visit Provider Physician Assistant
DX: E11.65 Type 2 diabetes mellitus with hyperglycemia (principal); N20.0 Calculus of kidney; Z87.442 Personal history of urinary calculi
CPT/HCPCS: 36415; 74176; 80053; 83036; 85025

== ENCOUNTER 2025-03-17 09:49 | Outpatient (CLI) | payer MEDICARE, SELFPAY ==
--- NOTE | ~2025-03-17 | CT_ITS ---
CT Scan of the Chest without Contrast: Clinical Indication: Lung cancer screening, nicotine dependence Technique: Contiguous sections were acquired throughout the chest without intravenous contrast. Dose reduction technique was used on this scan by utilizing automated exposure control and iterative recon struction technique. The dose-length product (DLP) was 190.33 mGy-cm. COMPARISON: 03/10/2024 Findings: There is no evidence of any significant mediastinal, hilar or axillary lymphadenopathy. There are ext ensive atherosclerotic calcifications of the aorta and coronary arteries. There is no evidence of pleural or pericardial effusion. There is right middle lobe atelectasis. No pulmonary nodule evident. Images through the upper abdomen reveal no abnormalities. Impression: Lung RADS 2-S: Benign appearance. 12 month follow-up screening CT advised. Right middle lobe atelectasis. Reviewed, dictated and finalized at [facility]. Impression: Lung RADS 2-S: Benign appearance. 12 month follow-up screening CT advised. Right middle lobe atelectasis.
--- OUTSIDE RECORDS SUMMARY | 2025-03-17 09:53 | XMS_ITS | Encounter Summary ---
Author Organization [facility] Address [address] [place] [address] Care Team Providers Care Network Controller Name Role Phone Chico Stanley MD Primary Care Provider Encounter Details Date Type Department Care Team (Late st Contact Info) Description 05/01/2024 Lab Requisition [facility] - DermPath Lab [address] [place] [address] Mario Cruz MD [address] [place], [place] [id number] Social History Tobacco Use Types Packs/Day Years [...] AM CDT) Case Report Dermatopathology Report Case: [id number] Authorizing Provider: Mario Cruz MD Collected: 04/30/2024 12:00 AM Ordering Location: [facility] - Received: 05/01/2024 11:25 [...] characteristic determined by the Dermatopathology Laboratory at [facility], directed by Dr. Can Vidal. These tests need not be, and therefore are not, approved by the [place] Food and Drug Administration. The tests are used for clinical purposes. Billing Codes Specimen Charges Stain Charges 43449 1 4 3:16 PM CDT DERMATOPATHOLOGY LABORATORY Embedded Images 4 3:16 PM CDT DERMATOPATHOLOGY LABORATORY Pathology/Cytolog y TISSUE SPECIMEN FROM SKIN / Unknown 04/30/2024 05/01/2024 11:25 AM CDT Mario Cruz MD LAB - PATHOLOGY/CYTOLOGY ORDERAB LES Final Result DERMATOPATHOLOGY LABORATORY [facility] - Department of Dermatology [address], [address] [phone] documented in this encounter Visit Diagnoses Not on filedocumented in this encounter Care Teams Network Controller Relationship Specialty Start Date End Date Chico Stanley MD [address] [place] [id number] PCP - General 09/26/21 documented as of this encounter
--- OUTSIDE RECORDS SUMMARY | 2025-03-17 09:53 | XMS_ITS | Clinical Summary ---
Author Organization [facility] [employer] Address [address] [facility] [place] [address] Care Team Providers Care Louver Door Assembler Name Role Phone Chico Stanley MD Primary Care Provider [phone] Source Comments [facility],non-owned Affiliates and Associated Physician Practices is amultiple site organization consisting of ambulatory clinics and hospital sitesin [place], [place], [place] and [place]. This disclosure is being madepursuant to the Care Everywhere program and may not contain all information available regarding this patient. Last updated 18.[facility] [employer] Social History Tobacco Use Types Packs/Day Years [...] for All Dates) Name:Lori Belle D Member ID:[id number] Relation to Subscriber:Self Name:Lori Belle Subscriber ID:[id number] Payer ID:Not on file Group ID:Not on file Type:Medicare Address: [address] [place] [phone] [place] Care Teams Louver Door Assembler Relationship Specialty Start Date End Date Chico Stanley MD [address] [place] [address] PCP - General 09/26/21
--- OUTSIDE RECORDS SUMMARY | 2025-03-17 09:53 | XMS_ITS | Referral Summary ---
Author Organization [facility] [address] [facility] [address] Address [address] [place] [address] Care Team Providers Care Roadside Mechanic Name Role Phone Chico Stanley MD Primary Care Provider Encounters Date Type Department Care Team Description 03/04/2025 11:30 AM CDT Office Visit [facility] Cardiology [address] [facility] [address] [place] [address] Richard Duran MD Pulmonary hypertension [...] AREDS ORAL) Take by mouth Acti ve multivit-ampoule examiner als/folic acid (CENTRUM ADULTS ORAL) Take [...] on file Legal Sex Female 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
--- OUTSIDE RECORDS SUMMARY | 2025-03-17 09:53 | XMS_ITS | Clinical Summary ---
Author Organization [facility] [address] [place] [address] Care Team Providers Care Capping Machine Operator Name Role Phone Chico Stanley [...] AREDS ORAL) Take by mouth Acti ve multivit-credit union field examiner als/folic acid (CENTRUM ADULTS ORAL) Take [...] Description 03/04/2025 11:30 AM CDT Office [address] 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
== END 2025-03-17 09:50 | disposition home or self-care (01) ==
LOC: ANHIMG 09:49
PROVIDERS: PCP Family Medicine; Visit Provider Physician Assistant
DX: Z12.2 Encounter for screening for malignant neoplasm of respiratory organs (principal); Z87.891 Personal history of nicotine dependence; R91.8 Other nonspecific abnormal finding of lung field
CPT/HCPCS: 71271

== ENCOUNTER 2025-03-19 11:36 | Outpatient (CLI) | payer MEDICARE, SELFPAY ==
--- NOTE | ~2025-03-19 | US_ITS ---
Pelvic ultrasound. Clinical History: Other noninflammatory disorder of ovary/fallopian tube Technique: Realtime transabdominal scanning of the pelvis was performed. Color flow Doppler and Doppl er spectral analysis were performed. Findings: The uterus is anteverted. The endometrial stripe has a thickness of 4 mm. No focal mass is identified. Right ovary measures 8.2 x 6.7 x 10.3 cm. Simple right ovarian cyst measures 7.0 x 5.8 x 6.0 cm. The left ovary is not visualized. No significant left ovarian or adnexal mass is seen. There is no evidence of free fluid in the cul de sac. Impression: 7.0 x 5.8 x 6.0 cm simple appearing right ovarian cyst. This is abnormal given patient age. Gynecolog ic follow-up advised. At a minimum, annual follow-up ultrasound recommended. Consider surgical resect ion or pre and postcontrast MR to further assess for any possible solid component of the lesion. Reviewed, dictated and finalized at location . Impression: 7.0 x 5.8 x 6.0 cm simple appearing right ovarian cyst. This is abnormal given patient age. Gynecologic follow-up advised. At a minimum, annual follow-up ultr asound recommended. Consider surgical resection or pre and postcontrast MR to monika zimmer assess for any possible solid component of the lesion.
== END 2025-03-19 11:37 | disposition home or self-care (01) ==
PROVIDERS: PCP Family Medicine; Visit Provider Family Medicine
DX: N83.8 Other noninflammatory disorders of ovary, fallopian tube and broad ligament (principal); N83.201 Unspecified ovarian cyst, right side
CPT/HCPCS: 76856

== ENCOUNTER 2025-04-15 15:25 | Outpatient (CLI) | payer MEDICARE, SELFPAY ==
--- NOTE | ~2025-04-15 | MM_ITS ---
EXAMINATION: MM screening [facility] BI w salazar HISTORY: Screening mammogram TECHNIQUE: Craniocaudal and mediolateral oblique 3-D tomosynthesis images were obtained and synthetic 2-D images were generated. CAD analysis was submitted and interpreted. COMPARISON: 03/27/2024, 01/23/2023, 11/03/2021 BREAST PARENCHYMAL COMPOSITION:Not Dense. There are scattered areas of fibroglandular density. FINDINGS: No suspicious mass, calcification, or architectural distortion are identified in either ida ast to suggest malignancy. There has been no suspicious interval change. IMPRESSION: No mammographic evidence of malignancy. Recommend routine screening mammography in one year. BI-RADS Category 1: Negative Reviewed, dictated and finalized at location .
== END 2025-04-15 15:26 | disposition home or self-care (01) ==
LOC: ANHIMG 15:28
PROVIDERS: PCP Family Medicine; Visit Provider Family Medicine
DX: Z12.31 Encounter for screening mammogram for malignant neoplasm of breast (principal)
CPT/HCPCS: 77063; 77067

== ENCOUNTER 2025-09-18 12:13 | Outpatient (CLI) | payer MEDICARE, SELFPAY ==
--- OUTSIDE RECORDS SUMMARY | 2025-09-18 12:16 | XMS_ITS | Clinical Summary ---
Author Organization [facility] [address] Address [address] [place] [address] Care Team Providers Care Equal Employment Opportunity Officer Name Role Phone Chico Stanley MD Primary Care Provider José Miguel De Luna MD Unavailable [phone] Allergies Active Allergy Reactions Criticality Noted Date Comments Fenofibrate Rash Medium 01/11/2024 Medications gabapentin (NEURONTIN) 100 mg capsuleIndicatio ns:Neuropathic Pain Take 1 capsule (100 mg total) by mouth nightly 3 Active glimepiride (AMARYL) 4 mg tabletIndication s:type 2 diabetes mellitus Take 1 tablet (4 mg total) by mouth every morning Active Tradjenta 5 mg tabletIndication s:type 2 diabetes mellitus Take 1 tablet (5 mg total) by mouth every morning 4 Active losartan (COZAAR) 100 mg tabletIndication s:hypertension Take 1 tablet (100 mg total) by mouth manager of disaster recovery before breakfast Active metoprolol tartrate (LOPRESSOR) 25 mg immediate release tabletIndication s:hypertension Take 1 tablet (25 mg total) by mouth every 12 (twelve) hours 4 Active pravastatin (PRAVACHOL) 40 mg tabletIndication s:hyperlipidemia Take 1 tablet (40 mg total) by mouth every evening Active vit A/vit C/vit E/zinc/copper (PRESERVISION AREDS ORAL)Indications :eye supplement Take 1 capsule by mouth 2 (two) times a day Active multivit-mineral s/folic acid (CENTRUM ADULTS ORAL) Take 1 tablet by mouth manager of disaster recovery before breakfast Active albuterol HFA (PROVENTIL HFA,VENTOLIN HFA,PROAIR HFA) 90 mcg/actuation inhalerIndicatio ns:Chronic Obstructive Pulmonary Disease Inhale 1 puff as needed for shortness of breath Active Kanika Vacaphere 160-9-4.8 mcg/actuation inhalerIndicatio ns:Bronchospasm Prevention with COPD Inhale 2 puffs 2 (two) times a day 4 Active potassium citrate ER (UROCIT-K) 10 mEq (1,080 mg) CR tabletIndication s:supplement Take 1 tablet (10 mEq total) by mouth 2 (two) times a day 5 Active Jardiance 25 mg tabletIndication s:Chronic Kidney Disease,type 2 diabetes mellitus Take 1 tablet (25 mg total) by mouth manager of disaster recovery before breakfast 5 Active VITAMIN B COMPLEX ORALIndications: supplement Take 1 tablet by mouth manager of disaster recovery before breakfast Active cholecalciferol, vitamin D3, (VITAMIN D3 ORAL)Indications :TII DM Take 1 tablet by mouth manager of disaster recovery before breakfast Active fluticasone propionate (FLONASE) 50 mcg/actuation nasal sprayIndications :Allergic Rhinitis Administer 1 spray into each nostril daily as needed for allergies Active acetaminophen (TYLENOL) 500 mg tabletIndication s:Pain Take 2 tablets (1,000 mg total) by mouth every 6 (six) hours as needed for pain 60 tablet 5 Active cyclobenzaprine (FLEXERIL) 5 mg tablet Take 1 tablet (5 mg total) by mouth 3 (three) times a day as needed for muscle spasms 60 tablet 5 Active lidocaine (LIDODERM) 5 % Place 1 patch on the skin daily for 12 hours Remove & discard patch within 12 hours or as directed by . 30 patch 5 Active polyethylene glycol (MIRALAX) 17 gram/dose bulk powder Take 17 g by mouth daily 238 g 5 5 Active Additional Information Patient not taking.Reported on 07/20/2025 Eliquis 5 mg tablet TAKE 1 TABLET(5 MG) BY MOUTH TWICE DAILY 60 tablet 3 5 Active estradioL (ESTRACE) 0.01 % (0.1 mg/gram) vaginal cream 5 Active Active Problems Problem Noted Date Diagnosed Date Encounter for postoperative care 06/04/2025 Cyst of right ovary 05/12/2025 Chronic obstructive pulmonary disease 05/11/2025 Overview (05/11/2025): Phreesia 01/07/2024 Pulmonary hypertension 08/06/2024 Hypertension associated with diabetes 08/06/2024 Chronic anticoagulation 08/06/2024 Atrial fibrillation 08/06/2024 BARBARA (obstructive sleep apnea) 08/06/2024 Encounters Date Type Department Care Team Description 09/11/2025 11:15 AM FOREIGN SERVICE TEACHER Office Visit [facility] Cardiology [address] [place] [address] Richard Duran MD Atrial fibrillation, unspecified type (HCC) (Primary Dx); Hypertension associated with diabetes (HCC); Pulmonary hypertension (HCC); Chronic anticoagulation; BARBARA (obstructive sleep apnea) 07/20/2025 9:00 AM CDT Office Visit [facility] Ob[facility]etrics [facility]necology [address] [place] [address] Lily Mendiola NP Postop check (Primary Dx) 06/19/2025 2:40 PM CDT Office Visit [facility] [address] [place] [address] Nathalia Maza MD Postop check (Primary Dx); Cyst of right ovary 06/18/2025 Telephone [facility] [address] [place] [address] Rowan Streeter, RN 06/18/2025 Telephone [facility] [address] [facility] [place] [address] Rowan Streeter, RN from Last 3 Months Immunizations Immunization Administration Dates Next Due Influenza, Quadrivalent, Hig h Dose, Preservative Free, Intrr 06/26/2023,06/22/2022,07/09/2021 Influenza, Split 08/18/2013 Influenza, Trivalent, Adjuva nted, Intramuscular 06/12/2019 Influenza, Trivalent, High D ose, Split, Preservative Free, Intramuscular 06/27/2018,06/30/2017 Influenza, Trivalent, IM (MDV) 07/15/2014,2008 Influenza, Trivalent, Preser vative Free, Intramuscular 07/01/2020,06/22/2016,07/22/2015 Pneumococcal Conjugate Pcv20 08/22/2022 RSV, Bivalent, Protein Subun it Rsvpref, Diluent (Abrysvo) 07/18/2023 Surgical History Surgery Date Site/Laterality Comments CHOLECYSTECTOMY JOINT REPLACEMENT 10/2022 APPENDECTOMY CATARACT EXTRACTION Medical History Medical History Date Comments Hypertension Hyperlipidemia Diabetes mellitus Sleep apnea uses bipap COPD (chronic obstructive pulmonary disease) Cataract Emphysema of lung Chronic bronchitis (HCC) Kidney stone 12/2023 Palpitations Anemia Family History Medical History Relation Name Comments Liver disease Brother Kidney failure Father COPD Mother Relation Name Status Comments Brother Father Mother Social History Tobacco Use Types Packs/Day Years Used Date Smoking Tobacco: Former Cigarettes 1.5 17.2 0 01/09/2000 - 03/24/2017 Smokeless Tobacco: Never Tobacco Cessation:Counseling Given: Not Answered Alcohol Use Standard Drinks/Week Comments Never 0 (1 standard drink = 0.6 oz pur e alcohol) AUDIT-C Answer Date Recorded Q1: How often do you have a drink containing alcohol? Never 06/04/2025 Q2: How many drinks containi ng alcohol do you have on a typical day when you are drinking? Patient does not drink Q3: How often do you have si x or more drinks on one occasion? Never 06/04/2025 Personal Safety Answer Date Recorded Have you ever been in or are you currently in a harmful physical or emotional relationship or is someone making you feel afraid or unsafe? Denies 06/04/2025 Comments No Sex and Gender Information Value Date Recorded Sex Assigned at Not on file Legal Sex Female 2:51 AM FOREIGN SERVICE TEACHER Gender Identity Female 08/06/2024 1:07 PM CDT Sexual Orientation Choose not to disclose 2023 1:07 PM CDT Obstetrics History Para Term AB IAB SAB Ectopic Multiple Livin g Live Births 1 1 1 1 Date Outcome GA Total Labor Labor/2nd/3rd Weight Sex Type Anes PTL Kim A1 A5 Name Clin Term Last Filed Vital Signs Vital Sign Reading Time Taken Comments Blood Pressure 138/66 09/11/2025 10:58 AM FOREIGN SERVICE TEACHER Pulse 51 09/11/2025 10:58 AM FOREIGN SERVICE TEACHER Temperature 36.6 C (97.8 F) 07/20/2025 8:45 AM CDT Respiratory Rate 16 07/20/2025 8:45 AM CDT Oxygen Saturation 93% 09/11/2025 10:58 AM FOREIGN SERVICE TEACHER Inhaled Oxygen Concentration - - Weight 89.8 kg (198 lb) 09/11/2025 10:58 AM FOREIGN SERVICE TEACHER Height 165.1 cm (5' 5) 09/11/2025 10:58 AM FOREIGN SERVICE TEACHER Body Mass Index 32.95 09/11/2025 10:58 AM FOREIGN SERVICE TEACHER Plan of Treatment Health Maintenance Due Date Last Done Comments Albumin Creatinine Ratio, Urine 1952 Breast Cancer Screening-Mammogram 1952 Colon Cancer Screening-Colonoscopy 1950 Depression Screening 1950 Hepatitis C Screening 1950 Osteoporosis Screening-Bone Density Scan 1952 Dilated Eye Exam 1952 Foot Exam 1952 DTaP/Tdap/Td Vaccine (1 - Tdap) 02/13/1963 Hepatitis B Screening 02/13/1970 Lung Cancer Screening 02/13/2002 Zoster Vaccine (1 of 2) 02/13/2002 Well Visit 65+ 02/13/2017 Covid-19 Vaccine (7 - 2024-2 6 season) 2025 07/18/2023, 08/22/2022, 03/08/2022, Additional history exists Influenza Vaccine (#1) 2025 , 06/22/2022, 07/09/2021, Additional history exists Hemoglobin A1C 11/28/2025 05/28/2025 Lipid Panel 03/04/2026 03/04/2025, 01/16/2024 eGFR 06/04/2026 06/04/2025, 05/28/2025 Fall Risk Assessment 06/05/2026 06/05/2025 Pneumococcal vaccine 65+ Completed 08/22/2022 Procedures Procedure Name Priority Date/Time Associated Diagnosis Comments EGFR Timed 06/04/2025 9:47 PM CDT POCT HEMOGLOBIN A1C Routine 05/28/2025 8 :36 AM CDT POCT LIPID PANEL Routine 03/04/2025 11:3 5 AM CDT Lipid screening from Last 3 Months or Most Recently Relevant to Health Maintenance Results * (ABNORMAL) eGFR (06/04/2025 9:47 PM CDT) eGFR 40(L) >=60 mL/min/1. 73 m2 Comment: Interpretive Data Reference Interval Normal >/= 90 mL/min/1.73m2 Mildly decreased* 60 - 89 mL/min/1.73m2 Mildly to moderately decreased 45 - 59 mL/min/1.73m2 Moderately to severely decreased 30 - 44 mL/min/1.73m2 Severely decreased 15 - 29 mL/min/1.73m2 Kidney Failure < 15 mL/min/1.73m2 *Relative to young adult level Estimated glomerular filtration rate is determined by the 2020 CKD-EPI equation recommended by the National Kidney Foundation (A Unifying Approach to GFR Estimation: Recommendations of the NKF-ASK Task Force on Reassessing the Inclusion of Race in Diagnosing Kidney Disease, JASN 2020). The CKD-EPI equation should not be used for patients with unstable renal function and has not been validated in children and those over 70. Current interpretive data was last reviewed 2021. Blood 06/04/2025 9:47 PM CDT 06/04/2025 10:27 PM CDT us Madonna Whitman MD LAB BLOOD ORDERABLES Fi nal Result TREY MUNOZ [facility] Department [place] [address] * (ABNORMAL) POCT hemoglobin A1c (05/28/2025 8:36 AM CDT) Hgb A1C, POC 6.3(H) 4.0 - 5.6 % Est Average Gluc POC 134 mg/dL TREY RICHEY Comment: The ADA recommends reporting an estimated Average Glucose (eAG) with all Hemoglobin A1c results using the equation derived from a study of 507 normal and diabetic adults. Minority populations were underrepresented and children were not included. (Diabetes Care 31:5433-2038, 2008). The eAG is not equivalent to a fasting glucose. Blood 05/28/2025 8:36 AM CDT 05/28/2025 8:36 AM CDT us Notinfile Unknown POINT OF CARE TEST ORDERABLES Final Result [facility] [place] [address] * (ABNORMAL) POCT lipid panel (03/04/2025 11:35 [...] BLES Final Result from Last 3 Months or Most Recently Relevant to Health Maintenance Insurance MEDICARE [facility] MEDICARE SUPPLEMENT MEDICARE [facility] MEDICARE SUPPLEMENT Advance Directives For more information, please contact: [phone] * Full Code (Latest Code Status on File) Date Activated Date Inactivated Comments 06/04/2025 8:48 PM 06/05/2025 2:55 PM Care Teams Equal Employment Opportunity Officer Relationship Specialty Start Date End Date Chico Stanley MD [address] [place] [address] PCP - General Family Medicine 12/24/23 José Miguel De Luna MD [address] [place] [address] Consulting Physician Obstetrics and Gynecology 07/08/25
--- OUTSIDE RECORDS SUMMARY | 2025-09-18 12:16 | XMS_ITS | Clinical Summary ---
Author Organization [facility] [employer] Address [address] [facility] [facility] [place] [address] Care Team Providers Care Director Surface Transportation Name Role Phone Chico Stanley MD Primary Care Provider Source Comments [facility],non-owned Affiliates and Associated Physician Practices is amultiple site organization consisting of ambulatory clinics and hospital sitesin [place], [place], [place] and [place]. This disclosure is being madepursuant to the Care Everywhere program and may not contain all information available regarding this patient. Last updated 18.[facility] [employer] Social History Tobacco Use Types Packs/Day Years [...] 02/13/2002 ZOSTER VACCINE (1 of 2) 02/13/2002 DEPRESSION SCREENING 10/22/2024 COVID-19 VACCINE (1 - 2024-2 6 season) 2025 INFLUENZA VACCINE (#1) 2025 Respiratory Syncytial Virus (RSV) Vaccine Pt: [...] Insurance MEDICARE MEDICARE ANTHEM MEDICARE ANTHEM MEDICARE ANTHEM Care Teams Director Surface Transportation Relationship Specialty Start Date End Date Chico Stanley MD [address] [place] [address] PCP - General 09/26/21
[2025-09-18 13:02] LABS: Influenza A QL RT-PCR Negative (Negative); Influenza B QL RT-PCR Negative (Negative); SARS-CoV-2 RNA PCR Negative (Negative)
== END 2025-09-18 12:14 | disposition home or self-care (01) ==
PROVIDERS: PCP Family Medicine
DX: R50.9 Fever, unspecified (principal); R05.9 Cough, unspecified; Z20.822 Contact with and (suspected) exposure to COVID-19
CPT/HCPCS: 87636